=== PATIENT | male | born 1955 | race Caucasian/White ===

== ENCOUNTER 2016-03-10 18:35 | Observation (INO) | payer MEDICARE, MEDICAID ==
[2016-03-10] MEDS ORDERED: NORMAL SALINE 1,000 ML IV PRN (18:48)
[2016-03-10] MEDS ORDERED: ONDANSETRON HCL/PF 2 MG/ML VIAL IV ONE (18:50)
--- NOTE | 2016-03-10 18:58 | ERNOTE ---
Medical Problem HPI - Narrative Date of Service: 03/10/16 - General Chief Complaint: Flu Symptoms Time Seen by Provider: 03/10/16 18:42 Source: patient Exam Limitations: no limitations - Immun/Allergies/Home Medications Immunizations: IMMUNIZATION HX Immunizations Up to Date Yes History of Influenza Vaccine Yes Hx Pneumococcal Vaccination Yes Allergies/Adverse Reactions: Allergies No Known Allergies Allergy (Verified 01/13/16 17:03) Home Medications: HOME MEDICATIONS Acetaminophen [Tylenol] 650 mg PO QID PRN #0 tablet 01/15/16 [Last Taken Unknown ] Aspirin [Aspirin Enteric Coated] 81 mg PO DAILY #30 tablet. 01/15/16 [Last Taken Unknown] Foam Bandage [Mepilex Border] 1 each TP DAILY #30 bandage 01/15/16 [Last Taken Unknown] Hydrophilic Ointment [Aquaphilic Ointment] 1 appl TP BID #1 jar 01/15/16 [Last Taken Unknown] Insulin Detemir [Levemir Flextouch] 40 unit SQ BID 30 Days 01/15/16 [Last Taken Unknown] Insulin Lispro [Humalog] 0 - 30 units SQ ACHS 30 Days 01/15/16 [Last Taken Unknown] Metoclopramide HCl [Reglan] 10 mg PO ACHS #120 tablet 01/15/16 [Last Taken Unknown] Metoprolol Succinate [Toprol Xl] 50 mg PO DAILY #30 tab 01/15/16 [Last Taken Unknown] Mupirocin [Bactroban] 1 appl TP BID #1 tube 01/15/16 [Last Taken Unknown] Pravastatin Sodium [Pravachol] 80 mg PO DAILY #30 tablet 01/15/16 [Last Taken Unknown] Rifampin [Rifadin] 300 mg PO BID #20 capsule 01/15/16 [Last Taken Unknown] - History of Present History Narrative: As then some nausea vomiting and diarrhea that's been going on for the past few days, he is unable to hold anything down and he's not been taking his insulin. He is insulin-dependent diabetic.. Weak dizzy lightheaded. Although he denies any chest pain he is having some abdominal cramping.. Blood in his stools he's vomited quite a few times and has had diarrhea as stated. Fever and nasal congestion runny nose no cough no chest pain or shortness of breath Date (Duration): 03/03/16 Timing: intermittent Review of Systems - Review of Systems Constitutional: Absent: fever, chills, diaphoresis, weakness, fatigue, malaise EYE: Absent: double vision Cardiology: Absent: chest pain, palpitations Gastrointestinal/Abdominal: Present: vomiting, diarrhea, abdominal pain. Absent : nausea, constipation Musculoskeletal: Absent: back pain, muscle pain All Other Systems: All systems neg except as marked - Patient's Past Medical History Patient History - Medical: Alcohol Abuse, Diabetes Type 2 Patient History - Cardiac/Respiratory: Hypertension Patient History - Cancer: Colon Patient History - Surgical Procedures: Amputation, Back Surgery, Colon Resection Patient History - Other: None - Family History Mother Family History - Medical: History Unknown Family History - Cardiac/Respiratory: History Unknown Father Family History - Medical: - Social History Living Situations: alone Abuse History: No History of abuse Psych History: No pertinent hx Alcohol Use: sober Drug Use: none - Immunizations Immunizations Up to Date: Yes Hx Pneumococcal Vaccination: Yes History of Influenza Vaccine: Yes Physical Exam - Physical Exam General Appearance: Present: wd/wn, alert, no apparent distress Ears, Nose, Throat: Present: normal ENT inspection, hearing grossly normal, normal pharynx Neck: Present: normal inspection, nontender Respiratory: Present: no respiratory distress, normal breath sounds, no accessory muscle use, chest nontender, lungs clear Cardiovascular/Chest: Present: regular rate, rhythm, no murmur, normal peripheral pulses Gastrointestinal/Abdominal: Present: normal bowel sounds, nontender, nondistended, soft, no organomegaly, hernia - does have a ventral hernia which is reducible. Non-Tender ED Progress - Results and Orders Patient's Lab Results:: I have reviewed the patient's lab results. - Vital Signs Patient's Vital Signs:: I have reviewed the patient's vital signs. Vital Signs: Vital Signs 03/10/16 18:38 Temperature 35.7 C L Pulse Rate 100 Respiratory 18 Rate Blood Pressure 148/80 O2 Sat by Pulse 100 Oximetry - EKG EKG: RBBB EKG read: Reviewed by me EKG Comments: Rate 94 sinus rhythm right bundle branch block acute changes seen - Progress/Reassessment Chief Complaint: Flu Symptoms Progress:: Improved - Transfer of Care Expected Disposition: Admit Departure - Departure Clinical Impression: Stage 3 chronic kidney disease due to type 2 diabetes mellitus, Dehydration, Insulin dependent diabetes mellitus, Gastroenteritis Disposition: [facility] Condition: Stable Additional Instructions: Will be admitted to the hospital observation for fluid hydration or Julieth LEE
[2016-03-10] MEDS ORDERED: ONDANSETRON HCL/PF 2 MG/ML VIAL ONE (19:12)
[2016-03-10 19:13] LABS: Hematocrit 42.8 % (42.0-52.0); Hemoglobin 14.8 gm/dL (13.5-18.0); Mean Cell Volume 85.4 fl (78-100); Mean Corpuscular Hemoglobin 29.5 pg (27-31); Mean Corpuscular Hgb Conc 34.6 g/dl (32-36); Mean Platelet Volume 9.7 fl (6.0-9.5); Neutrophil # 6.2 K/mm3 (1.3-6.0); Neutrophil % 74.8 % (42-75.0); Platelet Count 302 K/mm3 (150-450); Red Blood Count 5.01 M/mm3 (4.7-6.0); Red Cell Distribution Width 12.4 % (11.5-14.0); White Blood Count 8.3 K/mm3 (4.0-10.5)
[2016-03-10 19:35] LABS: Urine Bilirubin Negative (NEGATIVE); Urine Ketone 15 mg/dL (NEGATIVE); Urine Nitrite Negative (NEGATIVE); Urine Protein 30 mg/dL (NEGATIVE); Urine Urobilinogen Normal (NORMAL)
[2016-03-10 19:36] LABS: ALT 34 U/L (19-67); AST 25 U/L (0-48); Albumin * 3.6 gm/dl (3.4-5.0); Alkaline Phosphatase * 51 U/L (50-170); Anion Gap 16.9 mmol/L (6.8-13.8); BUN/Creatinine Ratio 12.6 (9.0-21.6); Bilirubin, Total 0.6 mg/dL (0.0-1.1); Blood Urea Nitrogen 22 mg/dL (6-23); Ca. Corrected For Albumin 8.7 mg/dL (8.4-10.2); Calcium * 8.7 mg/dL (7.9-10.9); Chloride 97 mmol/L (97-106); Glucose * 263 mg/dL (70-110); Lipase 95 U/L (73-393); Potassium 3.9 mmol/L (3.4-4.6); Sodium 136 mmol/L (132-142); Total Protein 7.6 gm/dL (6.2-8.2)
[2016-03-10 19:37] LABS: Troponin I Less than 0.017 ng/ml (0.00-0.10)
[2016-03-10 19:48] LABS: Urine Appearance Clear; Urine Blood 10 /ul (NEGATIVE); Urine Color Yellow
[2016-03-10 19:49] LABS: Urine Bacteria TRACE; Urine RBC 0-5 /hpf (0-5)
[2016-03-10 19:50] LABS: Urine Yeast TRACE
--- NOTE | 2016-03-10 20:58 | HP ---
<Julieth Pichardo - Last Filed: 03/10/16 23:04> Chief Complaint - Chief Complaint Date of Service: 03/10/16 Time of Service: 22:26 Chief Complaint: n/v/d History of Present Illness: Pt is a 60 year old male with a PMH significant for DMII, HTN, and previous MRSA. He presented to the ER with complaints of n/v/d. He states () night he started feeling nauseated, this continued into Wednesday morning and he was unable to keep anything down except water. It progressively got worse and worse. He states he had diarrhea on Wednesday and Wednesday, however has been free today. He did not take anything at home prior to this for his symptoms. Denies fevers, abdominal pain, recent sick contacts, sore throat, cough, or noting any blood in stool or emesis. +chills and increased thirst. Hasn't been taking his insulin since as he ran out of his test strips and didn't want to take any on account of being sick. Denies any alleviating or aggravating symptoms. BS have been running 160-235 at home prior to this. Was recently admitted two months ago for DKA. Sees Dr. Laguerre once a month for chronic left foot ulcer. No increased drainage, erythema, or warmth noted to the area per patient. Currently has daily dressing changes with silvadene application. In the ER laboratory findings were as followed: glucose 253, anion gap 16.9, BUN/creat 22/1.75, K+3.9, Na+136, WBC 8.3, H/H 14.8/42.8. Vital signs stable. Abdominal xray without any acute pathologies. He was still unable to tolerate oral intake during ER course, therefore he will be admitted to observation overnight with lactic acidosis, gastroparesis and elevated glucose. - Patient's Past Medical History Patient History - Medical: Alcohol Abuse - in remission. stopped drinking in 2005, Diabetes Type 2 Patient History - Cardiac/Respiratory: Hypertension Patient History - Cancer: Colon Patient History - Surgical Procedures: Amputation - Right little toe amputation d/t DM, Back Surgery - fell injuring his lower back, resulting in right leg weakness. Resolved with back surgery per Dr. He in [place]. , Colon Resection - 2ft resected in [place], Colonoscopy Patient History - Other: None - Family History Mother Family History - Medical: History Unknown Family History - Cardiac/Respiratory: History Unknown Family History - Cancer: History Unknown Father Family History - Medical: Family History - Cancer: History Unknown - Social History Living Situations: alone Abuse History: Hx of Substance Use - ETOH Psych History: No pertinent hx Does anyone smoke in the home?: No Smoking Status: Former smoker - quit 1990s Have you smoked in the past 12 months: No Do you dip or chew tobacco: No Alcohol Use: sober Drug Use: none - Immunizations Immunizations Up to Date: Yes Hx Pneumococcal Vaccination: Yes History of Influenza Vaccine: Yes Review Of Systems (GEN) - Review of Systems Generalized/Overall Review: Present: No Symptoms Reported EENTM: Present: No Symptoms Reported Respiratory: Present: No Symptoms Reported Cardiac: Present: No Symptoms Reported Abdominal: Present: No Symptoms Reported Genitourinary: Present: No Symptoms Reported Musculoskeletal: Present: No Symptoms Reported Neurological: Present: No Symptoms Reported Skin: Present: No Symptoms Reported Endocrine: Present: No Symptoms Reported Allergies/Adverse Reactions: Allergies Allergy/AdvReac Type Severity Reaction Status Date / Time No Known Allergies Allergy Verified 01/13/16 17:03 Home Medications: HOME MEDICATIONS Acetaminophen [Tylenol] 650 mg PO QID PRN #0 tablet 01/15/16 [Last Taken Unknown ] Aspirin [Aspirin Enteric Coated] 81 mg PO DAILY #30 tablet. 01/15/16 [Last Taken Unknown] Foam Bandage [Mepilex Border] 1 each TP DAILY #30 bandage 01/15/16 [Last Taken Unknown] Hydrophilic Ointment [Aquaphilic Ointment] 1 appl TP BID #1 jar 01/15/16 [Last Taken Unknown] Insulin Detemir [Levemir Flextouch] 40 unit SQ BID 30 Days 01/15/16 [Last Taken Unknown] Metoclopramide HCl [Reglan] 10 mg PO ACHS #120 tablet 01/15/16 [Last Taken Unknown] Metoprolol Succinate [Toprol Xl] 50 mg PO DAILY #30 tab 01/15/16 [Last Taken Unknown] Mupirocin [Bactroban] 1 appl TP BID #1 tube 01/15/16 [Last Taken Unknown] Pravastatin Sodium [Pravachol] 80 mg PO DAILY #30 tablet 12/07/16 [Last Taken Unknown] Rifampin [Rifadin] 300 mg PO BID #20 capsule 01/15/16 [Last Taken Unknown] Insulin Lispro [Humalog] 0 - 30 units SQ ACHS 30 Days 03/11/16 [Last Taken Unknown] Silver Sulfadiazine [Silvadene] 1 appl TP DAILY jar 03/11/16 [Last Taken Unknown] Exam - Exam Vital Signs: Vital Signs - Last Taken Temp 35.7 C L 03/10/16 18:38 Pulse 88 03/10/16 20:00 Resp 18 03/10/16 20:00 BP 156/84 03/10/16 20:00 Pulse Ox 97 RA 03/10/16 20:00 Constitutional: Present: Alert, Oriented x3, Cooperative, No distress ENT Exam: Present: normal ENT inspection, hearing grossly normal, moist mucous membranes Eye Exam: bilateral eye: normal inspection, PERRL Back Exam: Present: no CVA tenderness Respiratory: Present: normal breath sounds, no respiratory distress, no accessory muscle use, decreased breath sounds Cardiovascular/Chest: Present: normal peripheral pulses, regular rate, rhythm, no chest tenderness, no edema, no murmur Peripheral Pulses: dorsalis-pedis (R): 2+, dorsalis-pedis (L): 2+, radial (R): 2 +, radial (L): 2+ Abdomen: Present: Normal bowel sounds, soft, nontender, nondistended Extremity: Present: normal range of motion, non-tender, normal inspection, no pedal edema, no calf tenderness, normal capillary refill Skin Exam: Present: normal color, warm/dry, no cyanosis, other - left plantar foot ulcer, small drainage noted. No erythema or warmth. Neurologic: Present: no motor/sensory deficits, alert, normal mood/affect, oriented x 3 Appearance: Present: appropriate appearance, appropriate insight, neat, no memory impairment Eye contact: Present: cooperative, good eye contact, normal speech Thoughts: Present: normal thought pattern, no apparent hallucination Diagnostic Studies: Laboratory Results Laboratory Tests 03/10/16 03/10/16 03/10/16 19:05 19:05 19:05 WBC 8.3 Hgb 14.8 Hct 42.8 Plt Count 302 Sodium 136 Potassium 3.9 Chloride 97 Carbon Dioxide 26.0 Anion Gap 16.9 H BUN 22 Creatinine 1.75 H Est GFR (Non-Af Amer) 42 L Troponin I Less than 0.017 Urine Glucose (UA) Urine WBC Hyaline Casts Urine Yeast Serum Ketones Influenza Type A Ag Negative Influenza Type B Ag Negative 03/10/16 03/10/16 19:10 20:37 WBC Hgb Hct Plt Count Sodium Potassium Chloride Carbon Dioxide Anion Gap BUN Creatinine Est GFR (Non-Af Amer) Troponin I Urine Glucose (UA) >=1000 H Urine WBC 10-25 H Hyaline Casts 5-10 H Urine Yeast Trace Serum Ketones Negative Influenza Type A Ag Influenza Type B Ag Assessment/Plan - Assessment/Plan (1) Lactic acidosis Assessment: Pt was likely on his way to DKA. Luckily upon presentation negative serum ketones, anion gap 16.9, and urine ketones only 15, although urine glucose > 1000. BG 263 in ER, lactic acid elevated at 3.4. 2L fluid bolus given. Will repeat lactic acid level at 0100. Place pt back on Levemir and low dose SSI for glucose control. -20 units Levemir BID -Low dose SSI -2L NS bolus -.9 with 20meq KCL @ 125ml/hr -Repeat lactic acid @ 0100 Problem: Acute (2) Gastroenteritis Assessment: Etiology likely from diabetes mellitus. Pt has not been taking insulin and BS have been elevated causing delayed gastric emptying. Currently on Reglan 10mg PO TID, however hasn't been taking due to nausea. Nausea much improved following IV zofran, will resume Reglan in the morning. Will provide IV hydration overnight and also provided low dose SSI and resume his Levimer at a lower dose to control his glucose levels below 200 which should also help improve gastric emptying. -PRN Zofran -Clear liquid diet Problem: Acute (3) Insulin dependent diabetes mellitus Assessment: BS 263 on arrival to ER. Will decrease Levemir to 20meq until pt is able to keep regular diet down, continue with low dose SSI to better control BG and increase gastric emptying. -Levemir 20 units BID -Humalog low dose SSI ac/hs -accu checks ac/hs Problem: Chronic (4) Stage 3 chronic kidney disease due to type 2 diabetes mellitus Assessment: Creatinine elevated at 1.75 on admission, however this is close to his baseline , actually improved from last draw. Will provided IVF overnight and recheck in am. Received 2L bolus in ER. -CMP in am -.9 with 20meq KCL @125ml Problem: Chronic (5) Hypertension Assessment: Stable -Continue Toprol XL 50mg daily Problem: Chronic (6) Ulcer of foot due to diabetes Assessment: Resume dressing changes per Dr. Laguerre orders. No s/s of infection. -Daily dressing changes with silvadene application Problem: Chronic QualifierTitle: Diabetes mellitus type: type 2 Laterality: left Qualified Code(s): E11.621 - Type 2 diabetes mellitus with foot ulcer; L97.529 - Non-pressure chronic ulcer of other part of left foot with unspecified severity <Pablo Barahona - Last Filed: 03/11/16 16:56> Immunizations: IMMUNIZATION HX Immunizations Up to Date Yes History of Influenza Vaccine Yes Hx Pneumococcal Vaccination Yes Exam - Exam Vital Signs: Vital Signs - Last Taken Temp 36.7 C 03/11/16 10:19 Pulse 72 03/11/16 10:19 Resp 20 03/11/16 10:19 BP 156/81 03/11/16 10:19 Pulse Ox 96 03/11/16 10:19 Diagnostic Studies: Abnormal Lab Results 03/10/16 03/11/16 03/11/16 Range/Units 20:37 06:10 06:15 RBC 4.11 L (4.7-6.0) M/mm3 Hgb 12.2 L (13.5-18.0) gm/dL Hct 34.9 L (42.0-52.0) % MPV 9.6 H (6.0-9.5) fl Carbon Dioxide 23.2 L (24-32.6) mmol/L Random Glucose 171 H D (70-110) mg/dL Lactic Acid, Venous 3.4 H* (0.4-2.0) mmol/L Calcium 7.6 L (7.9-10.9) mg/dL Calcium Adj for Albumin 8.2 L (8.4-10.2) mg/dL Alkaline Phosphatase 39 L (50-170) U/L Albumin 2.8 L (3.4-5.0) gm/dl Laboratory Results WBC 7.3 K/mm3 (4.0-10.5) 03/11/16 06:10 RBC 4.11 M/mm3 (4.7-6.0) L 03/11/16 06:10 Hgb 12.2 gm/dL (13.5-18.0) L 03/11/16 06:10 Hct 34.9 % (42.0-52.0) L 03/11/16 06:10 MCV 84.9 fl (78-100) 03/11/16 06:10 MCH 29.7 pg (27-31) 03/11/16 06:10 MCHC 35.0 g/dl (32-36) 03/11/16 06:10 RDW 12.4 % (11.5-14.0) 03/11/16 06:10 Plt Count 233 K/mm3 (150-450) 03/11/16 06:10 MPV 9.6 fl (6.0-9.5) H 03/11/16 06:10 Immature Gran % (Auto) 0.40 % (0.001-0.429) 03/11/16 06:10 Immature Gran # (Auto) 0.03 K/mm3 (0.000-0.0310) 03/11/16 06:10 Neutrophils % 61.0 % (42-75.0) 03/11/16 06:10 Lymphocytes % 28.2 % (20-51) 03/11/16 06:10 Monocytes % 9.0 % (0.0-9) 03/11/16 06:10 Eosinophils % 1.0 % (0.0-3.0) 03/11/16 06:10 Basophils % 0.4 % (0.0-1.0) 03/11/16 06:10 Nucleated RBC % 0.0 k/mm3 (0-1) 03/11/16 06:10 Neutrophils # 4.4 K/mm3 (1.3-6.0) 03/11/16 06:10 Lymphocytes # 2.1 k/mm3 (1.5-3.5) 03/11/16 06:10 Monocytes # 0.7 k/mm3 (0.0-1.0) 03/11/16 06:10 Eosinophils # 0.1 k/mm3 (0.0-0.7) 03/11/16 06:10 Absolute Basophils 0.0 k/mm3 (0.0-0.1) 03/11/16 06:10 Sodium 137 mmol/L (132-142) 03/11/16 06:15 Plasma Sodium 138 mmol/L (130-142) 03/11/16 06:15 Potassium 3.8 mmol/L (3.4-4.6) 03/11/16 06:15 Chloride 104 mmol/L (97-106) 03/11/16 06:15 Carbon Dioxide 23.2 mmol/L (24-32.6) L 03/11/16 06:15 Anion Gap 13.6 mmol/L (6.8-13.8) 03/11/16 06:15 BUN 16 mg/dL (6-23) 03/11/16 06:15 Creatinine 1.25 mg/dL (0.4-1.4) 03/11/16 06:15 Est GFR (Non-Af Amer) 62 mL/min (60-130) D 03/11/16 06:15 BUN/Creatinine Ratio 12.8 (9.0-21.6) 03/11/16 06:15 Random Glucose 171 mg/dL (70-110) H D 03/11/16 06:15 Lactic Acid, Venous 1.1 mmol/L (0.4-2.0) 03/11/16 02:15 Calcium 7.6 mg/dL (7.9-10.9) L 03/11/16 06:15 Calcium Adj for Albumin 8.2 mg/dL (8.4-10.2) L 03/11/16 06:15 Total Bilirubin 0.7 mg/dL (0.0-1.1) 03/11/16 06:15 AST 25 U/L (0-48) 03/11/16 06:15 ALT 31 U/L (19-67) 03/11/16 06:15 Alkaline Phosphatase 39 U/L (50-170) L 03/11/16 06:15 Troponin I Less than 0.017 ng/ml (0.00-0.10) 03/10/16 19:05 Total Protein 6.2 gm/dL (6.2-8.2) 03/11/16 06:15 Albumin 2.8 gm/dl (3.4-5.0) L 03/11/16 06:15 Lipase 95 U/L (73-393) 03/10/16 19:05 Urine Color Yellow 03/10/16 19:10 Urine Appearance Clear 03/10/16 19:10 Urine pH 6.0 pH (5.0-7.0) 03/10/16 19:10 Ur Specific [place] 1.020 SP.GR. (1.005-1.030) 03/10/16 19:10 Urine Protein 30 mg/dL (NEGATIVE) H 03/10/16 19:10 Urine Glucose (UA) >=1000 mg/dL (NEGATIVE) H 03/10/16 19:10 Urine Ketones 15 mg/dL (NEGATIVE) 03/10/16 19:10 Urine Blood 10 /ul (NEGATIVE) H 03/10/16 19:10 Urine Nitrate Negative (NEGATIVE) 03/10/16 19:10 Urine Bilirubin Negative mg/dl (NEGATIVE) 03/10/16 19:10 Prot Sulfosalicylic Acd 2+ mg/dL (0) H 03/10/16 19:10 Urine Urobilinogen Normal EU/dl (NORMAL) 03/10/16 19:10 Ur Leukocyte Esterase Negative /ul (NEGATIVE) 03/10/16 19:10 Urine RBC 0-5 /hpf (0-5) 03/10/16 19:10 Urine WBC 10-25 /hpf (0-5) H 03/10/16 19:10 Ur Epithelial Cells 0-5 /hpf (0-5) 03/10/16 19:10 Urine Bacteria Trace (NONE) 03/10/16 19:10 Hyaline Casts 5-10 /LPF (NONE) H 03/10/16 19:10 Urine Yeast Trace (NONE) 03/10/16 19:10 Urine Culture Comments No culture indicated 03/10/16 19:10 Serum Ketones Negative (NEGATIVE) 03/10/16 20:37 Influenza Type A Ag Negative (NEGATIVE) 03/10/16 19:05 Influenza Type B Ag Negative (NEGATIVE) 03/10/16 19:05 Assessment/Plan - Narrative Narrative: I reviewed the record and examined the patient. I directly supervised Julieth Pichardo's care for this patient. Symptom control, fluids, and monitoring labs will be the main care components. Insulin will still be given s.c. Diet will be advanced as we are able. Estimate hospital stay of one midnight. - Assessment/Plan (1) Vomiting and diarrhea Problem: Acute (2) Acute worsening of stage 3 chronic kidney disease Problem: Acute (3) Dehydration Problem: Acute (4) Lactic acidosis Problem: Acute (5) Insulin dependent diabetes mellitus Problem: Chronic (6) Hyperglycemia Problem: Acute (7) MRSA (methicillin resistant Staphylococcus aureus) carrier Problem: Chronic (8) Foot deformity, bilateral Problem: Chronic (9) Gastroparesis due to DM Problem: Chronic (10) Hypertension Problem: Chronic Qualifiers: Hypertension type: essential hypertension Qualified Code(s): I10 - Essential (primary) hypertension (11) Peripheral neuropathy Problem: Chronic Qualifiers: Peripheral neuropathy type: polyneuropathy, unspecified Qualified Code(s): G62.9 - Polyneuropathy, unspecified
[2016-03-10] MEDS ORDERED: NORMAL SALINE 1,000 ML IV ONE (21:04)
[2016-03-10] MEDS ORDERED: ONDANSETRON HCL/PF 2 MG/ML VIAL IV PRN (21:15)
[2016-03-10] MEDS ORDERED: ACETAMINOPHEN 325 MG TABLET PO PRN (21:28)
[2016-03-10] MEDS: MUPIROCIN 22 APPL TUBE TP SCH (22:14)
[2016-03-10] MEDS: RIFAMPIN 300 MG CAPSULE PO SCH (22:14)
[2016-03-10] MEDS: HYDROPHILIC OINTMENT 454 APPL JAR TP SCH (22:14)
[2016-03-10] MEDS: INSULIN DETEMIR 100 UNITS/ML VIAL SC SCH (22:16)
[2016-03-10] MEDS: INSULIN LISPRO 100 UNITS/ML VIAL SC SCH (22:23)
[2016-03-10] MEDS: POTASSIUM CHLORIDE 20 MEQ in NORMAL SALINE 1,000 ML IV SCH (22:35)
[2016-03-11 06:40] LABS: Hematocrit 34.9 % (42.0-52.0); Hemoglobin 12.2 gm/dL (13.5-18.0); Mean Cell Volume 84.9 fl (78-100); Mean Corpuscular Hemoglobin 29.7 pg (27-31); Mean Platelet Volume 9.6 fl (6.0-9.5); Neutrophil # 4.4 K/mm3 (1.3-6.0); Platelet Count 233 K/mm3 (150-450); Red Blood Count 4.11 M/mm3 (4.7-6.0); Red Cell Distribution Width 12.4 % (11.5-14.0); White Blood Count 7.3 K/mm3 (4.0-10.5)
[2016-03-11] MEDS: POTASSIUM CHLORIDE 20 MEQ in NORMAL SALINE 1,000 ML IV SCH (06:58)
[2016-03-11 07:07] LABS: Albumin * 2.8 gm/dl (3.4-5.0); Anion Gap 13.6 mmol/L (6.8-13.8); BUN/Creatinine Ratio 12.8 (9.0-21.6); Bilirubin, Total 0.7 mg/dL (0.0-1.1); Ca. Corrected For Albumin 8.2 mg/dL (8.4-10.2); Calcium * 7.6 mg/dL (7.9-10.9); Carbon Dioxide 23.2 mmol/L (24-32.6); Potassium 3.8 mmol/L (3.4-4.6); Total Protein 6.2 gm/dL (6.2-8.2)
[2016-03-11] MEDS: INSULIN LISPRO 100 UNITS/ML VIAL SC SCH ×2 (07:42→11:53)
[2016-03-11] MEDS: METOCLOPRAMIDE HCL 10 MG TABLET PO SCH ×2 (07:43→11:53)
[2016-03-11] MEDS ORDERED: SILVER SULFADIAZINE 25 APPL JAR TP SCH (09:00)
[2016-03-11] MEDS ORDERED: SILVER SULFADIAZINE 50 APPL JAR TP SCH (09:00)
[2016-03-11] MEDS ORDERED: ROSUVASTATIN CALCIUM 10 MG TABLET PO SCH ×2 (09:00→21:00)
[2016-03-11] MEDS ORDERED: FOAM BANDAGE TP SCH (09:00)
[2016-03-11] MEDS ORDERED: METOPROLOL SUCCINATE 50 MG TABLET.SA PO SCH (09:00)
[2016-03-11] MEDS: HYDROPHILIC OINTMENT 454 APPL JAR TP SCH (09:45)
[2016-03-11] MEDS: RIFAMPIN 300 MG CAPSULE PO SCH (09:46)
[2016-03-11] MEDS: INSULIN DETEMIR 100 UNITS/ML VIAL SC SCH (09:47)
[2016-03-11] MEDS: MUPIROCIN 22 APPL TUBE TP SCH (09:47)
[2016-03-11 10:19] VITALS: BP 156/81
--- NOTE | 2016-03-11 13:25 | DS ---
(1) Vomiting and diarrhea Problem: Acute (2) Acute worsening of stage 3 chronic kidney disease Problem: Acute (3) Dehydration Problem: Acute (4) Lactic acidosis Problem: Acute (5) Insulin dependent diabetes mellitus Problem: Chronic (6) Hyperglycemia Problem: Acute (7) MRSA (methicillin resistant Staphylococcus aureus) carrier Problem: Chronic (8) Foot deformity, bilateral Problem: Chronic (9) Gastroparesis due to DM Problem: Chronic (10) Hypertension Problem: Chronic Qualifiers: Hypertension type: essential hypertension (11) Peripheral neuropathy Problem: Chronic Qualifiers: Peripheral neuropathy type: polyneuropathy, unspecified Qualified Code(s): G62.9 - Polyneuropathy, unspecified Description of Stay: Rehydrated IV. Electrolytes corrected. Symptomatic treatment given. Insulin given s.c. Much better this morning. No nausea. No diarrhea. Ate good breakfast. Up and around. Procedures Performed: none Discharge Disposition: Home self care Disposition: Home self-care Condition: Stable Referrals: Pablo Barahona MD [Primary Care Provider] - Problem Oriented Discharge Instructions to Patient/Family: Insulin Treatment for Diabetes, Hyperglycemia, Rehydration, Adult Additional Patient Instructions (free text): Followup with Dr. Cantu in the office in about 1 week. Prescriptions (Any new or edited meds): Insulin Lispro [Humalog] 0 - 30 units SQ ACHS 30 Days Complete Home Medications List: Complete Home Medication List: Acetaminophen [Tylenol] 650 mg PO QID PRN #0 tablet 01/15/16 Aspirin [Aspirin Enteric Coated] 81 mg PO DAILY #30 tablet. 01/15/16 Foam Bandage [Mepilex Border] 1 each TP DAILY #30 bandage 01/15/16 Hydrophilic Ointment [Aquaphilic Ointment] 1 appl TP BID #1 jar 01/15/16 Insulin Detemir [Levemir Flextouch] 40 unit SQ BID 30 Days 01/15/16 Metoclopramide HCl [Reglan] 10 mg PO ACHS #120 tablet 01/15/16 Metoprolol Succinate [Toprol Xl] 50 mg PO DAILY #30 tab 01/15/16 Mupirocin [Bactroban] 1 appl TP BID #1 tube 01/15/16 Pravastatin Sodium [Pravachol] 80 mg PO DAILY #30 tablet 01/15/16 Rifampin [Rifadin] 300 mg PO BID #20 capsule 01/15/16 Insulin Lispro [Humalog] 0 - 30 units SQ ACHS 30 Days 03/11/16 Silver Sulfadiazine [Silvadene] 1 appl TP DAILY jar 03/11/16
== END 2016-03-11 16:30 | disposition home or self-care (01) ==
LOC: ER 18:35 → MS 19:52
PROVIDERS: ADMIT Nurse Practitioner Gerontology; ATTEND Allergy & Immunology
DX: E86.0 Dehydration (principal); R11.10 Vomiting, unspecified; N18.3 Chronic kidney disease, stage 3 (moderate); E11.43 Type 2 diabetes mellitus with diabetic autonomic (poly)neuropathy; E87.2 Acidosis; Z79.4 Long term (current) use of insulin; Z22.322 Carrier or suspected carrier of Methicillin resistant Staphylococcus aureus; M21.962 Unspecified acquired deformity of left lower leg; M21.961 Unspecified acquired deformity of right lower leg; K31.84 Gastroparesis; I10 Essential (primary) hypertension; G62.9 Polyneuropathy, unspecified; Z87.891 Personal history of nicotine dependence; F10.21 Alcohol dependence, in remission
CPT/HCPCS: 36415; 74020; 80053; 81001; 82009; 83605; 83690; 84484; 85025; 87081; 87400; 93005; 96361; 96372; 96374; 99284; G0378

== ENCOUNTER 2016-04-11 10:55 | Inpatient (IN) | payer MEDICARE, MEDICAID ==
[2016-04-11] MEDS ORDERED: VANCOMYCIN HCL 1 GM in DEXTROSE 5 % IN WATER 250 ML IV ONE ×2 (11:23)
[2016-04-11] MEDS ORDERED: HYDROmorphone HCL 1 MG/ML DISP.SYRIN IV ONE (11:23)
[2016-04-11] MEDS ORDERED: PIPERACILLIN SODIUM/TAZOBACTAM 3.375 GM in DEXTROSE 5 % IN WATER 100 ML IV ONE ×2 (11:23)
--- OUTSIDE RECORDS SUMMARY | 2016-04-11 11:28 | XMS REPORT | Continuity of Care Document ---
:1955 Author Organization [facility] ([facility]) Address [address] [place] [address] Phone [phone] Care Team Providers Name Role Phone Brett Beck Primary Care Provider [phone] Source Comments This disclosure is being made pursuant to the Care Everywhere program, applicable federal and state laws, and may not contain all informaitonavailable regarding this patient.[facility] ([facility]) Active Allergies and Adverse Reactions No Known Allergies Current Medications Prescription Sig. Disp. Refills Start Date End Date Status multivitamins w/ Take 1 Tab by mouth Active minerals (CENTRUM daily. SILVER) tablet glyBURIDE 5 mg tablet Take 5 mg by mouth 2 Active times daily with meals. lisinopril 40 mg Take 40 mg by mouth 2 Active tablet times daily. insulin detemir inject 30 Units Active (LEVEMIR FLEXPEN) 100 subcutaneously at unit/mL (3 mL) bedtime. injection pen liraglutide (VICTOZA) inject 1.8 mg Active 0.6 mg/0.1 mL subcutaneously daily. injection pen (3 mL) Active Problems Problem Noted Date Diabetic retinopathy, nonproliferative 04/20/2013 Diabetic macular edema 04/20/2013 Pseudophakia 04/20/2013 Malignant neoplasm of colon, unspecified site 05/24/2009 Social History Tobacco Use Types Packs/Day Years Used Date Former Smoker Cigars Alcohol Use Drinks/Week oz/Week Comments No Last Filed Vital Signs Vital Sign Reading Time Taken Blood Pressure 137/78 05/27/2009 8:00 AM CDT Pulse 70 05/27/2009 8:00 AM CDT Temperature 36 C (96.8 F) 05/27/2009 8:00 AM CDT Respiratory Rate 18 05/27/2009 8:00 AM CDT Height 1.854 m (6' 1") 05/24/2009 5:34 PM CDT Weight 104.2 kg (229 lb 11.5 oz) 05/24/2009 5:34 PM CDT Body Mass Index 30.31 05/24/2009 5:34 PM CDT Oxygen Saturation 98% 05/27/2009 8:00 AM CDT Plan of Care Health Maintenance Due Date Last Done Comments HCV Screening 1955 Hepatitis B Vaccine (1 of 3 - Primary Series) 1955 Tdap Vaccine 1966 DIABETIC: Cholesterol 06/23/1971 Diabetic: Hdl 06/23/1971 DIABETIC: Hemoglobin A1C 06/23/1971 Diabetic: Ldl 06/23/1971 DIABETIC: Microalbumin 06/23/1971 DIABETIC: Triglycerides 06/23/1971 Td Vaccine 06/23/1971 Pneumococcal Vaccine (1 of 3 - PCV13) 1972 Colonoscopy 2003 Prostate Cancer Screening 06/23/2003 DIABETIC: Foot Exam 04/20/2013 DIABETIC: Retinal Eye Exam 04/20/2013 Zoster Vaccine 2013 Influenza Vaccine: Seasonal (#1) 09/09/2015 Results from Last 3 Months Not on file
--- OUTSIDE RECORDS SUMMARY | 2016-04-11 11:28 | XMS REPORT | CCD ---
:1955 Author Name SOLO GONZALEZ Address [address] Unavailable [place], [place] [id number] Care Team Providers Name Role Phone RAMÓN MELENDEZ Attending Physician Unavailable Vital Signs Unknown or Not Available. Allergies Unknown or Not Available. Procedures Unknown or Not Available. History of Immunizations Unknown or Not Available. Problems Unknown or Not Available. Results Unknown or Not Available. Active Medications Unknown or Not Available. Medications Administered During Visit Unknown or Not Available. Encounters Encounter Diagnosis Diagnosis Code Start Date ABNORMALITY OF GAIT 7812 07/12/2014 Social History Smoking Status Code Start Date End Date Former smoker [id number] 02/08/1967 02/08/1987 Patient Decision Aids Unknown or Not Available. Discharge Instructions You were admitted to [facility] on 07/12/2014 with a principal diagnosis of ABNORMALITY OF GAIT. You were discharged from [facility] on 07/12/2014. Should you have any questions prior to discharge, please contact a member of your healthcare team. If you have left the hospital and have any questions, please contact your primary care physician. Chief Complaint and Reason For Visit Unknown or Not Available. Function Status Unknown or Not Available. Plan of Care Diagnostic Test Pending Plan of Care Pending Diagnostic Test B12 LEVEL, SERUM, [LOINC: 2132-9], 07/12/2014 METHYLMALONIC ACID, SERUM, [LOINC: 76533-6], 07/12/2014 Referral/Transition of Care Unknown or Not Available.
--- OUTSIDE RECORDS SUMMARY | 2016-04-11 11:28 | XMS REPORT | CCD ---
:1955 Author Name SOLO GONZALEZ Address [address] [facility] Unavailable [place], [place] [id number] Care Team Providers Name Role Phone RAMÓN MELENDEZ Attending Physician Unavailable Vital Signs Unknown or Not Available. Allergies Unknown or Not Available. Procedures Unknown or Not Available. History of Immunizations Unknown or Not Available. Problems Unknown or Not Available. Results CBC W/DIFF Test Name Code Test Result Test Units Test Date/Time WBC 6690-2 8.7000 K/uL 08/17/2013 09:57 RBC 789-8 4.7900 M/uL 08/17/2013 09:57 HEMOGLOBIN 718-7 14.4000 g/dL 08/17/2013 09:57 HEMATOCRIT 41.3000 % 08/17/2013 09:57 MCV 86.2000 fL 08/17/2013 09:57 MCH 30.1000 PG 08/17/2013 09:57 MCHC 34.9000 G/DL 08/17/2013 09:57 RDW-SD 40.8000 FL 08/17/2013 09:57 RDW-CV 13.4000 % 08/17/2013 09:57 PLATELETS 248.0000 K/UL 08/17/2013 09:57 MPV 10.4000 FL 08/17/2013 09:57 %GRAN 74.4000 % 08/17/2013 09:57 %LYMPH 15.4000 % 08/17/2013 09:57 %MONO 6.7000 % 08/17/2013 09:57 %EOS 3.2000 % 08/17/2013 09:57 %BASO 0.3000 % 08/17/2013 09:57 #GRAN 6.4500 K/UL 08/17/2013 09:57 #LYMPH 1.3400 K/UL 08/17/2013 09:57 #MONO 0.5800 K/UL 08/17/2013 09:57 #EOS 0.2800 K/UL 08/17/2013 09:57 #BASO 0.0300 K/UL 08/17/2013 09:57 SLIDE REVIEWED? NOT INDICATED N/A 08/17/2013 09:57 MANUAL DIFF NOT INDICATED N/A 08/17/2013 09:57 CRP Test Name Code Test Result Test Units Test Date/Time CRP 0.2000 mg/dL 08/17/2013 09:57 COMPREHENSIVE METABOLIC PANEL Test Name Code Test Result Test Units Test Date/Time GLUCOSE 159.0000 mg/dL 08/17/2013 09:57 SODIUM 137.0000 mmol/L 08/17/2013 09:57 POTASSIUM 4.5000 mmol/L 08/17/2013 09:57 CHLORIDE 102.0000 mmol/L 08/17/2013 09:57 CO2 28.0000 mmol/L 08/17/2013 09:57 BUN 20.0000 mg/dL 08/17/2013 09:57 CREATININE 1.6000 mg/dL 08/17/2013 09:57 BUN/CREAT 12.5000 08/17/2013 09:57 CALCIUM 9.5000 mg/dL 08/17/2013 09:57 TOTAL BILI 0.4000 mg/dL 08/17/2013 09:57 TOTAL PROTEIN 7.6000 g/dL 08/17/2013 09:57 ALBUMIN 3.9000 g/dL 08/17/2013 09:57 A/G RATIO 1.1000 08/17/2013 09:57 ALKALINE PHOS 86.0000 IU/L 08/17/2013 09:57 AST/SGOT 23.0000 IU/L 08/17/2013 09:57 ALT/SGPT 46.0000 IU/L 08/17/2013 09:57 ANION GAP 11.8000 mmol/L 08/17/2013 09:57 AGE 58.0000 YE[age] 08/17/2013 09:57 GFR 47.1000 ml/min 08/17/2013 09:57 IRON & IRON BINDING CAPACITY, SERUM Test Name Code Test Result Test Units Test Date/Time IRON SERUM 75.0000 MCG/DL 08/17/2013 09:57 UIBC 242.0000 MCG/DL 08/17/2013 09:57 TIBC 317.0000 MCG/DL 08/17/2013 09:57 SATURATION 24.0000 % 08/17/2013 09:57 HEPATITIS SCREEN CHRONIC Test Name Code Test Result Test Units Test Date/Time HEPATITIS B SURFACE AB 3.0000 MIU/ML 08/17/2013 09:57 HEPATITIS A AB.--IgG &IgM Negative N/A 08/17/2013 09:57 ANTI HBc, TOTAL Negative N/A 08/17/2013 09:57 HEPATITIS C ANTIBODY NON-REACTIVE N/A 08/17/2013 09:57 HBsAG NON-REACTIVE N/A 08/17/2013 09:57 CEA Test Name Code Test Result Test Units Test Date/Time CEA 0.9000 NG/ML 08/17/2013 09:57 MICROALBUMIN RANDOM Test Name Code Test Result Test Units Test Date/Time UR CREATININE 97.5000 mg/dL 08/17/2013 10:24 MICROALBUMIN RANDOM 76.6000 mg/dL 08/17/2013 10:24 MALB CREAT RATIO 785.6000 mg/g 08/17/2013 10:24 PROTEIN ELECTROPHORESIS, SERUM Test Name Code Test Result Test Units Test Date/Time PROTEIN (TOTAL) 7.1000 G/DL 08/17/2013 09:57 ALBUMIN 4.4000 G/DL 08/17/2013 09:57 ALPHA 1 0.2000 G/DL 08/17/2013 09:57 ALPHA 2 0.8000 G/DL 08/17/2013 09:57 BETA 0.9000 G/DL 08/17/2013 09:57 GAMMA 0.8000 G/DL 08/17/2013 09:57 M SPIKE See Below N/A 08/17/2013 09:57 PATTERN SUGGESTS: See Below N/A 08/17/2013 09:57 PATHOLOGIST: See Below N/A 08/17/2013 09:57 Medications Unknown or Not Available. Medications Administered Unknown or Not Available. Encounters Encounter Diagnosis Diagnosis Code Start Date CHRONIC KIDNEY DISEASE STAGE III 5853 08/17/2013 Social History Smoking Status Code Start Date End Date Former smoker [id number] 02/08/1987 Patient Decision Aids Unknown or Not Available. Discharge Instructions You were admitted to [facility] on 08/17/2013 with a principal diagnosis of CHRONIC KIDNEY DISEASE STAGE III. You had the following procedures done:DX ULTRASOUND-ABDOMEN You had the following tests done:HEPATITIS A AB.--IgG &IgMANTI HBc, TOTALHEPATITIS C ANTIBODYHEPATITIS B SURFACE ABHBsAGCEAPROTEIN (TOTAL)ALBUMINALPHA 1ALPHA 2BETAGAMMAM SPIKEPATTERN SUGGESTS:PATHOLOGIST: You were discharged from [facility] on 08/17/2013. Should you have any questions prior to discharge, please contact a member of your healthcare team. If you have left the hospital and have any questions, please contact your primary care physician. Chief Complaint and Reason For Visit Unknown or Not Available. Function Status Unknown or Not Available. Plan of Care Unknown or Not Available. Referral/Transition of Care Unknown or Not Available.
--- OUTSIDE RECORDS SUMMARY | 2016-04-11 11:28 | XMS REPORT | CCD ---
:1955 Author Name SOLO GONZALEZ Address [address] Unavailable [place], [place] [id number] Care Team Providers Name Role Phone RAMÓN MELENDEZ Attending Physician Unavailable Vital Signs Unknown or Not Available. Allergies Unknown or Not Available. Procedures Unknown or Not Available. History of Immunizations Unknown or Not Available. Problems Unknown or Not Available. Results RENAL FUNCTION PANEL - Collect Date/Time: 03/21/2015 12:29 Test Name Code Test Result Test Units Test Ref Range GLUCOSE 236 mg/dL L=74 H=106 SODIUM 137 mmol/L L=136 H=145 POTASSIUM 4.6 mmol/L L=3.5 H=5.1 CHLORIDE 99 mmol/L L=98 H=107 CO2 26 mmol/L L=21 H=32 BUN 21.0 mg/dL L=7.0 H=18.0 CREATININE 1.5 mg/dL L=0.8 H=1.3 BUN/CREAT 14.0 L=7.6 H=21.2 CALCIUM 10.1 mg/dL L=8.6 H=10.1 PHOSPHORUS 4.7 mg/dL L=2.5 H=4.9 ALBUMIN 3.8 g/dL L=3.4 H=5.0 ANION GAP 16.8 mmol/L L=7.0 H=16.0 AGE 59 YEARS GFR 50.57 ml/min MICROALBUMIN RANDOM - Collect Date/Time: 03/21/2015 12:29 Test Name Code Test Result Test Units Test Ref Range UR CREATININE 83.9 mg/dL MICROALBUMIN RANDOM 51.4 mg/dL L=0.0 H=2.3 MALB CREAT RATIO 612.6 mg/g L=0.0 H=29.0 Active Medications Unknown or Not Available. Medications Administered During Visit Unknown or Not Available. Encounters Encounter Diagnosis Diagnosis Code Start Date Diabetes mellitus type 2 [id number] 03/21/2015 Social History Smoking Status Code Start Date End Date Former smoker [id number] 02/08/1967 02/08/1987 Patient Decision Aids Unknown or Not Available. Chief Complaint and Reason For Visit Unknown or Not Available. Function Status Unknown or Not Available. Plan of Care Unknown or Not Available. Referral/Transition of Care Unknown or Not Available.
--- OUTSIDE RECORDS SUMMARY | 2016-04-11 11:28 | XMS REPORT | CCD ---
:1955 Author Name SOLO GONZALEZ Address [address] Unavailable [place], [place] [id number] Care Team Providers Name Role Phone RAMÓN MELENDEZ Attending Physician Unavailable Vital Signs Unknown or Not Available. Allergies Unknown or Not Available. Procedures Unknown or Not Available. History of Immunizations Unknown or Not Available. Problems Unknown or Not Available. Results ALT/SGPT - Collect Date/Time: 08/08/2014 12:23 Test Name Code Test Result Test Units Test Ref Range ALT/SGPT 57 IU/L L=12 H=78 AST/SGOT - Collect Date/Time: 08/08/2014 12:23 Test Name Code Test Result Test Units Test Ref Range AST/SGOT 28 IU/L L=15 H=37 CPK, TOTAL - Collect Date/Time: 08/08/2014 12:23 Test Name Code Test Result Test Units Test Ref Range CPK 533 U/L L=39 H=308 Active Medications Unknown or Not Available. Medications Administered During Visit Unknown or Not Available. Encounters Encounter Diagnosis Diagnosis Code Start Date ENCOUNTER FOR THERAPEUTIC DRUG JESUS ALBERTO V5883 08/08/2014 Social History Smoking Status Code Start Date End Date Former smoker [id number] 02/08/1967 02/08/1987 Patient Decision Aids Unknown or Not Available. Discharge Instructions You were admitted to [facility] on 08/08/2014 with a principal diagnosis of ENCOUNTER FOR THERAPEUTIC DRUG JESUS ALBERTO. You were discharged from [facility] on 08/08/2014. Should you have any questions prior to [...]
--- OUTSIDE RECORDS SUMMARY | 2016-04-11 11:29 | XMS REPORT | CCD ---
:1955 Author Name SOLO GONZALEZ Address [address] Unavailable [place], [place] [id number] Care Team Providers Name Role Phone RAMÓN MELENDEZ Attending Physician Unavailable Vital Signs Unknown or Not Available. Allergies Unknown or Not Available. Procedures Unknown or Not Available. History of Immunizations Unknown or Not Available. Problems Unknown or Not Available. Results MICROALBUMIN RANDOM Test Name Code Test Result Test Units Test Date/Time UR CREATININE 204.0000 mg/dL 08/14/2013 00:16 MICROALBUMIN RANDOM 91.8000 mg/dL 08/14/2013 00:16 MALB CREAT RATIO 450.0000 mg/g 08/14/2013 00:16 Medications Unknown or Not Available. Medications Administered Unknown or Not Available. Encounters Encounter Diagnosis Diagnosis Code Start Date DIABETES W OTH SPEC MANIFEST,TYPE 2 67938 Social History Smoking Status Code Start Date End Date Former smoker [id number] Patient Decision Aids Unknown or Not Available. Discharge Instructions You were admitted to [facility] with a principal diagnosis of DIABETES W OTH SPEC MANIFEST,TYPE 2. Should you have any questions prior to [...]
[2016-04-11] MEDS ORDERED: NORMAL SALINE 1,000 ML IV ONE (11:39)
[2016-04-11] MEDS ORDERED: HYDROmorphone HCL 1 MG/ML DISP.SYRIN ONE (11:40)
[2016-04-11 11:53] LABS: Hematocrit 40.1 % (42.0-52.0); Hemoglobin 13.6 gm/dL (13.5-18.0); Mean Cell Volume 87.6 fl (78-100); Mean Corpuscular Hemoglobin 29.7 pg (27-31); Mean Corpuscular Hgb Conc 33.9 g/dl (32-36); Mean Platelet Volume 10.2 fl (6.0-9.5); Neutrophil # 7.3 K/mm3 (1.3-6.0); Platelet Count 377 K/mm3 (150-450); Red Blood Count 4.58 M/mm3 (4.7-6.0); Red Cell Distribution Width 12.8 % (11.5-14.0); White Blood Count 10.1 K/mm3 (4.0-10.5)
[2016-04-11 12:10] LABS: Albumin * 3.8 gm/dl (3.4-5.0); Anion Gap 18.4 mmol/L (6.8-13.8); BUN/Creatinine Ratio 14.9 (9.0-21.6); Bilirubin, Total 0.6 mg/dL (0.0-1.1); Ca. Corrected For Albumin 9.9 mg/dL (8.4-10.2); Calcium * 10.1 mg/dL (7.9-10.9); Carbon Dioxide 25.6 mmol/L (24-32.6); Total Protein 8.4 gm/dL (6.2-8.2)
--- NOTE | 2016-04-11 12:43 | ERNOTE ---
Medical Problem HPI - Narrative Date of Service: 04/11/16 - General Chief Complaint: Diabetes Related Problem Time Seen by Provider: 04/11/16 11:15 Source: patient Exam Limitations: no limitations - Immun/Allergies/Home Medications Immunizations: IMMUNIZATION HX Immunizations Up to Date Yes History of Influenza Vaccine Yes Hx Pneumococcal Vaccination Yes Allergies/Adverse Reactions: Allergies No Known Allergies Allergy (Verified 04/11/16 11:06) Home Medications: HOME MEDICATIONS Acetaminophen [Tylenol] 650 mg PO QID PRN #0 tablet 01/15/16 [Last Taken Unknown ] Aspirin [Aspirin Enteric Coated] 81 mg PO DAILY #30 tablet. 01/15/16 [Last Taken Unknown] Foam Bandage [Mepilex Border] 1 each TP DAILY #30 bandage 01/15/16 [Last Taken Unknown] Hydrophilic Ointment [Aquaphilic Ointment] 1 appl TP BID #1 jar 01/15/16 [Last Taken Unknown] Insulin Detemir [Levemir Flextouch] 40 unit SQ BID 30 Days 01/15/16 [Last Taken Unknown] Metoclopramide HCl [Reglan] 10 mg PO ACHS #120 tablet 01/15/16 [Last Taken Unknown] Metoprolol Succinate [Toprol Xl] 50 mg PO DAILY #30 tab 01/15/16 [Last Taken Unknown] Mupirocin [Bactroban] 1 appl TP BID #1 tube 01/15/16 [Last Taken Unknown] Pravastatin Sodium [Pravachol] 80 mg PO DAILY #30 tablet 01/15/16 [Last Taken Unknown] Rifampin [Rifadin] 300 mg PO BID #20 capsule 01/15/16 [Last Taken Unknown] Insulin Lispro [Humalog] 0 - 30 units SQ ACHS 30 Days 03/11/16 [Last Taken Unknown] Silver Sulfadiazine [Silvadene] 1 appl TP DAILY jar 03/11/16 [Last Taken Unknown] - History of Present History Narrative: Patient comes due to swelling and redness on the L foot area. Patient has a chronic ulcer that is not getting better. Timing: constant Severity: moderate Modifying Factors - (Improves): Present: other - nothing Modifying Factors - (Worsens): Present: movement - patient contineus walking on his ulcer area. Review of Systems - Review of Systems Constitutional: Present: malaise EYE: Present: no symptoms reported ENT: Present: no symptoms reported Respiratory: Present: no symptoms reported Cardiology: Present: no symptoms reported Gastrointestinal/Abdominal: Present: no symptoms reported Genitourinary: Present: no symptoms reported Musculoskeletal: Present: muscle pain, other - Patient has a grade IV ulcer on the lateral side of the plantal side of the L foot. Skin: Present: other - Grade IV ulcer, no pus nad no secreation. There is erythema on the L foot area and swelling Endocrine: Present: other - Elevated Blood sugar Hematologic/Lymphatic: Present: no symptoms reported Psych: Present: no symptoms reported All Other Systems: All systems neg except as marked - Patient's Past Medical History Patient History - Medical: Alcohol Abuse, Diabetes Type 2 Patient History - Cardiac/Respiratory: Hypertension, Hyperlipidemia Patient History - Cancer: Colon Patient History - Surgical Procedures: Amputation, Back Surgery, Colon Resection , Colonoscopy, Orthopedic Patient History - Other: None - Family History Mother Family History - Medical: History Unknown Family History - Cardiac/Respiratory: History Unknown Family History - Cancer: History Unknown Father Family History - Medical: Family History - Cancer: History Unknown - Social History Living Situations: alone Abuse History: Hx of Substance Use Psych History: No pertinent hx Does anyone smoke in the home?: No Smoking Status: Never smoker Alcohol Use: sober Drug Use: none - Immunizations Immunizations Up to Date: Yes Hx Pneumococcal Vaccination: Yes History of Influenza Vaccine: Yes Physical Exam - Physical Exam General Appearance: Present: wd/wn, alert, no apparent distress Eye Exam: Normal inspection: bilateral, PERRL: bilateral, EOMI: bilateral Ears, Nose, Throat: Present: normal ENT inspection, normal pharynx Neck: Present: normal inspection, nontender Respiratory: Present: no respiratory distress, normal breath sounds, no accessory muscle use, chest nontender, lungs clear Cardiovascular/Chest: Present: regular rate, rhythm, no murmur, normal peripheral pulses Gastrointestinal/Abdominal: Present: normal bowel sounds, nontender, nondistended, soft, no organomegaly Back Exam: Present: normal inspection, normal range of motion, no CVA tenderness , no vertebral tenderness Extremity Exam: Present: bony tenderness - on the L foot area. 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 Patient has a grade IV ulcer. No crepitus ro gas felt on palpation Neurological Exam: Present: alert, oriented, normal mood/affect, no motor/ sensory deficits Skin Exam: Present: normal color, warm/dry Lymphatic Exam: Present: no adenopathy ED Progress - Date and Time Seen: Date and Time: 04/11/16 12:46 Case has been presented to Hospitalist - Results and Orders Patient's Lab Results:: I have reviewed the patient's lab results. Results and Orders: CMP: Elevated Creat, K: 5.0 CBC: normal WBC LA: Elevated Renal Insufficiency - Vital Signs Patient's Vital Signs:: I have reviewed the patient's vital signs. Vital Signs: Vital Signs 04/11/16 04/11/16 04/11/16 11:03 11:55 12:31 Temperature 36.2 C L Pulse Rate 100 116 H 101 H Respiratory 12 14 16 Rate Blood Pressure 123/84 88/55 89/58 O2 Sat by Pulse 92 98 99 Oximetry - X-Ray X-Ray #1 X-Ray: foot X-ray Comments: OM noticed on film. Radiology report was noticed. - Progress/Reassessment Chief Complaint: Diabetes Related Problem Progress:: Unchanged - Transfer of Care Expected Disposition: Admit Plan - Plan Plan: Admit, IV antibiotics, and Ortho Consult Departure - Departure Clinical Impression: Osteomyelitis Qualifiers: Osteomyelitis type: unspecified type Osteomyelitis location: unspecified site Qualified Code(s): M86.9 - Osteomyelitis, unspecified Cellulitis Qualifiers: Site of cellulitis: unspecified site Qualified Code(s): L03.90 - Cellulitis, unspecified Disposition: [facility] Condition: Fair Referrals: Pablo Barahona MD [Primary Care Provider] -
[2016-04-11] MEDS: NORMAL SALINE 3,000 ML IV ONE ×2 (12:55→14:03)
--- OUTSIDE RECORDS SUMMARY | 2016-04-11 13:01 | XMS REPORT | Continuity of Care Document ---
:1955 Author Organization [facility] ([facility]) Address [address] [place] [address] Phone [phone] Care Team Providers Name Role Phone Brett Beck Primary Care Provider [phone] Source Comments This disclosure is being made pursuant to the Care Everywhere program, applicable federal and state laws, and may not contain all informaitonavailable regarding this patient.[facility] ([facility]) Active Allergies and Adverse Reactions No [...]
[2016-04-11 15:19] LABS: Hemoglobin A1C 9.3 % (4.00-6.0)
--- NOTE | 2016-04-11 15:19 | HP ---
Chief Complaint - Chief Complaint Date of Service: 04/11/16 Time of Service: 15:18 Chief Complaint: drainage from lateral side of left foot for the last 1-2 days. - Patient's Past Medical History Additional info: PAST MEDICAL HISTORY: HTN, HLD, T2 DM poorly controlled, gastroparesis, CKD stage III-IV, neuropathy, chronic low back pain with right leg weakness. Patient History - Cancer: Colon Patient History - Surgical Procedures: Amputation - left little toe in 2009, Back Surgery, Colon Resection, Colonoscopy Patient History - Other: None - Family History Mother Family History - Medical: History Unknown Family History - Cardiac/Respiratory: History Unknown Family History - Cancer: History Unknown Father Family History - Medical: Family History - Cancer: History Unknown - Social History Living Situations: home Abuse History: Hx of Substance Use Psych History: No pertinent hx Does anyone smoke in the home?: No Smoking Status: Former smoker Have you smoked in the past 12 months: No Do you dip or chew tobacco: No Patient requests Smoking Cessation Consult: No Initiate information on Smoking Cessation: No Alcohol Use: sober Drug Use: none - Immunizations Immunizations Up to Date: Yes Hx Pneumococcal Vaccination: Yes History of Influenza Vaccine: Yes Review Of Systems (GEN) - Review of Systems Generalized/Overall Review: Absent: Chills, Fever Respiratory: Absent: Cough, Shortness of Breath Cardiac: Absent: Chest Pain, Edema Neurological: Present: Numbness, Parasthesia - in feet Allergies/Adverse Reactions: Allergies Allergy/AdvReac Type Severity Reaction Status Date / Time No Known Allergies Allergy Verified 04/11/16 13:45 Home Medications: HOME MEDICATIONS Acetaminophen [Tylenol] 650 mg PO QID PRN #0 tablet 01/15/16 [Last Taken Unknown ] Aspirin [Aspirin Enteric Coated] 81 mg PO DAILY #30 tablet. 01/15/16 [Last Taken Unknown] Hydrophilic Ointment [Aquaphilic Ointment] 1 appl TP BID #1 jar 01/15/16 [Last Taken Unknown] Cholecalciferol [Vitamin D] 5,000 unit PO DAILY@1200 #30 tablet 04/20/16 [Last Taken Unknown] Ciprofloxacin HCl [Cipro] 500 mg PO BID #28 tab 04/20/16 [Last Taken Unknown] Diltiazem HCl [Cardizem] 60 mg PO Q8H #90 tablet 04/20/16 [Last Taken Unknown] Enalapril Maleate [Vasotec] 20 mg PO Q12H #60 tablet 04/20/16 [Last Taken Unknown] Hydrophilic Ointment [Aquaphilic Ointment] 1 appl TP BID jar 04/20/16 [Last Taken Unknown] Insulin Glargine,Hum.rec.anlog [Lantus] 40 units SC Q12H #1 vial 04/20/16 [Last Taken Unknown] Insulin Lispro [Humalog] 0 - 6 units SC ACINS #1 vial 04/20/16 [Last Taken Unknown] Insulin Lispro [Humalog] 16 units SC ACINS #1 vial 04/20/16 [Last Taken Unknown] Metoclopramide HCl [Reglan] 10 mg PO ACHS #120 tablet 04/20/16 [Last Taken Unknown] Pravastatin Sodium [Pravachol] 80 mg PO DAILY #30 tablet 04/20/16 [Last Taken Unknown] Saccharomyces Boulardii [Florastor] 250 mg PO BID #60 capsule 04/20/16 [Last Taken Unknown] hydrALAZINE HCL [Apresoline] 10 mg PO Q8H #90 tablet 04/20/16 [Last Taken Unknown] Exam - Exam Vital Signs: Vital Signs - Last Taken Temp 36.4 C L 04/11/16 14:04 Pulse 92 04/11/16 14:04 Resp 20 04/11/16 14:04 BP 151/71 04/11/16 14:04 Pulse Ox 98 04/11/16 14:04 Constitutional: Present: Middle aged, Obese, Looks Older than stated age ENT Exam: Present: hearing grossly normal, moist mucous membranes Eye Exam: bilateral eye: PERRL, EOMI Neck: Present: normal inspection, trachea midline Respiratory: Present: normal breath sounds, no respiratory distress, no accessory muscle use Cardiovascular/Chest: Present: regular rate, rhythm. Absent: tachycardia Peripheral Pulses: carotid (R): 2+, carotid (L): 2+ Abdomen: Present: Normal bowel sounds, soft, nontender, obese Extremity: Present: normal range of motion, non-tender Skin Exam: Present: other - Tunnel present - 1cm on the lateral aspect of LT foot - 3.5 cm x 2.25 cmx 1 cm- 13 cm x 9 cm erythema, redness on lat. side of foot around ulcer. Neurologic: Present: alert, oriented x 3 Eye contact: Present: cooperative, good eye contact Diagnostic Studies: Laboratory Tests 04/11/16 11:30 WBC 10.1 Hgb 13.6 Hct 40.1 L Plt Count 377 04/11/16 11:30 Plasma Sodium 138 Potassium 5.0 H D Chloride 96 L Carbon Dioxide 25.6 BUN 44 H D Creatinine 2.95 H D Est GFR (Non-Af Amer) 23 L D Random Glucose 309 H Calcium Adj for Albumin 9.9 Total Bilirubin 0.6 AST 22 Total Protein 8.4 H Albumin 3.8 04/11/16 04/11/16 11:30 14:18 Lactic Acid, Venous 4.2 H* 1.1 Procalcitonin 0.08 04/11/2016: 11:38: X-ray of left foot: IMPRESSION: 1. Prior resection of the majority of the fifth metatarsal and fifth digit. 2. Focal soft tissue swelling overlying the remaining fifth metatarsal. 3. Additional focal ulceration overlying the tip of the remaining fifth metatarsal with exposed bone and sacral periosteal reaction/erosions indicating osteomyelitis. Assessment/Plan - Narrative Narrative: 1. Osteomyelitis LT foot: Confirmed by x-ray of left foot. Patient started on vancomycin and piperacillin /tazobactam[ pharmacy to adjust doses accordingly and pharmacy to follow levels of vancomycin]. Sedimentation rate and CRP are pending at the time of dictation. Wound culture sent. Discuss with podiatry/orthopedics on regarding further care. 2. Uncontrolled T2 DM: Patient currently on Lantus 40 units twice a day and Humalog 12 units SQ TID WM with a sliding scale. A1c is pending at the time of dictation. 3. HTN: DC beta blockers and start patient on diltiazem ER 180 mg at bedtime. 4. Gastroparesis: Decrease metoclopramide from 10 mg 4 times a day to 5 mg ac
[2016-04-11] MEDS: INSULIN LISPRO 100 UNITS/ML VIAL SC SCH ×2 (17:33)
[2016-04-11] MEDS: METOCLOPRAMIDE HCL 5 MG TABLET PO SCH (17:36)
[2016-04-11] MEDS ORDERED: INSULIN GLARGINE,HUM.REC.ANLOG 100 UNITS/ML VIAL SC SCH (21:00)
[2016-04-11] MEDS ORDERED: ACETAMINOPHEN 325 MG TABLET PO PRN (21:14)
[2016-04-11] MEDS ORDERED: INSULIN DETEMIR SQ SCH (21:15)
[2016-04-11] MEDS: SENNOSIDES 8.6 MG TABLET PO SCH (21:15)
[2016-04-11] MEDS: SACCHAROMYCES BOULARDII 250 MG CAPSULE PO SCH (21:16)
[2016-04-11] MEDS: PIPERACILLIN SODIUM/TAZOBACTAM 3.375 GM in DEXTROSE 5 % IN WATER 100 ML IV SCH ×2 (21:16)
[2016-04-11] MEDS: DILTIAZEM HCL 180 MG CAP.SR.24H PO SCH (21:22)
[2016-04-11] MEDS: HYDROPHILIC OINTMENT 454 APPL JAR TP SCH (21:23)
[2016-04-11] MEDS: ROSUVASTATIN CALCIUM 10 MG TABLET PO SCH (23:22)
[2016-04-12] MEDS: PIPERACILLIN SODIUM/TAZOBACTAM 3.375 GM in DEXTROSE 5 % IN WATER 100 ML IV SCH ×6 (04:17→20:33)
[2016-04-12 05:44] LABS: BUN/Creatinine Ratio 16.8 (9.0-21.6); Calcium * 8.8 mg/dL (7.9-10.9); Carbon Dioxide 23.1 mmol/L (24-32.6); Estimated Creat Clear 40.4; Potassium 5.1 mmol/L (3.4-4.6)
[2016-04-12] MEDS: INSULIN LISPRO 100 UNITS/ML VIAL SC SCH ×7 (06:32→17:30)
[2016-04-12] MEDS: METOCLOPRAMIDE HCL 5 MG TABLET PO SCH ×3 (06:38→17:27)
[2016-04-12] MEDS ORDERED: METOCLOPRAMIDE HCL 10 MG TABLET PO SCH (07:00)
--- NOTE | 2016-04-12 07:33 | PN ---
Subjective - Date and Time Seen Date: 04/12/16 Time: 07:21 Subjective Narrative: No pain in foot. C/O fatigue. Feels well otherwise. Left fifth toe removed by Dr. Martínez in [place] in 2009. "My foot never healed completely." Lately , ulcer over lateral left foot, worsening. He came to the [facility] ER where he as found to have an elevated sed rate, CRP, and plain xray evidence of osteomyelitis in the remaining left distal fifth metatarsal. Objective - Review of Systems Generalized/Overall Review: Reports: Malaise, Fatigue EENTM: Reports: No Symptoms Reported Respiratory: Reports: No Symptoms Reported Cardiac: Reports: No Symptoms Reported Abdominal: Reports: No Symptoms Reported Genitourinary Symptoms: Reports: No Symptoms Reported Musculoskeletal Complaints: Reports: No Symptoms Reported Neurological: Reports: No Symptoms Reported Skin: Reports: Other - see HPI Endocrine: Reports: No Symptoms Reported Misc: All systems neg except as marked - Vitals Vitals: Last Vital Signs Selected Entries 04/12/16 06:28 Temperature 36.7 C Temperature Oral Source Pulse Rate 75 Respiratory 16 Rate Respiratory Normal Depth Respiratory Normal Effort Respiratory Normal Pattern Blood Pressure 128/70 Blood Pressure Supine Position O2 Sat by Pulse 96 Oximetry Oxygen Delivery Room Air Method - Abnormal Lab Findings Abnormal Lab Findings: Abnormal Lab Results Selected Entries 04/11/16 04/11/16 04/11/16 16:00 17:32 17:33 Finger Stick 299 H 295 H 295 H Blood Glucose 04/11/16 04/12/16 04/12/16 21:23 06:32 06:33 Finger Stick 265 H 362 H 362 H Blood Glucose Laboratory Tests 04/11/16 04/11/16 04/11/16 11:30 11:30 11:30 ESR 79 H Potassium Creatinine Hemoglobin A1c 9.3 H C-Reactive Prot, Quant 4.2 H 04/12/16 04:50 ESR Potassium 5.1 H Creatinine 2.14 H D Hemoglobin A1c C-Reactive Prot, Quant - Exam Constitutional: Present: Alert, Oriented x3, Cooperative, Well developed, No distress, Obese ENT Exam: Present: normal ENT inspection, hearing grossly normal Neck: Present: normal inspection Respiratory: Present: lungs clear, no respiratory distress Cardiovascular/Chest: Present: regular rate, rhythm, no murmur Abdomen: Present: Normal bowel sounds, soft, nontender, nondistended, no rebound tenderness, no hepatospenomegaly, no masses, obese Extremity: Present: no pedal edema, other - left fifth toe amputated. 2X3 cm stage 3 ulcer over distal remaining little toe metatarsal. Skin Exam: Present: normal color, warm/dry, no cyanosis Neurologic: Present: alert, oriented x 3, sensory deficit - feet Appearance: Present: appropriate appearance, appropriate insight, neat, no memory impairment Eye contact: Present: cooperative, good eye contact, normal speech Thoughts: Present: normal thought pattern Assessment/Plan Plan Narrative: Control sugars. Antibiotics. Follow labs. Resolve acute renal failure and hyperkalemia. Consult podiatry. - Problems/Diagnosis (1) Hyperkalemia Problem: Acute (2) Cellulitis Problem: Acute Qualifiers: Site of cellulitis: extremity Laterality: left Qualified Code(s): L03.90 - Cellulitis, unspecified (3) Osteomyelitis Problem: Acute Qualifiers: Osteomyelitis type: subacute Osteomyelitis location: foot Laterality: left Qualified Code(s): M86.272 - Subacute osteomyelitis, left ankle and foot (4) Acute worsening of stage 3 chronic kidney disease Problem: Acute (5) Hyperglycemia Problem: Acute (6) Foot deformity, bilateral Problem: Chronic (7) Gastroparesis due to DM Problem: Chronic (8) Hypertension Problem: Chronic Qualifiers: Hypertension type: essential hypertension Qualified Code(s): I10 - Essential (primary) hypertension (9) Peripheral neuropathy Problem: Chronic Qualifiers: Peripheral neuropathy type: polyneuropathy associated with underlying disease Qualified Code(s): G63 - Polyneuropathy in diseases classified elsewhere (10) Stage 3 chronic kidney disease due to type 2 diabetes mellitus Problem: Chronic (11) Ulcer of foot due to diabetes Problem: Chronic Qualifiers: Diabetes mellitus type: type 2 Laterality: left Qualified Code(s): E11.621 - Type 2 diabetes mellitus with foot ulcer; L97.529 - Non-pressure chronic ulcer of other part of left foot with unspecified severity (12) Diabetes mellitus type 2, insulin dependent Problem: Chronic
[2016-04-12] MEDS: INSULIN GLARGINE,HUM.REC.ANLOG 100 UNITS/ML VIAL SC SCH ×2 (07:35→18:51)
[2016-04-12] MEDS: ENOXAPARIN SODIUM 40 MG/0.4 ML SYRG SC SCH (07:35)
[2016-04-12] MEDS ORDERED: METOPROLOL SUCCINATE 50 MG TABLET.SA PO SCH (09:00)
[2016-04-12] MEDS ORDERED: SILVER SULFADIAZINE 50 APPL JAR TP SCH (09:00)
[2016-04-12] MEDS ORDERED: HYDROPHILIC OINTMENT 454 APPL JAR TP SCH (09:00)
[2016-04-12] MEDS ORDERED: FOAM BANDAGE TP SCH (09:00)
[2016-04-12] MEDS: VANCOMYCIN HCL 2 GM in DEXTROSE 5 % IN WATER 500 ML IV SCH ×2 (09:28)
[2016-04-12] MEDS: HYDROPHILIC OINTMENT 454 APPL JAR TP SCH ×2 (09:29→20:41)
[2016-04-12] MEDS: MUPIROCIN 22 APPL TUBE TP SCH ×2 (09:29→20:43)
[2016-04-12] MEDS: ASPIRIN 81 MG TABLET.DR PO SCH (09:29)
[2016-04-12] MEDS: RIFAMPIN 300 MG CAPSULE PO SCH ×2 (09:30→20:45)
[2016-04-12] MEDS: SACCHAROMYCES BOULARDII 250 MG CAPSULE PO SCH ×2 (09:30→20:44)
[2016-04-12] MEDS: CHOLECALCIFEROL 5,000 UNIT TABLET PO SCH (11:39)
[2016-04-12] MEDS: NORMAL SALINE 1,000 ML IV PRN (20:31)
[2016-04-12] MEDS: DILTIAZEM HCL 180 MG CAP.SR.24H PO SCH (20:43)
[2016-04-12] MEDS: ROSUVASTATIN CALCIUM 10 MG TABLET PO SCH (20:44)
[2016-04-12] MEDS: SENNOSIDES 8.6 MG TABLET PO SCH (20:45)
[2016-04-13] MEDS: PIPERACILLIN SODIUM/TAZOBACTAM 3.375 GM in DEXTROSE 5 % IN WATER 100 ML IV SCH ×6 (03:47→20:27)
[2016-04-13 05:34] LABS: Hematocrit 35.4 % (42.0-52.0); Hemoglobin 11.6 gm/dL (13.5-18.0); Mean Cell Volume 88.3 fl (78-100); Mean Corpuscular Hemoglobin 28.9 pg (27-31); Mean Corpuscular Hgb Conc 32.8 g/dl (32-36); Mean Platelet Volume 10.1 fl (6.0-9.5); Neutrophil # 3.9 K/mm3 (1.3-6.0); Neutrophil % 61.2 % (42-75.0); Platelet Count 313 K/mm3 (150-450); Red Blood Count 4.01 M/mm3 (4.7-6.0); Red Cell Distribution Width 12.8 % (11.5-14.0); White Blood Count 6.3 K/mm3 (4.0-10.5)
[2016-04-13 06:33] LABS: Anion Gap 16.4 mmol/L (6.8-13.8); BUN/Creatinine Ratio 15.6 (9.0-21.6); CRP 1.9 mg/dL (0.0-0.9); Calcium * 8.8 mg/dL (7.9-10.9); Carbon Dioxide 22.9 mmol/L (24-32.6); Potassium 4.3 mmol/L (3.4-4.6)
[2016-04-13] MEDS: INSULIN GLARGINE,HUM.REC.ANLOG 100 UNITS/ML VIAL SC SCH ×2 (07:21→18:43)
[2016-04-13] MEDS: METOCLOPRAMIDE HCL 5 MG TABLET PO SCH ×3 (07:21→17:05)
[2016-04-13] MEDS: INSULIN LISPRO 100 UNITS/ML VIAL SC SCH ×6 (07:22→17:06)
[2016-04-13] MEDS: ENOXAPARIN SODIUM 40 MG/0.4 ML SYRG SC SCH (07:22)
[2016-04-13] MEDS: VANCOMYCIN HCL 2 GM in DEXTROSE 5 % IN WATER 500 ML IV SCH ×2 (09:10)
[2016-04-13] MEDS: NORMAL SALINE 1,000 ML IV PRN ×2 (09:13→21:12)
[2016-04-13] MEDS: SACCHAROMYCES BOULARDII 250 MG CAPSULE PO SCH ×2 (09:14→20:27)
[2016-04-13] MEDS: HYDROPHILIC OINTMENT 454 APPL JAR TP SCH ×2 (09:15→20:27)
[2016-04-13] MEDS: ASPIRIN 81 MG TABLET.DR PO SCH (09:15)
[2016-04-13] MEDS: RIFAMPIN 300 MG CAPSULE PO SCH ×2 (09:15→20:28)
[2016-04-13] MEDS: MUPIROCIN 22 APPL TUBE TP SCH ×2 (09:15→20:27)
[2016-04-13] MEDS: CHOLECALCIFEROL 5,000 UNIT TABLET PO SCH (12:15)
--- NOTE | 2016-04-13 12:26 | CONS ---
- Reason for consultation (1) Osteomyelitis Date of Service: 04/13/16 (2) Ulcer of foot due to diabetes Date of Service: 04/13/16 HPI - General Date of Service: 04/13/16 Source: patient Exam Limitations: no limitations - History of Present Illness Initial Comments: Pt seen at bedside resting. Denies any N/V/F/C/SOB. Denies pain in his left foot. He is a known patient to me and I have been following him in the wound center for a DM ulceration on his left foot. States that a few days ago, he was removing a dressing from his left foot and a "hunk of skin" came off with the dressing. He became concerned and presented to the ED for further evaluation. Was admitted with diagnosis of osteomyelitis. I was consulted for surgical evaluation. Associated Symptoms: denies symptoms Allergies/Adverse Reactions: Allergies No Known Allergies Allergy (Verified 04/11/16 13:45) - Patient's Past Medical History Patient History - Medical: Alcohol Abuse, Diabetes Type 2 Patient History - Cardiac/Respiratory: Hypertension, Hyperlipidemia Patient History - Cancer: Colon Patient History - Surgical Procedures: Amputation - left little toe in 2009, Back Surgery, Colon Resection, Colonoscopy Patient History - Other: None - Family History Mother Family History - Medical: History Unknown Family History - Cardiac/Respiratory: History Unknown Family History - Cancer: History Unknown Father Family History - Medical: Family History - Cancer: History Unknown - Social History Living Situations: home Abuse History: Hx of Substance Use Psych History: No pertinent hx Does anyone smoke in the home?: No Smoking Status: Former smoker Have you smoked in the past 12 months: No Do you dip or chew tobacco: No Patient requests Smoking Cessation Consult: No Initiate information on Smoking Cessation: No Alcohol Use: sober Drug Use: none - Immunizations Immunizations Up to Date: Yes Hx Pneumococcal Vaccination: Yes History of Influenza Vaccine: Yes Medications - Medications Current Medications: Current Medications Aspirin (Aspirin Enteric Coated) 81 mg PO DAILY [facility] Stop: 05/12/16 09:01 Last Admin: 04/13/16 09:15 Dose: 81 mg Cholecalciferol (Vitamin D) 5,000 unit PO DAILY@1200 [facility] Stop: 05/12/16 12:01 Last Admin: 04/13/16 12:15 Dose: 5,000 unit Diltiazem HCl (Cardizem Cd) 180 mg PO Q24H [facility] Stop: 05/11/16 21:01 Last Admin: 04/12/16 20:43 Dose: 180 mg Enoxaparin Sodium (Lovenox) 40 mg SC Q24H [facility] Stop: 05/12/16 07:16 Last Admin: 04/13/16 07:22 Dose: 40 mg Piperacillin Sod/Tazobactam (Sod 3.375 gm/ Dextrose/Water) 100 mls @ 25 mls/hr IV Q8H [facility] PRN Reason: Protocol Stop: 05/11/16 20:01 Last Admin: 04/13/16 12:16 Dose: 25 mls/hr Vancomycin HCl 2 gm/ Dextrose/ (Water) 500 mls @ 100 mls/hr IV Q24H [facility] PRN Reason: Protocol Stop: 05/12/16 08:31 Last Admin: 04/13/16 09:10 Dose: 100 mls/hr Sodium Chloride (Sodium Chloride 0.9%) 1,000 mls @ 80 mls/hr IV .[id number] PRN PRN Reason: HYDRATION Stop: 05/12/16 07:06 Last Admin: 04/13/16 09:13 Dose: 80 mls/hr Insulin Glargine (Lantus) 50 units SC Q12H [facility] Stop: 05/12/16 06:46 Last Admin: 04/13/16 07:21 Dose: 50 units Insulin Human Lispro (Humalog) 0 - 6 units SC ACINS [facility] PRN Reason: Protocol Stop: 05/11/16 17:01 Last Admin: 04/13/16 12:17 Dose: 4 units Insulin Human Lispro (Humalog) 16 units SC ACINS [facility] Stop: 05/11/16 17:01 Last Admin: 04/13/16 12:17 Dose: 16 units Metoclopramide HCl (Reglan) 5 mg PO AC [facility] Stop: 05/11/16 17:01 Last Admin: 04/13/16 12:15 Dose: 5 mg Multi-Ingredient Ointment (Aquaphilic Ointment) 1 appl TP BID [facility] Stop: 05/11/16 21:01 Last Admin: 04/13/16 09:15 Dose: 1 appl Mupirocin (Bactroban) 1 appl TP BID [facility] Stop: 05/12/16 09:01 Last Admin: 04/13/16 09:15 Dose: 1 appl Rifampin (Rifadin) 300 mg PO BID [facility] Stop: 05/12/16 09:01 Last Admin: 04/13/16 09:15 Dose: 300 mg Rosuvastatin Calcium (Crestor) 10 mg PO [facility] Stop: 05/11/16 22:01 Last Admin: 04/12/16 20:44 Dose: 10 mg Saccharomyces Boulardii (Florastor) 250 mg PO BID [facility] Stop: 05/11/16 21:01 Last Admin: 04/13/16 09:14 Dose: 250 mg Senna (Senokot) 17.2 mg PO HS [facility] Stop: 05/11/16 21:01 Last Admin: 04/12/16 20:45 Dose: 17.2 mg Review of Systems - Review of Systems Neurological: Present: Numbness Skin: Present: Other - Left foot ulcer, h/o partial left 5th ray ampuation. Misc: All systems neg except as marked Physical Examination - Exam Vital Signs: Vital Signs - Last Taken Temp 36.7 C 04/13/16 10:55 Pulse 79 04/13/16 10:55 Resp 16 04/13/16 10:55 BP 142/77 04/13/16 10:55 Pulse Ox 97 04/13/16 10:55 O2 Oxygen Delivery Method Room Air Constitutional: Present: Alert, Oriented x3, Cooperative, No distress Peripheral Pulses: dorsalis-pedis (L): 2+ Skin Exam: Present: other - Ulceration to plantar lateral left foot measuring 1.5 x 1.5 x 0.5 cm. No tunneling or undermining. Loss of tissue to full thickness with exposure of subcutaneous fat layer. Base mostly yellow, fibrotic tissue, minimal granulation about the periphery. Surrounding tissue hyperkeratotic, otherwise pink and intact. Moderate serous drainage, no malodor. No exposed tendon, however the distal aspect of the previously partially amputated 5th metatarsal is easily visualized and palpated within the ulcerated site. Neurologic: Present: sensory deficit Appearance: Present: appropriate appearance Eye contact: Present: cooperative - Results and Findings: Lab/Microbiology results last 24 hrs: Abnormal/Pending Laboratory Last 24 HRS 04/13/16 04/13/16 04/13/16 05:10 05:10 05:10 RBC 4.01 L Hgb 11.6 L Hct 35.4 L MPV 10.1 H Immature Gran % (Auto) 0.50 H Eosinophils % 4.9 H ESR 72 H Plasma Sodium 143 H Chloride 107 H Carbon Dioxide 22.9 L Anion Gap 16.4 H BUN 27 H Creatinine 1.73 H D Est GFR (Non-Af Amer) 43 L D Random Glucose 149 H D C-Reactive Prot, Quant 1.9 H Culture 04/11/16 14:38 Wound Culture - Preliminary Foot - Left Staphylococcus Species Alpha Hemolytic Strep 04/11/16 14:18 - Final Nares MRSA Negative - Assessments/Findings (1) Osteomyelitis Diagnosis(s): Continue IV ABX as ordered. Will order MRI of left foot for surgical planning. Discussed with pt treatment options including continued IV ABX vs surgical intervention to remove infected bone. Pt is in agreement with removal of infected bone, however has concerns that he is going to lose his leg. I assured him that at this time the only surgical plan is to remove bone that is infected, and we would not know the extent until MRI is completed. Pt states understanding and agrees with this plan. Problem: Acute Qualifiers: Osteomyelitis type: subacute Osteomyelitis location: foot Laterality: left Qualified Code(s): M86.272 - Subacute osteomyelitis, left ankle and foot (2) Ulcer of foot due to diabetes Diagnosis(s): Continue with daily dressing changes with Aquacel Ag, dry gauze, osmin, and SAMINA bandage. New dressing applied today. Problem: Chronic Qualifiers: Diabetes mellitus type: type 2 Laterality: left Qualified Code(s): E11.621 - Type 2 diabetes mellitus with foot ulcer; L97.529 - Non-pressure chronic ulcer of other part of left foot with unspecified severity
--- NOTE | 2016-04-13 18:25 | PN ---
Subjective - Date and Time Seen Date: 04/13/16 Time: 06:30 Subjective Narrative: No pain in foot. C/O fatigue. Feels well otherwise. Left fifth toe removed by Dr. Martínez in [place] in 2009. "My foot never healed completely." Lately , ulcer over lateral left foot, worsening. He came to the [facility] ER where he as found to have an elevated sed rate, CRP, and plain xray evidence of osteomyelitis in the remaining left distal fifth metatarsal. 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 Laguerre, about podiatric consultation. Objective - Review of Systems Generalized/Overall Review: Reports: Malaise EENTM: Reports: No Symptoms Reported Respiratory: Reports: No Symptoms Reported Cardiac: Reports: No Symptoms Reported Abdominal: Reports: No Symptoms Reported Genitourinary Symptoms: Reports: No Symptoms Reported Musculoskeletal Complaints: Reports: No Symptoms Reported Neurological: Reports: No Symptoms Reported Skin: Reports: Other - HPI Endocrine: Reports: No Symptoms Reported Misc: All systems neg except as marked - Vitals Vitals: Last Vital Signs Temp 36.7 C 04/13/16 10:55 Pulse 79 04/13/16 10:55 Resp 16 04/13/16 10:55 BP 142/77 04/13/16 10:55 Pulse Ox 97 04/13/16 10:55 - Abnormal Lab Findings Abnormal Lab Findings: Abnormal Lab Results 04/13/16 04/13/16 04/13/16 Range/Units 05:10 05:10 05:10 RBC 4.01 L (4.7-6.0) M/mm3 Hgb 11.6 L (13.5-18.0) gm/dL Hct 35.4 L (42.0-52.0) % MPV 10.1 H (6.0-9.5) fl Immature Gran % (Auto) 0.50 H (0.001-0.429) % Eosinophils % 4.9 H (0.0-3.0) % ESR 72 H (0-10) mm/hr Plasma Sodium 143 H (130-142) mmol/L Chloride 107 H (97-106) mmol/L Carbon Dioxide 22.9 L (24-32.6) mmol/L Anion Gap 16.4 H (6.8-13.8) mmol/L BUN 27 H (6-23) mg/dL Creatinine 1.73 H D (0.4-1.4) mg/dL Est GFR (Non-Af Amer) 43 L D (60-130) mL/min Random Glucose 149 H D (70-110) mg/dL C-Reactive Prot, Quant 1.9 H (0.0-0.9) mg/dL - Exam Constitutional: Present: Alert, Oriented x3, Cooperative, Well developed, No distress, Obese ENT Exam: Present: normal ENT inspection, hearing grossly normal Neck: Present: normal inspection Respiratory: Present: lungs clear, no respiratory distress Cardiovascular/Chest: Present: regular rate, rhythm, no murmur Abdomen: Present: Normal bowel sounds, soft, nontender, nondistended, no rebound tenderness, no hepatospenomegaly, no masses, obese Extremity: Present: no pedal edema, other - I didn't remove the dressing on his left foot this morning. Skin Exam: Present: normal color, warm/dry, no cyanosis Neurologic: Present: alert, oriented x 3 Appearance: Present: appropriate appearance, appropriate insight, neat, no memory impairment Eye contact: Present: cooperative, good eye contact, normal speech Thoughts: Present: normal thought pattern Assessment/Plan Plan Narrative: Follow labs. Local wound care. IV antibiotics. Consult podiatry. Keep sugars controlled. - Problems/Diagnosis (1) Hyperkalemia Problem: Acute (2) Cellulitis Problem: Acute Qualifiers: Site of cellulitis: extremity Laterality: left Qualified Code(s): L03.90 - Cellulitis, unspecified (3) Osteomyelitis Problem: Acute Qualifiers: Osteomyelitis type: subacute Osteomyelitis location: foot Laterality: left Qualified Code(s): M86.272 - Subacute osteomyelitis, left ankle and foot (4) Acute worsening of stage 3 chronic kidney disease Problem: Acute (5) Hyperglycemia Problem: Acute (6) Foot deformity, bilateral Problem: Chronic (7) Gastroparesis due to DM Problem: Chronic (8) Hypertension Problem: Chronic Qualifiers: Hypertension type: essential hypertension Qualified Code(s): I10 - Essential (primary) hypertension (9) Peripheral neuropathy Problem: Chronic Qualifiers: Peripheral neuropathy type: polyneuropathy associated with underlying disease Qualified Code(s): G63 - Polyneuropathy in diseases classified elsewhere (10) Stage 3 chronic kidney disease due to type 2 diabetes mellitus Problem: Chronic (11) Ulcer of foot due to diabetes Problem: Chronic Qualifiers: Diabetes mellitus type: type 2 Laterality: left Qualified Code(s): E11.621 - Type 2 diabetes mellitus with foot ulcer; L97.529 - Non-pressure chronic ulcer of other part of left foot with unspecified severity (12) Diabetes mellitus type 2, insulin dependent Problem: Chronic
[2016-04-13] MEDS: SENNOSIDES 8.6 MG TABLET PO SCH (20:28)
[2016-04-13] MEDS: DILTIAZEM HCL 180 MG CAP.SR.24H PO SCH (20:28)
[2016-04-13] MEDS: ROSUVASTATIN CALCIUM 10 MG TABLET PO SCH (20:28)
[2016-04-14] MEDS: PIPERACILLIN SODIUM/TAZOBACTAM 3.375 GM in DEXTROSE 5 % IN WATER 100 ML IV SCH ×2 (03:45)
[2016-04-14 06:01] LABS: Hematocrit 37.2 % (42.0-52.0); Hemoglobin 12.2 gm/dL (13.5-18.0); Mean Cell Volume 88.4 fl (78-100); Mean Corpuscular Hgb Conc 32.8 g/dl (32-36); Neutrophil # 4.3 K/mm3 (1.3-6.0); Neutrophil % 65.4 % (42-75.0); Platelet Count 318 K/mm3 (150-450); Red Blood Count 4.21 M/mm3 (4.7-6.0); Red Cell Distribution Width 12.7 % (11.5-14.0); White Blood Count 6.6 K/mm3 (4.0-10.5)
[2016-04-14 06:16] LABS: Anion Gap 16.1 mmol/L (6.8-13.8); BUN/Creatinine Ratio 12.7 (9.0-21.6); Calcium * 8.9 mg/dL (7.9-10.9); Carbon Dioxide 24.3 mmol/L (24-32.6); Estimated Creat Clear 54.8; Potassium 4.4 mmol/L (3.4-4.6)
[2016-04-14] MEDS: INSULIN LISPRO 100 UNITS/ML VIAL SC SCH ×6 (06:31→17:23)
[2016-04-14] MEDS: METOCLOPRAMIDE HCL 5 MG TABLET PO SCH ×3 (06:32→16:24)
[2016-04-14] MEDS: INSULIN GLARGINE,HUM.REC.ANLOG 100 UNITS/ML VIAL SC SCH ×2 (07:31→19:07)
[2016-04-14] MEDS: ENOXAPARIN SODIUM 40 MG/0.4 ML SYRG SC SCH (07:34)
[2016-04-14] MEDS: NORMAL SALINE 1,000 ML IV PRN ×2 (09:20→21:40)
[2016-04-14] MEDS: HYDROPHILIC OINTMENT 454 APPL JAR TP SCH ×2 (09:22→21:38)
[2016-04-14] MEDS: SACCHAROMYCES BOULARDII 250 MG CAPSULE PO SCH ×2 (09:22→21:37)
[2016-04-14] MEDS: RIFAMPIN 300 MG CAPSULE PO SCH ×2 (09:23→21:37)
[2016-04-14] MEDS: ASPIRIN 81 MG TABLET.DR PO SCH (09:23)
[2016-04-14] MEDS: MUPIROCIN 22 APPL TUBE TP SCH ×2 (09:23→21:37)
[2016-04-14] MEDS: VANCOMYCIN HCL 2 GM in DEXTROSE 5 % IN WATER 500 ML IV SCH ×2 (09:28)
[2016-04-14] MEDS: CHOLECALCIFEROL 5,000 UNIT TABLET PO SCH (11:01)
--- NOTE | 2016-04-14 12:12 | PN ---
Subjective - Date and Time Seen Date: 04/14/16 Time: 12:12 Subjective Narrative: Pt seen at bedside resting. Denies any pain to his left foot. Denies N/V/F/C/ SOB. Had MRI yesterday and is awaiting results. Is afraid he is going to lose his foot. Objective - Review of Systems Neurological: Reports: Numbness Skin: Reports: Other - Ulceration left foot - Vitals Vitals: Last Vital Signs Temp 37.2 C 04/14/16 11:18 Pulse 77 04/14/16 11:18 Resp 18 04/14/16 11:18 BP 158/85 04/14/16 11:18 Pulse Ox 97 04/14/16 11:18 - Abnormal Lab Findings Abnormal Lab Findings: Abnormal Lab Results 04/14/16 04/14/16 Range/Units 05:25 05:25 RBC 4.21 L (4.7-6.0) M/mm3 Hgb 12.2 L (13.5-18.0) gm/dL Hct 37.2 L (42.0-52.0) % MPV 10.0 H (6.0-9.5) fl Eosinophils % 4.9 H (0.0-3.0) % Lymphocytes # 1.4 L (1.5-3.5) k/mm3 Anion Gap 16.1 H (6.8-13.8) mmol/L Creatinine 1.58 H (0.4-1.4) mg/dL Est GFR (Non-Af Amer) 47 L (60-130) mL/min - Exam Constitutional: Present: Alert, Oriented x3, Cooperative, No distress Skin Exam: Present: other - Ulceration to left foot unchanged from last visit. Bone remains exposed. Still with moderate serous drainage. Neurologic: Present: sensory deficit Appearance: Present: appropriate appearance Eye contact: Present: cooperative Assessment/Plan Plan Narrative: MRI reviewed with pt. Showing ostoemyelitis of the remainder of the 5th metatarsal as well as the base of the 4th metatarsal. Discussed at length treatment options including buttermaker continuous churn IV ABX vs surgery to remove the remainder of the 5th metatarsal with culture of the base of the 4th with the understanding that this may involve return to surgery if culture positive vs removal of remainder of the 5th metatarsal as well as the base of the 4th metatarsal with the understanding that this will cause instability to the lateral aspect of his foot and will require some shoegear modifications. Also discussed higher amputation, which pt refuses. Would like to avoid another trip to the OR if possible and elects to have the remainder of the 5th metatarsal as well as the base of the 4th metatarsal removed. Will plan to go to the OR this 04/17/2016. - Problems/Diagnosis (1) Osteomyelitis Problem: Acute Qualifiers: Osteomyelitis type: subacute Osteomyelitis location: foot Laterality: left Qualified Code(s): M86.272 - Subacute osteomyelitis, left ankle and foot Narrative: Continue IV ABX. Will plan to go to OR this 04/17/2016, to remove infected bone left foot. Consent to be obtained and signed. (2) Ulcer of foot due to diabetes Problem: Chronic Qualifiers: Diabetes mellitus type: type 2 Laterality: left Qualified Code(s): E11.621 - Type 2 diabetes mellitus with foot ulcer; L97.529 - Non-pressure chronic ulcer of other part of left foot with unspecified severity Narrative: Continue daily dressing changes at this time.
--- NOTE | 2016-04-14 18:31 | PN ---
Subjective - Date and Time Seen Date: 04/14/16 Time: 07:00 Subjective Narrative: No pain in foot. C/O fatigue. Feels well otherwise. Left fifth toe removed by Dr. Martínez in [place] in 2009. "My foot never healed completely." Lately , ulcer over lateral left foot, worsening. He came to the [facility] ER where he as found to have an elevated sed rate, CRP, and plain xray evidence of osteomyelitis in the remaining left distal fifth metatarsal. He is now on IV antibiotics and Dr. Laguerre has seen him in consultation. MRI shows osteomyelitis in fifth toe metatarsal and the base of the fourth metatarsal. Objective - Review of Systems Generalized/Overall Review: Reports: No Symptoms Reported EENTM: Reports: No Symptoms Reported Respiratory: Reports: No Symptoms Reported Cardiac: Reports: No Symptoms Reported Abdominal: Reports: No Symptoms Reported Genitourinary Symptoms: Reports: No Symptoms Reported Musculoskeletal Complaints: Reports: No Symptoms Reported Neurological: Reports: No Symptoms Reported Skin: Reports: No Symptoms Reported Endocrine: Reports: No Symptoms Reported Misc: All systems neg except as marked - Vitals Vitals: Last Vital Signs Selected Entries 04/13/16 04/14/16 02:00 06:41 Temperature 36.7 C 36.3 C L Temperature Oral Oral Source Pulse Rate 80 79 Respiratory 16 18 Rate Respiratory Normal Normal Depth Respiratory Normal Effort Non-Labored Respiratory Normal Pattern Blood Pressure 154/74 143/87 Blood Pressure Supine Supine Position O2 Sat by Pulse 98 95 Oximetry Oxygen Delivery Room Air Room Air Method - Abnormal Lab Findings Abnormal Lab Findings: Abnormal Lab Results 04/14/16 04/14/16 Range/Units 05:25 05:25 RBC 4.21 L (4.7-6.0) M/mm3 Hgb 12.2 L (13.5-18.0) gm/dL Hct 37.2 L (42.0-52.0) % MPV 10.0 H (6.0-9.5) fl Eosinophils % 4.9 H (0.0-3.0) % Lymphocytes # 1.4 L (1.5-3.5) k/mm3 Anion Gap 16.1 H (6.8-13.8) mmol/L Creatinine 1.58 H (0.4-1.4) mg/dL Est GFR (Non-Af Amer) 47 L (60-130) mL/min - Exam Constitutional: Present: Alert, Oriented x3, Cooperative, Well developed, No distress, Obese ENT Exam: Present: normal ENT inspection, hearing grossly normal Neck: Present: normal inspection Respiratory: Present: lungs clear, no respiratory distress Cardiovascular/Chest: Present: regular rate, rhythm, no murmur Abdomen: Present: Normal bowel sounds, soft, nontender, nondistended, no rebound tenderness, no hepatospenomegaly, no masses, obese Extremity: Present: other - I did not remove the dressing from his left foot.. Absent: pedal edema Skin Exam: Present: normal color, warm/dry, no cyanosis Neurologic: Present: alert, oriented x 3 Appearance: Present: appropriate appearance, appropriate insight, neat, no memory impairment Eye contact: Present: cooperative, good eye contact, normal speech Thoughts: Present: normal thought pattern Assessment/Plan Plan Narrative: Adjust BP meds. Continue antibiotics. Local care per podiatry. Follow labs. - Problems/Diagnosis (1) Hyperkalemia Problem: Acute (2) Cellulitis Problem: Acute Qualifiers: Site of cellulitis: extremity Laterality: left Qualified Code(s): L03.90 - Cellulitis, unspecified (3) Osteomyelitis Problem: Acute Qualifiers: Osteomyelitis type: subacute Osteomyelitis location: foot Laterality: left Qualified Code(s): M86.272 - Subacute osteomyelitis, left ankle and foot (4) Acute worsening of stage 3 chronic kidney disease Problem: Acute (5) Hyperglycemia Problem: Acute (6) Foot deformity, bilateral Problem: Chronic (7) Gastroparesis due to DM Problem: Chronic (8) Hypertension Problem: Chronic Qualifiers: Hypertension type: essential hypertension Qualified Code(s): I10 - Essential (primary) hypertension (9) Peripheral neuropathy Problem: Chronic Qualifiers: Peripheral neuropathy type: polyneuropathy associated with underlying disease Qualified Code(s): G63 - Polyneuropathy in diseases classified elsewhere (10) Stage 3 chronic kidney disease due to type 2 diabetes mellitus Problem: Chronic (11) Ulcer of foot due to diabetes Problem: Chronic Qualifiers: Diabetes mellitus type: type 2 Laterality: left Qualified Code(s): E11.621 - Type 2 diabetes mellitus with foot ulcer; L97.529 - Non-pressure chronic ulcer of other part of left foot with unspecified severity (12) Diabetes mellitus type 2, insulin dependent Problem: Chronic
[2016-04-14] MEDS ORDERED: DILTIAZEM HCL 180 MG CAP.SR.24H PO SCH (18:32)
[2016-04-14] MEDS: DILTIAZEM HCL 240 MG CAP.SR.24H PO SCH (21:36)
[2016-04-14] MEDS: ROSUVASTATIN CALCIUM 10 MG TABLET PO SCH (21:37)
[2016-04-14] MEDS: SENNOSIDES 8.6 MG TABLET PO SCH (21:37)
[2016-04-14] MEDS: ENALAPRIL MALEATE 20 MG TABLET PO SCH (21:40)
[2016-04-15 06:27] LABS: Hematocrit 37.7 % (42.0-52.0); Hemoglobin 12.6 gm/dL (13.5-18.0); Mean Cell Volume 87.9 fl (78-100); Mean Corpuscular Hemoglobin 29.4 pg (27-31); Mean Corpuscular Hgb Conc 33.4 g/dl (32-36); Mean Platelet Volume 9.8 fl (6.0-9.5); Neutrophil # 4.1 K/mm3 (1.3-6.0); Neutrophil % 64.2 % (42-75.0); Platelet Count 320 K/mm3 (150-450); Red Blood Count 4.29 M/mm3 (4.7-6.0); Red Cell Distribution Width 12.5 % (11.5-14.0); White Blood Count 6.4 K/mm3 (4.0-10.5)
[2016-04-15 06:30] LABS: Anion Gap 14.3 mmol/L (6.8-13.8); CRP 0.6 mg/dL (0.0-0.9); Calcium * 8.8 mg/dL (7.9-10.9); Estimated Creat Clear 59.7; Potassium 4.3 mmol/L (3.4-4.6)
[2016-04-15] MEDS: ENOXAPARIN SODIUM 40 MG/0.4 ML SYRG SC SCH (07:56)
[2016-04-15] MEDS: METOCLOPRAMIDE HCL 5 MG TABLET PO SCH ×3 (07:56→17:17)
[2016-04-15] MEDS ORDERED: VANCOMYCIN HCL LEVEL XX ONE (08:00)
[2016-04-15] MEDS: RIFAMPIN 300 MG CAPSULE PO SCH ×2 (08:01→20:49)
[2016-04-15] MEDS: SACCHAROMYCES BOULARDII 250 MG CAPSULE PO SCH ×2 (08:01→20:49)
[2016-04-15] MEDS: ASPIRIN 81 MG TABLET.DR PO SCH (08:01)
[2016-04-15] MEDS: MUPIROCIN 22 APPL TUBE TP SCH ×2 (08:04→20:49)
[2016-04-15] MEDS: INSULIN GLARGINE,HUM.REC.ANLOG 100 UNITS/ML VIAL SC SCH ×3 (08:08→20:55)
[2016-04-15] MEDS: INSULIN LISPRO 100 UNITS/ML VIAL SC SCH ×6 (08:09→17:17)
[2016-04-15] MEDS: VANCOMYCIN HCL 2 GM in DEXTROSE 5 % IN WATER 500 ML IV SCH ×2 (09:01)
[2016-04-15] MEDS: HYDROPHILIC OINTMENT 454 APPL JAR TP SCH ×2 (09:06→20:51)
[2016-04-15] MEDS: ENALAPRIL MALEATE 20 MG TABLET PO SCH ×2 (09:08→20:49)
--- NOTE | 2016-04-15 09:13 | PN ---
Subjective - Date and Time Seen Date: 04/15/16 Time: 07:20 Subjective Narrative: No pain in foot. For surgery in AM. Otherwise, feels well. Sugars on low side. Objective - Review of Systems Generalized/Overall Review: Reports: Malaise EENTM: Reports: No Symptoms Reported Respiratory: Reports: No Symptoms Reported Cardiac: Reports: No Symptoms Reported Abdominal: Reports: No Symptoms Reported Genitourinary Symptoms: Reports: No Symptoms Reported Musculoskeletal Complaints: Reports: No Symptoms Reported Neurological: Reports: No Symptoms Reported Skin: Reports: No Symptoms Reported Endocrine: Reports: No Symptoms Reported Misc: All systems neg except as marked - Vitals Vitals: Last Vital Signs Selected Entries 04/15/16 04:00 Temperature 36.4 C L Temperature Temporal Artery Source Scan Pulse Rate 78 Pulse Rhythm Regular Pulse Strength Normal Respiratory 20 Rate Respiratory Normal Depth Respiratory Normal Effort Respiratory Normal Pattern Blood Pressure 164/86 Blood Pressure Supine Position O2 Sat by Pulse 97 Oximetry Oxygen Delivery Room Air Method - Abnormal Lab Findings Abnormal Lab Findings: Abnormal Lab Results 04/15/16 04/15/16 04/15/16 Range/Units 06:00 06:00 06:00 RBC 4.29 L (4.7-6.0) M/mm3 Hgb 12.6 L (13.5-18.0) gm/dL Hct 37.7 L (42.0-52.0) % MPV 9.8 H (6.0-9.5) fl Immature Gran % (Auto) 0.60 H (0.001-0.429) % Immature Gran # (Auto) 0.04 H (0.000-0.0310) K/mm3 Eosinophils % 5.6 H (0.0-3.0) % Lymphocytes # 1.4 L (1.5-3.5) k/mm3 ESR 67 H (0-10) mm/hr Chloride 107 H (97-106) mmol/L Anion Gap 14.3 H (6.8-13.8) mmol/L Creatinine 1.45 H (0.4-1.4) mg/dL Est GFR (Non-Af Amer) 52 L (60-130) mL/min Vancomycin Trough (10.0-20.0) mcg/mL 04/15/16 Range/Units 08:10 RBC (4.7-6.0) M/mm3 Hgb (13.5-18.0) gm/dL Hct (42.0-52.0) % MPV (6.0-9.5) fl Immature Gran % (Auto) (0.001-0.429) % Immature Gran # (Auto) (0.000-0.0310) K/mm3 Eosinophils % (0.0-3.0) % Lymphocytes # (1.5-3.5) k/mm3 ESR (0-10) mm/hr Chloride (97-106) mmol/L Anion Gap (6.8-13.8) mmol/L Creatinine (0.4-1.4) mg/dL Est GFR (Non-Af Amer) (60-130) mL/min Vancomycin Trough 21.4 H (10.0-20.0) mcg/mL - Exam Constitutional: Present: Alert, Oriented x3, Cooperative, Well developed, No distress, Obese ENT Exam: Present: normal ENT inspection, hearing grossly normal Neck: Present: normal inspection Respiratory: Present: lungs clear, no respiratory distress Cardiovascular/Chest: Present: regular rate, rhythm, no murmur Abdomen: Present: Normal bowel sounds, soft, nontender, nondistended, no rebound tenderness, no hepatospenomegaly, no masses, obese Extremity: Present: other - did not remove left foot dressing Neurologic: Present: alert, oriented x 3 Appearance: Present: appropriate appearance, appropriate insight, neat, no memory impairment Eye contact: Present: cooperative, good eye contact, normal speech, avoids eye contact Thoughts: Present: normal thought pattern Assessment/Plan Plan Narrative: For surgery in AM. Adjust insulin. Continue IV antibiotics. BMP in AM. - Problems/Diagnosis (1) Hyperkalemia Problem: Acute (2) Cellulitis Problem: Acute Qualifiers: Site of cellulitis: extremity Laterality: left Qualified Code(s): L03.90 - Cellulitis, unspecified (3) Osteomyelitis Problem: Acute Qualifiers: Osteomyelitis type: subacute Osteomyelitis location: foot Laterality: left Qualified Code(s): M86.272 - Subacute osteomyelitis, left ankle and foot (4) Acute worsening of stage 3 chronic kidney disease Problem: Acute (5) Hyperglycemia Problem: Acute (6) Foot deformity, bilateral Problem: Chronic (7) Gastroparesis due to DM Problem: Chronic (8) Hypertension Problem: Chronic Qualifiers: Hypertension type: essential hypertension Qualified Code(s): I10 - Essential (primary) hypertension (9) Peripheral neuropathy Problem: Chronic Qualifiers: Peripheral neuropathy type: polyneuropathy associated with underlying disease Qualified Code(s): G63 - Polyneuropathy in diseases classified elsewhere (10) Stage 3 chronic kidney disease due to type 2 diabetes mellitus Problem: Chronic (11) Ulcer of foot due to diabetes Problem: Chronic Qualifiers: Diabetes mellitus type: type 2 Laterality: left Qualified Code(s): E11.621 - Type 2 diabetes mellitus with foot ulcer; L97.529 - Non-pressure chronic ulcer of other part of left foot with unspecified severity (12) Diabetes mellitus type 2, insulin dependent Problem: Chronic
[2016-04-15] MEDS: NORMAL SALINE 1,000 ML IV PRN ×2 (10:09→23:35)
[2016-04-15] MEDS: CHOLECALCIFEROL 5,000 UNIT TABLET PO SCH (11:33)
[2016-04-15] MEDS ORDERED: PENICILLIN G POTASSIUM 5 MILLIONUNT in DEXTROSE 5 % IN WATER 100 ML IV SCH ×2 (14:00)
[2016-04-15] MEDS: PENICILLIN G POTASSIUM 5 MILLIONUNT in DEXTROSE 5 % IN WATER 100 ML IV SCH ×4 (15:56→20:59)
[2016-04-15] MEDS: DILTIAZEM HCL 240 MG CAP.SR.24H PO SCH (20:50)
[2016-04-15] MEDS: ROSUVASTATIN CALCIUM 10 MG TABLET PO SCH (20:50)
[2016-04-15] MEDS: SENNOSIDES 8.6 MG TABLET PO SCH (20:50)
[2016-04-16] MEDS: PENICILLIN G POTASSIUM 5 MILLIONUNT in DEXTROSE 5 % IN WATER 100 ML IV SCH ×8 (04:00→22:33)
[2016-04-16 06:28] LABS: Anion Gap 11.8 mmol/L (6.8-13.8); BUN/Creatinine Ratio 12.1 (9.0-21.6); Calcium * 9.2 mg/dL (7.9-10.9); Carbon Dioxide 27.7 mmol/L (24-32.6); Estimated Creat Clear 61.8; Potassium 4.5 mmol/L (3.4-4.6)
[2016-04-16] MEDS: INSULIN LISPRO 100 UNITS/ML VIAL SC SCH ×6 (07:05→17:12)
[2016-04-16] MEDS: ENOXAPARIN SODIUM 40 MG/0.4 ML SYRG SC SCH (07:07)
[2016-04-16] MEDS: METOCLOPRAMIDE HCL 5 MG TABLET PO SCH ×3 (07:07→17:12)
--- NOTE | 2016-04-16 07:33 | PN ---
Subjective - Date and Time Seen Date: 04/16/16 Time: 07:30 Subjective Narrative: No pain in foot. For surgery in AM. Otherwise, feels well. Sugars OK. Objective - Review of Systems Generalized/Overall Review: Reports: No Symptoms Reported EENTM: Reports: No Symptoms Reported Respiratory: Reports: No Symptoms Reported Cardiac: Reports: No Symptoms Reported Abdominal: Reports: No Symptoms Reported Genitourinary Symptoms: Reports: No Symptoms Reported Musculoskeletal Complaints: Reports: No Symptoms Reported Neurological: Reports: No Symptoms Reported Skin: Reports: No Symptoms Reported Endocrine: Reports: No Symptoms Reported Misc: All systems neg except as marked - Vitals Vitals: Last Vital Signs Selected Entries 04/16/16 06:20 Temperature 36.3 C L Temperature Oral Source Pulse Rate 71 Respiratory 18 Rate Respiratory Normal Depth Blood Pressure 151/81 Blood Pressure Supine Position O2 Sat by Pulse 97 Oximetry Oxygen Delivery Room Air Method - Abnormal Lab Findings Abnormal Lab Findings: Abnormal Lab Results 04/15/16 04/16/16 Range/Units 08:10 05:40 Sodium 143 H (132-142) mmol/L Plasma Sodium 143 H (130-142) mmol/L Chloride 108 H (97-106) mmol/L Est GFR (Non-Af Amer) 55 L (60-130) mL/min Random Glucose 123 H (70-110) mg/dL Vancomycin Trough 21.4 H (10.0-20.0) mcg/mL - Exam Constitutional: Present: Alert, Oriented x3, Cooperative, Well developed, No distress, Obese ENT Exam: Present: normal ENT inspection, hearing grossly normal Neck: Present: normal inspection Respiratory: Present: lungs clear, no respiratory distress Cardiovascular/Chest: Present: regular rate, rhythm, no murmur Abdomen: Present: Normal bowel sounds, soft, nontender, nondistended, no rebound tenderness, no hepatospenomegaly, no masses, obese Extremity: Present: other - dressing on left foot not removed Skin Exam: Present: normal color, warm/dry, no cyanosis Neurologic: Present: alert, oriented x 3 Appearance: Present: appropriate appearance, appropriate insight, neat Eye contact: Present: cooperative, good eye contact, normal speech Thoughts: Present: normal thought pattern Assessment/Plan Plan Narrative: IV antibiotics. Adjust fluids for sodium. BMP in AM. Surgery in AM. - Problems/Diagnosis (1) Hyperkalemia Problem: Acute (2) Cellulitis Problem: Acute Qualifiers: Site of cellulitis: extremity Laterality: left Qualified Code(s): L03.90 - Cellulitis, unspecified (3) Osteomyelitis Problem: Acute Qualifiers: Osteomyelitis type: subacute Osteomyelitis location: foot Laterality: left Qualified Code(s): M86.272 - Subacute osteomyelitis, left ankle and foot (4) Acute worsening of stage 3 chronic kidney disease Problem: Acute (5) Hyperglycemia Problem: Acute (6) Foot deformity, bilateral Problem: Chronic (7) Gastroparesis due to DM Problem: Chronic (8) Hypertension Problem: Chronic Qualifiers: Hypertension type: essential hypertension Qualified Code(s): I10 - Essential (primary) hypertension (9) Peripheral neuropathy Problem: Chronic Qualifiers: Peripheral neuropathy type: polyneuropathy associated with underlying disease Qualified Code(s): G63 - Polyneuropathy in diseases classified elsewhere (10) Stage 3 chronic kidney disease due to type 2 diabetes mellitus Problem: Chronic (11) Ulcer of foot due to diabetes Problem: Chronic Qualifiers: Diabetes mellitus type: type 2 Laterality: left Qualified Code(s): E11.621 - Type 2 diabetes mellitus with foot ulcer; L97.529 - Non-pressure chronic ulcer of other part of left foot with unspecified severity (12) Diabetes mellitus type 2, insulin dependent Problem: Chronic
[2016-04-16] MEDS ORDERED: VANCOMYCIN HCL 1.75 GM in DEXTROSE 5 % IN WATER 500 ML IV SCH ×2 (08:00)
[2016-04-16] MEDS: 0.5 NORMAL SALINE 1,000 ML IV PRN ×2 (08:36→22:33)
[2016-04-16] MEDS: hydrALAZINE HCL 10 MG TABLET PO SCH ×2 (08:37→15:34)
[2016-04-16] MEDS: ENALAPRIL MALEATE 20 MG TABLET PO SCH ×2 (09:46→20:37)
[2016-04-16] MEDS: RIFAMPIN 300 MG CAPSULE PO SCH ×2 (09:46→20:37)
[2016-04-16] MEDS: ASPIRIN 81 MG TABLET.DR PO SCH (09:46)
[2016-04-16] MEDS: SACCHAROMYCES BOULARDII 250 MG CAPSULE PO SCH ×2 (09:46→20:37)
[2016-04-16] MEDS: INSULIN GLARGINE,HUM.REC.ANLOG 100 UNITS/ML VIAL SC SCH ×2 (09:47→20:43)
[2016-04-16] MEDS: MUPIROCIN 22 APPL TUBE TP SCH ×2 (09:48→20:36)
[2016-04-16] MEDS: HYDROPHILIC OINTMENT 454 APPL JAR TP SCH ×2 (09:48→20:36)
[2016-04-16] MEDS: CHOLECALCIFEROL 5,000 UNIT TABLET PO SCH (11:32)
[2016-04-16] MEDS: SENNOSIDES 8.6 MG TABLET PO SCH (20:37)
[2016-04-16] MEDS: ROSUVASTATIN CALCIUM 10 MG TABLET PO SCH (20:37)
[2016-04-16] MEDS: DILTIAZEM HCL 240 MG CAP.SR.24H PO SCH (20:38)
[2016-04-17] MEDS: hydrALAZINE HCL 10 MG TABLET PO SCH ×3 (00:25→15:54)
[2016-04-17] MEDS: PENICILLIN G POTASSIUM 5 MILLIONUNT in DEXTROSE 5 % IN WATER 100 ML IV SCH ×8 (03:34→22:49)
[2016-04-17 06:17] LABS: BUN/Creatinine Ratio 10.6 (9.0-21.6)
[2016-04-17 06:18] LABS: Anion Gap 12.2 mmol/L (6.8-13.8); Calcium * 9.4 mg/dL (7.9-10.9); Carbon Dioxide 26.5 mmol/L (24-32.6); Estimated Creat Clear 57.3; Potassium 4.7 mmol/L (3.4-4.6)
[2016-04-17] MEDS: INSULIN LISPRO 100 UNITS/ML VIAL SC SCH ×6 (06:52→17:30)
[2016-04-17] MEDS: METOCLOPRAMIDE HCL 5 MG TABLET PO SCH ×3 (06:52→17:29)
[2016-04-17] MEDS: ENOXAPARIN SODIUM 40 MG/0.4 ML SYRG SC SCH (07:02)
--- NOTE | 2016-04-17 07:17 | PN ---
Subjective - Date and Time Seen Date: 04/17/16 Time: 07:13 Subjective Narrative: No pain in foot. For surgery in today. Otherwise, feels well. Sugars OK. Potassium slightly high. Objective - Review of Systems Generalized/Overall Review: Reports: No Symptoms Reported EENTM: Reports: No Symptoms Reported Respiratory: Reports: No Symptoms Reported Cardiac: Reports: No Symptoms Reported Abdominal: Reports: No Symptoms Reported Genitourinary Symptoms: Reports: No Symptoms Reported Musculoskeletal Complaints: Reports: No Symptoms Reported Neurological: Reports: No Symptoms Reported Skin: Reports: No Symptoms Reported Endocrine: Reports: No Symptoms Reported Misc: All systems neg except as marked - Vitals Vitals: Last Vital Signs Selected Entries 04/17/16 07:13 Temperature 36.4 C L Temperature Oral Source Pulse Rate 75 Respiratory 16 Rate Respiratory Normal Depth Blood Pressure 134/72 Blood Pressure Supine Position O2 Sat by Pulse 96 Oximetry Oxygen Delivery Room Air Method - Abnormal Lab Findings Abnormal Lab Findings: Abnormal Lab Results 04/17/16 Range/Units 05:55 Potassium 4.7 H (3.4-4.6) mmol/L Creatinine 1.51 H (0.4-1.4) mg/dL Est GFR (Non-Af Amer) 50 L (60-130) mL/min Random Glucose 137 H (70-110) mg/dL - Exam Constitutional: Present: Alert, Oriented x3, Cooperative, Well developed, No distress, Obese ENT Exam: Present: normal ENT inspection, hearing grossly normal Neck: Present: non-tender, normal inspection Respiratory: Present: lungs clear, no respiratory distress Cardiovascular/Chest: Present: regular rate, rhythm, no murmur Abdomen: Present: Normal bowel sounds, soft, nontender, nondistended, no rebound tenderness, no hepatospenomegaly, no masses, obese Extremity: Present: other - did not remove dressing from left foot Skin Exam: Present: normal color, warm/dry, no cyanosis Neurologic: Present: alert, oriented x 3 Appearance: Present: appropriate appearance, appropriate insight, neat, no memory impairment Eye contact: Present: cooperative, good eye contact, normal speech Thoughts: Present: normal thought pattern Assessment/Plan Plan Narrative: For surgery today. Hold Lovenox this am. Increase IV rate to 100 ml per hour. Continue antibiotics for now. - Problems/Diagnosis (1) Hyperkalemia Problem: Acute (2) Cellulitis Problem: Acute Qualifiers: Site of cellulitis: extremity Laterality: left Qualified Code(s): L03.90 - Cellulitis, unspecified (3) Osteomyelitis Problem: Acute Qualifiers: Osteomyelitis type: subacute Osteomyelitis location: foot Laterality: left Qualified Code(s): M86.272 - Subacute osteomyelitis, left ankle and foot (4) Acute worsening of stage 3 chronic kidney disease Problem: Acute (5) Hyperglycemia Problem: Acute (6) Foot deformity, bilateral Problem: Chronic (7) Gastroparesis due to DM Problem: Chronic (8) Hypertension Problem: Chronic Qualifiers: Hypertension type: essential hypertension Qualified Code(s): I10 - Essential (primary) hypertension (9) Peripheral neuropathy Problem: Chronic Qualifiers: Peripheral neuropathy type: polyneuropathy associated with underlying disease Qualified Code(s): G63 - Polyneuropathy in diseases classified elsewhere (10) Stage 3 chronic kidney disease due to type 2 diabetes mellitus Problem: Chronic (11) Ulcer of foot due to diabetes Problem: Chronic Qualifiers: Diabetes mellitus type: type 2 Laterality: left Qualified Code(s): E11.621 - Type 2 diabetes mellitus with foot ulcer; L97.529 - Non-pressure chronic ulcer of other part of left foot with unspecified severity (12) Diabetes mellitus type 2, insulin dependent Problem: Chronic
[2016-04-17] MEDS: ENALAPRIL MALEATE 20 MG TABLET PO SCH ×2 (09:22→20:45)
[2016-04-17] MEDS: SACCHAROMYCES BOULARDII 250 MG CAPSULE PO SCH ×2 (09:22→20:44)
[2016-04-17] MEDS: RIFAMPIN 300 MG CAPSULE PO SCH ×2 (09:22→20:44)
[2016-04-17] MEDS: HYDROPHILIC OINTMENT 454 APPL JAR TP SCH ×2 (09:23→20:41)
[2016-04-17] MEDS: ASPIRIN 81 MG TABLET.DR PO SCH (09:23)
[2016-04-17] MEDS: MUPIROCIN 22 APPL TUBE TP SCH ×2 (09:23→20:41)
[2016-04-17] MEDS: INSULIN GLARGINE,HUM.REC.ANLOG 100 UNITS/ML VIAL SC SCH ×2 (09:26→22:47)
[2016-04-17] MEDS: CHOLECALCIFEROL 5,000 UNIT TABLET PO SCH (11:02)
[2016-04-17] MEDS: 0.5 NORMAL SALINE 1,000 ML IV PRN ×2 (11:44→15:52)
[2016-04-17] MEDS ORDERED: 0.5 NORMAL SALINE 1,000 ML IV ONE (14:20)
[2016-04-17] MEDS ORDERED: BUPIVACAINE HCL 50 ML VIAL IJ ONE (14:30)
[2016-04-17] MEDS ORDERED: LIDOCAINE HCL 50 ML VIAL IJ ONE (14:30)
[2016-04-17] MEDS ORDERED: RINGERS SOLUTION,LACTATED 1,000 ML IV ONE (15:15)
[2016-04-17] MEDS: DILTIAZEM HCL 240 MG CAP.SR.24H PO SCH (20:42)
[2016-04-17] MEDS: ROSUVASTATIN CALCIUM 10 MG TABLET PO SCH (20:44)
[2016-04-17] MEDS: SENNOSIDES 8.6 MG TABLET PO SCH (20:45)
[2016-04-17] MEDS: HYDROcodone/ACETAMINOPHEN 1 EACH TABLET PO PRN (23:17)
[2016-04-18] MEDS: hydrALAZINE HCL 10 MG TABLET PO SCH ×4 (00:08→23:42)
[2016-04-18] MEDS: 0.5 NORMAL SALINE 1,000 ML IV PRN ×2 (03:06→14:36)
[2016-04-18] MEDS: PENICILLIN G POTASSIUM 5 MILLIONUNT in DEXTROSE 5 % IN WATER 100 ML IV SCH ×8 (03:58→21:03)
[2016-04-18] MEDS: INSULIN LISPRO 100 UNITS/ML VIAL SC SCH ×6 (06:44→17:20)
[2016-04-18] MEDS: ENOXAPARIN SODIUM 40 MG/0.4 ML SYRG SC SCH (06:46)
[2016-04-18] MEDS: METOCLOPRAMIDE HCL 5 MG TABLET PO SCH ×3 (06:46→17:20)
[2016-04-18] MEDS: HYDROcodone/ACETAMINOPHEN 1 EACH TABLET PO PRN ×3 (06:56→20:35)
--- NOTE | 2016-04-18 07:50 | PN ---
Subjective - Date and Time Seen Date: 04/18/16 Time: 07:46 Subjective Narrative: No pain in foot. Had surgery yesterday. Base of 4th and 5th metatarsals removed. Otherwise, feels well. Sugars OK. Objective - Review of Systems Generalized/Overall Review: Reports: No Symptoms Reported EENTM: Reports: No Symptoms Reported Respiratory: Reports: No Symptoms Reported Cardiac: Reports: No Symptoms Reported Abdominal: Reports: No Symptoms Reported Genitourinary Symptoms: Reports: No Symptoms Reported Musculoskeletal Complaints: Reports: No Symptoms Reported Neurological: Reports: No Symptoms Reported Skin: Reports: No Symptoms Reported Endocrine: Reports: No Symptoms Reported Misc: All systems neg except as marked - Vitals Vitals: Last Vital Signs Selected Entries 04/18/16 06:58 Temperature 36.9 C Temperature Oral Source Pulse Rate 85 Respiratory 20 Rate Respiratory Normal Depth Blood Pressure 131/68 Blood Pressure Sitting Position O2 Sat by Pulse 98 Oximetry Oxygen Delivery Room Air Method - Exam Constitutional: Present: Alert, Oriented x3, Cooperative, Well developed, No distress, Obese ENT Exam: Present: normal ENT inspection, hearing grossly normal Neck: Present: normal inspection Respiratory: Present: lungs clear, no respiratory distress Cardiovascular/Chest: Present: regular rate, rhythm, no murmur Abdomen: Present: Normal bowel sounds, soft, nontender, nondistended, no rebound tenderness, no hepatospenomegaly, no masses, obese Extremity: Present: normal range of motion, normal inspection, other - did not remove dressing from left foot. Skin Exam: Present: normal color, warm/dry, no cyanosis Neurologic: Present: alert, oriented x 3 Appearance: Present: appropriate appearance, appropriate insight, neat, no memory impairment Eye contact: Present: cooperative, good eye contact, normal speech Thoughts: Present: normal thought pattern Assessment/Plan Plan Narrative: I did not remove his left foot dressing. We will continue IV antibiotics and follow labs on an as needed basis. - Problems/Diagnosis (1) Hyperkalemia Problem: Acute (2) Cellulitis Problem: Acute Qualifiers: Site of cellulitis: extremity Laterality: left Qualified Code(s): L03.90 - Cellulitis, unspecified (3) Osteomyelitis Problem: Acute Qualifiers: Osteomyelitis type: subacute Osteomyelitis location: foot Laterality: left Qualified Code(s): M86.272 - Subacute osteomyelitis, left ankle and foot (4) Acute worsening of stage 3 chronic kidney disease Problem: Acute (5) Hyperglycemia Problem: Acute (6) Foot deformity, bilateral Problem: Chronic (7) Gastroparesis due to DM Problem: Chronic (8) Hypertension Problem: Chronic Qualifiers: Hypertension type: essential hypertension Qualified Code(s): I10 - Essential (primary) hypertension (9) Peripheral neuropathy Problem: Chronic Qualifiers: Peripheral neuropathy type: polyneuropathy associated with underlying disease Qualified Code(s): G63 - Polyneuropathy in diseases classified elsewhere (10) Stage 3 chronic kidney disease due to type 2 diabetes mellitus Problem: Chronic (11) Ulcer of foot due to diabetes Problem: Chronic Qualifiers: Diabetes mellitus type: type 2 Laterality: left Qualified Code(s): E11.621 - Type 2 diabetes mellitus with foot ulcer; L97.529 - Non-pressure chronic ulcer of other part of left foot with unspecified severity (12) Diabetes mellitus type 2, insulin dependent Problem: Chronic
[2016-04-18] MEDS: RIFAMPIN 300 MG CAPSULE PO SCH ×2 (08:47→20:30)
[2016-04-18] MEDS: SACCHAROMYCES BOULARDII 250 MG CAPSULE PO SCH ×2 (08:47→20:29)
[2016-04-18] MEDS: ASPIRIN 81 MG TABLET.DR PO SCH (08:47)
[2016-04-18] MEDS: ENALAPRIL MALEATE 20 MG TABLET PO SCH ×2 (08:47→20:30)
[2016-04-18] MEDS: HYDROPHILIC OINTMENT 454 APPL JAR TP SCH ×2 (08:47→20:31)
[2016-04-18] MEDS: MUPIROCIN 22 APPL TUBE TP SCH ×2 (08:48→20:31)
[2016-04-18] MEDS: INSULIN GLARGINE,HUM.REC.ANLOG 100 UNITS/ML VIAL SC SCH ×2 (08:52→20:31)
[2016-04-18] MEDS: CHOLECALCIFEROL 5,000 UNIT TABLET PO SCH (12:04)
[2016-04-18] MEDS: ROSUVASTATIN CALCIUM 10 MG TABLET PO SCH (20:29)
[2016-04-18] MEDS: SENNOSIDES 8.6 MG TABLET PO SCH (20:29)
[2016-04-18] MEDS: DILTIAZEM HCL 240 MG CAP.SR.24H PO SCH (20:30)
[2016-04-19] MEDS: 0.5 NORMAL SALINE 1,000 ML IV PRN ×2 (03:46→16:36)
[2016-04-19] MEDS: PENICILLIN G POTASSIUM 5 MILLIONUNT in DEXTROSE 5 % IN WATER 100 ML IV SCH ×8 (03:48→22:37)
[2016-04-19] MEDS: INSULIN LISPRO 100 UNITS/ML VIAL SC SCH ×6 (06:50→17:49)
[2016-04-19] MEDS: METOCLOPRAMIDE HCL 5 MG TABLET PO SCH ×3 (06:52→16:41)
[2016-04-19] MEDS: ENOXAPARIN SODIUM 40 MG/0.4 ML SYRG SC SCH (06:52)
[2016-04-19] MEDS: HYDROcodone/ACETAMINOPHEN 1 EACH TABLET PO PRN ×2 (06:56→16:46)
[2016-04-19] MEDS: hydrALAZINE HCL 10 MG TABLET PO SCH ×2 (06:59→16:40)
--- NOTE | 2016-04-19 07:21 | PN ---
Subjective - Date and Time Seen Date: 04/19/16 Time: 07:12 Subjective Narrative: Pain in left foot, but pain med works well. Had surgery 2 days ago. Otherwise , feels well. Sugars on the high side. Objective - Review of Systems Generalized/Overall Review: Reports: No Symptoms Reported EENTM: Reports: No Symptoms Reported Respiratory: Reports: No Symptoms Reported Cardiac: Reports: No Symptoms Reported Abdominal: Reports: No Symptoms Reported Genitourinary Symptoms: Reports: No Symptoms Reported Musculoskeletal Complaints: Reports: Other - HPI Neurological: Reports: No Symptoms Reported Skin: Reports: No Symptoms Reported Endocrine: Reports: No Symptoms Reported Misc: All systems neg except as marked - Vitals Vitals: Last Vital Signs Selected Entries 04/19/16 06:33 Temperature 36.9 C Temperature Oral Source Pulse Rate 87 Respiratory 18 Rate Respiratory Normal Depth Blood Pressure 95/55 Blood Pressure Supine Position O2 Sat by Pulse 95 Oximetry Oxygen Delivery Room Air Method - Exam Constitutional: Present: Alert, Oriented x3, Cooperative, Well developed, Well nourished, No distress ENT Exam: Present: normal ENT inspection, hearing grossly normal Neck: Present: normal inspection Respiratory: Present: lungs clear, no respiratory distress Cardiovascular/Chest: Present: regular rate, rhythm, no murmur Abdomen: Present: Normal bowel sounds, soft, nontender, nondistended, no rebound tenderness Extremity: Present: other - dressing not removed from left foot Skin Exam: Present: normal color, warm/dry, no cyanosis Neurologic: Present: alert, oriented x 3 Appearance: Present: appropriate appearance, appropriate insight, neat, no memory impairment Eye contact: Present: cooperative, good eye contact, normal speech Thoughts: Present: normal thought pattern Assessment/Plan Plan Narrative: Decrease Diltiazem due to low blood pressure. Continue IV antibiotics. Increase insulin before meals due to elevated blood sugars. Labs tomorrow morning. - Problems/Diagnosis (1) Hyperkalemia Problem: Acute (2) Cellulitis Problem: Acute Qualifiers: Site of cellulitis: extremity Laterality: left Qualified Code(s): L03.90 - Cellulitis, unspecified (3) Osteomyelitis Problem: Acute Qualifiers: Osteomyelitis type: subacute Osteomyelitis location: foot Laterality: left Qualified Code(s): M86.272 - Subacute osteomyelitis, left ankle and foot (4) Acute worsening of stage 3 chronic kidney disease Problem: Acute (5) Hyperglycemia Problem: Acute (6) Foot deformity, bilateral Problem: Chronic (7) Gastroparesis due to DM Problem: Chronic (8) Hypertension Problem: Chronic Qualifiers: Hypertension type: essential hypertension Qualified Code(s): I10 - Essential (primary) hypertension (9) Peripheral neuropathy Problem: Chronic Qualifiers: Peripheral neuropathy type: polyneuropathy associated with underlying disease Qualified Code(s): G63 - Polyneuropathy in diseases classified elsewhere (10) Stage 3 chronic kidney disease due to type 2 diabetes mellitus Problem: Chronic (11) Ulcer of foot due to diabetes Problem: Chronic Qualifiers: Diabetes mellitus type: type 2 Laterality: left Qualified Code(s): E11.621 - Type 2 diabetes mellitus with foot ulcer; L97.529 - Non-pressure chronic ulcer of other part of left foot with unspecified severity (12) Diabetes mellitus type 2, insulin dependent Problem: Chronic (13) Hypotension Problem: Acute Qualifiers: Hypotension type: hypotension due to drug Qualified Code(s): I95.2 - Hypotension due to drugs
[2016-04-19] MEDS: HYDROPHILIC OINTMENT 454 APPL JAR TP SCH ×2 (08:16→20:55)
[2016-04-19] MEDS: MUPIROCIN 22 APPL TUBE TP SCH ×2 (08:17→20:54)
[2016-04-19] MEDS: ENALAPRIL MALEATE 20 MG TABLET PO SCH ×2 (08:19→20:22)
[2016-04-19] MEDS: ASPIRIN 81 MG TABLET.DR PO SCH (08:19)
[2016-04-19] MEDS: SACCHAROMYCES BOULARDII 250 MG CAPSULE PO SCH ×2 (08:19→20:21)
[2016-04-19] MEDS: RIFAMPIN 300 MG CAPSULE PO SCH ×2 (08:19→20:21)
[2016-04-19] MEDS: INSULIN GLARGINE,HUM.REC.ANLOG 100 UNITS/ML VIAL SC SCH ×2 (08:20→20:50)
[2016-04-19] MEDS: CHOLECALCIFEROL 5,000 UNIT TABLET PO SCH (11:33)
[2016-04-19] MEDS: ROSUVASTATIN CALCIUM 10 MG TABLET PO SCH (20:20)
[2016-04-19] MEDS: SENNOSIDES 8.6 MG TABLET PO SCH (20:21)
[2016-04-19] MEDS ORDERED: DILTIAZEM HCL 180 MG CAP.SR.24H PO SCH (21:00)
[2016-04-20] MEDS: hydrALAZINE HCL 10 MG TABLET PO SCH ×2 (00:44→07:47)
[2016-04-20] MEDS: PENICILLIN G POTASSIUM 5 MILLIONUNT in DEXTROSE 5 % IN WATER 100 ML IV SCH ×4 (03:32→09:30)
[2016-04-20 05:54] LABS: Hematocrit 34.8 % (42.0-52.0); Hemoglobin 11.5 gm/dL (13.5-18.0); Mean Corpuscular Hemoglobin 29.4 pg (27-31); Mean Platelet Volume 10.1 fl (6.0-9.5); Neutrophil # 5.4 K/mm3 (1.3-6.0); Neutrophil % 63.5 % (42-75.0); Platelet Count 284 K/mm3 (150-450); Red Blood Count 3.91 M/mm3 (4.7-6.0); Red Cell Distribution Width 12.7 % (11.5-14.0); White Blood Count 8.6 K/mm3 (4.0-10.5)
[2016-04-20 06:08] LABS: Anion Gap 15.2 mmol/L (6.8-13.8); BUN/Creatinine Ratio 14.2 (9.0-21.6); Calcium * 9.8 mg/dL (7.9-10.9); Carbon Dioxide 26.8 mmol/L (24-32.6); Estimated Creat Clear 53.4
[2016-04-20 06:13] LABS: CRP 13.7 mg/dL (0.0-0.9)
[2016-04-20] MEDS: 0.5 NORMAL SALINE 1,000 ML IV PRN (06:45)
[2016-04-20] MEDS: INSULIN LISPRO 100 UNITS/ML VIAL SC SCH ×4 (06:47→11:09)
[2016-04-20] MEDS: METOCLOPRAMIDE HCL 5 MG TABLET PO SCH ×2 (06:48→11:08)
[2016-04-20] MEDS: ENOXAPARIN SODIUM 40 MG/0.4 ML SYRG SC SCH (06:48)
[2016-04-20] MEDS ORDERED: DILTIAZEM HCL 60 MG TABLET PO SCH (07:30)
[2016-04-20] MEDS ORDERED: ENALAPRIL MALEATE 20 MG TABLET PO SCH (07:30)
[2016-04-20] MEDS: HYDROPHILIC OINTMENT 454 APPL JAR TP SCH (08:39)
[2016-04-20] MEDS: ASPIRIN 81 MG TABLET.DR PO SCH (08:39)
[2016-04-20] MEDS: RIFAMPIN 300 MG CAPSULE PO SCH (08:39)
[2016-04-20] MEDS: SACCHAROMYCES BOULARDII 250 MG CAPSULE PO SCH (08:40)
[2016-04-20] MEDS: INSULIN GLARGINE,HUM.REC.ANLOG 100 UNITS/ML VIAL SC SCH (08:40)
[2016-04-20] MEDS: MUPIROCIN 22 APPL TUBE TP SCH (08:40)
[2016-04-20 10:53] VITALS: BP 146/79
[2016-04-20] MEDS: CHOLECALCIFEROL 5,000 UNIT TABLET PO SCH (11:08)
--- NOTE | 2016-04-20 11:43 | PN ---
Subjective - Date and Time Seen Date: 04/20/16 Time: 11:36 Subjective Narrative: Pt seen at bedside resting. Denies any pain to his left foot. Denies N/V/F/C/ SOB. States that he has been up and about more since surgery on Wednesday and is wearing the surgical shoe when up as instructed. Is ready to go home today. Objective - Review of Systems Neurological: Reports: Numbness Misc: All systems neg except as marked - Vitals Vitals: Last Vital Signs Temp 36.6 C 04/20/16 10:05 Pulse 91 04/20/16 10:05 Resp 20 04/20/16 10:05 BP 146/79 04/20/16 10:05 Pulse Ox 97 04/20/16 10:05 - Abnormal Lab Findings Abnormal Lab Findings: Abnormal Lab Results 04/20/16 04/20/16 04/20/16 Range/Units 05:15 05:15 05:15 RBC 3.91 L (4.7-6.0) M/mm3 Hgb 11.5 L (13.5-18.0) gm/dL Hct 34.8 L (42.0-52.0) % MPV 10.1 H (6.0-9.5) fl Immature Gran % (Auto) 0.50 H (0.001-0.429) % Immature Gran # (Auto) 0.04 H (0.000-0.0310) K/mm3 Monocytes % 9.8 H (0.0-9) % Eosinophils % 5.6 H (0.0-3.0) % ESR 109 H (0-10) mm/hr Potassium 5.0 H (3.4-4.6) mmol/L Anion Gap 15.2 H (6.8-13.8) mmol/L Creatinine 1.62 H (0.4-1.4) mg/dL Est GFR (Non-Af Amer) 46 L (60-130) mL/min Random Glucose 114 H (70-110) mg/dL C-Reactive Prot, Quant 13.7 H (0.0-0.9) mg/dL - Exam Constitutional: Present: Alert, Oriented x3, Cooperative, No distress Skin Exam: Present: other - Dressing to left foot CDI with moderate bloody drainage from surgery. Incision to lateral left foot well approximated with sutures intact. Still with some bloody drainage, scant, causing slight maceration. No localized redness. Mild swelling. Neurologic: Present: sensory deficit Appearance: Present: appropriate appearance Assessment/Plan Plan Narrative: New dressing applied to left foot today. Dressing to stay CDI. Will f/u in my office in 1 week for dressing change. Weight bearing as tolerated in surgical shoe, must be worn at all times when walking. Discussed bone culture at bedside , showing no growth. Ok for d/c home on oral ABX x14 days. - Problems/Diagnosis (1) Osteomyelitis Problem: Acute Qualifiers: Osteomyelitis type: subacute Osteomyelitis location: foot Laterality: left Qualified Code(s): M86.272 - Subacute osteomyelitis, left ankle and foot Narrative: Bone culture reviewed with pt, showing no growth. OK for d/c home with 2 weeks oral [address]X. Will place on Ciprofloxacin 500 mg, one tablet twice daily for 14 days. (2) Ulcer of foot due to diabetes Problem: Chronic Qualifiers: Diabetes mellitus type: type 2 Laterality: left Qualified Code(s): E11.621 - Type 2 diabetes mellitus with foot ulcer; L97.529 - Non-pressure chronic ulcer of other part of left foot with unspecified severity Narrative: Ulcer excised at time of surgery. New dressing applied today. Keep dressing CDI.
--- NOTE | 2016-04-20 11:56 | DS ---
(1) Hyperkalemia Problem: Acute (2) Cellulitis Problem: Acute Qualifiers: Site of cellulitis: extremity Laterality: left (3) Osteomyelitis Problem: Acute Qualifiers: Osteomyelitis type: subacute Osteomyelitis location: foot Laterality: left Qualified Code(s): M86.272 - Subacute osteomyelitis, left ankle and foot (4) Acute worsening of stage 3 chronic kidney disease Problem: Resolved (5) Hyperglycemia Problem: Acute (6) Foot deformity, bilateral Problem: Chronic (7) Gastroparesis due to DM Problem: Chronic (8) Hypertension Problem: Chronic Qualifiers: Hypertension type: essential hypertension Qualified Code(s): I10 - Essential (primary) hypertension (9) Peripheral neuropathy Problem: Chronic Qualifiers: Peripheral neuropathy type: polyneuropathy associated with underlying disease Qualified Code(s): G63 - Polyneuropathy in diseases classified elsewhere (10) Stage 3 chronic kidney disease due to type 2 diabetes mellitus Problem: Chronic (11) Ulcer of foot due to diabetes Problem: Chronic Qualifiers: Diabetes mellitus type: type 2 Laterality: left Qualified Code(s): E11.621 - Type 2 diabetes mellitus with foot ulcer; L97.529 - Non-pressure chronic ulcer of other part of left foot with unspecified severity (12) Diabetes mellitus type 2, insulin dependent Problem: Chronic (13) Hypotension Problem: Resolved Qualifiers: Hypotension type: hypotension due to drug Qualified Code(s): I95.2 - Hypotension due to drugs Procedures Performed: see notes below - Incision and debridement left foot, with removal of infected tissue on bone Discharge Disposition: Home self care Disposition: Home self-care Condition: Good Discharge Activity: Activity as tolerated Discharge Diet: Consistent carbs Referrals: Pablo Barahona MD [Primary Care Provider] - Consultation Done:: Dr. Laguerre, podiatry Problem Oriented Discharge Instructions to Patient/Family: Bone and Joint Infections, Adult Additional Patient Instructions (free text): Sterile dry dressings to foot, and walk in orthopedic shoe. CBC BMP blood tests [address] Cantu and Dr. Laguerre same day, 1 week. Prescriptions (Any new or edited meds): Cholecalciferol [Vitamin D] 5,000 unit PO DAILY@1200 #30 tablet Ciprofloxacin HCl [Cipro] 500 mg PO BID #28 tab Diltiazem HCl [Cardizem] 60 mg PO Q8H #90 tablet Enalapril Maleate [Vasotec] 20 mg PO Q12H #60 tablet Insulin Glargine,Hum.rec.anlog [Lantus] 40 units SC Q12H #1 vial Insulin Lispro [Humalog] 16 units SC ACINS #1 vial Insulin Lispro [Humalog] 0 - 6 units SC ACINS #1 vial Metoclopramide HCl [Reglan] 10 mg PO ACHS #120 tablet Pravastatin Sodium [Pravachol] 80 mg PO DAILY #30 tablet Saccharomyces Boulardii [Florastor] 250 mg PO BID #60 capsule hydrALAZINE HCL [Apresoline] 10 mg PO Q8H #90 tablet Complete Home Medications List: Complete Home Medication List: Acetaminophen [Tylenol] 650 mg PO QID PRN #0 tablet 01/15/16 Aspirin [Aspirin Enteric Coated] 81 mg PO DAILY #30 tablet. 01/15/16 Hydrophilic Ointment [Aquaphilic Ointment] 1 appl TP BID #1 jar 01/15/16 Cholecalciferol [Vitamin D] 5,000 unit PO DAILY@1200 #30 tablet 04/20/16 Ciprofloxacin HCl [Cipro] 500 mg PO BID #28 tab 04/20/16 Diltiazem HCl [Cardizem] 60 mg PO Q8H #90 tablet 04/20/16 Enalapril Maleate [Vasotec] 20 mg PO Q12H #60 tablet 04/20/16 Hydrophilic Ointment [Aquaphilic Ointment] 1 appl TP BID jar 04/20/16 Insulin Glargine,Hum.rec.anlog [Lantus] 40 units SC Q12H #1 vial 04/20/16 Insulin Lispro [Humalog] 0 - 6 units SC ACINS #1 vial 04/20/16 Insulin Lispro [Humalog] 16 units SC ACINS #1 vial 04/20/16 Metoclopramide HCl [Reglan] 10 mg PO ACHS #120 tablet 04/20/16 Pravastatin Sodium [Pravachol] 80 mg PO DAILY #30 tablet 04/20/16 Saccharomyces Boulardii [Florastor] 250 mg PO BID #60 capsule 04/20/16 hydrALAZINE HCL [Apresoline] 10 mg PO Q8H #90 tablet 04/20/16
== END 2016-04-20 14:15 | disposition home or self-care (01) | DRG 629 ==
LOC: ER 10:55 → MS 12:57
PROVIDERS: ADMIT Internal Medicine; ATTEND Allergy & Immunology
PROC: 0QBN0ZX Excision of Right Metatarsal, Open Approach, Diagnostic (ICD-10-PCS; principal; 2016-04-17 13:30)
DX: E11.69 Type 2 diabetes mellitus with other specified complication (principal); M86.172 Other acute osteomyelitis, left ankle and foot; E87.5 Hyperkalemia; E11.65 Type 2 diabetes mellitus with hyperglycemia; E11.40 Type 2 diabetes mellitus with diabetic neuropathy, unspecified; E11.43 Type 2 diabetes mellitus with diabetic autonomic (poly)neuropathy; K31.84 Gastroparesis; E11.22 Type 2 diabetes mellitus with diabetic chronic kidney disease; I12.9 Hypertensive chronic kidney disease with stage 1 through stage 4 chronic kidney disease, or unspecified chronic kidney disease; N18.3 Chronic kidney disease, stage 3 (moderate); Z79.4 Long term (current) use of insulin; Z87.891 Personal history of nicotine dependence

== ENCOUNTER 2016-07-24 19:18 | Emergency (ER) | payer MEDICAID, MEDICARE ==
--- NOTE | 2016-07-24 20:12 | ERNOTE ---
Dizziness ER Record Date of Service: 07/24/16 Presenting Symptoms: dizziness Time Seen by Provider: 07/24/16 20:07 Source: patient, family Immunizations: IMMUNIZATION HX Immunizations Up to Date Yes History of Influenza Vaccine Yes Hx Pneumococcal Vaccination Yes Allergies/Adverse Reactions: Allergies Allergy/AdvReac Type Severity Reaction Status Date / Time No Known Allergies Allergy Verified 07/24/16 19:27 Home Medications: HOME MEDICATIONS Acetaminophen [Tylenol] 650 mg PO QID PRN #0 tablet 01/15/16 [Last Taken Unknown ] Aspirin [Aspirin Enteric Coated] 81 mg PO DAILY #30 tablet. 01/15/16 [Last Taken Unknown] Cholecalciferol [Vitamin D] 5,000 unit PO DAILY@1200 #30 tablet 04/20/16 [Last Taken Unknown] Diltiazem HCl [Cardizem] 60 mg PO Q8H #90 tablet 04/20/16 [Last Taken Unknown] Enalapril Maleate [Vasotec] 20 mg PO Q12H #60 tablet 04/20/16 [Last Taken Unknown] Hydrophilic Ointment [Aquaphilic Ointment] 1 appl TP BID jar 04/20/16 [Last Taken Unknown] Insulin Glargine,Hum.rec.anlog [Lantus] 40 units SC Q12H #1 vial 04/20/16 [Last Taken Unknown] Insulin Lispro [Humalog] 0 - 6 units SC ACINS #1 vial 04/20/16 [Last Taken Unknown] Insulin Lispro [Humalog] 16 units SC ACINS #1 vial 04/20/16 [Last Taken Unknown] Metoclopramide HCl [Reglan] 10 mg PO ACHS #120 tablet 04/20/16 [Last Taken Unknown] Pravastatin Sodium [Pravachol] 80 mg PO DAILY #30 tablet 04/20/16 [Last Taken Unknown] hydrALAZINE HCL [Apresoline] 5 mg PO Q8H 07/24/16 [Last Taken Unknown] - History of Present Illness Narrative: DIZZINESS FOR THE PAST 5 DAYS , OCCURRING IN SPELLS WITH LIGHTHEADEDNESS AND EPISODES OF VOMITING AND FAINTING FOR A FEW SECONDS. NO FEVER BUT SOME COLD SWEATS. NO DIARRHEA. NO KNOWN CONTACTS. NO MEDICATION CHANGES. LIVES ALONE. SAYS HE HAS NOT BEEN HURT WITH THE FALLS. STATED HAPPENED TWICE TODAY. HE HAS HAD DECREASED APPETITE AND NOT DRINKING MUCH USUAL. HE LIVES ALONE. DENIES SMOKING OR ETOH OR DRUGS. HE HAS NOT PAINS. . HE IS A DIABETIC. STATES HE TRIED SITTING AT SIDE OF BED FOR SEVERAL SECONDS BEFORE TAKING OFF WALKING BUT AFTER 6-7 STEPS THE DIZZY NESS ,LIGHT HEADEDNESS AND FALL STILL HAPPENS. HE DENIES ANY WEAKNESS. Review of Systems - Review of Systems Constitutional: Present: See HPI EYE: Present: no symptoms reported ENT: Present: no symptoms reported Respiratory: Present: no symptoms reported Cardiology: Present: no symptoms reported Gastrointestinal/Abdominal: Present: nausea, vomiting, eating less, drinking less Genitourinary: Present: See HPI Musculoskeletal: Present: no symptoms reported Skin: Present: no symptoms reported Neurological: Present: dizziness/light-headedness, other - SYNCOPE SPELLS Endocrine: Present: no symptoms reported Hematologic/Lymphatic: Present: no symptoms reported Psych: Present: no symptoms reported - Patient's Past Medical History Patient History - Medical: Diabetes Type 2, Obesity, Renal Disease, Renal Failure, Other - DIABETIC NEUROPATHY Patient History - Cardiac/Respiratory: No pertinent hx, Hypertension, Peripheral Vascular Disease Patient History - Cancer: Colon Patient History - Surgical Procedures: Amputation, Back Surgery, Colon Resection , Colonoscopy Patient History - Other: None - Family History Mother Family History - Medical: History Unknown Family History - Cardiac/Respiratory: History Unknown Family History - Cancer: History Unknown Father Family History - Medical: Family History - Cancer: History Unknown - Social History Living Situations: home Abuse History: Hx of Substance Use Psych History: No pertinent hx Does anyone smoke in the home?: No Smoking Status: Former smoker Alcohol Use: sober Drug Use: none - Immunizations Immunizations Up to Date: Yes Hx Pneumococcal Vaccination: Yes History of Influenza Vaccine: Yes Physical Exam - Physical Exam General Appearance: Present: wd/wn, alert, no apparent distress Eye Exam: Normal inspection: bilateral, PERRL: bilateral, EOMI: bilateral Ears, Nose, Throat: Present: normal except -, dry mucous membranes Neck: Present: normal inspection Respiratory: Present: no respiratory distress, normal breath sounds, no accessory muscle use, chest nontender, lungs clear Cardiovascular/Chest: Present: regular rate, rhythm - THOUGH AT REST HR IS IN HIGH 90'S, no murmur, normal peripheral pulses Gastrointestinal/Abdominal: Present: normal bowel sounds, nontender, nondistended, soft, no organomegaly Back Exam: Present: normal inspection, normal range of motion, no CVA tenderness , no vertebral tenderness Extremity Exam: Present: normal except - - LEFT FOOT TOE AMPUTATION, WEARS BOOT. Neurological Exam: Present: alert, oriented, normal mood/affect, no motor/ sensory deficits, waterproofer helper II-XII nml as tested. Absent: facial droop, motor weakness, disoriented to person, disoriented to time, disoriented to place, disoriented to situation Skin Exam: Present: normal color, warm/dry ED Progress - Results and Orders Patient's Lab Results:: I have reviewed the patient's lab results. Results and Orders: CBC WITH WBC = 15.3 ( HERE FOR N & V), CMP WITH CRI = STABLE CREAT = 1.9, GLUC = 304. UA WITH 15 KETONE AND SPILLING GLUCOSE AND UDS + FOR AMPHETAMINES - NOT EXPLAINED BY HIS CURRENT LISTED MEDICATIONS. - Vital Signs Patient's Vital Signs:: I have reviewed the patient's vital signs. Vital Signs: Vital Signs 07/24/16 07/24/16 19:19 20:00 Temperature 36.2 C L Pulse Rate 129 H 98 Respiratory 16 16 Rate Blood Pressure 115/67 141/95 O2 Sat by Pulse 96 99 Oximetry - EKG EKG: NSR, RBBB, other - ? old septal infarct. - CT/Ultrasound CT/Ultrasound Narrative: per erik , ct brain = no acute abnormality. - Progress/Reassessment Chief Complaint: Dizziness Progress:: Improved - HIS ORTHOSTATICS IMPROVED AFTER 2 LITER OF NS THOUGH HE STILL SHOWS A DROP WHEN SITTING AND STANDING THOUGH INSTEAD OF SYSTOLIC IN 70'S HE IS NOW IN MID 90'S . HE HAD NO C/O DIZZINESS OR SYNCOPE FEELING HERE. HE DOES ADMIT TO USE OF METH. AND HAS NOT BEEN FOLLOWING HIS BLOOD GLUCOSE OR EATING A PROPER DIET. Departure Clinical Impression: Dizziness, Amphetamine abuse Vomiting Qualifiers: Vomiting type: unspecified Vomiting Intractability: unspecified Nausea presence : without nausea Qualified Code(s): R11.11 - Vomiting without nausea Syncopal episodes Qualifiers: Syncope type: vasovagal syncope Qualified Code(s): R55 - Syncope and collapse - Departure Disposition: Home Follow Up Needed Condition: Good Instructions: Orthostatic Hypotension, Stimulant Use Disorder-Amphetamines, Hyperglycemia, [id number] Additional Instructions: STAY WELL HYDRATED BUT DO NOT RELY ON GATORADE WHICH HAS GLUCOSE IN IT. YOU MAY TRY DILUTING IT 1/2 AND 1/2 WITH WATER. WATCH YOUR BLOOD SUGARS AND DIET. AVOID THE AMPHETAMINES. TAKE EXTRA CARE WHEN STANDING FORM A SITTING OR LAYING POSITION AND SIT DOWN WHEN YOU GET DIZZY INSTEAD OF WAITING TO PASS OUT AND FALL DOWN. RECHECK WITH YOUR FAMILY DOCTOR . CALL FOR AN APPOINTMENT ON WEDNESDAY EXPLAINING WHAT IS HAPPENING. Referrals: Pablo Barahona MD [Primary Care Provider] -
--- OUTSIDE RECORDS SUMMARY | 2016-07-24 20:15 | XMS REPORT | Continuity of Care Document ---
:1955 Author Organization [facility] ([facility]) Address [address] [place] [address] Phone [phone] Care Team Providers Name Role Phone Brtet Beck Primary Care Provider [phone] Source Comments This disclosure is being made pursuant to the Care Everywhere program, applicable federal and state laws, and may not contain all informaitonavailable regarding this patient.[facility] ([facility]) Active Allergies and Adverse Reactions No [...]
[2016-07-24] MEDS ORDERED: NORMAL SALINE 1,000 ML IV ONE ×2 (20:20→21:33)
[2016-07-24 20:52] LABS: Hematocrit 47.5 % (42.0-52.0); Hemoglobin 16.2 gm/dL (13.5-18.0); Mean Cell Volume 84.8 fl (78-100); Mean Corpuscular Hemoglobin 28.9 pg (27-31); Mean Corpuscular Hgb Conc 34.1 g/dl (32-36); Mean Platelet Volume 10.8 fl (6.0-9.5); Neutrophil # 12.6 K/mm3 (1.3-6.0); Neutrophil % 82.6 % (42-75.0); Platelet Count 255 K/mm3 (150-450); Red Cell Distribution Width 13.4 % (11.5-14.0); White Blood Count 15.3 K/mm3 (4.0-10.5)
[2016-07-24 21:13] LABS: ALT 18 U/L (19-67); AST 14 U/L (0-48); Albumin * 3.9 gm/dl (3.4-5.0); Alkaline Phosphatase * 82 U/L (50-170); Anion Gap 17.3 mmol/L (6.8-13.8); Bilirubin, Total 0.8 mg/dL (0.0-1.1); Blood Urea Nitrogen 44 mg/dL (6-23); Ca. Corrected For Albumin 9.2 mg/dL (8.4-10.2); Calcium * 9.4 mg/dL (7.9-10.9); Carbon Dioxide 25.6 mmol/L (24-32.6); Chloride 93 mmol/L (97-106); Glucose * 304 mg/dL (70-110); Potassium 3.9 mmol/L (3.4-4.6); Sodium 132 mmol/L (132-142); Total Protein 8.3 gm/dL (6.2-8.2); Troponin I 0.026 ng/ml (0.00-0.10)
[2016-07-24] MEDS ORDERED: INSULIN REGULAR, HUMAN 100 UNITS/ML VIAL IV ONE (21:37)
[2016-07-24] MEDS ORDERED: INSULIN REGULAR, HUMAN 100 UNITS/ML VIAL ONE (21:51)
[2016-07-24 21:54] LABS: Urine Bilirubin Negative (NEGATIVE); Urine Ketone 15 mg/dL (NEGATIVE); Urine Nitrite Negative (NEGATIVE); Urine Protein 100 mg/dL (NEGATIVE); Urine Specific Gravity 1.025 SP.GR. (1.005-1.030); Urine Urobilinogen Normal (NORMAL); Urine pH 5.5 pH (5.0-7.0)
[2016-07-24 22:03] LABS: Cocaine Ur Negative (NEGATIVE); Urine Appearance Clear; Urine Bacteria None Seen; Urine Barbiturate Negative (NEGATIVE); Urine Benzodiazepines Negative (NEGATIVE); Urine Blood 10 /ul (NEGATIVE); Urine Color Yellow; Urine Opiates Negative (NEGATIVE); Urine PCP Negative (NEGATIVE); Urine RBC 0-5 /hpf (0-5); Urine THC Negative (NEGATIVE); Urine WBC None Seen /hpf (0-5)
[2016-07-25 01:09] VITALS: BP 170/89
== END 2016-07-25 00:50 | disposition home or self-care (01) ==
LOC: ER 19:18
DX: R42 Dizziness and giddiness (principal); F15.10 Other stimulant abuse, uncomplicated; R11.11 Vomiting without nausea; R55 Syncope and collapse; E11.40 Type 2 diabetes mellitus with diabetic neuropathy, unspecified; E11.65 Type 2 diabetes mellitus with hyperglycemia; I10 Essential (primary) hypertension; Z85.038 Personal history of other malignant neoplasm of large intestine
CPT/HCPCS: 36415; 70450; 71020; 80053; 80307; 81001; 84484; 85025; 93005; 94762; 96374; 99285; G0481

== ENCOUNTER 2017-07-20 16:01 | Inpatient (IN) ==
[2017-07-20] MEDS ORDERED: NORMAL SALINE 1,000 ML IV ONE ×2 (16:24→19:08)
[2017-07-20] MEDS ORDERED: ONDANSETRON HCL/PF 2 MG/ML VIAL IV ONE (16:24)
[2017-07-20 16:32] LABS: Hematocrit 46.3 % (42.0-52.0); Hemoglobin 15.8 gm/dL (13.5-18.0); Mean Cell Volume 83.7 fl (78-100); Mean Corpuscular Hemoglobin 28.6 pg (27-31); Mean Corpuscular Hgb Conc 34.1 g/dl (32-36); Mean Platelet Volume 9.6 fl (8-11.3); Neutrophil # 13.1 K/mm3 (1.3-6.0); Neutrophil % 83.5 % (42-75.0); Platelet Count 341 K/mm3 (150-450); Red Blood Count 5.53 M/mm3 (4.7-6.0); Red Cell Distribution Width 12.6 % (11.5-14.0); White Blood Count 15.6 K/mm3 (4.0-10.5)
[2017-07-20 16:49] LABS: Albumin * 2.8 gm/dl (3.4-5.0); Anion Gap 27.4 mmol/L (6.8-13.8); BUN/Creatinine Ratio 23.5 (9.0-21.6); Bilirubin, Total 0.6 mg/dL (0.0-1.1); Ca. Corrected For Albumin 9.5 mg/dL (8.4-10.2); Calcium * 8.9 mg/dL (7.9-10.9); Carbon Dioxide 16.9 mmol/L (24-32.6); Potassium 4.3 mmol/L (3.4-4.6); Total Protein 8.1 gm/dL (6.2-8.2)
[2017-07-20] MEDS ORDERED: ONDANSETRON HCL/PF 2 MG/ML VIAL ONE (16:56)
--- NOTE | 2017-07-20 17:03 | CONS ---
- Reason for consultation (1) Ulcer of foot due to diabetes Date of Service: 07/20/17 HPI - General Narrative: Pt was brought in to the ED by EMS for a 1 week duration of nausea and vomiting. States that he began vomiting last Wednesday and has continued for the past week. He was placed on ABX last week for cellulitis in the left foot surrounding a chronic ulceration that I have been treating for several months. Pt states that he has not taken any of the ABX that was prescribed because he has been too sick. He also has not changed his dressing on his foot since last week's visit. States today that he has been having trouble with urination as well. He was to follow up in the wound center today, however did not come to his visit. He contacted EMS himself for transport to the ED. On presentation, wound was noted and I was consulted for further evaluation. Source: patient Exam Limitations: no limitations - History of Present Illness Associated Symptoms: loss of appetite, malaise, nausea, vomiting Allergies/Adverse Reactions: Allergies No Known Allergies Allergy (Verified 07/20/17 16:08) Home Medications: Home Medications Medication Instructions Recorded Last Taken hydrALAZINE HCL [Apresoline] 5 mg PO Q8H 07/24/16 Unknown - Patient's Past Medical History Patient History - Medical: Diabetes Type 2, Obesity, Renal Disease, Renal Failure, Other Patient History - Cardiac/Respiratory: Hypertension, Peripheral Vascular Disease Patient History - Cancer: No Hx of Cancer Patient History - Surgical Procedures: Orthopedic Patient History - Other: None - Family History Mother Family History - Medical: History Unknown Family History - Cardiac/Respiratory: History Unknown Family History - Cancer: History Unknown Father Family History - Medical: Family History - Cancer: History Unknown - Social History Living Situations: home Abuse History: Hx of Substance Use Psych History: No pertinent hx Smoking Status: Never smoker Alcohol Use: none Drug Use: none - Immunizations Immunizations Up to Date: Yes Hx Pneumococcal Vaccination: No History of Influenza Vaccine: No Procedures EXCISION OF RIGHT METATARSAL, OPEN APPROACH, DIAGNOSTIC (04/11/16) Review of Systems - Review of Systems Generalized/Overall Review: Present: Weakness, Malaise Abdominal: Present: Nausea, Vomiting Genitourinary: Present: Retention Neurological: Present: Numbness Skin: Present: Other - Ulceration left foot Physical Examination - Exam Vital Signs: Vital Signs - Last Taken Temp 37.1 C 07/20/17 16:03 Pulse 97 07/20/17 16:24 Resp 15 07/20/17 16:24 BP 149/96 07/20/17 16:24 Pulse Ox 98 07/20/17 16:24 O2 Oxygen Delivery Method Room Air Constitutional: Present: Alert, Oriented x3, Cooperative, Mild distress Peripheral Pulses: dorsalis-pedis (L): 1+ Skin Exam: Present: other - Ulceration to plantar lateral left foot measuring 1.6 x 2.7 x 0.2 cm. No tunneling or undermining. Loss of tissue to full thickness with exposure of subcutaneous fat layer. Base with mostly pink tissue , minimal granulation. Fibrotic slough tissue intermixed. Surrounding tissue macerated and callused. Dorsal skin with some sloughing likely due to lack of dressing change and moisture from drainage. Erythema to the foot has improved from last week, however still with some slight erythema present. No longer hot to touch. Minimal serous drainage, slight malodor, which could be secondary to macerated tissue. No exposed tendon or bone. Overall, ulceration and condition of foot appear improved from wound center visit last week. Neurologic: Present: sensory deficit Eye contact: Present: cooperative - Results and Findings: Lab/Microbiology results last 24 hrs: Abnormal/Pending Laboratory Last 24 HRS 07/20/17 Unknown WBC 15.6 H Immature Gran % (Auto) 1.00 H Immature Gran # (Auto) 0.15 H Neutrophils % 83.5 H Lymphocytes % 6.7 L Neutrophils # 13.1 H Lymphocytes # 1.05 L Monocytes # 1.3 H - Assessments/Findings (1) Ulcer of foot due to diabetes Diagnosis(s): Ulceration overall appears improved from last visit. Ulceration debrided at bedside selectively with #15 blade, removing all devitalized, macerated callused tissue from the periphery revealing normal healthy surrounding skin lines. Surface debrided with #15 blade removing devitalized fibrotic tissue from the surface revealing a healthy bleeding wound bed. Hemostasis with compression. Pt tolerated well without complication. Dressed today with dry gauze and tape. Will need daily dressings as discussed at wound center to consist of Aquacel Ag, dry gauze, roll gauze, and tape. Foot needs to be washed with soap and water and dried with a clean towel prior to applying new dressings. Must wear surgical boot with all weight bearing activities. Problem: Chronic Qualifiers: Diabetic foot ulcer location: midfoot Diabetes mellitus type: type 2 Laterality: left Non-pressure ulcer stage: with fat layer exposed Qualified Code(s): E11.621 - Type 2 diabetes mellitus with foot ulcer; L97.422 - Non- pressure chronic ulcer of left heel and midfoot with fat layer exposed; L97.422 - Non-pressure chronic ulcer of left heel and midfoot with fat layer exposed; L97.422 - Non-pressure chronic ulcer of left heel and midfoot with fat layer exposed; L97.422 - Non-pressure chronic ulcer of left heel and midfoot with fat layer exposed (2) Cellulitis Diagnosis(s): Appears improved from last week, however still with some erythema present. Needs ABX therapy. May require an IV dose until vomiting is controlled. Problem: Acute Qualifiers: Site of cellulitis: extremity Site of cellulitis of extremity: lower extremity Laterality: left Qualified Code(s): L03.116 - Cellulitis of left lower limb
[2017-07-20] MEDS ORDERED: PANTOPRAZOLE SODIUM 40 MG in NORMAL SALINE 100 ML IV ONE (17:18)
[2017-07-20] MEDS ORDERED: PANTOPRAZOLE SODIUM 40 MG/100 ML PIGGYBACK IV ONE (17:19)
[2017-07-20 17:38] LABS: Urine Bilirubin Negative (NEGATIVE); Urine Blood 250 /ul (NEGATIVE); Urine Ketone Large mg/dL (NEGATIVE); Urine Protein 100 mg/dL (NEGATIVE); Urine Specific Gravity 1.025 SP.GR. (1.005-1.030); Urine Urobilinogen Normal (NORMAL)
[2017-07-20 17:44] LABS: Urine Appearance Cloudy (CLEAR); Urine Bacteria 3+; Urine Color Dark Yellow; Urine Nitrite Positive (NEGATIVE); Urine RBC >50 /hpf (0-5); Urine WBC >50 /hpf (0-5)
[2017-07-20] MEDS ORDERED: hydrALAZINE HCL 20 MG/ML VIAL IV ONE (18:09)
[2017-07-20] MEDS ORDERED: hydrALAZINE HCL 20 MG/ML VIAL ONE (18:11)
[2017-07-20 18:12] LABS: Lipase 86 U/L (73-393)
[2017-07-20] MEDS ORDERED: LEVOFLOXACIN IN DEXTROSE 5 % 500 MG/100 ML BAG IV SCH (18:15)
[2017-07-20 18:22] LABS: Troponin I Less than 0.017 ng/ml (0.00-0.10)
--- NOTE | 2017-07-20 18:36 | ERNOTE ---
Medical Problem HPI - Narrative Date of Service: 07/20/17 - General Chief Complaint: Genitourinary Problem Time Seen by Provider: 07/20/17 16:07 Source: patient Exam Limitations: no limitations - Immun/Allergies/Home Medications Immunizations: IMMUNIZATION HX Immunizations Up to Date Yes History of Influenza Vaccine No Hx Pneumococcal Vaccination No Allergies/Adverse Reactions: Allergies No Known Allergies Allergy (Verified 07/20/17 16:08) Home Medications: HOME MEDICATIONS Acetaminophen [Tylenol] 650 mg PO QID PRN #0 tablet 01/15/16 [Last Taken Unknown ] Aspirin [Aspirin Enteric Coated] 81 mg PO DAILY #30 tablet. 01/15/16 [Last Taken Unknown] Cholecalciferol [Vitamin D] 5,000 unit PO DAILY@1200 #30 tablet 04/20/16 [Last Taken Unknown] Diltiazem HCl [Cardizem] 60 mg PO Q8H #90 tablet 04/20/16 [Last Taken Unknown] Enalapril Maleate [Vasotec] 20 mg PO Q12H #60 tablet 04/20/16 [Last Taken Unknown] Hydrophilic Ointment [Aquaphilic Ointment] 1 appl TP BID jar 04/20/16 [Last Taken Unknown] Insulin Glargine,Hum.rec.anlog [Lantus] 40 units SC Q12H #1 vial 04/20/16 [Last Taken Unknown] Insulin Lispro [Humalog] 0 - 6 units SC ACINS #1 vial 04/20/16 [Last Taken Unknown] Insulin Lispro [Humalog] 16 units SC ACINS #1 vial 04/20/16 [Last Taken Unknown] Metoclopramide HCl [Reglan] 10 mg PO ACHS #120 tablet 04/20/16 [Last Taken Unknown] Pravastatin Sodium [Pravachol] 80 mg PO DAILY #30 tablet 04/20/16 [Last Taken Unknown] hydrALAZINE HCL [Apresoline] 5 mg PO Q8H 07/24/16 [Last Taken Unknown] - History of Present History Narrative: Patient presents to the ED via EMS for feeling sick. He relates that he is feeling dehydrated, has been vomiting. He has been having dark urine and now white urine and dysuria. He thinks he has a UTI. Recurrent vomiting. Has felt feverish. No diarrhea. Mild right low abdomianl pain but he states this is minor. No CP or SOB. Feeling lightheaded and nauseated. Dizzy with standing. No flank pain. Timing: constant, getting worse Severity: moderate Modifying Factors - (Improves): Present: other - nothing Modifying Factors - (Worsens): Present: other - nothing Review of Systems - Review of Systems Constitutional: Present: chills EYE: Present: no symptoms reported ENT: Absent: sore throat Respiratory: Absent: shortness of breath Cardiology: Absent: chest pain Gastrointestinal/Abdominal: Present: See HPI Genitourinary: Present: See HPI Musculoskeletal: Present: other - no falnk pain Skin: Absent: rash Neurological: Present: other - generalized weakness, no acute focal weakness All Other Systems: All systems neg except as marked - Patient's Past Medical History Patient History - Medical: Diabetes Type 2, Obesity, Renal Disease, Renal Failure, Other Patient History - Cardiac/Respiratory: Hypertension, Peripheral Vascular Disease Patient History - Cancer: No Hx of Cancer Patient History - Surgical Procedures: Orthopedic Patient History - Other: None - Family History Mother Family History - Medical: History Unknown Family History - Cardiac/Respiratory: History Unknown Family History - Cancer: History Unknown Father Family History - Medical: Family History - Cancer: History Unknown - Social History Living Situations: home Abuse History: Hx of Substance Use Psych History: No pertinent hx Smoking Status: Never smoker Alcohol Use: none Drug Use: none - Immunizations Immunizations Up to Date: Yes Hx Pneumococcal Vaccination: No History of Influenza Vaccine: No Physical Exam - Physical Exam General Appearance: Present: alert Head Exam: Present: normal inspection, no evidence of injury Eye Exam: Normal inspection: bilateral, PERRL: bilateral Ears, Nose, Throat: Present: dry mucous membranes. Absent: pharyngeal erythema Neck: Present: normal inspection Respiratory: Present: no respiratory distress, normal breath sounds, no accessory muscle use, lungs clear Cardiovascular/Chest: Present: normal peripheral pulses, tachycardia Gastrointestinal/Abdominal: Present: normal bowel sounds, nondistended, soft, other - there is very minimal tendenress right low abdomen and suprapubic with deep palpation. No guarding or rebound. No peritoneal signs. Non-surgical exam Back Exam: Absent: CVA tenderness (R), CVA tenderness (L) Extremity Exam: Present: normal inspection Neurological Exam: Present: alert, other - generalized weakness. No acute focal motor or sensory deficits Skin Exam: Present: normal color, warm/dry ED Progress - Results and Orders Patient's Lab Results:: I have reviewed the patient's lab results. - Vital Signs Patient's Vital Signs:: I have reviewed the patient's vital signs. Vital Signs: Vital Signs 07/20/17 07/20/17 07/20/17 16:03 16:24 16:52 Temperature 37.1 C Pulse Rate 98 97 92 Respiratory 15 15 9 L Rate Blood Pressure 173/91 149/96 175/102 O2 Sat by Pulse 98 98 98 Oximetry 07/20/17 07/20/17 07/20/17 17:25 18:06 18:15 Temperature Pulse Rate 91 96 100 Respiratory 8 L 18 Rate Blood Pressure 199/103 215/112 188/105 O2 Sat by Pulse 97 97 Oximetry - EKG EKG: NSR EKG read: Interp. by me EKG Comments: Sinus rate 85. RBBB. non-specific, no evidence of STEMI - X-Ray X-Ray #1 X-Ray: abdomen Interpretation: Interp. by me X-ray Comments: Non-specific bowel rick pattern. No real-time radiology reads - Progress/Reassessment Chief Complaint: Genitourinary Problem Progress Note-Subjective: 07/20/17 18:34 IV fluids given. IV ABx. IV BP meds for HTN. D.W Hospitalist (Mckenna) for admission. Patient agreeable. I feel the patient is likely not in DKA as he is clinically very dehydrated. I did give him Insulin SC but do not feel he needs a drip at this time. Sepsis fluids given. No suggestion of severe sepsis , no hypotension. Sepsis fluids given, IV ABx, SC insulin, admit hospitalist. 07/20/17 19:49 Departure Clinical Impression: UTI (urinary tract infection), Dehydration, Diabetes - Departure Disposition: Still a patient Condition: Fair Referrals: Pablo Barahona MD [Primary Care Provider] -
[2017-07-20 18:39] LABS: Cocaine Ur Negative (NEGATIVE); Urine Barbiturate Negative (NEGATIVE); Urine Benzodiazepines Negative (NEGATIVE); Urine Opiates Negative (NEGATIVE); Urine PCP Negative (NEGATIVE); Urine THC Negative (NEGATIVE)
[2017-07-20] MEDS ORDERED: NORMAL SALINE 400 ML IV ONE (19:09)
[2017-07-20] MEDS ORDERED: INSULIN REGULAR, HUMAN 100 UNITS/ML VIAL SC ONE (19:46)
[2017-07-20] MEDS ORDERED: INSULIN REGULAR, HUMAN 100 UNITS/ML VIAL ONE (19:59)
[2017-07-20] MEDS: INSULIN REGULAR HUMAN REC 100 UNITS in NORMAL SALINE 100 ML IV PRN ×2 (20:22→21:46)
--- NOTE | 2017-07-20 21:59 | HP ---
Chief Complaint - Chief Complaint Date of Service: 07/20/17 Time of Service: 21:59 Chief Complaint: "Blood and pus in urine". Source of HPI- Pt; reliable, ERP report. History of Present Illness: Mr. Hunter is a 62-yr-old WM pt with a PMH of: Cellulitis, CKD stage III, DM II, Diabetic foot ulcer, Gastroparesis, HTN, Osteomyelitis and Peripheral Neuropathy. He is formally a pt of Dr. Mayer and pt admits to not seeking any care nor taking his medications for the past 5-6 months. He reports that on Wednesday07/13/17, he noticed that his urine was bloody. Then the following day, he begun noticing whitish stuff that looked like pus in his urine. He states that he never sought any care. He has had fevers and chills off and on. He denies the associated symptoms of suprapubic pain, dysuria and back pain. He just thought the symptoms would go away. Today, he felt more confused, was tired of lying around on the bed and therefore called the EMS. He reports feeling very weak and clammy. He states that he has not taken any insulin for the last 5 months as he could not afford paying for it. He says that he received a letter from the medicaid subsidized insurance that he was going to start paying a full abreu on his insulins, both of which would cost a total of nearly $ 1200 monthly. He could not afford the insulin and his other medications as he survives on disability income. He has a chronic ulcer wound on his LT foot and was seen and evaluated by Dr. Laguerre at the ED and the wound was debrided. Even though there was cellulitis on the extremity, there was an improvement. At the ED, abnormal labs were as below prompting an admission for DKA and UTI. Laboratory Tests 07/20/17 07/20/17 07/20/17 16:08 16:08 16:08 WBC 15.6 H Neutrophils % 83.5 H Lymphocytes % 6.7 L Carbon Dioxide 16.9 L Anion Gap 27.4 H Random Glucose 399 H Lactic Acid, Venous Serum Ketones Positive - 80mg/dl H 07/20/17 16:28 Lactic Acid, Venous 2.1 H* 07/20/17 Unknown Urine Protein 100 H Urine Glucose (UA) >=1000 H Urine Ketones Large Urine Blood 250 H Urine Nitrate Positive H Prot Sulfosalicylic Acd 4+ H Ur Leukocyte Esterase 75 H Urine RBC >50 H Urine WBC >50 H Urine Bacteria 3+ H ABGs 07/20/17 20:10 pCO2 18.3 L* pO2 104.7 HCO3 10.3 L Total CO2 10.9 L Base Excess -12.3 L ABG pH 7.37 ABG O2 Sat (Measured) 97.8 - Patient's Past Medical History Patient History - Medical: Diabetes Type 2, Obesity, Renal Disease, Renal Failure, Other Patient History - Cardiac/Respiratory: Hypertension, Peripheral Vascular Disease Patient History - Cancer: No Hx of Cancer Patient History - Surgical Procedures: Orthopedic Patient History - Other: None - Family History Mother Family History - Medical: History Unknown Family History - Cardiac/Respiratory: History Unknown Family History - Cancer: History Unknown Father Family History - Medical: Family History - Cancer: History Unknown - Social History Living Situations: home Abuse History: Hx of Substance Use Psych History: No pertinent hx Smoking Status: Never smoker Alcohol Use: none Drug Use: none - Immunizations Immunizations Up to Date: Yes Hx Pneumococcal Vaccination: No History of Influenza Vaccine: No Review Of Systems (GEN) - Review of Systems Generalized/Overall Review: Present: Weakness, Chills, Fever, Malaise EENTM: Absent: Eye Pain, Blurred Vision, Tearing Respiratory: Absent: Cough, Shortness of Breath, Orthopnea Cardiac: Absent: Chest Pain, Edema, Palpitations, Syncope Abdominal: Absent: Nausea, Vomiting, Hematemesis, Constipation Genitourinary: Present: Dribbling, Retention. Absent: Burning, Itching, Urgency , Frequency Musculoskeletal: Absent: Joint Pain, Back Pain, Joint Swelling Neurological: Present: Emotional Problems, Weakness. Absent: Headache, Anxiety , Depressed, Numbness Skin: Present: Other. Absent: Dryness, Lesions Endocrine: Present: Intolerance to Cold Misc: All systems neg except as marked Immunizations: IMMUNIZATION HX Immunizations Up to Date Yes History of Influenza Vaccine No Hx Pneumococcal Vaccination No Allergies/Adverse Reactions: Allergies Allergy/AdvReac Type Severity Reaction Status Date / Time No Known Allergies Allergy Verified 07/20/17 16:08 Home Medications: HOME MEDICATIONS Acetaminophen [Tylenol] 650 mg PO QID PRN #0 tablet 01/15/16 [Last Taken Unknown ] Aspirin [Aspirin Enteric Coated] 81 mg PO DAILY #30 tablet. 01/15/16 [Last Taken Unknown] Hydrophilic Ointment [Aquaphilic Ointment] 1 appl TP BID jar 04/20/16 [Last Taken Unknown] Insulin Glargine,Hum.rec.anlog [Lantus] 40 units SC Q12H #1 vial 04/20/16 [Last Taken Unknown] Insulin Lispro [Humalog] 16 units SC ACINS #1 vial 04/20/16 [Last Taken Unknown] Metoclopramide HCl [Reglan] 10 mg PO ACHS #120 tablet 04/20/16 [Last Taken Unknown] Pravastatin Sodium [Pravachol] 80 mg PO DAILY #30 tablet 04/20/16 [Last Taken Unknown] hydrALAZINE HCL [Apresoline] 5 mg PO TID 07/24/16 [Last Taken Unknown] Cholecalciferol [Vitamin D] 5,000 unit PO DAILY 07/21/17 [Last Taken Unknown] Diltiazem HCl [Cardizem] 60 mg PO TID 07/21/17 [Last Taken Unknown] Enalapril Maleate [Vasotec] 20 mg PO BID 07/21/17 [Last Taken Unknown] Insulin Lispro [Humalog] 0 - 6 units SC ACINS 07/21/17 [Last Taken Unknown] Exam - Exam Vital Signs: Vital Signs - Last Taken Temp 36.9 C 07/20/17 20:30 Pulse 107 H 07/20/17 20:30 Resp 16 07/20/17 20:30 BP 196/101 07/20/17 20:30 Pulse Ox 98 07/20/17 20:30 Constitutional: Present: Alert, Oriented x3, Cooperative, No distress ENT Exam: Present: normal ENT inspection Eye Exam: bilateral eye: normal inspection, PERRL Neck: Present: non-tender, full range of motion, supple Back Exam: Present: normal inspection, no CVA tenderness Breasts: Present: Exam deferred Respiratory: Present: No rales, No wheezing Cardiovascular/Chest: Present: normal peripheral pulses, regular rate, rhythm, no chest tenderness, no edema Abdomen: Present: Normal bowel sounds, soft, nontender /Rectal: Present: Exam deferred Extremity: Present: other - Ulceration on LT foot- 3 x 2.5 minimal yellowish drainange, Skin Exam: Present: other - Slight erythema on LT foot. Lymphatic: Present: no adenopathy Neurologic: Present: alert, normal mood/affect, oriented x 3 Appearance: Present: appropriate appearance, appropriate insight Eye contact: Present: cooperative, good eye contact, normal speech Thoughts: Present: no apparent hallucination Diagnostic Studies: Abnormal Lab Results 07/20/17 07/20/17 Range/Units 20:10 Unknown pCO2 18.3 L* (35.0-48.0) mmHg HCO3 10.3 L (21.0-28.0) mmol/L Total CO2 10.9 L (19.0-24.0) mmol/L Base Excess -12.3 L (-2.0-3.0) mmol/L Urine Protein 100 H (NEGATIVE) mg/dL Urine Glucose (UA) >=1000 H (NEGATIVE) mg/dL Urine Blood 250 H (NEGATIVE) /ul Urine Nitrate Positive H (NEGATIVE) Prot Sulfosalicylic Acd 4+ H (0) mg/dL Ur Leukocyte Esterase 75 H (NEGATIVE) /ul Urine RBC >50 H (0-5) /hpf Urine WBC >50 H (0-5) /hpf Urine Bacteria 3+ H (NONE) Laboratory Results WBC 15.6 K/mm3 (4.0-10.5) H 07/20/17 16:08 RBC 5.53 M/mm3 (4.7-6.0) 07/20/17 16:08 Hgb 15.8 gm/dL (13.5-18.0) 07/20/17 16:08 Hct 46.3 % (42.0-52.0) 07/20/17 16:08 MCV 83.7 fl (78-100) 07/20/17 16:08 MCH 28.6 pg (27-31) 07/20/17 16:08 MCHC 34.1 g/dl (32-36) 07/20/17 16:08 RDW 12.6 % (11.5-14.0) 07/20/17 16:08 Plt Count 341 K/mm3 (150-450) 07/20/17 16:08 MPV 9.6 fl (8-11.3) 07/20/17 16:08 Immature Gran % (Auto) 1.00 % (0.001-0.429) H 07/20/17 16:08 Immature Gran # (Auto) 0.15 K/mm3 (0.000-0.0310) H 07/20/17 16:08 Neutrophils % 83.5 % (42-75.0) H 07/20/17 16:08 Lymphocytes % 6.7 % (20-51) L 07/20/17 16:08 Monocytes % 8.5 % (0.0-9) 07/20/17 16:08 Eosinophils % 0.0 % (0.0-3.0) 07/20/17 16:08 Basophils % 0.3 % (0.0-1.0) 07/20/17 16:08 Nucleated RBC % 0.0 k/mm3 (0-1) 07/20/17 16:08 Neutrophils # 13.1 K/mm3 (1.3-6.0) H 07/20/17 16:08 Lymphocytes # 1.05 k/mm3 (1.5-3.5) L 07/20/17 16:08 Monocytes # 1.3 k/mm3 (0.0-1.0) H 07/20/17 16:08 Eosinophils # 0.0 k/mm3 (0.0-0.7) 07/20/17 16:08 Absolute Basophils 0.0 k/mm3 (0.0-0.1) 07/20/17 16:08 pCO2 18.3 mmHg (35.0-48.0) L* 07/20/17 20:10 pO2 104.7 mmHg (83.0-108.0) 07/20/17 20:10 HCO3 10.3 mmol/L (21.0-28.0) L 07/20/17 20:10 Total CO2 10.9 mmol/L (19.0-24.0) L 07/20/17 20:10 Base Excess -12.3 mmol/L (-2.0-3.0) L 07/20/17 20:10 ABG pH 7.37 (7.35-7.45) 07/20/17 20:10 ABG O2 Sat (Measured) 97.8 % (94.0-98.0) 07/20/17 20:10 Sodium 129 mmol/L (132-142) L 07/20/17 16:08 Plasma Sodium 134 mmol/L (130-142) 07/20/17 16:08 Potassium 4.3 mmol/L (3.4-4.6) 07/20/17 16:08 Chloride 89 mmol/L (97-106) L 07/20/17 16:08 Carbon Dioxide 16.9 mmol/L (24-32.6) L 07/20/17 16:08 Anion Gap 27.4 mmol/L (6.8-13.8) H 07/20/17 16:08 BUN 44 mg/dL (6-23) H 07/20/17 16:08 Creatinine 1.87 mg/dL (0.4-1.4) H 07/20/17 16:08 Est GFR (Non-Af Amer) 39 mL/min (60-130) L 07/20/17 16:08 BUN/Creatinine Ratio 23.5 (9.0-21.6) H 07/20/17 16:08 Random Glucose 399 mg/dL (70-110) H 07/20/17 16:08 Lactic Acid, Venous 2.1 mmol/L (0.4-1.9) H* 07/20/17 19:21 Calcium 8.9 mg/dL (7.9-10.9) 07/20/17 16:08 Calcium Adj for Albumin 9.5 mg/dL (8.4-10.2) 07/20/17 16:08 Total Bilirubin 0.6 mg/dL (0.0-1.1) 07/20/17 16:08 AST 7 U/L (0-48) 07/20/17 16:08 ALT 12 U/L (19-67) L 07/20/17 16:08 Alkaline Phosphatase 75 U/L (50-170) 07/20/17 16:08 Troponin I Less than 0.017 ng/ml (0.00-0.10) 07/20/17 16:08 Total Protein 8.1 gm/dL (6.2-8.2) 07/20/17 16:08 Albumin 2.8 gm/dl (3.4-5.0) L 07/20/17 16:08 Lipase 86 U/L (73-393) 07/20/17 16:08 Urine Color Dark yellow 07/20/17 Unknown Urine Appearance Cloudy (CLEAR) 07/20/17 Unknown Urine pH 6.0 pH (5.0-7.0) 07/20/17 Unknown Ur Specific [place] 1.025 SP.GR. (1.005-1.030) 07/20/17 Unknown Urine Protein 100 mg/dL (NEGATIVE) H 07/20/17 Unknown Urine Glucose (UA) >=1000 mg/dL (NEGATIVE) H 07/20/17 Unknown Urine Ketones Large mg/dL (NEGATIVE) 07/20/17 Unknown Urine Blood 250 /ul (NEGATIVE) H 07/20/17 Unknown Urine Nitrate Positive (NEGATIVE) H 07/20/17 Unknown Urine Bilirubin Negative mg/dl (NEGATIVE) 07/20/17 Unknown Prot Sulfosalicylic Acd 4+ mg/dL (0) H 07/20/17 Unknown Urine Urobilinogen Normal EU/dl (NORMAL) 07/20/17 Unknown Ur Leukocyte Esterase 75 /ul (NEGATIVE) H 07/20/17 Unknown Urine RBC >50 /hpf (0-5) H 07/20/17 Unknown Urine WBC >50 /hpf (0-5) H 07/20/17 Unknown Ur Epithelial Cells None seen /hpf (0-5) 07/20/17 Unknown Urine Bacteria 3+ (NONE) H 07/20/17 Unknown Urine Culture Comments Culture to follow 07/20/17 Unknown Urine Opiates Screen Negative (NEGATIVE) 07/20/17 18:09 Barbiturate Screen Negative (NEGATIVE) 07/20/17 18:09 Ur Phencyclidine Scrn Negative (NEGATIVE) 07/20/17 18:09 Urine Amphetamine Negative (NEGATIVE) 07/20/17 18:09 U Benzodiazepines Scrn Negative (NEGATIVE) 07/20/17 18:09 Urine Cocaine Screen Negative (NEGATIVE) 07/20/17 18:09 Urine Marijuana (THC) Negative (NEGATIVE) 07/20/17 18:09 Serum Ketones Positive - 80mg/dl (NEGATIVE) H 07/20/17 16:08 Assessment/Plan - Assessment/Plan (1) DKA (diabetic ketoacidoses) Assessment: Likely precipitated by non- compliance or infection- UTI. No CXR obtained as he has not respiratory complaints and no pneumonia is suspected. DKA Noted with the following results. Insulin gtt initiated at 0.1 u/kg/hr at the ED. Treated according to DKA protocol with vigorous IVF resuscitation, bmp q 2 hrs, Resolution will be noted with AG< 12 Laboratory Tests 07/20/17 07/20/17 07/20/17 16:08 16:08 20:10 ABG pH 7.37 Carbon Dioxide 16.9 L Random Glucose 399 H Serum Ketones Positive - 80mg/dl H Problem: Acute Qualifiers: Diabetes mellitus type: type 2 (2) UTI (urinary tract infection) Assessment: Covered with Levaquin for now and will continue till urine culture results. Laboratory Tests 07/20/17 Unknown Urine Nitrate Positive H Ur Leukocyte Esterase 75 H Urine RBC >50 H Urine WBC >50 H Urine Bacteria 3+ H Urine Culture Comments Culture to follow Problem: Acute (3) Cellulitis Assessment: Seen by Dr. Laguerre at the ED. The cellulitis was being treated outpatient with Levaquin po and felt to be improving. Will continue with IV Levaquin. Problem: Acute (4) Diabetic foot ulcer Assessment: Per Dr. Laguerre, the Ulceration overall appears improved from last visit. Ulceration debrided at the ED. Will need daily dressings as discussed at wound center to consist of Aquacel Ag, dry gauze, roll gauze, and tape. Foot needs to be washed with soap and water and dried with a clean towel prior to applying new dressings. Must wear surgical boot with all weight bearing activities Problem: Chronic Qualifiers: Diabetes mellitus type: type 2 (5) Poorly controlled diabetes mellitus Assessment: Has not been compliant with DM mgt for the last months. Will check HgA1C. Will have case mgt assist with insurance coverage for insulin and determine resources that can make medications affordable to him Problem: Chronic (6) HTN (hypertension) Assessment: Will resume his antihypertensives- Apresoline, Vasotec, & Diltiazem. Monitor V.S Selected Entries 07/20/17 07/20/17 07/21/17 20:30 21:00 00:02 Pulse Rate 107 H 107 H 107 H Blood Pressure 196/101 196/101 196/101 Problem: Chronic (7) CKD (chronic kidney disease) stage 3, GFR 30-59 ml/min Problem: Chronic (8) Gastroparesis Assessment: Resume Reglan. Problem: Chronic
[2017-07-20 22:06] LABS: Anion Gap 24.8 mmol/L (6.8-13.8); Calcium * 8.5 mg/dL (7.9-10.9); Carbon Dioxide 17.2 mmol/L (24-32.6); Estimated Creat Clear 49.9
[2017-07-20] MEDS: POTASSIUM CHLORIDE 20 MEQ in NORMAL SALINE 1,000 ML IV SCH (23:16)
[2017-07-20] MEDS ORDERED: ENALAPRIL MALEATE 20 MG TABLET PO ONE (23:36)
[2017-07-20 23:51] LABS: Anion Gap 21.3 mmol/L (6.8-13.8); BUN/Creatinine Ratio 23.8 (9.0-21.6); Calcium * 8.1 mg/dL (7.9-10.9); Carbon Dioxide 18.6 mmol/L (24-32.6); Potassium 3.9 mmol/L (3.4-4.6)
[2017-07-21] MEDS ORDERED: ACETAMINOPHEN 325 MG TABLET PO PRN (01:04)
[2017-07-21 01:57] LABS: Anion Gap 18.5 mmol/L (6.8-13.8); BUN/Creatinine Ratio 23.6 (9.0-21.6); Calcium * 7.7 mg/dL (7.9-10.9); Carbon Dioxide 19.7 mmol/L (24-32.6); Estimated Creat Clear 51.1; Potassium 4.2 mmol/L (3.4-4.6)
[2017-07-21] MEDS: POTASSIUM CHLORIDE 20 MEQ in NORMAL SALINE 1,000 ML IV SCH ×5 (02:02→14:03)
[2017-07-21] MEDS: INSULIN GLARGINE,HUM.REC.ANLOG 100 UNITS/ML VIAL SC SCH ×3 (02:27→12:23)
[2017-07-21 03:51] LABS: Anion Gap 16.1 mmol/L (6.8-13.8); BUN/Creatinine Ratio 24.2 (9.0-21.6); Calcium * 7.4 mg/dL (7.9-10.9); Carbon Dioxide 19.9 mmol/L (24-32.6); Estimated Creat Clear 53.7
--- NOTE | 2017-07-21 06:06 | PN ---
Subjective - Date and Time Seen Date: 07/21/17 Time: 06:03 Subjective Narrative: Pt seen this morning. States that he feels much better. No acute events overnight. Objective - Vitals Vitals: Last Vital Signs Temp 35.7 C L 07/21/17 02:24 Pulse 85 07/21/17 02:24 Resp 20 07/21/17 02:24 BP 124/72 07/21/17 02:24 Pulse Ox 97 07/21/17 02:24 - Abnormal Lab Findings Abnormal Lab Findings: Abnormal Lab Results 07/20/17 07/20/17 07/20/17 Range/Units 20:10 21:32 23:40 pCO2 18.3 L* (35.0-48.0) mmHg HCO3 10.3 L (21.0-28.0) mmol/L Total CO2 10.9 L (19.0-24.0) mmol/L Base Excess -12.3 L (-2.0-3.0) mmol/L Chloride 94 L 96 L (97-106) mmol/L Carbon Dioxide 17.2 L 18.6 L (24-32.6) mmol/L Anion Gap 24.8 H 21.3 H (6.8-13.8) mmol/L BUN 44 H 41 H (6-23) mg/dL Creatinine 1.69 H 1.72 H (0.4-1.4) mg/dL Est GFR (Non-Af Amer) 44 L 43 L (60-130) mL/min BUN/Creatinine Ratio 26.0 H 23.8 H (9.0-21.6) Random Glucose 349 H 249 H (70-110) mg/dL Calcium (7.9-10.9) mg/dL Urine Protein (NEGATIVE) mg/dL Urine Glucose (UA) (NEGATIVE) mg/dL Urine Blood (NEGATIVE) /ul Urine Nitrate (NEGATIVE) Prot Sulfosalicylic Acd (0) mg/dL Ur Leukocyte Esterase (NEGATIVE) /ul Urine RBC (0-5) /hpf Urine WBC (0-5) /hpf Urine Bacteria (NONE) 07/20/17 07/21/17 07/21/17 Range/Units Unknown 01:40 03:38 pCO2 (35.0-48.0) mmHg HCO3 (21.0-28.0) mmol/L Total CO2 (19.0-24.0) mmol/L Base Excess (-2.0-3.0) mmol/L Chloride (97-106) mmol/L Carbon Dioxide 19.7 L 19.9 L (24-32.6) mmol/L Anion Gap 18.5 H 16.1 H (6.8-13.8) mmol/L BUN 39 H 38 H (6-23) mg/dL Creatinine 1.65 H 1.57 H (0.4-1.4) mg/dL Est GFR (Non-Af Amer) 45 L 48 L (60-130) mL/min BUN/Creatinine Ratio 23.6 H 24.2 H (9.0-21.6) Random Glucose 213 H 185 H (70-110) mg/dL Calcium 7.7 L 7.4 L (7.9-10.9) mg/dL Urine Protein 100 H (NEGATIVE) mg/dL Urine Glucose (UA) >=1000 H (NEGATIVE) mg/dL Urine Blood 250 H (NEGATIVE) /ul Urine Nitrate Positive H (NEGATIVE) Prot Sulfosalicylic Acd 4+ H (0) mg/dL Ur Leukocyte Esterase 75 H (NEGATIVE) /ul Urine RBC >50 H (0-5) /hpf Urine WBC >50 H (0-5) /hpf Urine Bacteria 3+ H (NONE) - Exam Constitutional: Present: Alert, Oriented x3, Cooperative, No distress ENT Exam: Present: normal ENT inspection Neck: Present: non-tender, full range of motion, supple Breasts: Present: Exam deferred Respiratory: Present: No rales, No wheezing Cardiovascular/Chest: Present: normal peripheral pulses, regular rate, rhythm, no chest tenderness Abdomen: Present: Normal bowel sounds, soft, nontender /Rectal: Present: Exam deferred Extremity: Present: normal range of motion, no pedal edema Skin Exam: Present: warm/dry, other - non healing ulcer on LT foot, with minimal drainage and erythema. Lymphatic: Present: no adenopathy Neurologic: Present: no motor/sensory deficits, alert, normal mood/affect Appearance: Present: appropriate appearance, appropriate insight Eye contact: Present: cooperative, good eye contact, normal speech Thoughts: Present: normal thought pattern, no apparent hallucination Assessment/Plan - Problems/Diagnosis (1) Bacteremia Problem: Acute Narrative: Preliminary reading of 2 Blood culture bottles showed growth of gram positive cocci. Will give a one time dose of Vancomycin for now until an organism is isolated to determine further antibiotic therapy. (2) DKA (diabetic ketoacidoses) Problem: Acute Qualifiers: Diabetes mellitus type: type 2 Narrative: Likely precipitated by non- compliance or infection- UTI. No CXR obtained as he perez not have respiratory complaints and no pneumonia is suspected. DKA Noted with the following results. Insulin gtt initiated at 0.1 u/kg/hr at the ED. Treated according to DKA protocol with vigorous IVF resuscitation, bmp q 2 hrs, Resolution will be noted with AG< 12 Laboratory Tests 07/20/17 07/20/17 07/20/17 16:08 16:08 20:10 ABG pH 7.37 Carbon Dioxide 16.9 L Random Glucose 399 H Serum Ketones Positive - 80mg/dl H (3) UTI (urinary tract infection) Problem: Acute Narrative: Covered with Levaquin for now and will continue till urine culture results. Laboratory Tests 07/20/17 Unknown Urine Nitrate Positive H Ur Leukocyte Esterase 75 H Urine RBC >50 H Urine WBC >50 H Urine Bacteria 3+ H Urine Culture Comments Culture to follow (4) Cellulitis Problem: Acute Narrative: Seen by Dr. Laguerre at the ED. The cellulitis was being treated outpatient with Levaquin po and felt to be improving. Will continue with IV Levaquin. (5) Diabetic foot ulcer Problem: Chronic Qualifiers: Diabetes mellitus type: type 2 Narrative: Per Dr. Laguerre, the Ulceration overall appears improved from last visit. Ulceration debrided at the ED. Will need daily dressings as discussed at wound center to consist of Aquacel Ag, dry gauze, roll gauze, and tape. Foot needs to be washed with soap and water and dried with a clean towel prior to applying new dressings. Must wear surgical boot with all weight bearing activities (6) Poorly controlled diabetes mellitus Problem: Chronic Narrative: Has not been compliant with DM mgt for the last months. Will check HgA1C. Will have case mgt assist with insurance coverage for insulin and determine resources that can make medications affordable to him (7) HTN (hypertension) Problem: Chronic Narrative: Will resume his antihypertensives- Apresoline, Vasotec, & Diltiazem. Monitor V.S Selected Entries 07/20/17 07/20/17 07/21/17 20:30 21:00 00:02 Pulse Rate 107 H 107 H 107 H Blood Pressure 196/101 196/101 196/101 (8) CKD (chronic kidney disease) stage 3, GFR 30-59 ml/min Problem: Chronic (9) Gastroparesis Problem: Chronic Narrative: Odalys Hansen
[2017-07-21 06:31] LABS: Anion Gap 15.1 mmol/L (6.8-13.8); BUN/Creatinine Ratio 23.3 (9.0-21.6); Calcium * 7.7 mg/dL (7.9-10.9); Carbon Dioxide 20.8 mmol/L (24-32.6); Estimated Creat Clear 56.2; Potassium 3.9 mmol/L (3.4-4.6)
[2017-07-21 06:32] LABS: Hemoglobin A1C 11.8 % (4.00-6.0)
[2017-07-21] MEDS: METOCLOPRAMIDE HCL 10 MG TABLET PO SCH ×4 (07:38→21:09)
[2017-07-21] MEDS: INSULIN LISPRO 100 UNITS/ML VIAL SC SCH ×4 (07:42→21:19)
[2017-07-21] MEDS: hydrALAZINE HCL 10 MG TABLET PO SCH ×3 (09:44→16:46)
[2017-07-21] MEDS: ASPIRIN 81 MG TABLET.DR PO SCH (09:45)
[2017-07-21] MEDS: HYDROPHILIC OINTMENT 454 APPL JAR TP SCH ×2 (09:45→21:08)
[2017-07-21] MEDS: ENALAPRIL MALEATE 20 MG TABLET PO SCH ×2 (09:45→21:10)
[2017-07-21] MEDS: DILTIAZEM HCL 60 MG TABLET PO SCH ×3 (09:45→16:47)
[2017-07-21] MEDS: CHOLECALCIFEROL 5,000 UNIT TABLET PO SCH (09:45)
[2017-07-21 10:21] LABS: Anion Gap 12.9 mmol/L (6.8-13.8); BUN/Creatinine Ratio 21.8 (9.0-21.6); Calcium * 7.6 mg/dL (7.9-10.9); Carbon Dioxide 22.1 mmol/L (24-32.6); Estimated Creat Clear 59.4
[2017-07-21 14:49] LABS: Anion Gap 13.7 mmol/L (6.8-13.8); BUN/Creatinine Ratio 21.1 (9.0-21.6); Calcium * 7.4 mg/dL (7.9-10.9); Carbon Dioxide 22.7 mmol/L (24-32.6); Estimated Creat Clear 59.4; Potassium 4.4 mmol/L (3.4-4.6)
--- NOTE | 2017-07-21 15:42 | PN ---
Subjective - Date and Time Seen Date: 07/21/17 Time: 13:15 Subjective Narrative: Pt evaluated at bedside resting. States that he is feeling much better today. Is getting his appetite back and ate a good lunch. Still very tired, however no longer vomiting. Denies any pain in his left foot. Has been resting most of the day. Objective - Review of Systems Generalized/Overall Review: Reports: Fatigue Neurological: Reports: Numbness Skin: Reports: Other - Ulcer left foot - Vitals Vitals: Last Vital Signs Temp 36.4 C L 07/21/17 14:00 Pulse 73 07/21/17 14:00 Resp 16 07/21/17 14:00 BP 141/66 07/21/17 14:00 Pulse Ox 96 07/21/17 14:00 - Abnormal Lab Findings Abnormal Lab Findings: Abnormal Lab Results 07/20/17 07/20/17 07/20/17 Range/Units 20:10 21:32 23:40 pCO2 18.3 L* (35.0-48.0) mmHg HCO3 10.3 L (21.0-28.0) mmol/L Total CO2 10.9 L (19.0-24.0) mmol/L Base Excess -12.3 L (-2.0-3.0) mmol/L Chloride 94 L 96 L (97-106) mmol/L Carbon Dioxide 17.2 L 18.6 L (24-32.6) mmol/L Anion Gap 24.8 H 21.3 H (6.8-13.8) mmol/L BUN 44 H 41 H (6-23) mg/dL Creatinine 1.69 H 1.72 H (0.4-1.4) mg/dL Est GFR (Non-Af Amer) 44 L 43 L (60-130) mL/min BUN/Creatinine Ratio 26.0 H 23.8 H (9.0-21.6) Random Glucose 349 H 249 H (70-110) mg/dL Hemoglobin A1c (4.00-6.0) % Calcium (7.9-10.9) mg/dL Urine Protein (NEGATIVE) mg/dL Urine Glucose (UA) (NEGATIVE) mg/dL Urine Blood (NEGATIVE) /ul Urine Nitrate (NEGATIVE) Prot Sulfosalicylic Acd (0) mg/dL Ur Leukocyte Esterase (NEGATIVE) /ul Urine RBC (0-5) /hpf Urine WBC (0-5) /hpf Urine Bacteria (NONE) 07/20/17 07/21/17 07/21/17 Range/Units Unknown 01:40 03:38 pCO2 (35.0-48.0) mmHg HCO3 (21.0-28.0) mmol/L Total CO2 (19.0-24.0) mmol/L Base Excess (-2.0-3.0) mmol/L Chloride (97-106) mmol/L Carbon Dioxide 19.7 L 19.9 L (24-32.6) mmol/L Anion Gap 18.5 H 16.1 H (6.8-13.8) mmol/L BUN 39 H 38 H (6-23) mg/dL Creatinine 1.65 H 1.57 H (0.4-1.4) mg/dL Est GFR (Non-Af Amer) 45 L 48 L (60-130) mL/min BUN/Creatinine Ratio 23.6 H 24.2 H (9.0-21.6) Random Glucose 213 H 185 H (70-110) mg/dL Hemoglobin A1c (4.00-6.0) % Calcium 7.7 L 7.4 L (7.9-10.9) mg/dL Urine Protein 100 H (NEGATIVE) mg/dL Urine Glucose (UA) >=1000 H (NEGATIVE) mg/dL Urine Blood 250 H (NEGATIVE) /ul Urine Nitrate Positive H (NEGATIVE) Prot Sulfosalicylic Acd 4+ H (0) mg/dL Ur Leukocyte Esterase 75 H (NEGATIVE) /ul Urine RBC >50 H (0-5) /hpf Urine WBC >50 H (0-5) /hpf Urine Bacteria 3+ H (NONE) 07/21/17 07/21/17 07/21/17 Range/Units 05:35 05:45 10:00 pCO2 (35.0-48.0) mmHg HCO3 (21.0-28.0) mmol/L Total CO2 (19.0-24.0) mmol/L Base Excess (-2.0-3.0) mmol/L Chloride (97-106) mmol/L Carbon Dioxide 20.8 L 22.1 L (24-32.6) mmol/L Anion Gap 15.1 H (6.8-13.8) mmol/L BUN 35 H 31 H (6-23) mg/dL Creatinine 1.50 H 1.42 H (0.4-1.4) mg/dL Est GFR (Non-Af Amer) 50 L 53 L (60-130) mL/min BUN/Creatinine Ratio 23.3 H 21.8 H (9.0-21.6) Random Glucose 139 H 122 H (70-110) mg/dL Hemoglobin A1c 11.8 H (4.00-6.0) % Calcium 7.7 L 7.6 L (7.9-10.9) mg/dL Urine Protein (NEGATIVE) mg/dL Urine Glucose (UA) (NEGATIVE) mg/dL Urine Blood (NEGATIVE) /ul Urine Nitrate (NEGATIVE) Prot Sulfosalicylic Acd (0) mg/dL Ur Leukocyte Esterase (NEGATIVE) /ul Urine RBC (0-5) /hpf Urine WBC (0-5) /hpf Urine Bacteria (NONE) 07/21/17 Range/Units 14:35 pCO2 (35.0-48.0) mmHg HCO3 (21.0-28.0) mmol/L Total CO2 (19.0-24.0) mmol/L Base Excess (-2.0-3.0) mmol/L Chloride (97-106) mmol/L Carbon Dioxide 22.7 L (24-32.6) mmol/L Anion Gap (6.8-13.8) mmol/L BUN 30 H (6-23) mg/dL Creatinine 1.42 H (0.4-1.4) mg/dL Est GFR (Non-Af Amer) 53 L (60-130) mL/min BUN/Creatinine Ratio (9.0-21.6) Random Glucose 206 H D (70-110) mg/dL Hemoglobin A1c (4.00-6.0) % Calcium 7.4 L (7.9-10.9) mg/dL Urine Protein (NEGATIVE) mg/dL Urine Glucose (UA) (NEGATIVE) mg/dL Urine Blood (NEGATIVE) /ul Urine Nitrate (NEGATIVE) Prot Sulfosalicylic Acd (0) mg/dL Ur Leukocyte Esterase (NEGATIVE) /ul Urine RBC (0-5) /hpf Urine WBC (0-5) /hpf Urine Bacteria (NONE) - Exam Constitutional: Present: Alert, Oriented x3, Cooperative Skin Exam: Present: other - Ulceration to plantar lateral left foot remains stable. Surrounding erythema continues to improve and has nearly resolved today. Lurdes-ulcerative skin with some peeling as swelling has reduced. No longer tender to touch. Skin with no increase in temperature. Neurologic: Present: sensory deficit Appearance: Present: appropriate appearance Eye contact: Present: cooperative Assessment/Plan - Problems/Diagnosis (1) Ulcer of foot due to diabetes Problem: Chronic Qualifiers: Diabetic foot ulcer location: midfoot Diabetes mellitus type: type 2 Laterality: left Non-pressure ulcer stage: with fat layer exposed Qualified Code(s): E11.621 - Type 2 diabetes mellitus with foot ulcer; L97.422 - Non- pressure chronic ulcer of left heel and midfoot with fat layer exposed; L97.422 - Non-pressure chronic ulcer of left heel and midfoot with fat layer exposed; L97.422 - Non-pressure chronic ulcer of left heel and midfoot with fat layer exposed; L97.422 - Non-pressure chronic ulcer of left heel and midfoot with fat layer exposed Narrative: Ulceration remains stable. Erythema near resolved. New DSD of [place] Ag, dry gauze, osmin, and tape applied. To be kept CDI. Will change daily. WB in surgical boot, may remove at rest. (2) Cellulitis Problem: Acute Qualifiers: Site of cellulitis: extremity Site of cellulitis of extremity: lower extremity Laterality: left Qualified Code(s): L03.116 - Cellulitis of left lower limb Narrative: Erythema near resolved. No longer having pain in the foot. Swelling improved with peeling of skin. Continue current ABX as prescribed. May continue oral Levaquin on D/C.
[2017-07-21] MEDS ORDERED: VANCOMYCIN HCL 1 GM in DEXTROSE 5 % IN WATER 250 ML IV ONE ×2 (16:48)
[2017-07-21] MEDS: ENOXAPARIN SODIUM 40 MG/0.4 ML SYRG SC SCH (17:56)
[2017-07-21] MEDS ORDERED: LEVOFLOXACIN IN DEXTROSE 5 % 500 MG/100 ML BAG IV SCH (18:00)
[2017-07-21 18:01] LABS: Anion Gap 15.5 mmol/L (6.8-13.8); BUN/Creatinine Ratio 20.4 (9.0-21.6); Calcium * 8.2 mg/dL (7.9-10.9); Carbon Dioxide 19.9 mmol/L (24-32.6); Estimated Creat Clear 55.5; Potassium 4.4 mmol/L (3.4-4.6)
[2017-07-21] MEDS: ROSUVASTATIN CALCIUM 10 MG TABLET PO SCH (21:08)
[2017-07-21] MEDS: SACCHAROMYCES BOULARDII 250 MG CAPSULE PO SCH (21:09)
[2017-07-22] MEDS: INSULIN GLARGINE,HUM.REC.ANLOG 100 UNITS/ML VIAL SC SCH ×3 (01:30→20:19)
[2017-07-22] MEDS: NORMAL SALINE 1,000 ML IV PRN ×2 (02:49→15:49)
--- NOTE | 2017-07-22 05:00 | PN ---
Subjective - Date and Time Seen Date: 07/22/17 Time: 05:00 Subjective Narrative: Pt examined this am. No issues overnight according to nursing, Awaiting on final blood culture results. Objective - Vitals Vitals: Last Vital Signs Temp 36.9 C 07/21/17 23:10 Pulse 77 07/21/17 23:10 Resp 18 07/21/17 23:10 BP 125/71 07/21/17 23:10 Pulse Ox 98 07/21/17 23:10 - Abnormal Lab Findings Abnormal Lab Findings: Abnormal Lab Results 07/21/17 Range/Units 17:47 Sodium 130 L (132-142) mmol/L Carbon Dioxide 19.9 L (24-32.6) mmol/L Anion Gap 15.5 H (6.8-13.8) mmol/L BUN 31 H (6-23) mg/dL Creatinine 1.52 H (0.4-1.4) mg/dL Est GFR (Non-Af Amer) 49 L (60-130) mL/min Random Glucose 283 H D (70-110) mg/dL - Exam Constitutional: Present: Alert, Oriented x3, Cooperative, No distress ENT Exam: Present: normal ENT inspection Neck: Present: non-tender, full range of motion, supple Breasts: Present: Exam deferred Respiratory: Present: lungs clear, normal breath sounds Cardiovascular/Chest: Present: normal peripheral pulses, regular rate, rhythm, no edema Abdomen: Present: Normal bowel sounds, soft, nontender /Rectal: Present: Exam deferred Extremity: Present: normal range of motion, non-tender, normal inspection Skin Exam: Present: warm/dry, other - Ulcer wound on LT foot. Lymphatic: Present: no adenopathy Neurologic: Present: no motor/sensory deficits, alert, normal mood/affect Appearance: Present: appropriate appearance, appropriate insight Eye contact: Present: cooperative, good eye contact, normal speech Thoughts: Present: normal thought pattern, no apparent hallucination Assessment/Plan - Problems/Diagnosis (1) Bacteremia Problem: Acute Narrative: Preliminary reading of 2 Blood culture bottles showed growth of gram positive cocci. Will give a one time dose of Vancomycin for now until an organism is isolated to determine further antibiotic therapy. (2) DKA (diabetic ketoacidoses) Problem: Acute Qualifiers: Diabetes mellitus type: type 2 Narrative: Likely precipitated by non- compliance or infection- UTI. No CXR obtained as he perez not have respiratory complaints and no pneumonia is suspected. DKA Noted with the following results. Insulin gtt initiated at 0.1 u/kg/hr at the ED. Treated according to DKA protocol with vigorous IVF resuscitation, bmp q 2 hrs, Resolution will be noted with AG< 12 (3) UTI (urinary tract infection) Problem: Acute Narrative: Covered with Levaquin for now and will continue till urine culture results. (4) Cellulitis Problem: Acute Narrative: seen by Dr. Laguerre at the ED. The cellulitis was being treated outpatient with Levaquin po and felt to be improving. Will continue with IV Levaquin. (5) Diabetic foot ulcer Problem: Chronic Qualifiers: Diabetes mellitus type: type 2 Narrative: Per Dr. Laguerre, the Ulceration overall appears improved from last visit. Ulceration debrided at the ED. Will need daily dressings as discussed at wound center to consist of Aquacel Ag, dry gauze, roll gauze, and tape. Foot needs to be washed with soap and water and dried with a clean towel prior to applying new dressings. Must wear surgical boot with all weight bearing activities (6) Poorly controlled diabetes mellitus Problem: Chronic Narrative: Has not been compliant with DM mgt for the last months. Will check HgA1C. Will have case mgt assist with determining insurance coverage for insulin and resources that can make medications affordable to him Laboratory Tests 07/21/17 05:35 Hemoglobin A1c 11.8 H (7) HTN (hypertension) Problem: Chronic Qualifiers: Hypertension type: essential hypertension Qualified Code(s): I10 - Essential (primary) hypertension Narrative: Will resume his antihypertensives- Apresoline, Vasotec, & Diltiazem. Monitor V.S (8) CKD (chronic kidney disease) stage 3, GFR 30-59 ml/min Problem: Chronic (9) Gastroparesis Problem: Chronic Narrative: Resume Reglan
[2017-07-22 05:28] LABS: Hemoglobin 12.8 gm/dL (13.5-18.0); Mean Cell Volume 84.6 fl (78-100); Mean Corpuscular Hemoglobin 27.8 pg (27-31); Mean Corpuscular Hgb Conc 32.8 g/dl (32-36); Mean Platelet Volume 9.5 fl (8-11.3); Platelet Count 244 K/mm3 (150-450); Red Blood Count 4.61 M/mm3 (4.7-6.0); Red Cell Distribution Width 12.9 % (11.5-14.0); White Blood Count 10.3 K/mm3 (4.0-10.5)
[2017-07-22 05:37] LABS: Anion Gap 13.7 mmol/L (6.8-13.8); BUN/Creatinine Ratio 17.9 (9.0-21.6); Calcium * 7.6 mg/dL (7.9-10.9); Carbon Dioxide 22.1 mmol/L (24-32.6); Estimated Creat Clear 62.9; Potassium 3.8 mmol/L (3.4-4.6)
[2017-07-22] MEDS: METOCLOPRAMIDE HCL 10 MG TABLET PO SCH ×4 (06:57→20:15)
[2017-07-22] MEDS: INSULIN LISPRO 100 UNITS/ML VIAL SC SCH ×7 (06:58→20:15)
[2017-07-22] MEDS: VANCOMYCIN HCL 1 GM in DEXTROSE 5 % IN WATER 250 ML IV SCH ×4 (09:47→20:26)
[2017-07-22] MEDS: hydrALAZINE HCL 10 MG TABLET PO SCH ×3 (09:48→17:14)
[2017-07-22] MEDS: DILTIAZEM HCL 60 MG TABLET PO SCH ×3 (09:49→17:15)
[2017-07-22] MEDS: ASPIRIN 81 MG TABLET.DR PO SCH (09:49)
[2017-07-22] MEDS: SACCHAROMYCES BOULARDII 250 MG CAPSULE PO SCH ×2 (09:50→20:13)
[2017-07-22] MEDS: ENALAPRIL MALEATE 20 MG TABLET PO SCH ×2 (09:50→20:14)
[2017-07-22] MEDS: CHOLECALCIFEROL 5,000 UNIT TABLET PO SCH (09:50)
[2017-07-22] MEDS: HYDROPHILIC OINTMENT 454 APPL JAR TP SCH ×2 (12:16→20:20)
--- NOTE | 2017-07-22 14:10 | PN ---
Subjective - Date and Time Seen Date: 07/22/17 Time: 11:30 Subjective Narrative: Pt evaluated at bedside resting. States that he continues to improve daily and is in much better spirits today. He is eating well, still no vomiting. Denies any pain in his left foot. Denies fever, chills. Has been resting most of the day. Objective - Review of Systems Generalized/Overall Review: Denies: Weakness, Chills, Fever, Malaise Respiratory: Denies: Shortness of Breath Abdominal: Denies: Nausea, Vomiting Neurological: Reports: Numbness Skin: Reports: Other - Ulceration left foot - Vitals Vitals: Last Vital Signs Temp 36.8 C 07/22/17 11:57 Pulse 78 07/22/17 11:57 Resp 18 07/22/17 11:57 BP 150/88 07/22/17 11:57 Pulse Ox 96 07/22/17 11:57 - Abnormal Lab Findings Abnormal Lab Findings: Abnormal Lab Results 07/21/17 07/22/17 07/22/17 Range/Units 17:47 05:00 05:00 RBC 4.61 L (4.7-6.0) M/mm3 Hgb 12.8 L (13.5-18.0) gm/dL Hct 39.0 L (42.0-52.0) % Immature Gran % (Auto) 1.50 H (0.001-0.429) % Immature Gran # (Auto) 0.15 H (0.000-0.0310) K/mm3 Neutrophils % 78.0 H (42-75.0) % Lymphocytes % 12.3 L (20-51) % Neutrophils # 8.0 H (1.3-6.0) K/mm3 Lymphocytes # 1.26 L (1.5-3.5) k/mm3 Sodium 130 L (132-142) mmol/L Carbon Dioxide 19.9 L 22.1 L (24-32.6) mmol/L Anion Gap 15.5 H (6.8-13.8) mmol/L BUN 31 H 24 H (6-23) mg/dL Creatinine 1.52 H (0.4-1.4) mg/dL Est GFR (Non-Af Amer) 49 L 57 L (60-130) mL/min Random Glucose 283 H D 206 H (70-110) mg/dL Calcium 7.6 L (7.9-10.9) mg/dL - Exam Constitutional: Present: Alert, Oriented x3, Cooperative, No distress Skin Exam: Present: other - Ulceration to left plantar lateral foot that has improved measuring 2.1 x 1.6 x 0.2 cm. No tunneling or undermining. Loss of tissue to full thickness with exposure of subcutaneous fat layer. Base mostly red, granular with minimal fibrotic tissue intermixed. Surrounding tissue with some peeling noted, erythema near resolved. Scant serous drainage, no malodor. No exposed tendon or bone. Appearance: Present: appropriate appearance Eye contact: Present: cooperative Thoughts: Present: normal thought pattern Assessment/Plan - Problems/Diagnosis (1) Ulcer of foot due to diabetes Problem: Chronic Qualifiers: Diabetic foot ulcer location: midfoot Diabetes mellitus type: type 2 Laterality: left Non-pressure ulcer stage: with fat layer exposed Qualified Code(s): E11.621 - Type 2 diabetes mellitus with foot ulcer; L97.422 - Non- pressure chronic ulcer of left heel and midfoot with fat layer exposed; L97.422 - Non-pressure chronic ulcer of left heel and midfoot with fat layer exposed; L97.422 - Non-pressure chronic ulcer of left heel and midfoot with fat layer exposed; L97.422 - Non-pressure chronic ulcer of left heel and midfoot with fat layer exposed Narrative: Ulcer continues to progress well with reduction in size. New dressing of Aquacel Ag, ABD pad, osmin, and tape applied. Continue daily dressings. Weight bearing in surgical boot, may remove at rest. Continue IV ABX as ordered. (2) Cellulitis Problem: Acute Qualifiers: Site of cellulitis: extremity Site of cellulitis of extremity: lower extremity Laterality: left Qualified Code(s): L03.116 - Cellulitis of left lower limb Narrative: Near resolved with current ABX therapy. Continue IV ABX as ordered. Ok for return to oral Levaquin on d/c.
[2017-07-22] MEDS: ENOXAPARIN SODIUM 40 MG/0.4 ML SYRG SC SCH (17:13)
[2017-07-22] MEDS: ROSUVASTATIN CALCIUM 10 MG TABLET PO SCH (20:13)
[2017-07-23] MEDS: NORMAL SALINE 1,000 ML IV PRN (02:05)
--- NOTE | 2017-07-23 05:18 | PN ---
Subjective - Date and Time Seen Date: 07/23/17 Time: 05:16 Subjective Narrative: Pt examined this am. Has no complaints. No acute events overnight. Objective - Vitals Vitals: Last Vital Signs Temp 38.2 C H 07/22/17 23:23 Pulse 84 07/22/17 23:23 Resp 20 07/22/17 23:23 BP 146/69 07/22/17 23:23 Pulse Ox 95 07/22/17 23:23 - Abnormal Lab Findings Abnormal Lab Findings: Abnormal Lab Results 07/22/17 07/22/17 Range/Units 05:00 05:00 RBC 4.61 L (4.7-6.0) M/mm3 Hgb 12.8 L (13.5-18.0) gm/dL Hct 39.0 L (42.0-52.0) % Immature Gran % (Auto) 1.50 H (0.001-0.429) % Immature Gran # (Auto) 0.15 H (0.000-0.0310) K/mm3 Neutrophils % 78.0 H (42-75.0) % Lymphocytes % 12.3 L (20-51) % Neutrophils # 8.0 H (1.3-6.0) K/mm3 Lymphocytes # 1.26 L (1.5-3.5) k/mm3 Carbon Dioxide 22.1 L (24-32.6) mmol/L BUN 24 H (6-23) mg/dL Est GFR (Non-Af Amer) 57 L (60-130) mL/min Random Glucose 206 H (70-110) mg/dL Calcium 7.6 L (7.9-10.9) mg/dL - Exam Constitutional: Present: Alert, Oriented x3, Cooperative, No distress ENT Exam: Present: normal ENT inspection Neck: Present: non-tender, full range of motion, supple Breasts: Present: Exam deferred Respiratory: Present: lungs clear, normal breath sounds Cardiovascular/Chest: Present: normal peripheral pulses, regular rate, rhythm Abdomen: Present: Normal bowel sounds, soft, nontender /Rectal: Present: Exam deferred Extremity: Present: normal range of motion, non-tender, normal inspection Skin Exam: Present: warm/dry, no cyanosis, other - lt foot ulcer Lymphatic: Present: no adenopathy Neurologic: Present: no motor/sensory deficits, alert, oriented x 3 Appearance: Present: appropriate appearance, appropriate insight Eye contact: Present: cooperative, good eye contact, normal speech Thoughts: Present: normal thought pattern, no apparent hallucination Assessment/Plan - Problems/Diagnosis (1) Bacteremia Problem: Acute Narrative: Preliminary reading of 2 Blood culture bottles showed growth of gram positive cocci. Will give a one time dose of Vancomycin for now until an organism is isolated to determine further antibiotic therapy. Microbiology 07/20/17 Unknown Urine,Voided Urine Culture - Preliminary Staphylococcus Species 07/20/17 19:21 Blood Blood Culture - Preliminary Staphylococcus Species 07/20/17 16:08 Blood Blood Culture - Preliminary Staphylococcus Species Will continue treatment with IV Vancomycin. (2) DKA (diabetic ketoacidoses) Problem: Resolved Qualifiers: Diabetes mellitus type: type 2 Narrative: Likely precipitated by non- compliance or infection- UTI. No CXR obtained as he perez not have respiratory complaints and no pneumonia is suspected. DKA Noted with the following results. Insulin gtt initiated at 0.1 u/kg/hr at the ED. Treated according to DKA protocol with vigorous IVF resuscitation, bmp q 2 hrs, Resolution will be noted with AG< 12 (3) UTI (urinary tract infection) Problem: Acute Narrative: Levaquin stopped, now covered with vancomycin. Microbiology 07/20/17 Unknown Urine,Voided Urine Culture - Preliminary Staphylococcus Species (4) Cellulitis Problem: Acute Narrative: seen by Dr. Laguerre at the ED. The cellulitis was being treated outpatient with Levaquin po and felt to be improving, now on vanco due to gram +ve cultures (5) Diabetic foot ulcer Problem: Chronic Qualifiers: Diabetes mellitus type: type 2 Narrative: Per Dr. Laguerre, the Ulceration overall appears improved from last visit. Ulceration debrided at the ED. Will need daily dressings as discussed at wound center to consist of Aquacel Ag, dry gauze, roll gauze, and tape. Foot needs to be washed with soap and water and dried with a clean towel prior to applying new dressings. Must wear surgical boot with all weight bearing activities (6) Poorly controlled diabetes mellitus Problem: Chronic Narrative: Has not been compliant with DM mgt for the last months. Will check HgA1C. Will have case mgt assist with determining insurance coverage for insulin and resources that can make medications affordable to him Laboratory Tests 07/21/17 05:35 Hemoglobin A1c 11.8 H (7) HTN (hypertension) Problem: Chronic Qualifiers: Hypertension type: essential hypertension Qualified Code(s): I10 - Essential (primary) hypertension Narrative: Will resume his antihypertensives- Apresoline, Vasotec, & Diltiazem. Monitor V.S (8) CKD (chronic kidney disease) stage 3, GFR 30-59 ml/min Problem: Chronic (9) Gastroparesis Problem: Chronic
[2017-07-23] MEDS: INSULIN LISPRO 100 UNITS/ML VIAL SC SCH ×7 (07:02→20:33)
[2017-07-23] MEDS: METOCLOPRAMIDE HCL 10 MG TABLET PO SCH ×4 (07:03→20:28)
[2017-07-23] MEDS: HYDROPHILIC OINTMENT 454 APPL JAR TP SCH ×2 (09:04→20:26)
[2017-07-23] MEDS: hydrALAZINE HCL 10 MG TABLET PO SCH ×3 (09:05→17:12)
[2017-07-23] MEDS: SACCHAROMYCES BOULARDII 250 MG CAPSULE PO SCH ×2 (09:06→20:26)
[2017-07-23] MEDS: ASPIRIN 81 MG TABLET.DR PO SCH (09:06)
[2017-07-23] MEDS: DILTIAZEM HCL 60 MG TABLET PO SCH ×3 (09:06→17:12)
[2017-07-23] MEDS: INSULIN GLARGINE,HUM.REC.ANLOG 100 UNITS/ML VIAL SC SCH ×2 (09:07→20:37)
[2017-07-23] MEDS: VANCOMYCIN HCL 1 GM in DEXTROSE 5 % IN WATER 250 ML IV SCH ×2 (09:07)
[2017-07-23] MEDS: ENALAPRIL MALEATE 20 MG TABLET PO SCH ×2 (09:08→20:29)
[2017-07-23] MEDS: CHOLECALCIFEROL 5,000 UNIT TABLET PO SCH (09:08)
[2017-07-23] MEDS: LEVOFLOXACIN 750 MG TABLET PO SCH (13:39)
[2017-07-23] MEDS: ENOXAPARIN SODIUM 40 MG/0.4 ML SYRG SC SCH (17:13)
[2017-07-23] MEDS: ROSUVASTATIN CALCIUM 10 MG TABLET PO SCH (20:27)
--- NOTE | 2017-07-24 05:46 | DS ---
<Mckenna Pinto - Last Filed: 07/24/17 07:03> (1) Bacteremia Problem: Acute (2) DKA (diabetic ketoacidoses) Problem: Resolved QualifierTitle: Diabetes mellitus type: type 2 (3) UTI (urinary tract infection) Problem: Acute (4) Cellulitis Problem: Acute (5) Diabetic foot ulcer Problem: Chronic QualifierTitle: Diabetes mellitus type: type 2 (6) Poorly controlled diabetes mellitus Problem: Chronic (7) HTN (hypertension) Problem: Chronic QualifierTitle: Hypertension type: essential hypertension Qualified Code( s): I10 - Essential (primary) hypertension (8) CKD (chronic kidney disease) stage 3, GFR 30-59 ml/min Problem: Chronic (9) Gastroparesis Problem: Chronic Description of Stay: Admission date:07/20/17 Discharge date: 07/24/17 Description of hospital stay. Mr. Hunter is a very pleasant 62-yr-old [facility] pt who presented to the ED on 01/25 with complaints of blood urine followed by sediment urine 5-6 days prior to DOA along with 'on and off fevers & chills.' His medical history is significant for: Cellulitis, CKD stage III, DM II, Diabetic foot ulcer, Gastroparesis, HTN, Osteomyelitis and Peripheral Neuropathy. He was formally a pt of Dr. Barahona and pt admited not seeking any medical care for his symptoms and also not taking his medications for a period of 5-6 months. He stated that he had received a letter from the medicaid subsidized insurance informing him about that he was going to start paying a full abreu on his insulins, both of which would cost a total of nearly $ 1200 monthly. He could not afford the insulins and other medications as he survives on disability income. Evaluation at the ED showed he was in DKA noted with BS -->of 399mg/dL, HCO3--> 16.9mol/L, Positive serum ketones & PH of 7.37. He also had Leukocytosis with WBC of 15,600 and LT shift. UA showed presence of UTI with 3 + bacteria, + nitrite & Leukocyte est. He was also found to have a chronic diabetic ulcer on his LT foot which was evaluated by Podiatry (Dr. Laguerre), and had debridement done. Even thoough there was erythema on the area, it was felt that his cellulitis was improving. Mr. Hunter was admitted inpatient and received treatment for his DKA according to the protocol with IV bolus of 0.1unit/kg, followed by insulin gtt and vigorous IVF hydration and freq BMP monitoring. His DKA resolved and was transitioned to his prior home SQ insulin doses of Lantus 40 u bid and 16 units of lispro AC. Low dose SSI was added. His blood sugars were controlled to the 200s at the time of discharge. His HgA1c was 11.8. DKA felt to be precipitated by non-adherence to insulin regimen and possibly infection from the Urinary tract. For the UTI, he received treatment with Levaquin 750 IV q 24. However, on 07/21, 2 Blood culture bottles showed growth of gram positive cocci and was given a one time dose of Vancomycin until an organism was isolated to determine further antibiotic therapy. The final blood and urine culture showed isolation of a staphylococcus Aureus which was had sensitivity to numerous antibiotic which included Levaquin, and this was prescribed for an additional 10 days. His ulcer continued to progress well and per Dr. Laguerre, he needed daily dressing changes with Aquacel Ag, ABD pad, osmin , & tape applied and weight bearing in surgical boot.His prior HTN medication were resumed and bp was well controlled. Due to pt financial difficulties with affording medication, case management will assist in ensuring he has access to medications prior to discharge. He was determined to be in a stable state to be discharge home and was strongly advised to follow-up with Dr. Greco next week. Procedures Performed: none Discharge Location: Home Disposition: Home self-care Condition: Good Discharge Activity: Activity as tolerated, Other - Weight bearing on LT foot with a surgical boot Discharge Diet: Consistent carbs Referrals: Pablo Barahona MD [Primary Care Provider] - Problem Oriented Discharge Instructions to Patient/Family: Diabetes and Foot Care, Urinary Tract Infection, Adult, [id number], Dehydration, Adult, Easy-to- Read Additional Patient Instructions (free text): -Please follow-up with PCP Dr. Klein next week Prescriptions (Any new or edited meds): Aspirin [Aspirin Enteric Coated] 81 mg PO DAILY #30 tablet. Cholecalciferol [Vitamin D] 5,000 unit PO DAILY #30 tablet Diltiazem HCl [Cardizem] 60 mg PO TID #90 tablet Enalapril Maleate [Vasotec] 20 mg PO BID #60 tablet hydrALAZINE HCL [Apresoline] 5 mg PO TID #90 tablet Hydrophilic Ointment [Aquaphilic Ointment] 1 appl TP BID #1 jar Insulin Glargine,Hum.rec.anlog [Lantus] 40 units SC Q12H #1 vial Insulin Lispro [Humalog] 16 units SC ACINS #1 vial Metoclopramide HCl [Reglan] 10 mg PO ACHS #120 tablet Pravastatin Sodium [Pravachol] 80 mg PO DAILY #30 tablet Complete Home Medications List: Complete Home Medication List: Acetaminophen [Tylenol] 650 mg PO QID PRN #0 tablet 01/15/16 Aspirin [Aspirin Enteric Coated] 81 mg PO DAILY #30 tablet. 07/24/17 Cholecalciferol [Vitamin D] 5,000 unit PO DAILY #30 tablet 07/24/17 Diltiazem HCl [Cardizem] 60 mg PO TID #90 tablet 07/24/17 Enalapril Maleate [Vasotec] 20 mg PO BID #60 tablet 07/24/17 Hydrophilic Ointment [Aquaphilic Ointment] 1 appl TP BID #1 jar 07/24/17 Insulin Glargine,Hum.rec.anlog [Lantus] 40 units SC Q12H #1 vial 07/24/17 Insulin Lispro [Humalog] 16 units SC ACINS #1 vial 07/24/17 Metoclopramide HCl [Reglan] 10 mg PO ACHS #120 tablet 07/24/17 Pravastatin Sodium [Pravachol] 80 mg PO DAILY #30 tablet 07/24/17 hydrALAZINE HCL [Apresoline] 5 mg PO TID #90 tablet 07/24/17 Insulin Lispro [Humalog] See Protocol SC AC 07/27/17 Levofloxacin [Levaquin] 750 mg PO DAILY 8 Days #8 tablet 07/28/17 <Ayaka Greco - Last Filed: 07/29/17 13:25> Procedures Performed: none Discharge Location: Home Discharge Activity: Activity as tolerated, Other Discharge Diet: Consistent carbs, Low salt, Low fat/chol
[2017-07-24] MEDS: INSULIN LISPRO 100 UNITS/ML VIAL SC SCH ×2 (06:46→07:21)
[2017-07-24] MEDS: METOCLOPRAMIDE HCL 10 MG TABLET PO SCH (07:21)
[2017-07-24] MEDS: LEVOFLOXACIN 750 MG TABLET PO SCH (09:02)
[2017-07-24] MEDS: DILTIAZEM HCL 60 MG TABLET PO SCH (09:02)
[2017-07-24] MEDS: ASPIRIN 81 MG TABLET.DR PO SCH (09:02)
[2017-07-24] MEDS: hydrALAZINE HCL 10 MG TABLET PO SCH (09:02)
[2017-07-24] MEDS: CHOLECALCIFEROL 5,000 UNIT TABLET PO SCH (09:02)
[2017-07-24] MEDS: ENALAPRIL MALEATE 20 MG TABLET PO SCH (09:02)
[2017-07-24] MEDS: HYDROPHILIC OINTMENT 454 APPL JAR TP SCH (09:03)
[2017-07-24] MEDS: INSULIN GLARGINE,HUM.REC.ANLOG 100 UNITS/ML VIAL SC SCH (09:03)
[2017-07-24] MEDS: SACCHAROMYCES BOULARDII 250 MG CAPSULE PO SCH (09:03)
[2017-07-24 11:00] VITALS: BP 154/79
== END 2017-07-24 11:50 | disposition home or self-care (01) | DRG 638 ==
LOC: ER 16:01 → MS 19:50 → OBSVTOIN 07-21 16:50
PROVIDERS: ADMIT Internal Medicine; ATTEND Internal Medicine
DX: Z79.82 Long term (current) use of aspirin; N39.0 Urinary tract infection, site not specified; I12.9 Hypertensive chronic kidney disease with stage 1 through stage 4 chronic kidney disease, or unspecified chronic kidney disease; E10.10 Type 1 diabetes mellitus with ketoacidosis without coma; R78.81 Bacteremia; L97.422 Non-pressure chronic ulcer of left heel and midfoot with fat layer exposed; E11.621 Type 2 diabetes mellitus with foot ulcer; Z91.14 Patient's other noncompliance with medication regimen; N18.3 Chronic kidney disease, stage 3 (moderate); K31.84 Gastroparesis; B95.61 Methicillin susceptible Staphylococcus aureus infection as the cause of diseases classified elsewhere
CPT/HCPCS: 36415; 36600; 51798; 74019; 74020; 80048; 80053; 80307; 81001; 82009; 82803; 83036; 83605; 83690; 84484; 85025; 87040; 87077; 87086; 87186; 93005; 96361; 96365; 96367; 96372; 96375; 99285; G0378; G0479; J2405

== ENCOUNTER 2017-07-27 10:33 | Observation (INO) ==
[2017-07-27 11:05] LABS: Hematocrit 40.1 % (42.0-52.0); Hemoglobin 13.5 gm/dL (13.5-18.0); Mean Cell Volume 84.2 fl (78-100); Mean Corpuscular Hemoglobin 28.4 pg (27-31); Mean Corpuscular Hgb Conc 33.7 g/dl (32-36); Mean Platelet Volume 9.3 fl (8-11.3); Neutrophil # 7.7 K/mm3 (1.3-6.0); Platelet Count 397 K/mm3 (150-450); Red Blood Count 4.76 M/mm3 (4.7-6.0); Red Cell Distribution Width 13.2 % (11.5-14.0)
--- NOTE | 2017-07-27 11:06 | ERNOTE ---
Medical Problem HPI - Narrative Date of Service: 07/27/17 - General Chief Complaint: General Assessment Time Seen by Provider: 07/27/17 10:36 Source: patient Exam Limitations: no limitations - Immun/Allergies/Home Medications Immunizations: IMMUNIZATION HX Immunizations Up to Date Yes History of Influenza Vaccine No Hx Pneumococcal Vaccination No Allergies/Adverse Reactions: Allergies No Known Allergies Allergy (Verified 07/27/17 10:40) Home Medications: HOME MEDICATIONS Acetaminophen [Tylenol] 650 mg PO QID PRN #0 tablet 01/15/16 [Last Taken Unknown ] Aspirin [Aspirin Enteric Coated] 81 mg PO DAILY #30 tablet. 07/24/17 [Last Taken Unknown] Cholecalciferol [Vitamin D] 5,000 unit PO DAILY #30 tablet 07/24/17 [Last Taken Unknown] Diltiazem HCl [Cardizem] 60 mg PO TID #90 tablet 07/24/17 [Last Taken Unknown] Enalapril Maleate [Vasotec] 20 mg PO BID #60 tablet 07/24/17 [Last Taken Unknown ] Hydrophilic Ointment [Aquaphilic Ointment] 1 appl TP BID #1 jar 07/24/17 [Last Taken Unknown] Insulin Glargine,Hum.rec.anlog [Lantus] 40 units SC Q12H #1 vial 07/24/17 [Last Taken Unknown] Insulin Lispro [Humalog] 16 units SC ACINS #1 vial 07/24/17 [Last Taken Unknown] Levofloxacin [Levaquin] 750 mg PO DAILY #10 tablet 07/24/17 [Last Taken Unknown] Metoclopramide HCl [Reglan] 10 mg PO ACHS #120 tablet 07/24/17 [Last Taken Unknown] Pravastatin Sodium [Pravachol] 80 mg PO DAILY #30 tablet 07/24/17 [Last Taken Unknown] hydrALAZINE HCL [Apresoline] 5 mg PO TID #90 tablet 07/24/17 [Last Taken Unknown ] Insulin Lispro [Humalog] See Protocol SC AC 07/27/17 [Last Taken Unknown] - History of Present History Narrative: Pt. comes in by EMS from home with c/o weakness, fatigue, maliase, nausea, constipation, BLQ abd pain, and SOB for 18 hours. Pt. was seen here, admitted and discharged 5 days ago for DKA, UTI, and L foot ulcer. Pt. has since had his L foot dressing changed once but did not follow up with primary provider. Pt. denies any fevers, CP, vomiting, diarrhea, but does states that he has not had a BM in 6 days. Date (Duration): 07/26/17 Timing: getting worse Severity: moderate Modifying Factors - (Improves): Present: other - denies Modifying Factors - (Worsens): Present: other - denies Review of Systems - Review of Systems Constitutional: Present: weakness, fatigue, malaise. Absent: fever, chills EYE: Present: no symptoms reported. Absent: eye pain, double vision ENT: Present: no symptoms reported Respiratory: Present: shortness of breath. Absent: cough, wheezing Cardiology: Present: no symptoms reported. Absent: chest pain, palpitations, edema Gastrointestinal/Abdominal: Present: nausea, abdominal pain. Absent: vomiting, diarrhea Genitourinary: Present: no symptoms reported. Absent: frequency, decreased urinary output Musculoskeletal: Present: no symptoms reported. Absent: back pain, neck pain, joint pain Skin: Present: lesions - wounds L foot . Absent: rash, lumps, change in color, change in hair/nails Neurological: Present: weakness - generalized. Absent: headache, dizziness/ light-headedness, numbness, tingling All Other Systems: All systems neg except as marked - Patient's Past Medical History Patient History - Medical: Diabetes Type 2, Obesity, Renal Disease, Renal Failure, Other - diabetic ulcers Patient History - Cardiac/Respiratory: Hypertension, Peripheral Vascular Disease Patient History - Cancer: No Hx of Cancer Patient History - Surgical Procedures: Orthopedic Patient History - Other: None - Family History Mother Family History - Medical: History Unknown Family History - Cardiac/Respiratory: History Unknown Family History - Cancer: History Unknown Father Family History - Medical: Family History - Cancer: History Unknown - Social History Living Situations: home Abuse History: Hx of Substance Use Psych History: No pertinent hx Smoking Status: Current every day smoker Alcohol Use: none Drug Use: none - Immunizations Immunizations Up to Date: Yes Hx Pneumococcal Vaccination: No History of Influenza Vaccine: No Physical Exam - Physical Exam General Appearance: Present: wd/wn, alert, no apparent distress, lethargic Head Exam: Present: normal inspection, no evidence of injury, no tenderness w palpation Eye Exam: Normal inspection: bilateral Ears, Nose, Throat: Present: normal except -, normal pharynx, dry mucous membranes. Absent: abnormal TM (R), abnormal TM (L), nasal congestion, sinus pain/drainage, pharyngeal erythema, tonsillar swelling Neck: Present: normal inspection, nontender, supple, full range of motion. Absent: lymphadenopathy (R), lymphadenopathy (L) Respiratory: Present: no respiratory distress, normal breath sounds, no accessory muscle use, chest nontender, lungs clear Cardiovascular/Chest: Present: regular rate, rhythm, no murmur, normal peripheral pulses Gastrointestinal/Abdominal: Present: nondistended, soft, no organomegaly, tenderness - BLQ, abnormal bowel sounds - rare, hernia - ventral around scar. Absent: distended Back Exam: Present: normal inspection Extremity Exam: Present: joint redness - L foot, other - third degree L volar MTP pressure ulcer 1.5 cm in diameter with 50% yellow and white slough, 50% granualation tissue at base, unstageable pressure ulcer Dorsal L foot with 100% scab 1cm, unstagable pressure ulcer L heel 3cm in diameter 100% dry eschar. Neurological Exam: Present: alert, oriented, normal mood/affect, no motor/ sensory deficits Skin Exam: Present: warm/dry, other - see above ED Progress - Date and Time Seen: Date and Time: 07/27/17 12:08 Feel that a lot of pt. symptoms are caused by constipation and dehydration along with the foot infection and UTI. Pt. blood sugar is in good control and lactic acid is elevated will see what procalcitonin is and how pt. responds to fluids and enema prior to determining discharge. Pt. had large results from enema nad states that abd pain resolved. 07/27/17 13:11 Pt. was supposed to be taking levaquin but am unsure if he actually was taking it. Discussed with case management and she suggested discussing with PCP, but feel that pt. will need medication management, home health, or admission to help alleviate this problem. 07/27/17 13:[address] Greco and she feels that pt. would most benefit from admission and either facility placement or home health as she will determine after pt. gets some IV abx. 07/27/17 14:03 - Results and Orders Patient's Lab Results:: I have reviewed the patient's lab results. Results and Orders: Laboratory Results - last 24 hr 07/27/17 07/27/17 07/27/17 10:53 10:53 10:54 WBC 10.0 RBC 4.76 Hgb 13.5 Hct 40.1 L MCV 84.2 MCH 28.4 MCHC 33.7 RDW 13.2 Plt Count 397 MPV 9.3 Immature Gran % (Auto) 0.80 H Immature Gran # (Auto) 0.08 H Neutrophils % 77.0 H Lymphocytes % 12.5 L Monocytes % 8.9 Eosinophils % 0.6 Basophils % 0.2 Nucleated RBC % 0.0 Neutrophils # 7.7 H Lymphocytes # 1.25 L Monocytes # 0.9 Eosinophils # 0.1 Absolute Basophils 0.0 Sodium Plasma Sodium Potassium Chloride Carbon Dioxide Anion Gap BUN Creatinine Est GFR (Non-Af Amer) BUN/Creatinine Ratio Random Glucose Lactic Acid, Venous Calcium Calcium Adj for Albumin Total Bilirubin AST ALT Alkaline Phosphatase Total Protein Albumin Procalcitonin Urine Color Yellow Urine Appearance Slightly cloudy Urine pH 6.0 Ur Specific [place] 1.015 Urine Protein 100 H Urine Glucose (UA) Negative Urine Ketones 5 Urine Blood 50 H Urine Nitrate Negative Urine Bilirubin Negative Prot Sulfosalicylic Acd 1+ Urine Urobilinogen Normal Ur Leukocyte Esterase 75 H Urine RBC 5-10 H Urine WBC 10-25 H Ur Epithelial Cells None seen Urine Bacteria 3+ H Urine Culture Comments Culture to follow Urine Opiates Screen Negative Barbiturate Screen Negative Ur Phencyclidine Scrn Negative Urine Amphetamine Negative U Benzodiazepines Scrn Negative Urine Cocaine Screen Negative Urine Marijuana (THC) Negative 07/27/17 07/27/17 07/27/17 10:54 10:54 10:54 WBC RBC Hgb Hct MCV MCH MCHC RDW Plt Count MPV Immature Gran % (Auto) Immature Gran # (Auto) Neutrophils % Lymphocytes % Monocytes % Eosinophils % Basophils % Nucleated RBC % Neutrophils # Lymphocytes # Monocytes # Eosinophils # Absolute Basophils Sodium 135 Plasma Sodium 136 Potassium 4.4 Chloride 97 Carbon Dioxide 22.8 L Anion Gap 19.6 H BUN 15 Creatinine 1.58 H Est GFR (Non-Af Amer) 47 L BUN/Creatinine Ratio 9.5 Random Glucose 154 H Lactic Acid, Venous 2.6 H* Calcium 9.0 Calcium Adj for Albumin 9.7 Total Bilirubin 0.8 AST 20 ALT 22 Alkaline Phosphatase 58 Total Protein 7.9 Albumin 2.7 L Procalcitonin 0.06 Urine Color Urine Appearance Urine pH Ur Specific [place] Urine Protein Urine Glucose (UA) Urine Ketones Urine Blood Urine Nitrate Urine Bilirubin Prot Sulfosalicylic Acd Urine Urobilinogen Ur Leukocyte Esterase Urine RBC Urine WBC Ur Epithelial Cells Urine Bacteria Urine Culture Comments Urine Opiates Screen Barbiturate Screen Ur Phencyclidine Scrn Urine Amphetamine U Benzodiazepines Scrn Urine Cocaine Screen Urine Marijuana (THC) - Vital Signs Patient's Vital Signs:: I have reviewed the patient's vital signs. Vital Signs: Vital Signs 07/27/17 10:35 Temperature 36.6 C Pulse Rate 93 Respiratory 22 H Rate Blood Pressure 182/91 O2 Sat by Pulse 100 Oximetry - EKG EKG: NSR, RBBB, other - LA fascicular block, septal ischemia, unchanged from previous. - X-Ray X-Ray #1 X-Ray: abdomen Interpretation: Reviewed by me X-ray Comments: nonobstuctive bowel gas pattern. Stool retention. 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 insulin; Z79.4 - cloth measurer (current) use of insulin; Z79.4 - USP (current) use of insulin Diabetic foot ulcer Qualifiers: Diabetic foot ulcer location: unspecified part of foot Diabetes mellitus type: type 2 Laterality: left Non-pressure ulcer stage: unspecified non-pressure ulcer stage Qualified Code(s): E11.621 - Type 2 diabetes mellitus with foot ulcer; L97.529 - Non-pressure chronic ulcer of other part of left foot with unspecified severity; L97.529 - Non-pressure chronic ulcer of other part of left foot with unspecified severity; L97.529 - Non-pressure chronic ulcer of other part of left foot with unspecified severity; L97.529 - Non-pressure chronic ulcer of other part of left foot with unspecified severity UTI (urinary tract infection) Qualifiers: Urinary tract infection type: acute cystitis Hematuria presence: without hematuria Qualified Code(s): N30.00 - Acute cystitis without hematuria - Departure Disposition: Still a patient Condition: Fair
[2017-07-27 11:08] LABS: Urine Bilirubin Negative (NEGATIVE); Urine Blood 50 /ul (NEGATIVE); Urine Ketone 5 mg/dL (NEGATIVE); Urine Nitrite Negative (NEGATIVE); Urine Protein 100 mg/dL (NEGATIVE); Urine Specific Gravity 1.015 SP.GR. (1.005-1.030); Urine Urobilinogen Normal (NORMAL)
[2017-07-27 11:16] LABS: Urine Bacteria 3+; Urine Color Yellow
[2017-07-27 11:17] LABS: Urine Appearance Slightly Cloudy (CLEAR)
[2017-07-27 11:21] LABS: Albumin * 2.7 gm/dl (3.4-5.0); Anion Gap 19.6 mmol/L (6.8-13.8); BUN/Creatinine Ratio 9.5 (9.0-21.6); Bilirubin, Total 0.8 mg/dL (0.0-1.1); Ca. Corrected For Albumin 9.7 mg/dL (8.4-10.2); Carbon Dioxide 22.8 mmol/L (24-32.6); Potassium 4.4 mmol/L (3.4-4.6); Total Protein 7.9 gm/dL (6.2-8.2)
[2017-07-27 11:23] LABS: Cocaine Ur Negative (NEGATIVE); Urine Barbiturate Negative (NEGATIVE); Urine Benzodiazepines Negative (NEGATIVE); Urine Opiates Negative (NEGATIVE); Urine PCP Negative (NEGATIVE); Urine THC Negative (NEGATIVE)
[2017-07-27] MEDS ORDERED: NORMAL SALINE 1,000 ML IV ONE (11:36)
[2017-07-27] MEDS: NORMAL SALINE 1,000 ML IV PRN ×3 (12:54→14:17)
--- NOTE | 2017-07-27 16:38 | CONS ---
- Reason for consultation (1) Diabetic foot ulcer Date of Service: 07/27/17 HPI - General Date of Service: 07/27/17 Narrative: Pt admitted today for severe abdominal pain, weakness, and overall malaise. Was recently hospitalized for DKA and UTI. Also has chronic left foot ulceration that I have been treating in the wound center. He has been prescribed ABX, however it is unclear as to whether he has been taking them due to his abdominal pains. He was found to have constipation and was given an enema, which was successful. I was consulted for care of the foot ulceration. Pt is resting upon entering the room. States that he still feels weak and tired , however has improved some from this morning. Source: patient Exam Limitations: no limitations - History of Present Illness Allergies/Adverse Reactions: Allergies No Known Allergies Allergy (Verified 07/27/17 15:24) Home Medications: Home Medications Medication Instructions Recorded Last Taken Insulin Lispro [Humalog] See Protocol SC AC 07/27/17 Unknown - Patient's Past Medical History Patient History - Medical: Diabetes Type 2, Obesity, Renal Disease, Renal Failure, Other Patient History - Cardiac/Respiratory: Hypertension, Peripheral Vascular Disease Patient History - Cancer: Colon Patient History - Surgical Procedures: Cancer Surgery, Colon Resection, Orthopedic Patient History - Other: None - Family History Mother Family History - Medical: History Unknown Family History - Cardiac/Respiratory: History Unknown Family History - Cancer: History Unknown Father Family History - Medical: Family History - Cancer: History Unknown - Social History Living Situations: alone Abuse History: No History of abuse, Hx of Substance Use Psych History: No pertinent hx Smoking Status: Former smoker Have you smoked in the past 12 months: No Do you dip or chew tobacco: No Smoking Stop Date: 07/23/82 Patient requests Smoking Cessation Consult: No Initiate information on Smoking Cessation: No Alcohol Use: none Drug Use: none - Immunizations Immunizations Up to Date: Yes Hx Pneumococcal Vaccination: No History of Influenza Vaccine: No Procedures COMPUTERIZED TOMOGRAPHY (CT SCAN) OF BLADDER (07/21/17) EXCISION OF LEFT FOOT SKIN, EXTERNAL APPROACH (07/21/17) EXCISION OF RIGHT METATARSAL, OPEN APPROACH, DIAGNOSTIC (04/11/16) MEASURE OF ARTERIAL SATURATION, PERIPHERAL, PERC APPROACH (07/21/17) Medications - Medications Current Medications: Current Medications Sodium Chloride (Sodium Chloride 0.9%) 1,000 mls @ 999 mls/hr IV .Q1H1M PRN PRN Reason: HYDRATION Last Admin: 07/27/17 14:17 Dose: 999 mls/hr Review of Systems - Review of Systems Generalized/Overall Review: Present: Weakness, Malaise Abdominal: Present: Abdominal Pain, Constipation Neurological: Present: Numbness Skin: Present: Other - Left foot ulcer Physical Examination - Exam Vital Signs: Vital Signs - Last Taken Temp 36.4 C L 07/27/17 14:41 Pulse 90 07/27/17 14:41 Resp 20 07/27/17 14:41 BP 174/92 07/27/17 14:41 Pulse Ox 100 07/27/17 14:41 O2 Oxygen Delivery Method Room Air Constitutional: Present: Alert, Oriented x3, Cooperative Peripheral Pulses: dorsalis-pedis (L): 1+ Skin Exam: Present: other - Ulceration to plantar lateral left foot measuring 1.9 x 2.4 x 0.2 cm. No tunneling or undermining. Loss of tissue to full thickness with exposure of subcutaneous fat layer. Base with mostly pink tissue , minimal granulation. Scant amount of fibrotic tissue intermixed. Surrounding tissue callused and slightlyl macerated. Dorsal lateral skin irritation improved with use of ABD pad. Erythema in the foot has resolved. No tenderness to touch. Minimal serous drainage, no malodor. No exposed tendon or bone. Neurologic: Present: sensory deficit Appearance: Present: appropriate appearance Eye contact: Present: cooperative - Assessments/Findings (1) Diabetic foot ulcer Diagnosis(s): Ulceration debrided at bedsided to subcutaneous tissue with #15 blade excising all macerated/callused tissue from the periphery of the ulceration revealing healthy, bleeding subcutaneous wound margins. Surface debrided with #15 blade removing all devitalized tissue revealing healthy bleeding subcutaneous wound bed. Hemostasis with compression. Pt tolerated well. Dressed with Aquacel Ag, ABD pad, osmin, and SAMINA bandage. This dressing is to be changed daily. Foot to be washed with soap and water and dried with clean towel prior to applying new dressings. Continue ABX as prescribed. Pt may bear weight on the left foot, however must wear surgical boot at all times with weightbearing activities. He may remove the boot at rest. Advise trying to stay off of his foot as much as possible. Foot is stable at this time. Ok for d/c when clear per Dr. Greco. Problem: Chronic Qualifiers: Diabetic foot ulcer location: unspecified part of foot Diabetes mellitus type: type 2 Laterality: left Non-pressure ulcer stage: unspecified non- pressure ulcer stage Qualified Code(s): E11.621 - Type 2 diabetes mellitus with foot ulcer; L97.529 - Non-pressure chronic ulcer of other part of left foot with unspecified severity; L97.529 - Non-pressure chronic ulcer of other part of left foot with unspecified severity; L97.529 - Non-pressure chronic ulcer of other part of left foot with unspecified severity; L97.529 - Non- pressure chronic ulcer of other part of left foot with unspecified severity
[2017-07-27] MEDS ORDERED: ACETAMINOPHEN 325 MG TABLET PO PRN (20:10)
[2017-07-27] MEDS ORDERED: HYDROcodone/ACETAMINOPHEN 1 EACH TABLET PO PRN ×2 (20:56→20:58)
[2017-07-27] MEDS ORDERED: ENOXAPARIN SODIUM 40 MG/0.4 ML SYRG SC SCH (21:00)
[2017-07-27] MEDS ORDERED: LEVOFLOXACIN 250 MG TABLET ONE (21:06)
[2017-07-27] MEDS: INSULIN GLARGINE,HUM.REC.ANLOG 100 UNITS/ML VIAL SC SCH (21:15)
[2017-07-27] MEDS: METOCLOPRAMIDE HCL 10 MG TABLET PO SCH (21:16)
[2017-07-27] MEDS: ENALAPRIL MALEATE 20 MG TABLET PO SCH (21:17)
[2017-07-27] MEDS: LEVOFLOXACIN 750 MG TABLET PO SCH (21:29)
[2017-07-28] MEDS: HYDROPHILIC OINTMENT 454 APPL JAR TP SCH ×2 (05:25→09:12)
[2017-07-28 06:37] LABS: Anion Gap 14.3 mmol/L (6.8-13.8); BUN/Creatinine Ratio 10.4 (9.0-21.6); Calcium * 8.4 mg/dL (7.9-10.9); Estimated Creat Clear 54.8; Potassium 4.3 mmol/L (3.4-4.6)
[2017-07-28] MEDS: DILTIAZEM HCL 60 MG TABLET PO SCH ×2 (08:07→12:12)
[2017-07-28] MEDS: METOCLOPRAMIDE HCL 10 MG TABLET PO SCH ×2 (08:07→10:45)
[2017-07-28] MEDS: ENALAPRIL MALEATE 20 MG TABLET PO SCH (08:08)
[2017-07-28] MEDS: LEVOFLOXACIN 750 MG TABLET PO SCH (08:08)
[2017-07-28] MEDS: INSULIN GLARGINE,HUM.REC.ANLOG 100 UNITS/ML VIAL SC SCH (08:09)
[2017-07-28] MEDS: INSULIN LISPRO 100 UNITS/ML VIAL SC SCH ×4 (08:11→12:10)
[2017-07-28] MEDS ORDERED: ROSUVASTATIN CALCIUM 10 MG TABLET PO SCH ×2 (09:00→21:00)
[2017-07-28] MEDS ORDERED: ASPIRIN 81 MG TABLET.DR PO SCH (09:00)
[2017-07-28] MEDS ORDERED: CHOLECALCIFEROL 5,000 UNIT TABLET PO SCH (09:00)
[2017-07-28] MEDS: hydrALAZINE HCL 10 MG TABLET PO SCH ×2 (09:09→12:11)
--- NOTE | 2017-07-28 12:04 | HP ---
Chief Complaint - Chief Complaint Date of Service: 07/27/17 Time of Service: 20:45 Chief Complaint: Feeling unwell History of Present Illness: The patient was recently discharged on 07/24/2017 after being admitted for a UTI with bacteremia and DKA. The patient states that after he was discharged him picked up his antibiotic (Levaquin) which he was given a coupon for at discharge but he states he didn't roller picker the antibiotic until 07/26/2017. He also did not roller picker any of his other medications secondary to inability to pay for them so he has not taken any of his DM medications since discharge. The patient came into the ED because he was feeling the same way he did prior to his first admission. - Patient's Past Medical History Patient History - Medical: Diabetes Type 2, Obesity, Renal Disease, Renal Failure, Other Patient History - Cardiac/Respiratory: Hypertension, Peripheral Vascular Disease Patient History - Cancer: Colon Patient History - Surgical Procedures: Cancer Surgery, Colon Resection, Orthopedic Patient History - Other: None - Family History Mother Family History - Medical: History Unknown Family History - Cardiac/Respiratory: History Unknown Family History - Cancer: History Unknown Father Family History - Medical: Family History - Cancer: History Unknown - Social History Living Situations: alone Abuse History: No History of abuse, Hx of Substance Use Psych History: No pertinent hx Smoking Status: Former smoker Have you smoked in the past 12 months: No Do you dip or chew tobacco: No Smoking Stop Date: 07/23/82 Patient requests Smoking Cessation Consult: No Initiate information on Smoking Cessation: No Alcohol Use: none Drug Use: none - Immunizations Immunizations Up to Date: Yes Hx Pneumococcal Vaccination: No History of Influenza Vaccine: No Review Of Systems (GEN) - Review of Systems Generalized/Overall Review: Present: Weakness, Chills, Fever, Fatigue EENTM: Present: No Symptoms Reported Respiratory: Present: No Symptoms Reported Cardiac: Present: No Symptoms Reported Abdominal: Present: Abdominal Pain Genitourinary: Present: No Symptoms Reported Musculoskeletal: Present: No Symptoms Reported Neurological: Present: Weakness - generalized Skin: Present: Other - left foot open wound Endocrine: Present: No Symptoms Reported Misc: All systems neg except as marked Immunizations: IMMUNIZATION HX Immunizations Up to Date Yes History of Influenza Vaccine No Hx Pneumococcal Vaccination No Allergies/Adverse Reactions: Allergies Allergy/AdvReac Type Severity Reaction Status Date / Time No Known Allergies Allergy Verified 07/27/17 15:24 Home Medications: HOME MEDICATIONS Acetaminophen [Tylenol] 650 mg PO QID PRN #0 tablet 01/15/16 [Last Taken Unknown ] Aspirin [Aspirin Enteric Coated] 81 mg PO DAILY #30 tablet. 07/24/17 [Last Taken Unknown] Cholecalciferol [Vitamin D] 5,000 unit PO DAILY #30 tablet 07/24/17 [Last Taken Unknown] Diltiazem HCl [Cardizem] 60 mg PO TID #90 tablet 07/24/17 [Last Taken Unknown] Enalapril Maleate [Vasotec] 20 mg PO BID #60 tablet 07/24/17 [Last Taken Unknown ] Hydrophilic Ointment [Aquaphilic Ointment] 1 appl TP BID #1 jar 07/24/17 [Last Taken Unknown] Insulin Glargine,Hum.rec.anlog [Lantus] 40 units SC Q12H #1 vial 07/24/17 [Last Taken Unknown] Insulin Lispro [Humalog] 16 units SC ACINS #1 vial 07/24/17 [Last Taken Unknown] Metoclopramide HCl [Reglan] 10 mg PO ACHS #120 tablet 07/24/17 [Last Taken Unknown] Pravastatin Sodium [Pravachol] 80 mg PO DAILY #30 tablet 07/24/17 [Last Taken Unknown] hydrALAZINE HCL [Apresoline] 5 mg PO TID #90 tablet 07/24/17 [Last Taken Unknown ] Insulin Lispro [Humalog] See Protocol SC AC 07/27/17 [Last Taken Unknown] Levofloxacin [Levaquin] 750 mg PO DAILY 8 Days #8 tablet 07/28/17 [Last Taken Unknown] Exam - Exam Vital Signs: Vital Signs - Last Taken Temp 36.8 C 07/28/17 07:34 Pulse 77 07/28/17 09:09 Resp 18 07/28/17 07:34 BP 157/86 07/28/17 09:09 Pulse Ox 98 07/28/17 07:34 Constitutional: Present: Alert, Oriented x3, Cooperative, No distress, Obese ENT Exam: Present: moist mucous membranes Eye Exam: bilateral eye: normal inspection Respiratory: Present: lungs clear, normal breath sounds, no respiratory distress , no accessory muscle use Cardiovascular/Chest: Present: regular rate, rhythm Abdomen: Present: soft, nontender, obese. Absent: CVA tenderness Extremity: Present: other - left foot diabetic ulcer on lateral aspect of the plantar surface Neurologic: Present: alert, normal mood/affect, oriented x 3 Eye contact: Present: cooperative, good eye contact Thoughts: Present: normal thought pattern, no apparent hallucination Diagnostic Studies: Abnormal Lab Results 07/28/17 Range/Units 06:15 Anion Gap 14.3 H (6.8-13.8) mmol/L Creatinine 1.54 H (0.4-1.4) mg/dL Est GFR (Non-Af Amer) 49 L (60-130) mL/min Random Glucose 116 H (70-110) mg/dL Laboratory Results WBC 10.0 K/mm3 (4.0-10.5) 07/27/17 10:54 RBC 4.76 M/mm3 (4.7-6.0) 07/27/17 10:54 Hgb 13.5 gm/dL (13.5-18.0) 07/27/17 10:54 Hct 40.1 % (42.0-52.0) L 07/27/17 10:54 MCV 84.2 fl (78-100) 07/27/17 10:54 MCH 28.4 pg (27-31) 07/27/17 10:54 MCHC 33.7 g/dl (32-36) 07/27/17 10:54 RDW 13.2 % (11.5-14.0) 07/27/17 10:54 Plt Count 397 K/mm3 (150-450) 07/27/17 10:54 MPV 9.3 fl (8-11.3) 07/27/17 10:54 Immature Gran % (Auto) 0.80 % (0.001-0.429) H 07/27/17 10:54 Immature Gran # (Auto) 0.08 K/mm3 (0.000-0.0310) H 07/27/17 10:54 Neutrophils % 77.0 % (42-75.0) H 07/27/17 10:54 Lymphocytes % 12.5 % (20-51) L 07/27/17 10:54 Monocytes % 8.9 % (0.0-9) 07/27/17 10:54 Eosinophils % 0.6 % (0.0-3.0) 07/27/17 10:54 Basophils % 0.2 % (0.0-1.0) 07/27/17 10:54 Nucleated RBC % 0.0 k/mm3 (0-1) 07/27/17 10:54 Neutrophils # 7.7 K/mm3 (1.3-6.0) H 07/27/17 10:54 Lymphocytes # 1.25 k/mm3 (1.5-3.5) L 07/27/17 10:54 Monocytes # 0.9 k/mm3 (0.0-1.0) 07/27/17 10:54 Eosinophils # 0.1 k/mm3 (0.0-0.7) 07/27/17 10:54 Absolute Basophils 0.0 k/mm3 (0.0-0.1) 07/27/17 10:54 Sodium 138 mmol/L (132-142) 07/28/17 06:15 Plasma Sodium 138 mmol/L (130-142) 07/28/17 06:15 Potassium 4.3 mmol/L (3.4-4.6) 07/28/17 06:15 Chloride 103 mmol/L (97-106) 07/28/17 06:15 Carbon Dioxide 25.0 mmol/L (24-32.6) 07/28/17 06:15 Anion Gap 14.3 mmol/L (6.8-13.8) H 07/28/17 06:15 BUN 16 mg/dL (6-23) 07/28/17 06:15 Creatinine 1.54 mg/dL (0.4-1.4) H 07/28/17 06:15 Est GFR (Non-Af Amer) 49 mL/min (60-130) L 07/28/17 06:15 BUN/Creatinine Ratio 10.4 (9.0-21.6) 07/28/17 06:15 Random Glucose 116 mg/dL (70-110) H 07/28/17 06:15 Lactic Acid, Venous 1.4 mmol/L (0.4-1.9) 07/27/17 13:42 Calcium 8.4 mg/dL (7.9-10.9) 07/28/17 06:15 Calcium Adj for Albumin 9.7 mg/dL (8.4-10.2) 07/27/17 10:54 Total Bilirubin 0.8 mg/dL (0.0-1.1) 07/27/17 10:54 AST 20 U/L (0-48) 07/27/17 10:54 ALT 22 U/L (19-67) 07/27/17 10:54 Alkaline Phosphatase 58 U/L (50-170) 07/27/17 10:54 Total Protein 7.9 gm/dL (6.2-8.2) 07/27/17 10:54 Albumin 2.7 gm/dl (3.4-5.0) L 07/27/17 10:54 Procalcitonin 0.06 ng/mL (0.05-0.50) 07/27/17 10:54 Urine Color Yellow 07/27/17 10:53 Urine Appearance Slightly cloudy (CLEAR) 07/27/17 10:53 Urine pH 6.0 pH (5.0-7.0) 07/27/17 10:53 Ur Specific [place] 1.015 SP.GR. (1.005-1.030) 07/27/17 10:53 Urine Protein 100 mg/dL (NEGATIVE) H 07/27/17 10:53 Urine Glucose (UA) Negative mg/dL (NEGATIVE) 07/27/17 10:53 Urine Ketones 5 mg/dL (NEGATIVE) 07/27/17 10:53 Urine Blood 50 /ul (NEGATIVE) H 07/27/17 10:53 Urine Nitrate Negative (NEGATIVE) 07/27/17 10:53 Urine Bilirubin Negative mg/dl (NEGATIVE) 07/27/17 10:53 Prot Sulfosalicylic Acd 1+ mg/dL (0) 07/27/17 10:53 Urine Urobilinogen Normal EU/dl (NORMAL) 07/27/17 10:53 Ur Leukocyte Esterase 75 /ul (NEGATIVE) H 07/27/17 10:53 Urine RBC 5-10 /hpf (0-5) H 07/27/17 10:53 Urine WBC 10-25 /hpf (0-5) H 07/27/17 10:53 Ur Epithelial Cells None seen /hpf (0-5) 07/27/17 10:53 Urine Bacteria 3+ (NONE) H 07/27/17 10:53 Urine Culture Comments Culture to follow 07/27/17 10:53 Urine Opiates Screen Negative (NEGATIVE) 07/27/17 10:53 Barbiturate Screen Negative (NEGATIVE) 07/27/17 10:53 Ur Phencyclidine Scrn Negative (NEGATIVE) 07/27/17 10:53 Urine Amphetamine Negative (NEGATIVE) 07/27/17 10:53 U Benzodiazepines Scrn Negative (NEGATIVE) 07/27/17 10:53 Urine Cocaine Screen Negative (NEGATIVE) 07/27/17 10:53 Urine Marijuana (THC) Negative (NEGATIVE) 07/27/17 10:53 Assessment/Plan - Narrative Narrative: The patient will be admitted and restarted on his home medications including levaquin. As discussed with the patient and he is agreeable, the plan will be for discharge to SNF tomorrow. I will ask our lining caser to assist with finding SNF placement in the AM. - Assessment/Plan (1) Noncompliance Problem: Chronic
--- NOTE | 2017-07-28 12:07 | DS ---
(1) Noncompliance Problem: Chronic Description of Stay: ADMISSION DATE: 07/27/2017 DISCHARGE DATE: 07/28/2017 ADMISSION HPI: The patient was recently discharged on 07/24/2017 after being admitted for a UTI with bacteremia and DKA. The patient states that after he was discharged him picked up his antibiotic (Levaquin) which he was given a coupon for at discharge but he states he didn't black pickler the antibiotic until 07/26/2017. He also did not black pickler any of his other medications secondary to inability to pay for them so he has not taken any of his DM medications since discharge. The patient came into the ED because he was feeling the same way he did prior to his first admission. HOSPITAL COURSE: Upon admission, the patients home medications were resumed including Levaquin. I spent a considerable amount of time discussing with the patient the importance of getting his medications and taking them as prescribed. The patient s admission was uneventful and he was discharged to SNF at [facility] in stable condition. FOLLOW-UP APPOINTMENTS: -Dr. Greco within 1-2 weeks or after discharge from [facility] Procedures Performed: none Results and Findings: Lab Pending Results 07/27/17 07/28/17 13:42 06:15 Sodium 138 Plasma Sodium 138 Potassium 4.3 Chloride 103 Carbon Dioxide 25.0 Anion Gap 14.3 H BUN 16 Creatinine 1.54 H Est GFR (Non-Af Amer) 49 L BUN/Creatinine Ratio 10.4 Random Glucose 116 H Lactic Acid, Venous 1.4 Calcium 8.4 Discharge Location: [facility] Disposition: SNF Condition: Stable Level of Care: SNF Discharge Activity: Activity as tolerated Discharge Diet: Consistent carbs, Low salt, Low fat/chol Long Term Therapy: Physicial Therapy, Occupation Therapy Additional Patient Instructions (free text): Follow-up with Dr. Greco within 1-2 weeks on August 10 2017 at 9:00am. Prescriptions (Any new or edited meds): Levofloxacin [Levaquin] 750 mg PO DAILY 8 Days #8 tablet Complete Home Medications List: Complete Home Medication List: Acetaminophen [Tylenol] 650 mg PO QID PRN #0 tablet 01/15/16 Aspirin [Aspirin Enteric Coated] 81 mg PO DAILY #30 tablet. 07/24/17 Cholecalciferol [Vitamin D] 5,000 unit PO DAILY #30 tablet 07/24/17 Diltiazem HCl [Cardizem] 60 mg PO TID #90 tablet 07/24/17 Enalapril Maleate [Vasotec] 20 mg PO BID #60 tablet 07/24/17 Hydrophilic Ointment [Aquaphilic Ointment] 1 appl TP BID #1 jar 07/24/17 Insulin Glargine,Hum.rec.anlog [Lantus] 40 units SC Q12H #1 vial 07/24/17 Insulin Lispro [Humalog] 16 units SC ACINS #1 vial 07/24/17 Metoclopramide HCl [Reglan] 10 mg PO ACHS #120 tablet 07/24/17 Pravastatin Sodium [Pravachol] 80 mg PO DAILY #30 tablet 07/24/17 hydrALAZINE HCL [Apresoline] 5 mg PO TID #90 tablet 07/24/17 Insulin Lispro [Humalog] See Protocol SC AC 07/27/17 Levofloxacin [Levaquin] 750 mg PO DAILY 8 Days #8 tablet 07/28/17
[2017-07-28 12:47] VITALS: BP 110/68
== END 2017-07-28 13:35 ==
LOC: ER 10:33 → MS 13:31
PROVIDERS: ADMIT Internal Medicine; ATTEND Internal Medicine
DX: E11.65 Type 2 diabetes mellitus with hyperglycemia; I10 Essential (primary) hypertension; L97.422 Non-pressure chronic ulcer of left heel and midfoot with fat layer exposed; E11.621 Type 2 diabetes mellitus with foot ulcer; R31.9 Hematuria, unspecified; B95.61 Methicillin susceptible Staphylococcus aureus infection as the cause of diseases classified elsewhere; B96.5 Pseudomonas (aeruginosa) (mallei) (pseudomallei) as the cause of diseases classified elsewhere; N30.01 Acute cystitis with hematuria; K59.00 Constipation, unspecified; E86.0 Dehydration; R78.81 Bacteremia; Z68.31 Body mass index [BMI] 31.0-31.9, adult; Z87.891 Personal history of nicotine dependence; E66.9 Obesity, unspecified
CPT/HCPCS: 36415; 74019; 74020; 80048; 80053; 80307; 81001; 83605; 84145; 85025; 87040; 87070; 87077; 87086; 87186; 93005; 96361; 96365; 96372; 99285; G0378; G0479

== ENCOUNTER 2018-02-15 14:36 | Inpatient (IN) ==
[2018-02-15] MEDS ORDERED: ONDANSETRON HCL/PF 2 MG/ML VIAL IV ONE (14:52)
[2018-02-15] MEDS ORDERED: NORMAL SALINE 1,000 ML IV ONE ×2 (14:52→18:45)
[2018-02-15] MEDS ORDERED: INSULIN REGULAR, HUMAN 100 UNITS/ML VIAL IV ONE ×3 (14:53→20:54)
[2018-02-15] MEDS ORDERED: ACETAMINOPHEN 500 MG TABLET PO ONE (15:08)
--- NOTE | 2018-02-15 15:21 | ERNOTE ---
Medical Problem HPI - Narrative Date of Service: 02/15/18 - General Chief Complaint: Diabetes Related Problem Time Seen by Provider: 02/15/18 14:49 Source: patient Exam Limitations: no limitations - Immun/Allergies/Home Medications Immunizations: IMMUNIZATION HX Immunizations Up to Date Yes History of Influenza Vaccine Yes Hx Pneumococcal Vaccination No Allergies/Adverse Reactions: Allergies No Known Allergies Allergy (Verified 12/08/17 09:35) Home Medications: HOME MEDICATIONS Acetaminophen [Tylenol] 650 mg PO QID PRN #0 tab 01/15/16 [Last Taken Unknown] Hydrophilic Ointment [Aquaphilic Ointment] 1 appl TP BID #1 jar 07/24/17 [Last Taken Unknown] insulin U- 100 regular human 100 unit/mL injection solution 20 unit SUBCUT AC 30 Days #1980 ml 12/08/17 [Last Taken Unknown] insulin detemir (U-100) 100 unit/mL (3 mL) subcutaneous pen 45 unit SUBCUT DAILY #15 ml 12/08/17 [Last Taken Unknown] cholecalciferol (vitamin D3) 5,000 unit tablet 5,000 unit PO DAILY #90 tab 01/17/18 [Last Taken Unknown] diltiazem 60 mg tablet 60 mg PO TID #90 tab 01/17/18 [Last Taken Unknown] enalapril maleate 20 mg tablet 20 mg PO DAILY #30 tab 01/17/18 [Last Taken Unknown] hydralazine 10 mg tablet 5 mg PO TID #45 tab 01/17/18 [Last Taken Unknown] metoclopramide 10 mg tablet 10 mg PO ACHS #120 tab 01/17/18 [Last Taken Unknown] pravastatin 80 mg tablet 80 mg PO DAILY #90 tab 01/17/18 [Last Taken Unknown] aspirin 81 mg tablet,delayed release 81 mg PO DAILY #90 tab 01/23/18 [Last Taken Unknown] - History of Present History Narrative: patient presents from wound clinic with c/o nausea and vomiting and hypotension, is having treatment for dibatic ulcer on left foot, had x-rays and dressing applied today Timing: constant, getting worse Severity: moderate Modifying Factors - (Improves): Present: other - nothiing Modifying Factors - (Worsens): Present: other - nothing Review of Systems - Review of Systems Constitutional: Present: See HPI, weakness, fatigue, malaise EYE: Present: no symptoms reported ENT: Present: no symptoms reported Respiratory: Present: no symptoms reported Cardiology: Present: no symptoms reported Gastrointestinal/Abdominal: Present: See HPI, nausea, vomiting, eating less, drinking less Genitourinary: Present: no symptoms reported Musculoskeletal: Present: no symptoms reported Skin: Present: See HPI, other - diabetic ulcer to left foot Neurological: Present: no symptoms reported Endocrine: Present: no symptoms reported Hematologic/Lymphatic: Present: no symptoms reported Psych: Present: no symptoms reported All Other Systems: All systems neg except as marked Medical History (Last Reviewed 02/15/18 @ 14:48 by Maximiliano Krueger RN) Diabetic nephropathy associated with type 2 diabetes mellitus (Chronic) Diabetic retinopathy associated with type 2 diabetes mellitus (Chronic) Stage 3 chronic kidney disease due to type 2 diabetes mellitus (Chronic) Diabetic foot ulcer (Chronic) CKD (chronic kidney disease) stage 3, GFR 30-59 ml/min Onset Date: Unknown Cellulitis Onset Date: Unknown Diabetes Onset Date: Unknown Foot deformity Onset Date: Unknown Gastroparesis due to secondary diabetes Onset Date: Unknown Hypertension Onset Date: Unknown Osteomyelitis Onset Date: 04/08/16 Peripheral neuropathy Onset Date: Unknown Surgical History: Surgical History (Last Reviewed 02/15/18 @ 14:48 by Maximiliano Krueger RN) Amputated toe of left foot Onset Date: 2008 History of back surgery Onset Date: 2011 History of colon resection Onset Date: 2009 Social History: Preferred Language Slovak Abuse History No History of abuse,Hx of Substance Use Psych History No pertinent hx (Last Updated 12/08/17 @ 14:03 by Be Shah DO) No Social History Section defined Physical Exam - Physical Exam General Appearance: Present: mild distress, anxious Head Exam: Present: normal inspection, no evidence of injury Eye Exam: Normal inspection: bilateral, PERRL: bilateral, EOMI: bilateral Ears, Nose, Throat: Present: normal ENT inspection, dry mucous membranes Neck: Present: normal inspection, nontender Respiratory: Present: no respiratory distress, normal breath sounds, no accessory muscle use, chest nontender, lungs clear Cardiovascular/Chest: Present: regular rate, rhythm, no murmur, normal peripheral pulses Peripheral Pulses: N=norm/S=strong/W=weak/B=bound/A=absent: Carotid (R): Normal, Carotid (L): Normal, Radial (R): Normal, Radial (L): Normal, Femoral (R): Normal, Femoral (L): Normal, Dorsalis-pedis (R): Normal, Dorsalis-pedis (L): Normal Gastrointestinal/Abdominal: Present: normal bowel sounds, nontender, nondistended, soft, no organomegaly Back Exam: Present: normal inspection, normal range of motion, no CVA tenderness, no vertebral tenderness Extremity Exam: Present: normal except - - diabetic ulcer left foot Neurological Exam: Present: alert, oriented, normal mood/affect, no motor/sensory deficits Skin Exam: Present: normal color, warm/dry Lymphatic Exam: Present: no adenopathy Progress - Date and Time Seen: Date and Time: 02/15/18 16:59 condition unchanged, case discussed with dr steinberg accepted for admission - Results and Orders Patient's Lab Results:: I have reviewed the patient's lab results. - Vital Signs Patient's Vital Signs:: I have reviewed the patient's vital signs. Vital Signs: Vital Signs 02/15/18 14:37 02/15/18 15:11 Pulse Rate 108 H 110 H Respiratory Rate 22 H Blood Pressure 165/85 H O2 Sat by Pulse Oximetry 97 - EKG EKG: NSR - Progress/Reassessment Chief Complaint: Diabetes Related Problem Progress:: Unchanged - Transfer of Care Expected Disposition: Admit Plan - Plan Plan: to admit to hospital Departure Clinical Impression: Osteomyelitis, Dehydration, Diabetic foot ulcer, Hyperglycemia - Departure Disposition: Still a patient Condition: Stable
[2018-02-15 15:44] LABS: Hematocrit 40.2 % (42.0-52.0); Hemoglobin 13.3 gm/dL (13.5-18.0); Mean Cell Volume 87.2 fl (78-100); Mean Corpuscular Hemoglobin 28.9 pg (27-31); Mean Corpuscular Hgb Conc 33.1 g/dl (32-36); Mean Platelet Volume 9.9 fl (8-11.3); Neutrophil # 14.5 K/mm3 (1.3-6.0); Neutrophil % 91.7 % (42-75.0); Platelet Count 329 K/mm3 (150-450); Red Blood Count 4.61 M/mm3 (4.7-6.0); Red Cell Distribution Width 12.9 % (11.5-14.0); White Blood Count 15.8 K/mm3 (4.0-10.5)
[2018-02-15 15:57] LABS: ALT 10 U/L (19-67); AST 12 U/L (0-48); Albumin * 2.9 gm/dl (3.4-5.0); Alkaline Phosphatase * 67 U/L (50-170); Anion Gap 18.9 mmol/L (6.8-13.8); Bilirubin, Total 0.8 mg/dL (0.0-1.1); Blood Urea Nitrogen 31 mg/dL (6-23); Calcium * 9.4 mg/dL (7.9-10.9); Carbon Dioxide 20.4 mmol/L (24-32.6); Chloride 89 mmol/L (97-106); Glucose * 333 mg/dL (70-110); Potassium 4.3 mmol/L (3.4-4.6); Sodium 124 mmol/L (132-142); Total Protein 8.5 gm/dL (6.2-8.2)
[2018-02-15] MEDS: NORMAL SALINE 1,000 ML IV ONE ×2 (16:12→21:52)
[2018-02-15] MEDS ORDERED: NORMAL SALINE 1,000 ML IV PRN (16:56)
[2018-02-15] MEDS ORDERED: VANCOMYCIN HCL 1 GM in DEXTROSE 5 % IN WATER 250 ML IV ONE ×2 (16:56)
[2018-02-15] MEDS ORDERED: VANCOMYCIN HCL 500 MG in DEXTROSE 5 % IN WATER 100 ML IV SCH ×2 (17:15)
[2018-02-15] MEDS: CIPROFLOXACIN IN 5 % DEXTROSE 400 MG/200 ML BAG IV SCH (17:19)
[2018-02-15 20:19] LABS: Albumin * 2.3 gm/dl (3.4-5.0); Anion Gap 15.2 mmol/L (6.8-13.8); BUN/Creatinine Ratio 15.1 (9.0-21.6); Bilirubin, Total 0.5 mg/dL (0.0-1.1); Ca. Corrected For Albumin 9.1 mg/dL (8.4-10.2); Calcium * 8.1 mg/dL (7.9-10.9); Carbon Dioxide 23.3 mmol/L (24-32.6); Potassium 4.5 mmol/L (3.4-4.6); Total Protein 6.9 gm/dL (6.2-8.2)
[2018-02-15 20:42] LABS: CRP 51.2 mg/dL (0.0-0.9)
--- NOTE | 2018-02-15 20:58 | HP ---
Chief Complaint - Chief Complaint Date of Service: 02/15/18 Time of Service: 20:13 Chief Complaint: I fell and now I have left foot and ankle pain, nausea and vomiting, and weakness for the past few days History of Present Illness: 62-year-old male with past medical history of type 2 diabetes, hypertension, hyperlipidemia, osteomyelitis with amputation of the left fifth toe, chronic kidney disease stage III, former meth abuser, peripheral neuropathy, and COPD was brought to our ER from the wound clinic at [facility] after patient became hypotensive with symptoms of nausea and vomiting and generalized weakness. Patient undergoes weekly cleansing and debridement and dressing change for a left diabetic foot ulcer which apparently became infected. He also reports falling on Wednesday and hitting his ankle and part of his foot and since then he has been having pain and has been having difficulty ambulating. Patient reports that the limb became swollen excruciatingly painful and tender to palpation. He also reports feeling warm on several occasions and suspects that he's had fever but has not measured his temperature, he's also had chills over the past several days. Patient is an uncontrolled diabetic, admits to being very noncompliant with his diabetic diet and has not taken his insulin in multiple days. He lives alone appears very disheveled and in a poor medical state. Patient denies recent drug use urine drug screen is pending to confirm. Medical History (Last Reviewed 02/15/18 @ 17:14 by Osmin Gillespie RN) Diabetic nephropathy associated with type 2 diabetes mellitus (Chronic) Diabetic retinopathy associated with type 2 diabetes mellitus (Chronic) Stage 3 chronic kidney disease due to type 2 diabetes mellitus (Chronic) Diabetic foot ulcer (Chronic) Colon cancer Osteomyelitis Onset Date: 04/08/16 CKD (chronic kidney disease) stage 3, GFR 30-59 ml/min Onset Date: Unknown Cellulitis Onset Date: Unknown Diabetes Onset Date: Unknown Foot deformity Onset Date: Unknown Gastroparesis due to secondary diabetes Onset Date: Unknown Hypertension Onset Date: Unknown Peripheral neuropathy Onset Date: Unknown Surgical History: Surgical History (Last Reviewed 02/15/18 @ 17:14 by Osmin Gillespie RN) Amputated toe of left foot Onset Date: 2008 History of back surgery Onset Date: 2011 History of colon resection Onset Date: 2009 Family History: Family History (Last Updated 02/15/18 @ 17:14 by Osmin Gillespie RN) Other No pertinent family history Social History: Patient Lives/Resources Home Utilized Occupation retired [employer] Preferred Language Central African Do you have any holiness or No: moravian cultural preference? Smoking Status Former smoker Have you smoked in the past 12 No months Do you dip or chew tobacco No Abuse History No History of abuse,Hx of Substance Use Psych History No pertinent hx (Last Updated 12/08/17 @ 14:03 by Be Shah DO) No Social History Section defined Peds Patient Hx - Developmental: No Pertinent Hx Peds Patient Hx - Medical: No Pertinent Hx Peds Patient Hx - Cardiac/Respiratory: No Pertinent Hx Peds Patient Hx - Surgical: No Surgical History Patient History - Cancer: No Hx of Cancer Review Of Systems (GEN) - Review of Systems Generalized/Overall Review: Present: Weakness, Chills, Fever, Malaise EENTM: Present: No Symptoms Reported Respiratory: Present: No Symptoms Reported Cardiac: Present: No Symptoms Reported Abdominal: Present: Nausea, Vomiting Genitourinary: Present: No Symptoms Reported Musculoskeletal: Present: Joint Pain, Joint Swelling, Other - Left foot and ankle pain Neurological: Present: No Symptoms Reported Skin: Present: No Symptoms Reported Endocrine: Present: No Symptoms Reported Immunizations: IMMUNIZATION HX Immunizations Up to Date Yes History of Influenza Vaccine Yes Hx Pneumococcal Vaccination No Allergies/Adverse Reactions: Allergies Allergy/AdvReac Type Severity Reaction Status Date / Time No Known Allergies Allergy Verified 12/08/17 09:35 Home Medications: HOME MEDICATIONS Acetaminophen [Tylenol] 650 mg PO QID PRN #0 tab 01/15/16 [Last Taken Unknown] Hydrophilic Ointment [Aquaphilic Ointment] 1 appl TP BID #1 jar 07/24/17 [Last Taken Unknown] insulin U- 100 regular human 100 unit/mL injection solution 20 unit SUBCUT AC 30 Days #1980 ml 12/08/17 [Last Taken Unknown] insulin detemir (U-100) 100 unit/mL (3 mL) subcutaneous pen 45 unit SUBCUT DAILY #15 ml 12/08/17 [Last Taken Unknown] cholecalciferol (vitamin D3) 5,000 unit tablet 5,000 unit PO DAILY #90 tab 01/17/18 [Last Taken Unknown] diltiazem 60 mg tablet 60 mg PO TID #90 tab 01/17/18 [Last Taken Unknown] enalapril maleate 20 mg tablet 20 mg PO DAILY #30 tab 01/17/18 [Last Taken Unknown] hydralazine 10 mg tablet 5 mg PO TID #45 tab 01/17/18 [Last Taken Unknown] metoclopramide 10 mg tablet 10 mg PO ACHS #120 tab 01/17/18 [Last Taken Unknown] pravastatin 80 mg tablet 80 mg PO DAILY #90 tab 01/17/18 [Last Taken Unknown] aspirin 81 mg tablet,delayed release 81 mg PO DAILY #90 tab 01/23/18 [Last Taken Unknown] Exam - Exam Vital Signs: Vital Signs - Last Taken Temp 37.5 C 02/15/18 18:54 Pulse 99 02/15/18 20:10 Resp 15 02/15/18 18:54 BP 126/95 H 02/15/18 18:54 Pulse Ox 97 02/15/18 18:54 Constitutional: Present: Alert, Oriented x3, Cooperative, Well developed, Well nourished, No distress, Elderly, Looks Older than stated age ENT Exam: Present: normal ENT inspection, hearing grossly normal, pharynx normal, TMs normal Eye Exam: bilateral eye: normal inspection, PERRL, EOMI Neck: Present: non-tender, full range of motion, supple, normal inspection, trachea midline Back Exam: Present: normal inspection, no CVA tenderness, no vertebral tenderness Breasts: Present: Exam deferred Respiratory: Present: chest non-tender, lungs clear, normal breath sounds, no respiratory distress, no accessory muscle use Cardiovascular/Chest: Present: normal peripheral pulses, regular rate, rhythm, no chest tenderness, no edema, no gallop, no JVD, no murmur Peripheral Pulses: carotid (R): 3+, carotid (L): 3+, femoral (R): 3+, femoral (L): 3+, dorsalis-pedis (R): 3+, dorsalis-pedis (L): 3+ Abdomen: Present: Normal bowel sounds, soft, nontender, nondistended, no rebound tenderness, no hepatospenomegaly, no masses, obese, hernia /Rectal: Present: Exam deferred Extremity: Present: normal range of motion, no pedal edema, no calf tenderness, normal capillary refill, other - Diabetic ulcer on lateral aspect of left foot measuring 2 x 2.3 cm 0.3 cm deep. Pain, edema, and tenderness at ankle with erythema on the dorsal part of foot. There is deformity of left foot curvature possible Charcot foot, and dark discoloration of right lower extremity at the medial aspect. Skin Exam: Present: normal color, warm/dry, no cyanosis Lymphatic: Present: no adenopathy Neurologic: Present: guest room inspector II-XII nml as tested, normal cerebellar test, no motor/sensory deficits, alert, normal mood/affect, oriented x 3 Appearance: Present: appropriate appearance Eye contact: Present: cooperative Thoughts: Present: normal thought pattern Diagnostic Studies: Abnormal Lab Results 02/15/18 02/15/18 02/15/18 Range/Units 14:51 15:35 15:35 WBC 15.8 H (4.0-10.5) K/mm3 RBC 4.61 L (4.7-6.0) M/mm3 Hgb 13.3 L (13.5-18.0) gm/dL Hct 40.2 L (42.0-52.0) % Immature Gran # (Auto) 0.07 H (0.000-0.0310) K/mm3 Neutrophils % 91.7 H (42-75.0) % Lymphocytes % 2.9 L (20-51) % Neutrophils # 14.5 H (1.3-6.0) K/mm3 Lymphocytes # 0.46 L (1.5-3.5) k/mm3 pCO2 24.4 L (35.0-48.0) mmHg pO2 80.1 L (83.0-108.0) mmHg HCO3 15.1 L (21.0-28.0) mmol/L Total CO2 15.9 L (19.0-24.0) mmol/L Base Excess -7.8 L (-2.0-3.0) mmol/L Sodium 124 L (132-142) mmol/L Plasma Sodium 128 L (130-142) mmol/L Chloride 89 L (97-106) mmol/L Carbon Dioxide 20.4 L (24-32.6) mmol/L Anion Gap 18.9 H (6.8-13.8) mmol/L BUN 31 H (6-23) mg/dL Creatinine 2.38 H (0.4-1.4) mg/dL Est GFR (Non-Af Amer) 29 L (60-130) mL/min Random Glucose 333 H (70-110) mg/dL ALT 10 L (19-67) U/L Total Protein 8.5 H (6.2-8.2) gm/dL Albumin 2.9 L (3.4-5.0) gm/dl Serum Ketones Positive - 20mg/dl H (NEGATIVE) Laboratory Results WBC 15.8 K/mm3 (4.0-10.5) H 02/15/18 15:35 RBC 4.61 M/mm3 (4.7-6.0) L 02/15/18 15:35 Hgb 13.3 gm/dL (13.5-18.0) L 02/15/18 15:35 Hct 40.2 % (42.0-52.0) L 02/15/18 15:35 MCV 87.2 fl (78-100) 02/15/18 15:35 MCH 28.9 pg (27-31) 02/15/18 15:35 MCHC 33.1 g/dl (32-36) 02/15/18 15:35 RDW 12.9 % (11.5-14.0) 02/15/18 15:35 Plt Count 329 K/mm3 (150-450) 02/15/18 15:35 MPV 9.9 fl (8-11.3) 02/15/18 15:35 Immature Gran % (Auto) 0.40 % (0.001-0.429) 02/15/18 15:35 Immature Gran # (Auto) 0.07 K/mm3 (0.000-0.0310) H 02/15/18 15:35 Neutrophils % 91.7 % (42-75.0) H 02/15/18 15:35 Lymphocytes % 2.9 % (20-51) L 02/15/18 15:35 Monocytes % 4.9 % (0.0-9) 02/15/18 15:35 Eosinophils % 0.0 % (0.0-3.0) 02/15/18 15:35 Basophils % 0.1 % (0.0-1.0) 02/15/18 15:35 Nucleated RBC % 0.0 k/mm3 (0-1) 02/15/18 15:35 Neutrophils # 14.5 K/mm3 (1.3-6.0) H 02/15/18 15:35 Lymphocytes # 0.46 k/mm3 (1.5-3.5) L 02/15/18 15:35 Monocytes # 0.8 k/mm3 (0.0-1.0) 02/15/18 15:35 Eosinophils # 0.0 k/mm3 (0.0-0.7) 02/15/18 15:35 Absolute Basophils 0.0 k/mm3 (0.0-0.1) 02/15/18 15:35 pCO2 24.4 mmHg (35.0-48.0) L 02/15/18 14:51 pO2 80.1 mmHg (83.0-108.0) L 02/15/18 14:51 HCO3 15.1 mmol/L (21.0-28.0) L 02/15/18 14:51 Total CO2 15.9 mmol/L (19.0-24.0) L 02/15/18 14:51 Base Excess -7.8 mmol/L (-2.0-3.0) L 02/15/18 14:51 ABG pH 7.41 (7.35-7.45) 02/15/18 14:51 ABG O2 Sat (Measured) 96.2 % (94.0-98.0) 02/15/18 14:51 Sodium 124 mmol/L (132-142) L 02/15/18 15:35 Plasma Sodium 128 mmol/L (130-142) L 02/15/18 15:35 Potassium 4.3 mmol/L (3.4-4.6) 02/15/18 15:35 Chloride 89 mmol/L (97-106) L 02/15/18 15:35 Carbon Dioxide 20.4 mmol/L (24-32.6) L 02/15/18 15:35 Anion Gap 18.9 mmol/L (6.8-13.8) H 02/15/18 15:35 BUN 31 mg/dL (6-23) H 02/15/18 15:35 Creatinine 2.38 mg/dL (0.4-1.4) H 02/15/18 15:35 Est GFR (Non-Af Amer) 29 mL/min (60-130) L 02/15/18 15:35 BUN/Creatinine Ratio 13.0 (9.0-21.6) 02/15/18 15:35 Random Glucose 333 mg/dL (70-110) H 02/15/18 15:35 Calcium 9.4 mg/dL (7.9-10.9) 02/15/18 15:35 Calcium Adj for Albumin 10.0 mg/dL (8.4-10.2) 02/15/18 15:35 Total Bilirubin 0.8 mg/dL (0.0-1.1) 02/15/18 15:35 AST 12 U/L (0-48) 02/15/18 15:35 ALT 10 U/L (19-67) L 02/15/18 15:35 Alkaline Phosphatase 67 U/L (50-170) 02/15/18 15:35 Total Protein 8.5 gm/dL (6.2-8.2) H 02/15/18 15:35 Albumin 2.9 gm/dl (3.4-5.0) L 02/15/18 15:35 Serum Ketones Positive - 20mg/dl (NEGATIVE) H 02/15/18 15:35 Assessment/Plan - Narrative Narrative: Patient was evaluated and medical chart was reviewed and was found to have signs and symptoms symptoms of sepsis likely secondary to osteomyelitis in a left diabetic foot ulcer. Patient was also found to have hyperglycemia secondary to noncompliance of his insulin therapy and diabetic diet. CMP also demonstrate hyponatremia and acute kidney injury superimposed on a chronic kidney disease, however potassium is within normal range. Patient was also found to have elevated serum ketones but normal pH of 7.41. Will watch him carefully for development of DKA and management with IV insulin, aggressive IV hydration, IV antibiotics, and stabilization of electrolyte imbalance. She was admitted to our inpatient unit where a repeat labs will be ordered to monitor his progress. X-ray of his left foot demonstrate a diabetic foot ulcer containing gas and a possible osteomyelitis. Therefore MRI of the involved foot was ordered and orthopedic surgeon was consulted. We will follow-up with results and any recommendations from Ortho. Dr. Laguerre the milling operator which have been treating the patient for diabetic foot ulcer was also consulted. - Assessment/Plan (1) Hyperglycemia Problem: Acute (2) Uncontrolled diabetes mellitus Problem: Chronic (3) Ulcer of foot due to diabetes Problem: Chronic Qualifiers: (4) Osteomyelitis Problem: Acute (5) Sepsis Problem: Acute (6) Acute kidney injury superimposed on CKD Problem: Acute
[2018-02-15 21:08] LABS: Urine Bilirubin Negative (NEGATIVE); Urine Blood 25 /ul (NEGATIVE); Urine Ketone 5 mg/dL (NEGATIVE); Urine Nitrite Negative (NEGATIVE); Urine Protein 30 mg/dL (NEGATIVE); Urine Specific Gravity 1.015 SP.GR. (1.005-1.030); Urine Urobilinogen Normal (NORMAL); Urine pH 5.5 pH (5.0-7.0)
[2018-02-15 21:23] LABS: Cocaine Ur Negative (NEGATIVE); Urine Barbiturate Negative (NEGATIVE); Urine Benzodiazepines Negative (NEGATIVE); Urine Opiates Negative (NEGATIVE); Urine PCP Negative (NEGATIVE); Urine THC Negative (NEGATIVE)
[2018-02-15 21:27] LABS: Urine Appearance Clear (CLEAR); Urine Color Yellow
[2018-02-15 21:28] LABS: Urine Bacteria 1+; Urine Hyaline Cast 0-5 /LPF; Urine RBC 0-5 /hpf (0-5); Urine WBC 0-5 /hpf (0-5)
[2018-02-15] MEDS: PANTOPRAZOLE SODIUM 40 MG in NORMAL SALINE 100 ML IV SCH (21:58)
[2018-02-15] MEDS: ENOXAPARIN SODIUM 30 MG/0.3 ML SYRG SC SCH (22:08)
[2018-02-16] MEDS: INSULIN REGULAR, HUMAN 100 UNITS/ML VIAL SC SCH ×6 (00:40→20:46)
[2018-02-16 04:05] LABS: Albumin * 2.3 gm/dl (3.4-5.0); Anion Gap 14.8 mmol/L (6.8-13.8); BUN/Creatinine Ratio 14.5 (9.0-21.6); Bilirubin, Total 0.4 mg/dL (0.0-1.1); Ca. Corrected For Albumin 9.1 mg/dL (8.4-10.2); Calcium * 8.1 mg/dL (7.9-10.9); Carbon Dioxide 22.2 mmol/L (24-32.6); Total Protein 6.9 gm/dL (6.2-8.2)
[2018-02-16] MEDS: CIPROFLOXACIN IN 5 % DEXTROSE 400 MG/200 ML BAG IV SCH ×2 (04:54→16:33)
[2018-02-16 08:21] LABS: Albumin * 2.6 gm/dl (3.4-5.0); Anion Gap 15.5 mmol/L (6.8-13.8); BUN/Creatinine Ratio 13.2 (9.0-21.6); Bilirubin, Total 0.8 mg/dL (0.0-1.1); Ca. Corrected For Albumin 9.6 mg/dL (8.4-10.2); Calcium * 8.8 mg/dL (7.9-10.9); Carbon Dioxide 21.9 mmol/L (24-32.6); Potassium 4.4 mmol/L (3.4-4.6)
[2018-02-16] MEDS: ACETAMINOPHEN 500 MG TABLET PO PRN (08:34)
[2018-02-16] MEDS: DILTIAZEM HCL 60 MG TABLET PO SCH ×3 (08:34→16:32)
[2018-02-16] MEDS: ASPIRIN 81 MG TABLET.DR PO SCH (08:34)
[2018-02-16] MEDS: hydrALAZINE HCL 10 MG TABLET PO SCH ×3 (08:34→16:33)
[2018-02-16] MEDS: CHOLECALCIFEROL 5,000 UNIT TABLET PO SCH (08:35)
[2018-02-16] MEDS: DOCUSATE SODIUM 100 MG CAPSULE PO SCH (08:35)
[2018-02-16] MEDS: ENALAPRIL MALEATE 20 MG TABLET PO SCH (08:35)
[2018-02-16] MEDS ORDERED: ROSUVASTATIN CALCIUM 10 MG TABLET PO SCH (09:00)
--- NOTE | 2018-02-16 13:24 | CONS ---
[facility] - General Date of Service: 02/16/18 Narrative: Patient is a 62-year-old male admitted after acute worsening of a chronic ulceration of his left foot that has been undergoing chronic wound treatment with multiple courses of antibiotics. Patient notes he had acute worsening of this wound after he fell and broke the cast but had been placed for wound healing. He notes that these wounds have been present for approximately 9 years since he had a toe amputation in 2009. He notes he has significant numbness of his feet mostly impacting his midfoot distally. He also has multiple other chronic medical conditions that are not currently well controlled. Source: patient - History of Present Illness Allergies/Adverse Reactions: Allergies No Known Allergies Allergy (Verified 12/08/17 09:35) Home Medications: Home Medications Medication Instructions Recorded Last Taken Acetaminophen [Tylenol] 650 mg PO QID PRN #0 tab 01/15/16 Unknown Hydrophilic Ointment [Aquaphilic 1 appl TP BID #1 jar 07/24/17 Unknown Ointment] insulin U- 100 regular human 100 20 unit SUBCUT AC 30 Days #1980 ml 12/08/17 Unknown unit/mL injection solution insulin detemir (U-100) 100 45 unit SUBCUT DAILY #15 ml 12/08/17 Unknown unit/mL (3 mL) subcutaneous pen cholecalciferol (vitamin D3) 5,000 5,000 unit PO DAILY #90 tab 01/17/18 Unknown unit tablet diltiazem 60 mg tablet 60 mg PO TID #90 tab 01/17/18 Unknown enalapril maleate 20 mg tablet 20 mg PO DAILY #30 tab 01/17/18 Unknown hydralazine 10 mg tablet 5 mg PO TID #45 tab 01/17/18 Unknown metoclopramide 10 mg tablet 10 mg PO ACHS #120 tab 01/17/18 Unknown pravastatin 80 mg tablet 80 mg PO DAILY #90 tab 01/17/18 Unknown aspirin 81 mg tablet,delayed 81 mg PO DAILY #90 tab 01/23/18 Unknown release Procedures Computerized Tomography (CT Scan) of Bladder (07/21/17) Excision of Left Foot Skin, External Approach (07/21/17) Excision of Right Metatarsal, Open Approach, Diagnostic (04/11/16) Measurement of Arterial Saturation, Peripheral, Percutaneous Approach (02/15/18) Medications - Medications Current Medications: Current Medications Acetaminophen (Tylenol) 1,000 mg PO Q6H PRN PRN Reason: Mild pain (pain scale 1-3) Stop: 03/17/18 19:27 Last Admin: 02/16/18 08:34 Dose: 1,000 mg Documented by: Aspirin (Aspirin Enteric Coated) 81 mg PO DAILY [facility] Stop: 03/18/18 09:01 Last Admin: 02/16/18 08:34 Dose: 81 mg Documented by: Cholecalciferol (Vitamin D) 5,000 unit PO DAILY [facility] Stop: 03/18/18 09:01 Last Admin: 02/16/18 08:35 Dose: 5,000 unit Documented by: Diltiazem HCl (Cardizem) 60 mg PO TID [facility] Stop: 03/18/18 09:01 Last Admin: 02/16/18 08:34 Dose: 60 mg Documented by: Docusate Sodium (Colace) 100 mg PO DAILY [facility] Stop: 03/18/18 09:01 Last Admin: 02/16/18 08:35 Dose: 100 mg Documented by: Enalapril Maleate (Vasotec) 20 mg PO DAILY [facility] Stop: 03/18/18 09:01 Last Admin: 02/16/18 08:35 Dose: 20 mg Documented by: Enoxaparin Sodium (Lovenox) 30 mg SC Q24H [facility] Stop: 03/17/18 21:01 Last Admin: 02/15/18 22:08 Dose: 30 mg Documented by: Hydralazine HCl (Apresoline) 5 mg PO TID [facility] Stop: 03/18/18 09:01 Last Admin: 02/16/18 08:34 Dose: 5 mg Documented by: Sodium Chloride (Sodium Chloride 0.9%) 1,000 mls @ 999 mls/hr IV .Q1H1M PRN PRN Reason: HYDRATION Stop: 03/17/18 16:57 Last Infusion: 02/15/18 21:49 Dose: Infused Documented by: Ciprofloxacin/Dextrose (Cipro) 400 mg in 200 mls @ 200 mls/hr IV Q12H [facility]; Protocol Stop: 03/17/18 17:16 Last Infusion: 02/16/18 06:04 Dose: Infused Documented by: Pantoprazole Sodium 40 mg/ (Sodium Chloride) 100 mls @ 400 mls/hr IV Q24H [facility] Stop: 03/17/18 19:31 Last Infusion: 02/15/18 22:48 Dose: Infused Documented by: Insulin Human Regular (Humulin R) 0 units SC ADIN [facility]; Protocol Stop: 03/17/18 21:01 Last Admin: 02/16/18 11:25 Dose: 20 units Documented by: Physical Examination - Exam Vital Signs: Vital Signs - Last Taken Temp 37.6 C 02/16/18 13:01 Pulse 91 02/16/18 13:01 Resp 18 02/16/18 13:01 BP 109/56 02/16/18 13:01 Pulse Ox 96 02/16/18 13:01 O2 Oxygen Delivery Method Room Air Constitutional: Present: Alert, Cooperative, No distress Respiratory: Present: no respiratory distress Extremity: Present: other - LLE--> bandage in place over patient's ankle and midfoot clean/dry/intact, no sensation distal way to bandages of his midfoot or toes, sensation present from midfoot proximally, previous amputation of patient's third toe, capillary refill mildly sluggish, 5/5 plantar flexion/dorsiflexion, limited movement of all digits, no significant erythema or edema surrounding bandages Eye contact: Present: cooperative Thoughts: Present: normal thought pattern - Results and Findings: Narrative: Patient is a 62-year-old male admitted for acute worsening of an ulceration on his left foot with concern for osteomyelitis. Note patient has had this wound for approximately 9 years with chronic wound management and multiple course of antibiotics performed. Cultures have been taken appear to be growing staph. Patient has been started on empiric treatment for staph. MRI has been ordered to evaluate extent of osteomyelitis throughout patient's tarsals, metatarsals, any other extensions in his left lower extremity. Discussed with patient options of continued wound care with IV antibiotics versus below the knee amputation due to osteomyelitis or chronic wound management. Discussed will further determine treatment based on MRI results. Due to wound being on patient's foot discussed with primary care possible use for Zosyn for Pseudomona s coverage. Could consider this recommendation as in addition to vancomycin. Again this would be empiric treatment due to cultures growing staph organism. Lab/Microbiology results last 24 hrs: Abnormal/Pending Laboratory Last 24 HRS 02/16/18 02/16/18 02/15/18 08:00 03:46 23:00 WBC RBC Hgb Hct Immature Gran # (Auto) Neutrophils % Lymphocytes % Neutrophils # Lymphocytes # ESR pCO2 pO2 HCO3 Total CO2 Base Excess Sodium 125 L 126 L Plasma Sodium 127 L 128 L Chloride 92 L 93 L Carbon Dioxide 21.9 L 22.2 L Anion Gap 15.5 H 14.8 H BUN 27 H 30 H Creatinine 2.05 H 2.07 H Est GFR (Non-Af Amer) 35 L 35 L Random Glucose 241 H 234 H D Lactic Acid, Venous 2.5 H* ALT 12 L 10 L C-Reactive Prot, Quant Total Protein Albumin 2.6 L 2.3 L Urine Protein Urine Glucose (UA) Urine Blood Prot Sulfosalicylic Acd Urine Bacteria Hyaline Casts Serum Ketones 02/15/18 02/15/18 02/15/18 21:20 20:31 19:55 WBC RBC Hgb Hct Immature Gran # (Auto) Neutrophils % Lymphocytes % Neutrophils # Lymphocytes # ESR 115 H pCO2 31.6 L pO2 77.2 L HCO3 20.2 L Total CO2 Base Excess -3.3 L Sodium Plasma Sodium Chloride Carbon Dioxide Anion Gap BUN Creatinine Est GFR (Non-Af Amer) Random Glucose Lactic Acid, Venous ALT C-Reactive Prot, Quant Total Protein Albumin Urine Protein 30 H Urine Glucose (UA) >=1000 H Urine Blood 25 H Prot Sulfosalicylic Acd 2+ H Urine Bacteria 1+ H Hyaline Casts 0-5 H Serum Ketones 02/15/18 02/15/18 02/15/18 19:55 15:35 15:35 WBC 15.8 H RBC 4.61 L Hgb 13.3 L Hct 40.2 L Immature Gran # (Auto) 0.07 H Neutrophils % 91.7 H Lymphocytes % 2.9 L Neutrophils # 14.5 H Lymphocytes # 0.46 L ESR pCO2 pO2 HCO3 Total CO2 Base Excess Sodium 126 L 124 L Plasma Sodium 128 L Chloride 92 L 89 L Carbon Dioxide 23.3 L 20.4 L Anion Gap 15.2 H 18.9 H BUN 32 H 31 H Creatinine 2.12 H 2.38 H Est GFR (Non-Af Amer) 34 L 29 L Random Glucose 389 H 333 H Lactic Acid, Venous ALT 8 L 10 L C-Reactive Prot, Quant 51.2 H Total Protein 8.5 H Albumin 2.3 L 2.9 L Urine Protein Urine Glucose (UA) Urine Blood Prot Sulfosalicylic Acd Urine Bacteria Hyaline Casts Serum Ketones Positive - 20mg/dl H 02/15/18 14:51 WBC RBC Hgb Hct Immature Gran # (Auto) Neutrophils % Lymphocytes % Neutrophils # Lymphocytes # ESR pCO2 24.4 L pO2 80.1 L HCO3 15.1 L Total CO2 15.9 L Base Excess -7.8 L Sodium Plasma Sodium Chloride Carbon Dioxide Anion Gap BUN Creatinine Est GFR (Non-Af Amer) Random Glucose Lactic Acid, Venous ALT C-Reactive Prot, Quant Total Protein Albumin Urine Protein Urine Glucose (UA) Urine Blood Prot Sulfosalicylic Acd Urine Bacteria Hyaline Casts Serum Ketones Culture 02/15/18 15:35 Blood Culture - Preliminary Blood Ruling Out Pathogen 02/15/18 20:37 Wound Culture - Preliminary Foot - Left Staphylococcus Species - Assessments/Findings (1) Ulcer of foot due to diabetes Problem: Chronic Qualifiers:
[2018-02-16 13:27] LABS: Albumin * 2.4 gm/dl (3.4-5.0); Anion Gap 14.2 mmol/L (6.8-13.8); BUN/Creatinine Ratio 13.5 (9.0-21.6); Bilirubin, Total 0.5 mg/dL (0.0-1.1); Ca. Corrected For Albumin 9.6 mg/dL (8.4-10.2); Calcium * 8.6 mg/dL (7.9-10.9); Carbon Dioxide 23.1 mmol/L (24-32.6); Potassium 4.3 mmol/L (3.4-4.6); Total Protein 7.5 gm/dL (6.2-8.2)
[2018-02-16] MEDS ORDERED: ACETAMINOPHEN 325 MG TABLET PO PRN (13:47)
[2018-02-16] MEDS: VANCOMYCIN HCL 1.25 GM in DEXTROSE 5 % IN WATER 250 ML IV SCH ×2 (13:57)
[2018-02-16] MEDS: METOCLOPRAMIDE HCL 10 MG TABLET PO SCH ×2 (16:32→20:43)
--- NOTE | 2018-02-16 16:51 | PN ---
[facility] Note - Interim Date: 02/16/18 Time: 16:48 Narrative: 02/16/18 16:48 Evaluated the patient at bedside today. He has a chronic lateral plantar foot ulcer that he has been dealing with now for approximately 10 years. MRI obtained today demonstrates osteomyelitis of the cuboid with no obvious extension of the infection beyond this. I counseled the patient on options today including continued nonoperative management with localized wound care and systemic IV antibiotics to control his infection. I counseled him that the chances of healing this ulcer and clearing his infection completely is very low given the chronicity of his wound as well as his diabetic status. I counseled him that the most definitive option would be an amputation above the level of his wound and infection. The procedure that would give the highest chance of healing without need for additional procedures, as well as provide the patient with good function with a prosthesis, would be a below-knee amputation. I counseled him that there is not a emergent or urgent need to do this as his infection is localized and he currently does not have any signs of systemic spread. The earliest I would be able to do this on an elective basis would be next Wednesday. I counseled him that we will either keep him in the hospital for that time or discharge him on IV antibiotics until that time. He is going to consider his options and we will have another discussion tomorrow. Arden Dick MD
--- NOTE | 2018-02-16 17:22 | CONS ---
[facility] - General Date of Service: 02/16/18 Narrative: Pt evaluated at bedside. He was admitted yesterday afternoon with concerns for infection in his left foot as well as low blood pressures, high pulse, difficulty with speech, recent fall at home, as well as high blood sugars with concerns for possible DKA. He is a know patient to my practice whom I have been treating for a chronic ulceration to his left lateral foot. Most recent, he has been treated with total contact casting, which has slowly reduced the size of the ulceration. He has been on oral ABX on several occasions due to localized mild infections, and has responded well. He has also undergone previous surgeries/amputations in attempt to heal this ulceration, and has come close to healing in the past, however has never been able to stay completely healed due to recurrent infections. He has been battling an ulceration to this foot for nearly 10 years duration. He is poorly controlled with his DM. He is currently on IV ABX. Xray and MRI of this foot have been obtained showing likely infection involving the cuboid bone. He has spoken with Orthopedics about his options moving forward, and is unsure at this point what he would like to do. Source: patient - History of Present Illness Allergies/Adverse Reactions: Allergies No Known Allergies Allergy (Verified 12/08/17 09:35) Home Medications: Home Medications Medication Instructions Recorded Last Taken Acetaminophen [Tylenol] 650 mg PO QID PRN #0 tab 01/15/16 Unknown Hydrophilic Ointment [Aquaphilic 1 appl TP BID #1 jar 07/24/17 Unknown Ointment] insulin U- 100 regular human 100 20 unit SUBCUT AC 30 Days #1980 ml 12/08/17 Unknown unit/mL injection solution insulin detemir (U-100) 100 45 unit SUBCUT DAILY #15 ml 12/08/17 Unknown unit/mL (3 mL) subcutaneous pen cholecalciferol (vitamin D3) 5,000 5,000 unit PO DAILY #90 tab 01/17/18 Unknown unit tablet diltiazem 60 mg tablet 60 mg PO TID #90 tab 01/17/18 Unknown enalapril maleate 20 mg tablet 20 mg PO DAILY #30 tab 01/17/18 Unknown hydralazine 10 mg tablet 5 mg PO TID #45 tab 01/17/18 Unknown metoclopramide 10 mg tablet 10 mg PO ACHS #120 tab 01/17/18 Unknown pravastatin 80 mg tablet 80 mg PO DAILY #90 tab 01/17/18 Unknown aspirin 81 mg tablet,delayed 81 mg PO DAILY #90 tab 01/23/18 Unknown release Procedures Computerized Tomography (CT Scan) of Bladder (07/21/17) Excision of Left Foot Skin, External Approach (07/21/17) Excision of Right Metatarsal, Open Approach, Diagnostic (04/11/16) Measurement of Arterial Saturation, Peripheral, Percutaneous Approach (02/15/18) Medications - Medications Current Medications: Current Medications Acetaminophen (Tylenol) 1,000 mg PO Q6H PRN PRN Reason: Mild pain (pain scale 1-3) Stop: 03/17/18 19:27 Last Admin: 02/16/18 08:34 Dose: 1,000 mg Documented by: Aspirin (Aspirin Enteric Coated) 81 mg PO DAILY [facility] Stop: 03/18/18 09:01 Last Admin: 02/16/18 08:34 Dose: 81 mg Documented by: Cholecalciferol (Vitamin D) 5,000 unit PO DAILY [facility] Stop: 03/18/18 09:01 Last Admin: 02/16/18 08:35 Dose: 5,000 unit Documented by: Diltiazem HCl (Cardizem) 60 mg PO TID [facility] Stop: 03/18/18 09:01 Last Admin: 02/16/18 16:32 Dose: 60 mg Documented by: Docusate Sodium (Colace) 100 mg PO DAILY [facility] Stop: 03/18/18 09:01 Last Admin: 02/16/18 08:35 Dose: 100 mg Documented by: Enalapril Maleate (Vasotec) 20 mg PO DAILY [facility] Stop: 03/18/18 09:01 Last Admin: 02/16/18 08:35 Dose: 20 mg Documented by: Enoxaparin Sodium (Lovenox) 30 mg SC Q24H [facility] Stop: 03/17/18 21:01 Last Admin: 02/15/18 22:08 Dose: 30 mg Documented by: Hydralazine HCl (Apresoline) 5 mg PO TID [facility] Stop: 03/18/18 09:01 Last Admin: 02/16/18 16:33 Dose: 5 mg Documented by: Sodium Chloride (Sodium Chloride 0.9%) 1,000 mls @ 999 mls/hr IV .Q1H1M PRN PRN Reason: HYDRATION Stop: 03/17/18 16:57 Last Infusion: 02/15/18 21:49 Dose: Infused Documented by: Ciprofloxacin/Dextrose (Cipro) 400 mg in 200 mls @ 200 mls/hr IV Q12H [facility]; Protocol Stop: 03/17/18 17:16 Last Admin: 02/16/18 16:33 Dose: 200 mls/hr Documented by: Vancomycin HCl 1.25 gm/ (Dextrose/Water) 250 mls @ 160 mls/hr IV Q24H [facility]; Protocol Stop: 03/18/18 13:01 Last Infusion: 02/16/18 15:31 Dose: Infused Documented by: Pantoprazole Sodium 40 mg/ (Sodium Chloride) 100 mls @ 400 mls/hr IV Q24H [facility] Stop: 03/17/18 19:31 Last Infusion: 02/15/18 22:48 Dose: Infused Documented by: Insulin Human Regular (Humulin R) 0 units SC [facility]; Protocol Stop: 03/17/18 21:01 Last Admin: 02/16/18 16:44 Dose: 14 units Documented by: Insulin Human Regular (Humulin R) 20 units SC [facility] Stop: 03/18/18 17:01 Last Admin: 02/16/18 16:44 Dose: 20 units Documented by: Metoclopramide HCl (Reglan) 10 mg PO [facility] Stop: 03/18/18 17:01 Last Admin: 02/16/18 16:32 Dose: 10 mg Documented by: Review of Systems - Review of Systems Generalized/Overall Review: Present: Weakness, Fatigue Neurological: Present: Numbness, Weakness Skin: Present: Other - foot ulcer Physical Examination - Exam Vital Signs: Vital Signs - Last Taken Temp 37.6 C 02/16/18 13:01 Pulse 92 02/16/18 16:33 Resp 18 02/16/18 13:01 BP 109/56 02/16/18 16:33 Pulse Ox 96 02/16/18 13:01 O2 Oxygen Delivery Method Room Air Constitutional: Present: Alert, Oriented x3, Cooperative Peripheral Pulses: dorsalis-pedis (L): 1+ - Weakly palpable Extremity: Present: slow capillary refill Skin Exam: Present: other - Ulceration to the plantar lateral left foot. Loss of tissue to full thickness with exposure of subcutaneous fat layer. Base with mix of fibrotic, yellow slough tissue and granulation tissue. Surrounding tissue callused and significantly macerated with mild localized erythema that extends across the midfoot only. Moderate serous drainage, no malodor. No exposed tendon or bone at this time. Neurologic: Present: sensory deficit Eye contact: Present: cooperative - Results and Findings: Lab/Microbiology results last 24 hrs: Abnormal/Pending Laboratory Last 24 HRS 02/16/18 02/16/18 02/16/18 13:08 08:00 03:46 ESR pCO2 pO2 HCO3 Base Excess Sodium 124 L 125 L 126 L Plasma Sodium 127 L 127 L 128 L Chloride 91 L 92 L 93 L Carbon Dioxide 23.1 L 21.9 L 22.2 L Anion Gap 14.2 H 15.5 H 14.8 H BUN 30 H 27 H 30 H Creatinine 2.22 H 2.05 H 2.07 H Est GFR (Non-Af Amer) 32 L 35 L 35 L Random Glucose 305 H 241 H 234 H D Lactic Acid, Venous ALT 15 L 12 L 10 L C-Reactive Prot, Quant Albumin 2.4 L 2.6 L 2.3 L Urine Protein Urine Glucose (UA) Urine Blood Prot Sulfosalicylic Acd Urine Bacteria Hyaline Casts 02/15/18 02/15/18 02/15/18 23:00 21:20 20:31 ESR pCO2 31.6 L pO2 77.2 L HCO3 20.2 L Base Excess -3.3 L Sodium Plasma Sodium Chloride Carbon Dioxide Anion Gap BUN Creatinine Est GFR (Non-Af Amer) Random Glucose Lactic Acid, Venous 2.5 H* ALT C-Reactive Prot, Quant Albumin Urine Protein 30 H Urine Glucose (UA) >=1000 H Urine Blood 25 H Prot Sulfosalicylic Acd 2+ H Urine Bacteria 1+ H Hyaline Casts 0-5 H 02/15/18 02/15/18 19:55 19:55 ESR 115 H pCO2 pO2 HCO3 Base Excess Sodium 126 L Plasma Sodium Chloride 92 L Carbon Dioxide 23.3 L Anion Gap 15.2 H BUN 32 H Creatinine 2.12 H Est GFR (Non-Af Amer) 34 L Random Glucose 389 H Lactic Acid, Venous ALT 8 L C-Reactive Prot, Quant 51.2 H Albumin 2.3 L Urine Protein Urine Glucose (UA) Urine Blood Prot Sulfosalicylic Acd Urine Bacteria Hyaline Casts Culture 02/15/18 15:35 Blood Culture - Preliminary Blood Ruling Out Pathogen 02/15/18 20:37 Wound Culture - Preliminary Foot - Left Staphylococcus Species - Assessments/Findings (1) Ulcer of foot due to diabetes Diagnosis(s): Ulceration evaluated at bedside. New dressing applied. Discussed options for care moving forward to include 1) continued IV ABX and local wound care, however there is no guarantee that this will resolve his infection and/or his ulceration and he may ultimately require surgical care; 2) continued IV ABX and extensive surgical debridement to remove infected bone from his foot, however this would likely leave him with a very unstable foot which may not be functional for him given he already has deformity from previous surgeries/amputations; 3) Chopart's amputation, however these do have a tendency to develop ulcerations to the stump of the amputation site, which may ultimately lead to infection and higher amputation; 4) proceed with below knee amputation as discussed with Orthopedics. This is not a decision I expect him to make right at this time as he is not systemically ill. 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 He will give all options some thought and we will revisit on rounds tomorrow. Will continue with IV ABX and daily dressing changes at this time. Will plan for wound debridement pending his decisions on further treatment. Problem: Chronic Qualifiers: Diabetic foot ulcer location: midfoot Diabetes mellitus type: type 2 Laterality: left Non-pressure ulcer stage: with necrosis of bone Qualified Code(s): E11.621 - Type 2 diabetes mellitus with foot ulcer; L97.424 - 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 (2) Osteomyelitis Diagnosis(s): MRI reviewed. Continue IV ABX at this time. Discussed options for treatment as above. Problem: Acute Qualifiers: Osteomyelitis type: subacute Osteomyelitis location: foot Laterality: left Qualified Code(s): M86.272 - Subacute osteomyelitis, left ankle and foot
[2018-02-16 17:25] LABS: Albumin * 2.6 gm/dl (3.4-5.0); Anion Gap 18.1 mmol/L (6.8-13.8); BUN/Creatinine Ratio 13.9 (9.0-21.6); Bilirubin, Total 0.6 mg/dL (0.0-1.1); Ca. Corrected For Albumin 9.7 mg/dL (8.4-10.2); Calcium * 8.9 mg/dL (7.9-10.9); Carbon Dioxide 21.4 mmol/L (24-32.6); Potassium 4.5 mmol/L (3.4-4.6); Total Protein 7.9 gm/dL (6.2-8.2)
--- NOTE | 2018-02-16 19:54 | PN ---
Subjective - Date and Time Seen Date: 02/16/18 Time: 12:40 Subjective Narrative: Teddy is sitting on the edge of the bed when I came in and concerned about losing his left foot or lower leg because of the osteomyelitis. The MRI is still pending at the time of my visit. I believe that the decision tree where to amputate or not will be largely weighted by the MRI report. Orthopedics has seen Mr. Hunter. There initial medical recommendation is to add Zosyn. I'm told that the blood cultures are positive for both anaerobic and aerobic on the second culture. The first culture shows positive for anaerobes. A more definitive finding will be available tomorrow and the sensitivities as well. I will wait until getting the sensitivity report before adding a second antibiotic. He seems to be tolerating the vancomycin well. His blood sugars have improved from admission of mid 300s to 206 today. He is alert and oriented in no other distress. He had some serum ketones but his pH remained normal. He was febrile, hypotensive, hyperglycemic, and has a leukocytosis. He has positive blood cultures so I believe he meets the criteria for sepsis for regular admission. Objective - Review of Systems Generalized/Overall Review: Reports: Fever EENTM: Reports: No Symptoms Reported Respiratory: Reports: No Symptoms Reported Cardiac: Reports: No Symptoms Reported Abdominal: Reports: No Symptoms Reported Genitourinary Symptoms: Reports: No Symptoms Reported Musculoskeletal Complaints: Reports: Other - Foot pain due to osteomyelitis Neurological: Reports: No Symptoms Reported, Pre-existing Deficit - Diabetic neuropathy Endocrine: Reports: Other - Teddy is a near totally noncompliant insulin- dependent diabetic. He lives alone and eats what he wants. He ran out of insulin about 3 weeks ago and hasn't had the resources to get the insulin or the desire to try to control his blood sugars. - Vitals Vitals: Last Vital Signs Temp 36.7 C 02/16/18 19:01 Pulse 103 H 02/16/18 19:01 Resp 22 H 02/16/18 19:01 BP 117/63 02/16/18 19:01 Pulse Ox 97 02/16/18 19:01 - Abnormal Lab Findings Abnormal Lab Findings: Abnormal Lab Results 02/15/18 02/15/18 02/15/18 Range/Units 19:55 19:55 20:31 ESR 115 H (0-10) mm/hr pCO2 (35.0-48.0) mmHg pO2 (83.0-108.0) mmHg HCO3 (21.0-28.0) mmol/L Base Excess (-2.0-3.0) mmol/L Sodium 126 L (132-142) mmol/L Plasma Sodium (130-142) mmol/L Chloride 92 L (97-106) mmol/L Carbon Dioxide 23.3 L (24-32.6) mmol/L Anion Gap 15.2 H (6.8-13.8) mmol/L BUN 32 H (6-23) mg/dL Creatinine 2.12 H (0.4-1.4) mg/dL Est GFR (Non-Af Amer) 34 L (60-130) mL/min Random Glucose 389 H (70-110) mg/dL Lactic Acid, Venous (0.4-2.0) mmol/L ALT 8 L (19-67) U/L C-Reactive Prot, Quant 51.2 H (0.0-0.9) mg/dL Albumin 2.3 L (3.4-5.0) gm/dl Urine Protein 30 H (NEGATIVE) mg/dL Urine Glucose (UA) >=1000 H (NEGATIVE) mg/dL Urine Blood 25 H (NEGATIVE) /ul Prot Sulfosalicylic Acd 2+ H (0) mg/dL Urine Bacteria 1+ H (NONE) Hyaline Casts 0-5 H (NONE) /LPF 02/15/18 02/15/18 02/16/18 Range/Units 21:20 23:00 03:46 ESR (0-10) mm/hr pCO2 31.6 L (35.0-48.0) mmHg pO2 77.2 L (83.0-108.0) mmHg HCO3 20.2 L (21.0-28.0) mmol/L Base Excess -3.3 L (-2.0-3.0) mmol/L Sodium 126 L (132-142) mmol/L Plasma Sodium 128 L (130-142) mmol/L Chloride 93 L (97-106) mmol/L Carbon Dioxide 22.2 L (24-32.6) mmol/L Anion Gap 14.8 H (6.8-13.8) mmol/L BUN 30 H (6-23) mg/dL Creatinine 2.07 H (0.4-1.4) mg/dL Est GFR (Non-Af Amer) 35 L (60-130) mL/min Random Glucose 234 H D (70-110) mg/dL Lactic Acid, Venous 2.5 H* (0.4-2.0) mmol/L ALT 10 L (19-67) U/L C-Reactive Prot, Quant (0.0-0.9) mg/dL Albumin 2.3 L (3.4-5.0) gm/dl Urine Protein (NEGATIVE) mg/dL Urine Glucose (UA) (NEGATIVE) mg/dL Urine Blood (NEGATIVE) /ul Prot Sulfosalicylic Acd (0) mg/dL Urine Bacteria (NONE) Hyaline Casts (NONE) /LPF 02/16/18 02/16/18 02/16/18 Range/Units 08:00 13:08 16:41 ESR (0-10) mm/hr pCO2 (35.0-48.0) mmHg pO2 (83.0-108.0) mmHg HCO3 (21.0-28.0) mmol/L Base Excess (-2.0-3.0) mmol/L Sodium 125 L 124 L 125 L (132-142) mmol/L Plasma Sodium 127 L 127 L 129 L (130-142) mmol/L Chloride 92 L 91 L 90 L (97-106) mmol/L Carbon Dioxide 21.9 L 23.1 L 21.4 L (24-32.6) mmol/L Anion Gap 15.5 H 14.2 H 18.1 H (6.8-13.8) mmol/L BUN 27 H 30 H 33 H (6-23) mg/dL Creatinine 2.05 H 2.22 H 2.38 H (0.4-1.4) mg/dL Est GFR (Non-Af Amer) 35 L 32 L 29 L (60-130) mL/min Random Glucose 241 H 305 H 341 H (70-110) mg/dL Lactic Acid, Venous (0.4-2.0) mmol/L ALT 12 L 15 L 17 L (19-67) U/L C-Reactive Prot, Quant (0.0-0.9) mg/dL Albumin 2.6 L 2.4 L 2.6 L (3.4-5.0) gm/dl Urine Protein (NEGATIVE) mg/dL Urine Glucose (UA) (NEGATIVE) mg/dL Urine Blood (NEGATIVE) /ul Prot Sulfosalicylic Acd (0) mg/dL Urine Bacteria (NONE) Hyaline Casts (NONE) /LPF - Exam Constitutional: Present: Alert, Oriented x3, Cooperative, Well developed, Mild distress, Middle aged, Overweight ENT Exam: Present: normal ENT inspection, hearing grossly normal, pharynx normal, TMs normal Neck: Present: non-tender, full range of motion, supple, normal inspection, trachea midline Breasts: Present: Nontender Respiratory: Present: chest non-tender, lungs clear, normal breath sounds, no respiratory distress Cardiovascular/Chest: Present: normal peripheral pulses, regular rate, rhythm, no chest tenderness, no edema, no gallop, no JVD, no murmur, no rub Abdomen: Present: Normal bowel sounds, soft, nontender, nondistended, no rebound tenderness, no hepatospenomegaly, no masses, obese /Rectal: Present: Exam deferred Extremity: Present: normal range of motion, other - Swelling and foot pain due to the osteomyelitis. Skin Exam: Present: normal color, warm/dry, no cyanosis Lymphatic: Present: no adenopathy Neurologic: Present: die mounter II-XII nml as tested Appearance: Present: disheveled, impaired insight Eye contact: Present: cooperative, good eye contact Thoughts: Present: normal thought pattern, no apparent hallucination Assessment/Plan Plan Narrative: IV fluids and IV antibiotics Monitor management of blood sugars Orthopedic surgical consultation and surgical intervention as it is determined appropriate MRI of the foot has been done and results are pending Consider adding Zosyn if cultures suggested some progress. Consult pharm D about antibiotics - Problems/Diagnosis (1) Osteomyelitis Problem: Acute (2) Ulcer of foot due to diabetes Problem: Chronic Qualifiers: Diabetic foot ulcer location: midfoot Diabetes mellitus type: type 2 Laterality: left Non-pressure ulcer stage: with necrosis of bone Qualified Code(s): E11.621 - Type 2 diabetes mellitus with foot ulcer; L97.424 - 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 (3) Hypertension Problem: Chronic Qualifiers: Hypertension type: essential hypertension Qualified Code(s): I10 - Essential (primary) hypertension (4) Peripheral neuropathy Problem: Chronic Qualifiers: Peripheral neuropathy type: polyneuropathy associated with underlying disease Qualified Code(s): G63 - Polyneuropathy in diseases classified elsewhere (5) Foot deformity, bilateral Problem: Chronic (6) MRSA (methicillin resistant Staphylococcus aureus) carrier Problem: Chronic (7) Poorly controlled diabetes mellitus Problem: Chronic (8) CKD (chronic kidney disease) stage 3, GFR 30-59 ml/min Problem: Chronic (9) Sepsis Problem: Acute (10) Acute kidney injury superimposed on CKD Problem: Acute (11) Diabetic nephropathy associated with type 2 diabetes mellitus Problem: Chronic
[2018-02-16 20:15] LABS: Albumin * 2.5 gm/dl (3.4-5.0); BUN/Creatinine Ratio 13.1 (9.0-21.6); Bilirubin, Total 0.6 mg/dL (0.0-1.1); Ca. Corrected For Albumin 9.6 mg/dL (8.4-10.2); Calcium * 8.7 mg/dL (7.9-10.9); Carbon Dioxide 21.7 mmol/L (24-32.6); Potassium 4.7 mmol/L (3.4-4.6); Total Protein 7.7 gm/dL (6.2-8.2)
[2018-02-16] MEDS: PANTOPRAZOLE SODIUM 40 MG in NORMAL SALINE 100 ML IV SCH (20:34)
[2018-02-16] MEDS: ROSUVASTATIN CALCIUM 10 MG TABLET PO SCH (20:41)
[2018-02-16] MEDS: HYDROPHILIC OINTMENT 454 APPL JAR TP SCH (20:41)
[2018-02-16] MEDS: ENOXAPARIN SODIUM 30 MG/0.3 ML SYRG SC SCH (20:42)
[2018-02-17 00:01] LABS: Albumin * 2.2 gm/dl (3.4-5.0); Anion Gap 15.3 mmol/L (6.8-13.8); BUN/Creatinine Ratio 13.3 (9.0-21.6); Bilirubin, Total 0.4 mg/dL (0.0-1.1); Ca. Corrected For Albumin 9.6 mg/dL (8.4-10.2); Calcium * 8.5 mg/dL (7.9-10.9); Potassium 4.3 mmol/L (3.4-4.6); Total Protein 6.8 gm/dL (6.2-8.2)
[2018-02-17] MEDS: ACETAMINOPHEN 500 MG TABLET PO PRN ×3 (01:08→23:25)
[2018-02-17] MEDS: CIPROFLOXACIN IN 5 % DEXTROSE 400 MG/200 ML BAG IV SCH ×2 (05:09→16:30)
[2018-02-17 06:16] LABS: Albumin * 1.9 gm/dl (3.4-5.0); BUN/Creatinine Ratio 11.6 (9.0-21.6); Bilirubin, Total 0.4 mg/dL (0.0-1.1); Ca. Corrected For Albumin 9.7 mg/dL (8.4-10.2); Calcium * 8.3 mg/dL (7.9-10.9); Carbon Dioxide 20.1 mmol/L (24-32.6); Potassium 4.1 mmol/L (3.4-4.6); Total Protein 6.4 gm/dL (6.2-8.2)
[2018-02-17 06:19] LABS: Hematocrit 31.9 % (42.0-52.0); Hemoglobin 10.8 gm/dL (13.5-18.0); Mean Cell Volume 85.3 fl (78-100); Mean Corpuscular Hemoglobin 28.9 pg (27-31); Mean Corpuscular Hgb Conc 33.9 g/dl (32-36); Mean Platelet Volume 10.5 fl (8-11.3); Platelet Count 272 K/mm3 (150-450); Red Blood Count 3.74 M/mm3 (4.7-6.0); Red Cell Distribution Width 13.1 % (11.5-14.0); White Blood Count 17.4 K/mm3 (4.0-10.5)
[2018-02-17 06:22] LABS: Total Cells Counted 100
[2018-02-17 06:40] LABS: Atypical (Reactive) Lymph 1 % (0-2); Band 12 % (0-2.0); Lymphocyte 10 % (20-51); Monocyte 9 % (0-9); Neutrophil 68 % (42-75); Neutrophil # 11.8 K/mm3 (1.3-6.0); Platelet Estimate Normal (NORMAL); RBC Morphology Normal (NORMAL)
[2018-02-17] MEDS: METOCLOPRAMIDE HCL 10 MG TABLET PO SCH ×4 (07:02→21:13)
[2018-02-17] MEDS: INSULIN REGULAR, HUMAN 100 UNITS/ML VIAL SC SCH ×7 (07:02→20:59)
[2018-02-17] MEDS: HYDROPHILIC OINTMENT 454 APPL JAR TP SCH ×2 (09:26→21:11)
[2018-02-17] MEDS: CHOLECALCIFEROL 5,000 UNIT TABLET PO SCH (09:28)
[2018-02-17] MEDS: ASPIRIN 81 MG TABLET.DR PO SCH (09:28)
[2018-02-17] MEDS: DOCUSATE SODIUM 100 MG CAPSULE PO SCH (09:28)
[2018-02-17] MEDS: hydrALAZINE HCL 10 MG TABLET PO SCH ×3 (09:30→21:07)
[2018-02-17] MEDS: ENALAPRIL MALEATE 20 MG TABLET PO SCH (09:30)
[2018-02-17] MEDS ORDERED: NORMAL SALINE 1,000 ML IV ONE ×2 (09:35→09:36)
[2018-02-17] MEDS: INSULIN DETEMIR 100 UNITS/ML VIAL SC SCH (09:39)
[2018-02-17] MEDS: DILTIAZEM HCL 60 MG TABLET PO SCH ×3 (10:28→21:10)
[2018-02-17] MEDS ORDERED: ACETAMINOPHEN 325 MG TABLET PO PRN (13:00)
--- NOTE | 2018-02-17 13:25 | PN ---
Progesduane Note - Interim Date: 02/17/18 Time: 13:25 Narrative: 02/17/18 13:25 Re-evaluated Mr. Hunter at bedside today. He has developed a lactic acidosis and blood cultures are positive for Staph. I counseled him this is a concerning sign that his infection is spreading and he is becoming septic. My recommendation to him is an urgent below knee amputation to stop the spread of infection and definitively treat his chronic foot wound and osteomyelitis. I counseled him on the risks of surgery including, but not limited to, persistent infection, wound complications, need for higher level amputation, stump pain, phantom limb pain, and risks with anesthesia. After discussion, he wishes to proceed with surgery. Informed consent was obtained. Plan for left below knee amputation today. Arden Dick MD 02/17/18 13:26
[2018-02-17] MEDS: VANCOMYCIN HCL 1.25 GM in DEXTROSE 5 % IN WATER 250 ML IV SCH ×2 (14:07)
[2018-02-17] MEDS: ALBUTEROL SULFATE/IPRATROPIUM 3 ML NEBU IH PRN (14:26)
--- NOTE | 2018-02-17 15:08 | ANES ---
Anesthesia Pre Procedure Eval Vitals/Labs: Last Vital Signs Temp 36.9 C 02/17/18 10:09 Pulse 84 02/17/18 14:26 Resp 20 02/17/18 14:26 BP 100/60 02/17/18 14:08 Pulse Ox 98 02/17/18 14:26 HOME MEDICATIONS Acetaminophen [Tylenol] 650 mg PO QID PRN #0 tab 01/15/16 [Last Taken Unknown] Hydrophilic Ointment [Aquaphilic Ointment] 1 appl TP BID #1 jar 07/24/17 [Last Taken Unknown] insulin U- 100 regular human 100 unit/mL injection solution 20 unit SUBCUT AC 30 Days #1980 ml 12/08/17 [Last Taken Unknown] insulin detemir (U-100) 100 unit/mL (3 mL) subcutaneous pen 45 unit SUBCUT DAILY #15 ml 12/08/17 [Last Taken Unknown] cholecalciferol (vitamin D3) 5,000 unit tablet 5,000 unit PO DAILY #90 tab 01/17/18 [Last Taken Unknown] diltiazem 60 mg tablet 60 mg PO TID #90 tab 01/17/18 [Last Taken Unknown] enalapril maleate 20 mg tablet 20 mg PO DAILY #30 tab 01/17/18 [Last Taken Unknown] hydralazine 10 mg tablet 5 mg PO TID #45 tab 01/17/18 [Last Taken Unknown] metoclopramide 10 mg tablet 10 mg PO ACHS #120 tab 01/17/18 [Last Taken Unknown] pravastatin 80 mg tablet 80 mg PO DAILY #90 tab 01/17/18 [Last Taken Unknown] aspirin 81 mg tablet,delayed release 81 mg PO DAILY #90 tab 01/23/18 [Last Taken Unknown] Allergies/Adverse Reactions: Allergies Allergy/AdvReac Type Severity Reaction Status Date / Time No Known Allergies Allergy Verified 12/08/17 09:35 - Planned Procedure Planned Procedure: OSTEOMYLITIS, HYPERGLYCEMIA Medication List Reviewed:: Yes Allergies Verified: Yes Medical History (Last Reviewed 02/17/18 @ 15:07 by Azam Stevenson CRNA) Diabetic nephropathy associated with type 2 diabetes mellitus (Chronic) Diabetic retinopathy associated with type 2 diabetes mellitus (Chronic) Stage 3 chronic kidney disease due to type 2 diabetes mellitus (Chronic) Diabetic foot ulcer (Chronic) Colon cancer Osteomyelitis Onset Date: 04/08/16 CKD (chronic kidney disease) stage 3, GFR 30-59 ml/min Onset Date: Unknown Cellulitis Onset Date: Unknown Diabetes Onset Date: Unknown Foot deformity Onset Date: Unknown Gastroparesis due to secondary diabetes Onset Date: Unknown Hypertension Onset Date: Unknown Peripheral neuropathy Onset Date: Unknown Surgical History (Last Reviewed 02/17/18 @ 15:07 by Azam Stevenson CRNA) Amputated toe of left foot Onset Date: 2008 History of back surgery Onset Date: 2011 History of colon resection Onset Date: 2009 Family History (Last Reviewed 02/17/18 @ 15:07 by Azam Stevenson CRNA) Other No pertinent family history - Family Anesthesia History Family History:: no untoward family reactions to anesthesia - Airway/Neck/Teeth Teeth Condition: intact Neck Exam: full range of motion Mallampatti Score: 2 Thyromental (T-M) distance: > 6 cm Mandibulo Hyoid distance: > 3 cm - Respiratory Respiratory Physical: decreased breath sounds Smoking Status: Former smoker Sleep Apnea currently treated: No Sleep Apnea by current assessment: No - Cardiovascular Cardiac History: hypertension Tolerate Activity: Poor Heart Sounds: Irregular - Anesthesia Assessment and Plan ASA Class: PS, IV, E Anesthesia Type Plan: Spinal Planned difficult intubation/equipment available: No
[2018-02-17] MEDS ORDERED: VANCOMYCIN HCL 0.75 GM in DEXTROSE 5 % IN WATER 250 ML IV SCH ×2 (15:15)
--- NOTE | 2018-02-17 16:23 | PN ---
Subjective - Date and Time Seen Date: 02/17/18 Time: 13:20 Subjective Narrative: Pt seen sitting in bedside chair. He is beginning to show signs of sepsis, and in the best interest of the patient, a BKA is recommended. Pt is in agreement with this plan at this time and Dr. Dick is in room to discuss surgery with him. Objective - Vitals Vitals: Last Vital Signs Temp 37.1 C 02/17/18 15:54 Pulse 89 02/17/18 14:36 Resp 18 02/17/18 14:36 BP 100/60 02/17/18 14:08 Pulse Ox 98 02/17/18 14:26 - Abnormal Lab Findings Abnormal Lab Findings: Abnormal Lab Results 02/16/18 02/16/18 02/16/18 Range/Units 16:41 19:46 23:46 WBC (4.0-10.5) K/mm3 RBC (4.7-6.0) M/mm3 Hgb (13.5-18.0) gm/dL Hct (42.0-52.0) % Band Neuts % (Manual) (0-2.0) % Lymphocytes % (Manual) (20-51) % Neutrophils # (Manual) (1.3-6.0) K/mm3 Monocytes # (Manual) (0.0-1.0) k/mm3 Sodium 125 L 124 L 125 L (132-142) mmol/L Plasma Sodium 129 L 128 L 127 L (130-142) mmol/L Potassium 4.7 H (3.4-4.6) mmol/L Chloride 90 L 90 L 93 L (97-106) mmol/L Carbon Dioxide 21.4 L 21.7 L 21.0 L (24-32.6) mmol/L Anion Gap 18.1 H 17.0 H 15.3 H (6.8-13.8) mmol/L BUN 33 H 34 H 36 H (6-23) mg/dL Creatinine 2.38 H 2.60 H 2.70 H (0.4-1.4) mg/dL Est GFR (Non-Af Amer) 29 L 27 L 25 L (60-130) mL/min Random Glucose 341 H 341 H 235 H D (70-110) mg/dL Lactic Acid, Venous (0.4-2.0) mmol/L ALT 17 L 18 L 18 L (19-67) U/L Albumin 2.6 L 2.5 L 2.2 L (3.4-5.0) gm/dl 02/17/18 02/17/18 02/17/18 Range/Units 05:58 05:58 09:49 WBC 17.4 H (4.0-10.5) K/mm3 RBC 3.74 L (4.7-6.0) M/mm3 Hgb 10.8 L (13.5-18.0) gm/dL Hct 31.9 L (42.0-52.0) % Band Neuts % (Manual) 12 H (0-2.0) % Lymphocytes % (Manual) 10 L (20-51) % Neutrophils # (Manual) 11.8 H (1.3-6.0) K/mm3 Monocytes # (Manual) 1.6 H (0.0-1.0) k/mm3 Sodium 125 L (132-142) mmol/L Plasma Sodium 127 L (130-142) mmol/L Potassium (3.4-4.6) mmol/L Chloride 93 L (97-106) mmol/L Carbon Dioxide 20.1 L (24-32.6) mmol/L Anion Gap 16.0 H (6.8-13.8) mmol/L BUN 39 H (6-23) mg/dL Creatinine 3.35 H D (0.4-1.4) mg/dL Est GFR (Non-Af Amer) 20 L (60-130) mL/min Random Glucose 238 H (70-110) mg/dL Lactic Acid, Venous 3.6 H* (0.4-2.0) mmol/L ALT 15 L (19-67) U/L Albumin 1.9 L (3.4-5.0) gm/dl 02/17/18 Range/Units 13:02 WBC (4.0-10.5) K/mm3 RBC (4.7-6.0) M/mm3 Hgb (13.5-18.0) gm/dL Hct (42.0-52.0) % Band Neuts % (Manual) (0-2.0) % Lymphocytes % (Manual) (20-51) % Neutrophils # (Manual) (1.3-6.0) K/mm3 Monocytes # (Manual) (0.0-1.0) k/mm3 Sodium (132-142) mmol/L Plasma Sodium (130-142) mmol/L Potassium (3.4-4.6) mmol/L Chloride (97-106) mmol/L Carbon Dioxide (24-32.6) mmol/L Anion Gap (6.8-13.8) mmol/L BUN (6-23) mg/dL Creatinine (0.4-1.4) mg/dL Est GFR (Non-Af Amer) (60-130) mL/min Random Glucose (70-110) mg/dL Lactic Acid, Venous 2.6 H* (0.4-2.0) mmol/L ALT (19-67) U/L Albumin (3.4-5.0) gm/dl - Exam Exam Narrative: No physical exam performed on visit. He is scheduled for BKA today with Dr. Dick. Assessment/Plan - Problems/Diagnosis (1) Ulcer of foot due to diabetes Problem: Chronic Qualifiers: Diabetic foot ulcer location: midfoot Diabetes mellitus type: type 2 Laterality: left Non-pressure ulcer stage: with necrosis of bone Qualified Code(s): E11.621 - Type 2 diabetes mellitus with foot ulcer; L97.424 - 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 (2) Osteomyelitis Problem: Acute Qualifiers: Osteomyelitis type: subacute Osteomyelitis location: foot Laterality: left Qualified Code(s): M86.272 - Subacute osteomyelitis, left ankle and foot Narrative: Agree with plan for BKA today. Will sign off on patient at this time. Will plan to establish care for routine foot exams in my office once he is recovered from surgery.
[2018-02-17] MEDS ORDERED: ceFAZolin SODIUM/DEXTROSE,ISO 2 GM/50 ML BAG IV ONE (16:25)
[2018-02-17] MEDS ORDERED: RINGER'S SOLUTION,LACTATED 1,000 ML IV PRN (17:21)
--- NOTE | 2018-02-17 18:29 | PN ---
Subjective - Date and Time Seen Date: 02/17/18 Time: 12:40 Subjective Narrative: Mr. Hunter had another event of hypotension this morning. Septic workup showed a rise in his lactic acid level and white count of 19,000. He was bolused with a liter of normal saline and put on 125 mL/h drip and his pressure is stabilized. He is sitting up and alert and conversant and when I visited him at noon hour. He has been on both Cipro and vancomycin. The foot culture shows its resistant to this ciprofloxacin and has grown out methicillin-resistant staph aureus. There is also a gram-negative bacillus that will probably be Pseudomonas. Dr. jordan has been aware of the events after the morning and believes that amputation is the only option at this point so he will undergo a BKA later today. I have spoken with our pathologist who states that the tissue sample that was taken at initial culture shows infection of the bone fragment that was presented. I spoken with our Pharm.D. about which antibiotics are most appropriate and since he's having an amputation she believed that the vancomycin is still the appropriate choice but because of his renal status the dose needed to be reduced. We also discussed possibly using Cubicin or Zosyn and would if he was not having an amputation. In addition, this morning he had developed some congestion in the right chest and I ordered a chest x-ray shows a new developing right lower lobe pneumonia. It is uncertain if this is a new primary infection or receded from the foot infection. He does not seem to be toxic with the pneumonia as he is not febrile and he is only having occasional nonproductive cough. He does say that he has a little discomfort in the right chest with deep inspiration. He was prepared for and taken to the operating room this afternoon and time of this dictation is still not out of surgery or at least out of recovery. He will go to the special care unit upon returning from surgery. He also had a PICC line placed earlier today. Objective - Review of Systems Generalized/Overall Review: Reports: Weakness. Denies: Chills, Fever EENTM: Reports: No Symptoms Reported Respiratory: Reports: Cough, Other - Scattered rhonchi right anterior and lateral chest. Denies: Shortness of Breath, Orthopnea, Stridor, Wheezing Cardiac: Reports: No Symptoms Reported Abdominal: Reports: No Symptoms Reported Genitourinary Symptoms: Reports: No Symptoms Reported Musculoskeletal Complaints: Reports: No Symptoms Reported Neurological: Reports: No Symptoms Reported, Numbness - Bilateral lower extremities Skin: Reports: No Symptoms Reported - Ulcerated defect in the foot with osteomyelitis Endocrine: Reports: No Symptoms Reported Misc: All systems neg except as marked - Vitals Vitals: Last Vital Signs Temp 37.1 C 02/17/18 15:54 Pulse 89 02/17/18 14:36 Resp 18 02/17/18 14:36 BP 100/60 02/17/18 14:08 Pulse Ox 98 02/17/18 14:26 - Abnormal Lab Findings Abnormal Lab Findings: Abnormal Lab Results 02/16/18 02/16/18 02/17/18 Range/Units 19:46 23:46 05:58 WBC 17.4 H (4.0-10.5) K/mm3 RBC 3.74 L (4.7-6.0) M/mm3 Hgb 10.8 L (13.5-18.0) gm/dL Hct 31.9 L (42.0-52.0) % Band Neuts % (Manual) 12 H (0-2.0) % Lymphocytes % (Manual) 10 L (20-51) % Neutrophils # (Manual) 11.8 H (1.3-6.0) K/mm3 Monocytes # (Manual) 1.6 H (0.0-1.0) k/mm3 Sodium 124 L 125 L (132-142) mmol/L Plasma Sodium 128 L 127 L (130-142) mmol/L Potassium 4.7 H (3.4-4.6) mmol/L Chloride 90 L 93 L (97-106) mmol/L Carbon Dioxide 21.7 L 21.0 L (24-32.6) mmol/L Anion Gap 17.0 H 15.3 H (6.8-13.8) mmol/L BUN 34 H 36 H (6-23) mg/dL Creatinine 2.60 H 2.70 H (0.4-1.4) mg/dL Est GFR (Non-Af Amer) 27 L 25 L (60-130) mL/min Random Glucose 341 H 235 H D (70-110) mg/dL Lactic Acid, Venous (0.4-2.0) mmol/L ALT 18 L 18 L (19-67) U/L Albumin 2.5 L 2.2 L (3.4-5.0) gm/dl 02/17/18 02/17/18 02/17/18 Range/Units 05:58 09:49 13:02 WBC (4.0-10.5) K/mm3 RBC (4.7-6.0) M/mm3 Hgb (13.5-18.0) gm/dL Hct (42.0-52.0) % Band Neuts % (Manual) (0-2.0) % Lymphocytes % (Manual) (20-51) % Neutrophils # (Manual) (1.3-6.0) K/mm3 Monocytes # (Manual) (0.0-1.0) k/mm3 Sodium 125 L (132-142) mmol/L Plasma Sodium 127 L (130-142) mmol/L Potassium (3.4-4.6) mmol/L Chloride 93 L (97-106) mmol/L Carbon Dioxide 20.1 L (24-32.6) mmol/L Anion Gap 16.0 H (6.8-13.8) mmol/L BUN 39 H (6-23) mg/dL Creatinine 3.35 H D (0.4-1.4) mg/dL Est GFR (Non-Af Amer) 20 L (60-130) mL/min Random Glucose 238 H (70-110) mg/dL Lactic Acid, Venous 3.6 H* 2.6 H* (0.4-2.0) mmol/L ALT 15 L (19-67) U/L Albumin 1.9 L (3.4-5.0) gm/dl - Exam Constitutional: Present: Alert, Oriented x3, Cooperative, Well developed, Mild distress, Middle aged, Looks Older than stated age ENT Exam: Present: normal ENT inspection, hearing grossly normal, pharynx normal, TMs normal Neck: Present: non-tender, full range of motion, supple, normal inspection Breasts: Present: Exam deferred Respiratory: Present: decreased breath sounds, rhonchi - Right lower lobe Cardiovascular/Chest: Present: normal peripheral pulses, regular rate, rhythm, no chest tenderness, no edema, no gallop, no JVD, no murmur, no rub Abdomen: Present: Normal bowel sounds, soft, nontender, nondistended, no rebound tenderness, no hepatospenomegaly, no masses /Rectal: Present: Exam deferred Extremity: Present: normal range of motion, inflammation - In the infected foot, slow capillary refill Skin Exam: Present: warm/dry, no cyanosis, pallor Lymphatic: Present: no adenopathy Neurologic: Present: wooden box maker II-XII nml as tested Appearance: Present: appropriate appearance, disheveled, impaired insight Eye contact: Present: cooperative, good eye contact, decreased rate of speech Thoughts: Present: normal thought pattern, no apparent hallucination Assessment/Plan Plan Narrative: 1. Prepare for BKA this afternoon 2. Resuscitative efforts described above from this morning sepsis event. 3. Started on respiratory therapy with RT treatments and flutter device. 4. Continue vancomycin at the appropriate dose. Pharmacy will help adjust that dose today. - Problems/Diagnosis (1) Osteomyelitis Problem: Acute (2) Ulcer of foot due to diabetes Problem: Chronic Qualifiers: Diabetic foot ulcer location: midfoot Diabetes mellitus type: type 2 Laterality: left Non-pressure ulcer stage: with necrosis of bone Qualified Code(s): E11.621 - Type 2 diabetes mellitus with foot ulcer; L97.424 - 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 (3) Hypertension Problem: Chronic Qualifiers: Hypertension type: essential hypertension Qualified Code(s): I10 - Essential (primary) hypertension (4) Peripheral neuropathy Problem: Chronic Qualifiers: Peripheral neuropathy type: polyneuropathy associated with underlying disease Qualified Code(s): G63 - Polyneuropathy in diseases classified elsewhere (5) Foot deformity, bilateral Problem: Chronic (6) MRSA (methicillin resistant Staphylococcus aureus) carrier Problem: Chronic (7) Poorly controlled diabetes mellitus Problem: Chronic (8) CKD (chronic kidney disease) stage 3, GFR 30-59 ml/min Problem: Chronic (9) Sepsis Problem: Acute Qualifiers: Sepsis type: methicillin resistant Staphylococcus aureus Qualified Code(s): A41.02 - Sepsis due to Methicillin resistant Staphylococcus aureus (10) Acute kidney injury superimposed on CKD Problem: Acute (11) Diabetic nephropathy associated with type 2 diabetes mellitus Problem: Chronic (12) Pneumonia Problem: Acute Qualifiers: Pneumonia type: due to unspecified organism Laterality: right Lung location: lower lobe of lung Qualified Code(s): J18.1 - Lobar pneumonia, unspecified organism Narrative: This may be a new primary pneumonia but also may be seated from his osteomyelitis infection. At this point the organism is unknown.
--- NOTE | 2018-02-17 18:53 | OR ---
Operative Report - Dictated Report Narrative: Date: 02/17/2018 Surgeon: Arden Dick M.D. Computerized Machine Fabric Cutter: Walter Gillespie PA-C Anesthesia: General plus local Preoperative diagnosis: Left foot osteomyelitis, chronic nonhealing diabetic foot ulcer Postoperative diagnosis: Left foot osteomyelitis, chronic nonhealing diabetic foot ulcer Procedure: Left below-knee amputation Estimated blood loss: None Tourniquet time: 53 Minutes at 300 millimeters mercury Specimens: Lower leg and foot for disposal Complications: None Indications: Teddy is a 62-year-old male with poorly controlled diabetes who has been dealing with a chronic, nonhealing left foot ulcer for the last 10 years. He developed signs of acute infection and MRI demonstrated osteomyelitis of the cuboid. He developed a lactic acidosis on the floor as well as positive blood cultures. Given his chronic nonhealing wound and signs of systemic infection, I counseled him that I recommended urgent below-knee amputation to eradicate his infection as well as give him a functional left lower extremity. I discussed the risks of surgery with the patient including, but not limited to, persistent infection, wound complications, need for higher level amputation, phantom limb pain, and risks with anesthesia. Procedure: After a timeout, anesthetic consisting of 2 g of Ancef was administered. A sandbag bump was placed under the operative hip and the operative leg was placed on a bone foam ramp. A well-padded tourniquet was applied to the operative thigh. The operative extremity was then prepped and draped in usual sterile fashion. The operative leg was exsanguinated with an Esmarch bandage and the tourniquet was inflated to 300 mmHg. Attention was turned to marking out our soft tissue flaps. A abigail for anterior flap was made approximately 10 cm distal to the tibial tubercle. The anterior flap was marked out to an include two thirds of the total circumference and a longer posterior flap was marked out encompassing roughly one third of the overall circumference. This was incised circumferentially with a sharp knife down to the level of the fascia. The fascia was incised and sharp dissection was carried out through the anterior compartment. The superficial and deep peroneal nerves were identified, injected with 1% ropivacaine, and sharply divided with a knife under mild tension. The anterior tibial vessels were identified and ligated with a silk tie. The periosteum was elevated off the tibia and we made a abigail for bone cuts partially to have several meters proximal to our skin flap. The tibia was stripped of soft tissue circumferentially and 2 blunt Homans were placed. The tibial cut was then made with an oscillating saw. The anterior aspect was then beveled and the edges were smoothed. The fibula was then identified and stripped of its soft tissue circumferentially. Protecting the underlying soft tissues, the fibula was transected with an oscillating saw approximately 1 cm proximal to the level of our tibial cut. We then turned our attention to the posterior musculature. Sharp dissection with a knife was carried out through the musculature in a beveled fashion. The tibial nerve was identified, injected with 1% ropivacaine, and sharply transected with a knife under mild tension. The posterior tibial vessels were identified and ligated with silk ties. At this point the tourniquet was let down and hemostasis was obtained with a combination of direct pressure and electrocautery. Any remaining bleeding vessels were ligated with silk ties. There was minimal remaining bleeding and it was felt that a drain was not necessary. The wound was then copiously irrigated with normal saline. A 2.0 mm drill bit was used to drill 4 holes through the anteromedial aspect of the tibia. A #2 FiberWire was used to tenodese the gastrocnemius and soleus fascia to the tibia creating a muscular pad underneath the cut end of the tibia. The remainder of the anterior and posterior fascia was brought together with #1 Vicryl suture. The skin flaps were then sewn together in a layered fashion with 3-0 Vicryl in an interrupted deep dermal fashion followed by a running 3-0 nylon. The incision was then dressed with Xeroform, 4 x 4's, soft roll, and an SAMINA wrap. Patient was then awoken and transferred to postanesthesia care in stable condition. All sponge, sharp, and instrument counts were correct prior to closing the wounds.
[2018-02-17] MEDS ORDERED: ROPIVACAINE HCL 10 MG/ML IJ ONE (18:55)
--- NOTE | 2018-02-17 19:00 | ANES ---
Post Anesthesia Discharge - Transfer of Care Transfer of Care handoff given to nurse: Yes - Discharge from PACU Discharge from PACU when meets criteria: Yes - Discharge to ASU Discharge to ASU-no complications/pt stable: Yes
--- NOTE | 2018-02-17 19:15 | ANES ---
Anesthesia Pre Procedure Eval Vitals/Labs: Last Vital Signs Temp 36.3 C 02/17/18 19:10 Pulse 97 02/17/18 19:10 Resp 18 02/17/18 19:10 BP 124/65 02/17/18 19:10 Pulse Ox 97 02/17/18 19:10 HOME MEDICATIONS Acetaminophen [Tylenol] 650 mg PO QID PRN #0 tab 01/15/16 [Last Taken Unknown] Hydrophilic Ointment [Aquaphilic Ointment] 1 appl TP BID #1 jar 07/24/17 [Last Taken Unknown] insulin U- 100 regular human 100 unit/mL injection solution 20 unit SUBCUT AC 30 Days #1980 ml 12/08/17 [Last Taken Unknown] insulin detemir (U-100) 100 unit/mL (3 mL) subcutaneous pen 45 unit SUBCUT DAILY #15 ml 12/08/17 [Last Taken Unknown] cholecalciferol (vitamin D3) 5,000 unit tablet 5,000 unit PO DAILY #90 tab 01/17/18 [Last Taken Unknown] diltiazem 60 mg tablet 60 mg PO TID #90 tab 01/17/18 [Last Taken Unknown] enalapril maleate 20 mg tablet 20 mg PO DAILY #30 tab 01/17/18 [Last Taken Unknown] hydralazine 10 mg tablet 5 mg PO TID #45 tab 01/17/18 [Last Taken Unknown] metoclopramide 10 mg tablet 10 mg PO ACHS #120 tab 01/17/18 [Last Taken Unknown] pravastatin 80 mg tablet 80 mg PO DAILY #90 tab 01/17/18 [Last Taken Unknown] aspirin 81 mg tablet,delayed release 81 mg PO DAILY #90 tab 01/23/18 [Last Taken Unknown] Allergies/Adverse Reactions: Allergies Allergy/AdvReac Type Severity Reaction Status Date / Time No Known Allergies Allergy Verified 12/08/17 09:35 - Planned Procedure Planned Procedure: Left BKA Medication List Reviewed:: Yes Allergies Verified: Yes Medical History (Last Reviewed 02/17/18 @ 19:13 by Oliver Fournier CRNA) Diabetic nephropathy associated with type 2 diabetes mellitus (Chronic) Diabetic retinopathy associated with type 2 diabetes mellitus (Chronic) Stage 3 chronic kidney disease due to type 2 diabetes mellitus (Chronic) Diabetic foot ulcer (Chronic) Colon cancer Osteomyelitis Onset Date: 04/08/16 CKD (chronic kidney disease) stage 3, GFR 30-59 ml/min Onset Date: Unknown Cellulitis Onset Date: Unknown Diabetes Onset Date: Unknown Foot deformity Onset Date: Unknown Gastroparesis due to secondary diabetes Onset Date: Unknown Hypertension Onset Date: Unknown Peripheral neuropathy Onset Date: Unknown Surgical History (Last Reviewed 02/17/18 @ 19:13 by Oliver Fournier CRNA) Amputated toe of left foot Onset Date: 2008 History of back surgery Onset Date: 2011 History of colon resection Onset Date: 2009 Family History (Last Reviewed 02/17/18 @ 19:13 by Oliver Fournier CRNA) Other No pertinent family history - Family Anesthesia History Family History:: no untoward family reactions to anesthesia, no familial bleeding tendencies, no family history of clotting disorders, no family history of premature - Airway/Neck/Teeth Within Normal Limits:: Yes Mallampatti Score: 2 Thyromental (T-M) distance: > 6 cm Mandibulo Hyoid distance: > 3 cm - Respiratory Respiratory Physical: decreased breath sounds Smoking Status: Former smoker Discussed smoking cessation including day of surgery: No Sleep Apnea currently treated: No Sleep Apnea by current assessment: No Discussed Risks/Treatment of IRVIN: No - Cardiovascular Tolerate Activity: Poor Heart Sounds: S1 & S2, Regular - Anesthesia Assessment and Plan ASA Class: PS, IV, E Anesthesia Type Plan: General LMA
--- NOTE | 2018-02-17 20:54 | ANES ---
Post Anesthesia Assessment - Vital Signs Vitals: Last Vital Signs Temp 37.0 C 02/17/18 19:46 Pulse 97 02/17/18 19:46 Resp 16 02/17/18 19:46 BP 133/60 02/17/18 19:46 Pulse Ox 96 02/17/18 19:46 Airway Patency: Normal - Mental Status Level Of Consciousness: Awake - N/V Assessment Nausea/Vomiting Presence: None Dehydration:: No
[2018-02-17] MEDS: NORMAL SALINE 1,000 ML IV PRN (21:01)
[2018-02-17] MEDS: PANTOPRAZOLE SODIUM 40 MG in NORMAL SALINE 100 ML IV SCH (21:01)
[2018-02-17] MEDS: ROSUVASTATIN CALCIUM 10 MG TABLET PO SCH (21:08)
[2018-02-17] MEDS: LACTOBACILLUS ACIDOPHILUS 100 CAP BTL PO SCH (21:09)
[2018-02-17] MEDS: ENOXAPARIN SODIUM 30 MG/0.3 ML SYRG SC SCH (21:09)
[2018-02-18] MEDS: HYDROcodone/ACETAMINOPHEN 1 EACH TABLET PO PRN ×3 (00:06→20:45)
[2018-02-18] MEDS: CIPROFLOXACIN IN 5 % DEXTROSE 400 MG/200 ML BAG IV SCH ×2 (04:17→19:22)
[2018-02-18 05:41] LABS: Anion Gap 16.7 mmol/L (6.8-13.8); Calcium * 7.7 mg/dL (7.9-10.9); Carbon Dioxide 18.3 mmol/L (24-32.6); Estimated Creat Clear 21.1
[2018-02-18 05:52] LABS: Hematocrit 29.4 % (42.0-52.0); Hemoglobin 9.8 gm/dL (13.5-18.0); Mean Cell Volume 85.2 fl (78-100); Mean Corpuscular Hemoglobin 28.4 pg (27-31); Mean Corpuscular Hgb Conc 33.3 g/dl (32-36); Mean Platelet Volume 10.3 fl (8-11.3); Platelet Count 297 K/mm3 (150-450); Red Blood Count 3.45 M/mm3 (4.7-6.0); Red Cell Distribution Width 13.4 % (11.5-14.0); White Blood Count 16.9 K/mm3 (4.0-10.5)
[2018-02-18 05:55] LABS: BUN/Creatinine Ratio 11.8 (9.0-21.6)
[2018-02-18] MEDS ORDERED: ceFAZolin SODIUM 1 GM VIAL IV PRN (06:00)
[2018-02-18 06:38] LABS: Total Cells Counted 100
[2018-02-18 06:41] LABS: Band 20 % (0-2.0); Lymphocyte 2 % (20-51); Monocyte 4 % (0-9); Neutrophil 74 % (42-75); Neutrophil # 12.5 K/mm3 (1.3-6.0); Platelet Estimate Normal (NORMAL); RBC Morphology Normal (NORMAL)
[2018-02-18] MEDS: METOCLOPRAMIDE HCL 10 MG TABLET PO SCH ×4 (07:50→22:04)
[2018-02-18] MEDS: INSULIN REGULAR, HUMAN 100 UNITS/ML VIAL SC SCH ×7 (07:50→22:02)
--- NOTE | 2018-02-18 09:38 | PN ---
Subjective - Date and Time Seen Date: 02/18/18 Time: 09:24 Subjective Narrative: Mr. Hunter is doing well postop day #1. He is alert and conversant. He appears to be feeling some better. He states that his stump wound is very tender and has had some pain issues through the night. Other than the pain in this time he is in no distress this morning. Still not coughing significantly. Laboratory work this morning reveals MRSA and all 4 blood cultures. The gram- negative bacillus cultured from the wound and bone is as yet unidentified. His lactic acid is still slightly elevated but improved at 2.1. The white count has dropped slightly to 16,900 and still with a left shift in the differential. Auscultation of the chest shows few scattered crackles. There is no respiratory distress, tachypnea, wheezing, or friction rub. A few adventitious rhonchi is all that is heard. Is heard best in the right lower anterior lateral chest. The left chest is clear. The heart has a slightly tacky rate but regular rhythm. The stump wound is wrapped and dressed. Orthopedics will manage that. Objective - Review of Systems Generalized/Overall Review: Reports: Weakness EENTM: Reports: No Symptoms Reported Respiratory: Reports: No Symptoms Reported, Cough - Occasionally Cardiac: Reports: No Symptoms Reported Abdominal: Reports: No Symptoms Reported Genitourinary Symptoms: Reports: No Symptoms Reported Musculoskeletal Complaints: Reports: Other - Stump pain from his BKA Neurological: Reports: No Symptoms Reported Skin: Reports: No Symptoms Reported Endocrine: Reports: No Symptoms Reported - Vitals Vitals: Last Vital Signs Temp 36.6 C 02/18/18 06:55 Pulse 71 02/18/18 06:55 Resp 14 02/18/18 06:55 BP 120/60 02/18/18 06:55 Pulse Ox 93 02/18/18 06:55 - Abnormal Lab Findings Abnormal Lab Findings: Abnormal Lab Results 02/17/18 02/17/18 02/18/18 Range/Units 09:49 13:02 05:15 WBC 16.9 H (4.0-10.5) K/mm3 RBC 3.45 L (4.7-6.0) M/mm3 Hgb 9.8 L (13.5-18.0) gm/dL Hct 29.4 L (42.0-52.0) % Band Neuts % (Manual) 20 H (0-2.0) % Lymphocytes % (Manual) 2 L (20-51) % Neutrophils # (Manual) 12.5 H (1.3-6.0) K/mm3 Lymphocytes # (Manual) 0.3 L (1.5-3.5) k/mm3 Sodium (132-142) mmol/L Plasma Sodium (130-142) mmol/L Chloride (97-106) mmol/L Carbon Dioxide (24-32.6) mmol/L Anion Gap (6.8-13.8) mmol/L BUN (6-23) mg/dL Creatinine (0.4-1.4) mg/dL Est GFR (Non-Af Amer) (60-130) mL/min Random Glucose (70-110) mg/dL Lactic Acid, Venous 3.6 H* 2.6 H* (0.4-2.0) mmol/L Calcium (7.9-10.9) mg/dL 02/18/18 02/18/18 Range/Units 05:15 05:15 WBC (4.0-10.5) K/mm3 RBC (4.7-6.0) M/mm3 Hgb (13.5-18.0) gm/dL Hct (42.0-52.0) % Band Neuts % (Manual) (0-2.0) % Lymphocytes % (Manual) (20-51) % Neutrophils # (Manual) (1.3-6.0) K/mm3 Lymphocytes # (Manual) (1.5-3.5) k/mm3 Sodium 127 L (132-142) mmol/L Plasma Sodium 128 L (130-142) mmol/L Chloride 96 L (97-106) mmol/L Carbon Dioxide 18.3 L (24-32.6) mmol/L Anion Gap 16.7 H (6.8-13.8) mmol/L BUN 47 H (6-23) mg/dL Creatinine 4.00 H D (0.4-1.4) mg/dL Est GFR (Non-Af Amer) 16 L (60-130) mL/min Random Glucose 184 H (70-110) mg/dL Lactic Acid, Venous 2.1 H (0.4-2.0) mmol/L Calcium 7.7 L (7.9-10.9) mg/dL - EKG/Xray Findings Interpretation: Reviewed by me - Exam Constitutional: Present: Alert, Oriented x3, Cooperative, Well developed, Well nourished, No distress ENT Exam: Present: normal ENT inspection, hearing grossly normal, pharynx normal, TMs normal Neck: Present: non-tender, full range of motion, supple, normal inspection, trachea midline Breasts: Present: Exam deferred Respiratory: Present: chest non-tender, crackles - Right lower lobe Cardiovascular/Chest: Present: normal peripheral pulses, tachycardia Abdomen: Present: Normal bowel sounds, soft, nontender, nondistended, no rebound tenderness, no hepatospenomegaly, no masses /Rectal: Present: Exam deferred Extremity: Present: normal range of motion, other - Status post left BKA day #1 Skin Exam: Present: normal color, warm/dry, no cyanosis Lymphatic: Present: no adenopathy Neurologic: Present: 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 Continue with vancomycin adjusted for renal insufficiency 2. Continue ciprofloxacin p.o. 3. Repeat chest x-ray tomorrow morning 4. Repeat CBC and CMP tomorrow morning. 5. If the reflex lactic acid today is still elevated and I will repeat a lactic acid level tomorrow morning. 6. As of this moment I anticipate he will be here through the weekend. If he were to be discharged this weekend it would be meaning he would go home to do self-care which I would anticipate to be both in possible dangerous. He is going to require continued vancomycin antibiotics until his blood count has returned to normal at least. - Problems/Diagnosis (1) Osteomyelitis Problem: Acute Qualifiers: Osteomyelitis type: acute hematogenous Osteomyelitis location: foot Laterality: left Qualified Code(s): M86.072 - Acute hematogenous osteomyelitis, left ankle and foot (2) Sepsis Problem: Acute Qualifiers: Sepsis type: methicillin resistant Staphylococcus aureus Qualified Code(s): A41.02 - Sepsis due to Methicillin resistant Staphylococcus aureus (3) Ulcer of foot due to diabetes Problem: Chronic Qualifiers: Diabetic foot ulcer location: midfoot Diabetes mellitus type: type 2 Laterality: left Non-pressure ulcer stage: with necrosis of bone Qualified Code(s): E11.621 - Type 2 diabetes mellitus with foot ulcer; L97.424 - 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 (4) Hypertension Problem: Chronic Qualifiers: Hypertension type: essential hypertension Qualified Code(s): I10 - Essential (primary) hypertension (5) Peripheral neuropathy Problem: Chronic Qualifiers: Peripheral neuropathy type: polyneuropathy associated with underlying disease Qualified Code(s): G63 - Polyneuropathy in diseases classified elsewhere (6) Foot deformity, bilateral Problem: Chronic (7) MRSA (methicillin resistant Staphylococcus aureus) carrier Problem: Chronic (8) Poorly controlled diabetes mellitus Problem: Chronic (9) CKD (chronic kidney disease) stage 3, GFR 30-59 ml/min Problem: Chronic (10) Acute kidney injury superimposed on CKD Problem: Acute (11) Diabetic nephropathy associated with type 2 diabetes mellitus Problem: Chronic (12) Pneumonia Problem: Acute Qualifiers: Pneumonia type: due to unspecified organism Laterality: right Lung location: lower lobe of lung Qualified Code(s): J18.1 - Lobar pneumonia, unspecified organism
[2018-02-18] MEDS: LACTOBACILLUS ACIDOPHILUS 100 CAP BTL PO SCH ×2 (09:46→22:03)
[2018-02-18] MEDS: DILTIAZEM HCL 60 MG TABLET PO SCH ×3 (09:47→17:11)
[2018-02-18] MEDS: hydrALAZINE HCL 10 MG TABLET PO SCH ×3 (09:47→17:11)
[2018-02-18] MEDS: DOCUSATE SODIUM 100 MG CAPSULE PO SCH (09:48)
[2018-02-18] MEDS: CHOLECALCIFEROL 5,000 UNIT TABLET PO SCH (09:48)
[2018-02-18] MEDS: ASPIRIN 81 MG TABLET.DR PO SCH (09:48)
[2018-02-18] MEDS: ENALAPRIL MALEATE 20 MG TABLET PO SCH (09:48)
[2018-02-18] MEDS: INSULIN DETEMIR 100 UNITS/ML VIAL SC SCH (09:49)
[2018-02-18] MEDS: HYDROPHILIC OINTMENT 454 APPL JAR TP SCH ×2 (09:49→22:08)
[2018-02-18] MEDS: NORMAL SALINE 1,000 ML IV PRN (10:00)
--- NOTE | 2018-02-18 12:07 | PN ---
Subjective - Date and Time Seen Date: 02/18/18 Time: 12:03 Subjective Narrative: No events overnight. Complaining of stump tenderness this morning. Does note some phantom foot sensation but this is not painful. White count and lactic acid decreased this morning. Objective - Vitals Vitals: Last Vital Signs Temp 37.2 C 02/18/18 10:24 Pulse 88 02/18/18 10:24 Resp 16 02/18/18 10:24 BP 116/64 02/18/18 10:24 Pulse Ox 94 02/18/18 10:24 - Abnormal Lab Findings Abnormal Lab Findings: Abnormal Lab Results 02/17/18 02/18/18 02/18/18 Range/Units 13:02 05:15 05:15 WBC 16.9 H (4.0-10.5) K/mm3 RBC 3.45 L (4.7-6.0) M/mm3 Hgb 9.8 L (13.5-18.0) gm/dL Hct 29.4 L (42.0-52.0) % Band Neuts % (Manual) 20 H (0-2.0) % Lymphocytes % (Manual) 2 L (20-51) % Neutrophils # (Manual) 12.5 H (1.3-6.0) K/mm3 Lymphocytes # (Manual) 0.3 L (1.5-3.5) k/mm3 Sodium (132-142) mmol/L Plasma Sodium (130-142) mmol/L Chloride (97-106) mmol/L Carbon Dioxide (24-32.6) mmol/L Anion Gap (6.8-13.8) mmol/L BUN (6-23) mg/dL Creatinine (0.4-1.4) mg/dL Est GFR (Non-Af Amer) (60-130) mL/min Random Glucose (70-110) mg/dL Lactic Acid, Venous 2.6 H* 2.1 H (0.4-2.0) mmol/L Calcium (7.9-10.9) mg/dL 02/18/18 Range/Units 05:15 WBC (4.0-10.5) K/mm3 RBC (4.7-6.0) M/mm3 Hgb (13.5-18.0) gm/dL Hct (42.0-52.0) % Band Neuts % (Manual) (0-2.0) % Lymphocytes % (Manual) (20-51) % Neutrophils # (Manual) (1.3-6.0) K/mm3 Lymphocytes # (Manual) (1.5-3.5) k/mm3 Sodium 127 L (132-142) mmol/L Plasma Sodium 128 L (130-142) mmol/L Chloride 96 L (97-106) mmol/L Carbon Dioxide 18.3 L (24-32.6) mmol/L Anion Gap 16.7 H (6.8-13.8) mmol/L BUN 47 H (6-23) mg/dL Creatinine 4.00 H D (0.4-1.4) mg/dL Est GFR (Non-Af Amer) 16 L (60-130) mL/min Random Glucose 184 H (70-110) mg/dL Lactic Acid, Venous (0.4-2.0) mmol/L Calcium 7.7 L (7.9-10.9) mg/dL - Exam Exam Narrative: Gen: A&Ox4, NAD Resp: breathing non-labored CV: RRR MSK: stump appropriately tender, dressings c/d/i, mild pain with gentle PROM of knee Assessment/Plan Plan Narrative: 62-year-old male with chronic nonhealing diabetic ulcer of left foot, osteomyelitis of cuboid, and sepsis now status post left below-knee amputation on 02/18/2018. -Oral pain meds. Monitor for phantom limb pain. -plan to change dressing and check incision before discharge. -Continue care per family medicine. -Will give additional orthopedic recommendations before discharge.
[2018-02-18] MEDS: VANCOMYCIN HCL 0.75 GM in DEXTROSE 5 % IN WATER 250 ML IV SCH ×2 (13:34)
--- NOTE | 2018-02-18 18:23 | ANES ---
Anesthesia Procedure Note Procedure Note: ANESTHESIA PROCEDURE NOTE Date of Procedure: 02/18/2017 Time of procedure: 1800. Performed by: JESUS Arroyo CRNA, MSN Preprocedure diagnosis: Sepsis, status post below-knee amputation. Post procedure diagnosis: Same. Procedure: Venipuncture for IV access. Indications: Sepsis, antibiotic therapy. Findings: See below. Details of the procedure: The patient was prepped with Betadine and alcohol, a #24-gauge IV was started in the left forearm. The IV catheter and loop were secured and flushed with normal saline solution. EBL: Minimal. Fluids: N/A. Specimen: N/A. Post procedure condition: The patient tolerated the procedure well. No complications were noted. Thank you for this consultation. Baljit Caputo CRNA, MSN
[2018-02-18] MEDS: PANTOPRAZOLE SODIUM 40 MG in NORMAL SALINE 100 ML IV SCH (20:45)
[2018-02-18] MEDS: ALBUTEROL SULFATE/IPRATROPIUM 3 ML NEBU IH PRN (20:51)
[2018-02-18] MEDS: ROSUVASTATIN CALCIUM 10 MG TABLET PO SCH (22:04)
[2018-02-18] MEDS: ENOXAPARIN SODIUM 30 MG/0.3 ML SYRG SC SCH (22:05)
[2018-02-19] MEDS: ALBUTEROL SULFATE/IPRATROPIUM 3 ML NEBU IH PRN (00:31)
[2018-02-19] MEDS ORDERED: ALBUTEROL SULFATE 2.5 MG/0.5 ML VIAL.NEB IH PRN (00:51)
[2018-02-19] MEDS: ALBUTEROL SULFATE/IPRATROPIUM 3 ML NEBU IH SCH ×6 (02:45→22:33)
[2018-02-19] MEDS: CIPROFLOXACIN IN 5 % DEXTROSE 400 MG/200 ML BAG IV SCH ×2 (05:11→17:36)
[2018-02-19] MEDS: NORMAL SALINE 1,000 ML IV PRN (05:11)
[2018-02-19 06:19] LABS: Hematocrit 29.4 % (42.0-52.0); Hemoglobin 9.8 gm/dL (13.5-18.0); Mean Corpuscular Hemoglobin 28.3 pg (27-31); Mean Corpuscular Hgb Conc 33.3 g/dl (32-36); Mean Platelet Volume 10.1 fl (8-11.3); Neutrophil # 13.6 K/mm3 (1.3-6.0); Neutrophil % 86.2 % (42-75.0); Platelet Count 348 K/mm3 (150-450); Red Blood Count 3.46 M/mm3 (4.7-6.0); Red Cell Distribution Width 13.7 % (11.5-14.0); White Blood Count 15.8 K/mm3 (4.0-10.5)
[2018-02-19 06:36] LABS: Albumin * 1.7 gm/dl (3.4-5.0); Anion Gap 17.6 mmol/L (6.8-13.8); BUN/Creatinine Ratio 14.5 (9.0-21.6); Bilirubin, Total 0.4 mg/dL (0.0-1.1); Ca. Corrected For Albumin 9.3 mg/dL (8.4-10.2); Calcium * 7.8 mg/dL (7.9-10.9); Carbon Dioxide 19.8 mmol/L (24-32.6); Potassium 4.4 mmol/L (3.4-4.6); Total Protein 6.1 gm/dL (6.2-8.2)
[2018-02-19] MEDS: METOCLOPRAMIDE HCL 10 MG TABLET PO SCH ×4 (07:12→21:49)
[2018-02-19] MEDS: INSULIN REGULAR, HUMAN 100 UNITS/ML VIAL SC SCH ×7 (07:13→21:48)
[2018-02-19] MEDS: ASPIRIN 81 MG TABLET.DR PO SCH (08:36)
[2018-02-19] MEDS: HYDROcodone/ACETAMINOPHEN 1 EACH TABLET PO PRN ×2 (08:36→13:51)
[2018-02-19] MEDS: hydrALAZINE HCL 10 MG TABLET PO SCH ×3 (08:36→17:29)
[2018-02-19] MEDS: CHOLECALCIFEROL 5,000 UNIT TABLET PO SCH (08:36)
[2018-02-19] MEDS: LACTOBACILLUS ACIDOPHILUS 100 CAP BTL PO SCH ×2 (08:36→21:47)
[2018-02-19] MEDS: DILTIAZEM HCL 60 MG TABLET PO SCH ×3 (08:36→17:29)
[2018-02-19] MEDS: DOCUSATE SODIUM 100 MG CAPSULE PO SCH (08:37)
[2018-02-19] MEDS: HYDROPHILIC OINTMENT 454 APPL JAR TP SCH ×2 (08:37→21:47)
[2018-02-19] MEDS: ENALAPRIL MALEATE 20 MG TABLET PO SCH (08:37)
[2018-02-19] MEDS: INSULIN DETEMIR 100 UNITS/ML VIAL SC SCH (08:37)
[2018-02-19] MEDS: VANCOMYCIN HCL 0.75 GM in DEXTROSE 5 % IN WATER 250 ML IV SCH ×2 (13:52)
[2018-02-19] MEDS ORDERED: FUROSEMIDE 10 MG/ML VIAL IV ONE ×2 (15:00→21:15)
--- NOTE | 2018-02-19 15:04 | PN ---
Subjective - Date and Time Seen Date: 02/19/18 Time: 14:42 Subjective Narrative: Doing well Post op day #2 until this afternoon when he has developed course rhonchibilaterally but R>L. O2 sat is 93%. color is good and breathing is not labored. Neck veins are not distended and the HJR is neg. at 15 deg. No peripheral edema. However he is ahead on fluids. I suspect he is mobilizing secretions from his RLL pneumonia. The Hb is 9.8 grams and is probably hemodilutional. The WBC continues to drop and is now 15.8 grams. His renal status has improved some with the creatinine is down to 3.18. The chest xray appears to be consolidating as the infiltrate is larger and more radioopaque with a small pleural effusion. Objective - Review of Systems Generalized/Overall Review: Reports: Weakness EENTM: Reports: No Symptoms Reported Respiratory: Reports: Cough, Shortness of Breath, Stridor Cardiac: Reports: No Symptoms Reported Abdominal: Reports: No Symptoms Reported Genitourinary Symptoms: Reports: No Symptoms Reported Musculoskeletal Complaints: Reports: Other - BKA Stump pain LLE Neurological: Reports: No Symptoms Reported Skin: Reports: No Symptoms Reported Endocrine: Reports: No Symptoms Reported Misc: All systems neg except as marked - Vitals Vitals: Last Vital Signs Temp 36.5 C 02/19/18 13:57 Pulse 91 02/19/18 14:23 Resp 28 H 02/19/18 14:23 BP 145/61 02/19/18 13:57 Pulse Ox 93 02/19/18 14:23 - Abnormal Lab Findings Abnormal Lab Findings: Abnormal Lab Results 02/19/18 02/19/18 Range/Units 05:45 05:45 WBC 15.8 H (4.0-10.5) K/mm3 RBC 3.46 L (4.7-6.0) M/mm3 Hgb 9.8 L (13.5-18.0) gm/dL Hct 29.4 L (42.0-52.0) % Immature Gran % (Auto) 2.10 H (0.001-0.429) % Immature Gran # (Auto) 0.33 H (0.000-0.0310) K/mm3 Neutrophils % 86.2 H (42-75.0) % Lymphocytes % 4.6 L (20-51) % Neutrophils # 13.6 H (1.3-6.0) K/mm3 Lymphocytes # 0.72 L (1.5-3.5) k/mm3 Monocytes # 1.1 H (0.0-1.0) k/mm3 Sodium 131 L (132-142) mmol/L Carbon Dioxide 19.8 L (24-32.6) mmol/L Anion Gap 17.6 H (6.8-13.8) mmol/L BUN 46 H (6-23) mg/dL Creatinine 3.18 H D (0.4-1.4) mg/dL Est GFR (Non-Af Amer) 21 L D (60-130) mL/min Random Glucose 164 H (70-110) mg/dL Calcium 7.8 L (7.9-10.9) mg/dL AST 56 H (0-48) U/L ALT 16 L (19-67) U/L Total Protein 6.1 L (6.2-8.2) gm/dL Albumin 1.7 L (3.4-5.0) gm/dl - EKG/Xray Findings Interpretation: Reviewed by me - Exam Constitutional: Present: Alert, Oriented x3, Cooperative, Well developed, Well nourished, Mild distress ENT Exam: Present: normal ENT inspection Neck: Present: non-tender, full range of motion Breasts: Present: Nontender Respiratory: Present: chest non-tender, crackles, rhonchi, expiration (prolonged), other - mild tachypnea (21) Cardiovascular/Chest: Present: normal peripheral pulses, regular rate, rhythm, no chest tenderness, no edema, no gallop, no JVD, no murmur, no rub Abdomen: Present: Normal bowel sounds, soft, nontender /Rectal: Present: Exam deferred Extremity: Present: normal range of motion, other - LLE BKA. Stump incision healing well. Appearance: Present: disheveled, impaired insight Eye contact: Present: cooperative, normal speech Thoughts: Present: normal thought pattern Assessment/Plan Plan Narrative: Diurese once with Furosemide 40 mg IV. RT tx. use the flutter device fequently. Repeat lab and CXR again in the morning. - Problems/Diagnosis (1) Osteomyelitis Problem: Acute Qualifiers: Osteomyelitis type: acute hematogenous Osteomyelitis location: foot Laterality: left Qualified Code(s): M86.072 - Acute hematogenous osteomyelitis, left ankle and foot (2) Pneumonia Problem: Acute Qualifiers: Pneumonia type: due to unspecified organism Laterality: right Lung location: lower lobe of lung Qualified Code(s): J18.1 - Lobar pneumonia, unspecified organism (3) Sepsis Problem: Acute Qualifiers: Sepsis type: methicillin resistant Staphylococcus aureus Qualified Code(s): A41.02 - Sepsis due to Methicillin resistant Staphylococcus aureus (4) Ulcer of foot due to diabetes Problem: Chronic Qualifiers: Diabetic foot ulcer location: midfoot Diabetes mellitus type: type 2 Laterality: left Non-pressure ulcer stage: with necrosis of bone Qualified Code(s): E11.621 - Type 2 diabetes mellitus with foot ulcer; L97.424 - 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 (5) Hypertension Problem: Chronic Qualifiers: Hypertension type: essential hypertension Qualified Code(s): I10 - Essential (primary) hypertension (6) Peripheral neuropathy Problem: Chronic Qualifiers: Peripheral neuropathy type: polyneuropathy associated with underlying disease Qualified Code(s): G63 - Polyneuropathy in diseases classified elsewhere (7) Foot deformity, bilateral Problem: Chronic (8) MRSA (methicillin resistant Staphylococcus aureus) carrier Problem: Chronic (9) Poorly controlled diabetes mellitus Problem: Chronic (10) CKD (chronic kidney disease) stage 3, GFR 30-59 ml/min Problem: Chronic (11) Acute kidney injury superimposed on CKD Problem: Acute (12) Diabetic nephropathy associated with type 2 diabetes mellitus Problem: Chronic
[2018-02-19] MEDS: PANTOPRAZOLE SODIUM 40 MG in NORMAL SALINE 100 ML IV SCH (19:58)
[2018-02-19] MEDS: ENOXAPARIN SODIUM 30 MG/0.3 ML SYRG SC SCH (21:48)
[2018-02-19] MEDS: ROSUVASTATIN CALCIUM 10 MG TABLET PO SCH (21:49)
[2018-02-20] MEDS: ALBUTEROL SULFATE/IPRATROPIUM 3 ML NEBU IH SCH ×6 (02:19→23:00)
[2018-02-20] MEDS: CIPROFLOXACIN IN 5 % DEXTROSE 400 MG/200 ML BAG IV SCH ×2 (05:15→17:56)
[2018-02-20 05:39] LABS: Hematocrit 29.5 % (42.0-52.0); Mean Corpuscular Hemoglobin 29.2 pg (27-31); Mean Corpuscular Hgb Conc 33.9 g/dl (32-36); Mean Platelet Volume 9.9 fl (8-11.3); Neutrophil # 10.2 K/mm3 (1.3-6.0); Platelet Count 399 K/mm3 (150-450); Red Blood Count 3.43 M/mm3 (4.7-6.0); Red Cell Distribution Width 13.9 % (11.5-14.0); White Blood Count 12.6 K/mm3 (4.0-10.5)
[2018-02-20 05:54] LABS: Anion Gap 13.6 mmol/L (6.8-13.8); BUN/Creatinine Ratio 17.5 (9.0-21.6); Calcium * 8.1 mg/dL (7.9-10.9); Carbon Dioxide 22.9 mmol/L (24-32.6); Estimated Creat Clear 32.1; Potassium 4.5 mmol/L (3.4-4.6)
[2018-02-20] MEDS: INSULIN REGULAR, HUMAN 100 UNITS/ML VIAL SC SCH ×7 (07:32→22:05)
[2018-02-20] MEDS: METOCLOPRAMIDE HCL 10 MG TABLET PO SCH ×4 (07:32→22:00)
[2018-02-20] MEDS: ASPIRIN 81 MG TABLET.DR PO SCH (08:33)
[2018-02-20] MEDS: ENALAPRIL MALEATE 20 MG TABLET PO SCH (08:33)
[2018-02-20] MEDS: hydrALAZINE HCL 10 MG TABLET PO SCH ×3 (08:33→17:08)
[2018-02-20] MEDS: DOCUSATE SODIUM 100 MG CAPSULE PO SCH (08:34)
[2018-02-20] MEDS: LACTOBACILLUS ACIDOPHILUS 100 CAP BTL PO SCH ×2 (08:34→21:59)
[2018-02-20] MEDS: DILTIAZEM HCL 60 MG TABLET PO SCH ×3 (08:34→17:08)
[2018-02-20] MEDS: INSULIN DETEMIR 100 UNITS/ML VIAL SC SCH (08:34)
[2018-02-20] MEDS: CHOLECALCIFEROL 5,000 UNIT TABLET PO SCH (08:35)
[2018-02-20] MEDS: HYDROPHILIC OINTMENT 454 APPL JAR TP SCH ×2 (08:35→21:59)
[2018-02-20] MEDS: HYDROcodone/ACETAMINOPHEN 1 EACH TABLET PO PRN ×2 (08:38→17:07)
[2018-02-20] MEDS: VANCOMYCIN HCL 0.75 GM in DEXTROSE 5 % IN WATER 250 ML IV SCH ×2 (14:43)
[2018-02-20] MEDS ORDERED: BISACODYL 5 MG TABLET.DR PO ONE (16:51)
--- NOTE | 2018-02-20 18:25 | PN ---
Subjective - Date and Time Seen Date: 02/20/18 Time: 18:12 Subjective Narrative: Having a better day. Sitting up in chair and eating supper. Still coughing a lot and is now occasionally productive. No resporatory distress. mildly tachypneic 22 bpm. Hg up to 10 grams. Creatinine improved to 2.68 and EGFT to 26. WBCs down to 12,600. He had about 1200cc urine OP from the lasix yesterday. Lungs have bilateral adventitious rhonchi R>L. Cough is minimally productive. Stump appears to be doing well. Objective - Review of Systems Generalized/Overall Review: Reports: No Symptoms Reported EENTM: Reports: No Symptoms Reported Respiratory: Reports: Cough, Shortness of Breath Cardiac: Reports: No Symptoms Reported Abdominal: Reports: No Symptoms Reported Genitourinary Symptoms: Reports: No Symptoms Reported Musculoskeletal Complaints: Reports: Other - L. Lower leg stump pain. Better today. Neurological: Reports: No Symptoms Reported Skin: Reports: No Symptoms Reported Endocrine: Reports: No Symptoms Reported Misc: All systems neg except as marked - Vitals Vitals: Last Vital Signs Temp 36.2 C 02/20/18 15:44 Pulse 89 02/20/18 18:05 Resp 20 02/20/18 18:05 BP 143/61 02/20/18 17:08 Pulse Ox 95 02/20/18 18:05 - Abnormal Lab Findings Abnormal Lab Findings: Abnormal Lab Results 02/20/18 02/20/18 Range/Units 05:25 05:25 WBC 12.6 H D (4.0-10.5) K/mm3 RBC 3.43 L (4.7-6.0) M/mm3 Hgb 10.0 L (13.5-18.0) gm/dL Hct 29.5 L (42.0-52.0) % Immature Gran % (Auto) 1.50 H (0.001-0.429) % Immature Gran # (Auto) 0.19 H (0.000-0.0310) K/mm3 Neutrophils % 81.0 H (42-75.0) % Lymphocytes % 6.0 L (20-51) % Monocytes % 10.1 H (0.0-9) % Neutrophils # 10.2 H (1.3-6.0) K/mm3 Lymphocytes # 0.75 L (1.5-3.5) k/mm3 Monocytes # 1.3 H (0.0-1.0) k/mm3 Sodium 130 L (132-142) mmol/L Carbon Dioxide 22.9 L (24-32.6) mmol/L BUN 46 H (6-23) mg/dL Creatinine 2.63 H D (0.4-1.4) mg/dL Est GFR (Non-Af Amer) 26 L D (60-130) mL/min Random Glucose 228 H D (70-110) mg/dL - Exam Constitutional: Present: Alert, Oriented x3, Cooperative, Well developed, Well nourished, Mild distress ENT Exam: Present: normal ENT inspection, hearing grossly normal, pharynx normal, TMs normal Neck: Present: non-tender, full range of motion, supple, normal inspection, trachea midline Breasts: Present: Nontender Respiratory: Present: chest non-tender, crackles, rhonchi, expiration (prolonged), plerual rub Cardiovascular/Chest: Present: normal peripheral pulses, regular rate, rhythm, no chest tenderness, no edema, no gallop, no JVD, no murmur, no rub Abdomen: Present: Normal bowel sounds, soft, nontender, nondistended /Rectal: Present: Exam deferred, External genitalia normal Extremity: Present: normal range of motion, non-tender, normal inspection, no pedal edema - Status post op Day #3 for [place] BKA. 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 Appearance: Present: appropriate appearance Eye contact: Present: cooperative, good eye contact Thoughts: Present: normal thought pattern, no apparent hallucination Assessment/Plan Plan Narrative: 1. morning lab 2. Discharge plan for SNF tomorrow. 3. Continue current ABX. - Problems/Diagnosis (1) Osteomyelitis Problem: Acute Qualifiers: Osteomyelitis type: acute hematogenous Osteomyelitis location: foot L aterality: left Qualified Code(s): M86.072 - Acute hematogenous osteomyelitis, left ankle and foot (2) Status post below knee amputation of left lower extremity Problem: Acute (3) Pneumonia Problem: Acute Qualifiers: Pneumonia type: due to unspecified organism Laterality: right Lung location: lower lobe of lung Qualified Code(s): J18.1 - Lobar pneumonia, unspecified organism (4) Sepsis Problem: Acute Qualifiers: Sepsis type: methicillin resistant Staphylococcus aureus Qualified Code(s): A41.02 - Sepsis due to Methicillin resistant Staphylococcus aureus (5) Ulcer of foot due to diabetes Problem: Chronic Qualifiers: Diabetic foot ulcer location: midfoot Diabetes mellitus type: type 2 Laterality: left Non-pressure ulcer stage: with necrosis of bone Qualified Code(s): E11.621 - Type 2 diabetes mellitus with foot ulcer; L97.424 - 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 (6) Hypertension Problem: Chronic Qualifiers: Hypertension type: essential hypertension Qualified Code(s): I10 - Essential (primary) hypertension (7) Peripheral neuropathy Problem: Chronic Qualifiers: Peripheral neuropathy type: polyneuropathy associated with underlying disease Qualified Code(s): G63 - Polyneuropathy in diseases classified elsewhere (8) Foot deformity, bilateral Problem: Chronic (9) MRSA (methicillin resistant Staphylococcus aureus) carrier Problem: Chronic (10) Poorly controlled diabetes mellitus Problem: Chronic (11) CKD (chronic kidney disease) stage 3, GFR 30-59 ml/min Problem: Chronic (12) Acute kidney injury superimposed on CKD Problem: Acute (13) Diabetic nephropathy associated with type 2 diabetes mellitus Problem: Chronic
[2018-02-20] MEDS: PANTOPRAZOLE SODIUM 40 MG in NORMAL SALINE 100 ML IV SCH (19:14)
[2018-02-20] MEDS: ROSUVASTATIN CALCIUM 10 MG TABLET PO SCH (21:59)
[2018-02-20] MEDS: ENOXAPARIN SODIUM 30 MG/0.3 ML SYRG SC SCH (22:00)
[2018-02-21] MEDS: ALBUTEROL SULFATE/IPRATROPIUM 3 ML NEBU IH SCH ×6 (02:38→23:27)
[2018-02-21] MEDS: CIPROFLOXACIN IN 5 % DEXTROSE 400 MG/200 ML BAG IV SCH ×2 (04:53→17:40)
[2018-02-21 07:08] LABS: Hematocrit 32.7 % (42.0-52.0); Hemoglobin 10.8 gm/dL (13.5-18.0); Mean Cell Volume 87.4 fl (78-100); Mean Corpuscular Hemoglobin 28.9 pg (27-31); Mean Platelet Volume 9.8 fl (8-11.3); Neutrophil # 9.1 K/mm3 (1.3-6.0); Neutrophil % 75.2 % (42-75.0); Platelet Count 454 K/mm3 (150-450); Red Blood Count 3.74 M/mm3 (4.7-6.0)
[2018-02-21 07:39] LABS: Albumin * 1.6 gm/dl (3.4-5.0); Anion Gap 14.6 mmol/L (6.8-13.8); BUN/Creatinine Ratio 20.8 (9.0-21.6); Bilirubin, Total 0.3 mg/dL (0.0-1.1); Calcium * 8.4 mg/dL (7.9-10.9); Carbon Dioxide 22.4 mmol/L (24-32.6)
[2018-02-21] MEDS: METOCLOPRAMIDE HCL 10 MG TABLET PO SCH ×4 (07:49→20:53)
[2018-02-21] MEDS: INSULIN REGULAR, HUMAN 100 UNITS/ML VIAL SC SCH ×7 (07:50→20:52)
[2018-02-21] MEDS: HYDROcodone/ACETAMINOPHEN 1 EACH TABLET PO PRN ×3 (07:55→20:53)
[2018-02-21] MEDS: HYDROPHILIC OINTMENT 454 APPL JAR TP SCH ×2 (10:00→20:51)
[2018-02-21] MEDS: hydrALAZINE HCL 10 MG TABLET PO SCH ×3 (10:01→17:37)
[2018-02-21] MEDS: ASPIRIN 81 MG TABLET.DR PO SCH (10:01)
[2018-02-21] MEDS: LACTOBACILLUS ACIDOPHILUS 100 CAP BTL PO SCH ×2 (10:01→20:52)
[2018-02-21] MEDS: DOCUSATE SODIUM 100 MG CAPSULE PO SCH (10:02)
[2018-02-21] MEDS: DILTIAZEM HCL 60 MG TABLET PO SCH ×3 (10:02→17:38)
[2018-02-21] MEDS: CHOLECALCIFEROL 5,000 UNIT TABLET PO SCH (10:02)
[2018-02-21] MEDS: ENALAPRIL MALEATE 20 MG TABLET PO SCH (10:02)
[2018-02-21] MEDS: INSULIN DETEMIR 100 UNITS/ML VIAL SC SCH (10:04)
--- NOTE | 2018-02-21 10:46 | PN ---
Subjective - Date and Time Seen Date: 02/21/18 Time: 07:30 Subjective Narrative: Patient reports no acute events. He states he is feeling better, he reports to phantom pain currently, he has soreness of his left lower leg stump. Objective - Vitals Vitals: Last Vital Signs Temp 36.1 C 02/21/18 09:59 Pulse 47 L 02/21/18 10:18 Resp 20 02/21/18 10:18 BP 144/70 02/21/18 10:02 Pulse Ox 96 02/21/18 10:08 - Abnormal Lab Findings Abnormal Lab Findings: Abnormal Lab Results 02/21/18 02/21/18 Range/Units 06:33 06:33 WBC 12.0 H (4.0-10.5) K/mm3 RBC 3.74 L (4.7-6.0) M/mm3 Hgb 10.8 L (13.5-18.0) gm/dL Hct 32.7 L (42.0-52.0) % Plt Count 454 H (150-450) K/mm3 Immature Gran % (Auto) 2.10 H (0.001-0.429) % Immature Gran # (Auto) 0.25 H (0.000-0.0310) K/mm3 Neutrophils % 75.2 H (42-75.0) % Lymphocytes % 8.6 L (20-51) % Monocytes % 12.0 H (0.0-9) % Neutrophils # 9.1 H (1.3-6.0) K/mm3 Lymphocytes # 1.03 L (1.5-3.5) k/mm3 Monocytes # 1.4 H (0.0-1.0) k/mm3 Sodium 131 L (132-142) mmol/L Potassium 5.0 H (3.4-4.6) mmol/L Carbon Dioxide 22.4 L (24-32.6) mmol/L Anion Gap 14.6 H (6.8-13.8) mmol/L BUN 43 H (6-23) mg/dL Creatinine 2.07 H D (0.4-1.4) mg/dL Est GFR (Non-Af Amer) 35 L D (60-130) mL/min Random Glucose 175 H (70-110) mg/dL ALT 16 L (19-67) U/L Albumin 1.6 L (3.4-5.0) gm/dl - Exam Constitutional: Present: Alert, Cooperative, No distress Extremity: Present: other - LLE--> bandages c/d/i, mild ttp over distal stump, 4+/5 hip flexion, SILT Eye contact: Present: cooperative Assessment/Plan Plan Narrative: 62-year-old male with chronic nonhealing diabetic ulcer of left foot, osteomyelitis of cuboid, and sepsis now status post left below-knee amputation on 02/18/2018. -Oral pain meds. Monitor for phantom limb pain. -plan to change dressing and check incision before discharge. -Continue care per family medicine. -Continue ambulation with crutches -f/u at 2 weeks post-op in orthopedic outpatient clinic -PO diet as tolerated -DVT prophylaxis lovenox for 10 days post-op followed by 325mg aspirin daily for 4 weeks - Problems/Diagnosis (1) Ulcer of foot due to diabetes Problem: Chronic Qualifiers: Diabetic foot ulcer location: midfoot Diabetes mellitus type: type 2 Laterality: left Non-pressure ulcer stage: with necrosis of bone Qualified Code(s): E11.621 - Type 2 diabetes mellitus with foot ulcer; L97.424 - 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
--- NOTE | 2018-02-21 13:19 | DS ---
(1) Osteomyelitis Problem: Acute Qualifiers: Osteomyelitis type: acute hematogenous Osteomyelitis location: foot Laterality: left Qualified Code(s): M86.072 - Acute hematogenous osteomyelitis, left ankle and foot (2) Status post below knee amputation of left lower extremity Problem: Acute (3) Pneumonia Problem: Acute Qualifiers: Pneumonia type: due to unspecified organism Laterality: right Lung location: lower lobe of lung Qualified Code(s): J18.1 - Lobar pneumonia, unspecified organism (4) Sepsis Problem: Acute Qualifiers: Sepsis type: methicillin resistant Staphylococcus aureus Qualified Code(s): A41.02 - Sepsis due to Methicillin resistant Staphylococcus aureus (5) Ulcer of foot due to diabetes Problem: Chronic Qualifiers: Diabetic foot ulcer location: midfoot Diabetes mellitus type: type 2 Laterality: left Non-pressure ulcer stage: with necrosis of bone Qualified Code(s): E11.621 - Type 2 diabetes mellitus with foot ulcer; L97.424 - Non-p ressure chronic ulcer of left heel and midfoot with necrosis of bone (6) Hypertension Problem: Chronic Qualifiers: Hypertension type: essential hypertension Qualified Code(s): I10 - Essential (primary) hypertension (7) Peripheral neuropathy Problem: Chronic Qualifiers: Peripheral neuropathy type: polyneuropathy associated with underlying disease Qualified Code(s): G63 - Polyneuropathy in diseases classified elsewhere (8) Foot deformity, bilateral Problem: Chronic (9) MRSA (methicillin resistant Staphylococcus aureus) carrier Problem: Chronic (10) Poorly controlled diabetes mellitus Problem: Chronic (11) CKD (chronic kidney disease) stage 3, GFR 30-59 ml/min Problem: Chronic (12) Acute kidney injury superimposed on CKD Problem: Acute (13) Diabetic nephropathy associated with type 2 diabetes mellitus Problem: Chronic Description of Stay: Teddy Hunter is a 62 yo. wh. male who developed a diabetic foot ulcer that became an osteonyelitis of the cuboid bone and marked infamatory changes noted in the rest of the foot. He became septic with hypotension, leukocytosis and left shift in differential, febrile, and with uncontrolled blood sugars.He also developed a right lower lobe pneumonia. The organism is unknown. It may have been a separate primary infection but I can not rule out seeding from the MRSA or Enterobactor from his foot wound or bacteremia. He has had 8 days of treatment of Vancomycin and his blood parameters are showing improvement. He underwent a L BKA 4 days ago and it appears to be healing without incident. He is getting daily dressing changes. There is no evidence of wound infection. The chest x-ray has appeared more consolidated yesterday was unchanged from the day before in appearance. His white count dropped from 19,800-12,000. His hemoglobin is hovering around 10 g and probably reflects chronic kidney disease. Blood sugars on admission were in the mid 300s and for the most part have been in the 100s since the amputation. Yesterday it was in the 200s. He is eating fairly well. He is assisting with his transfers. He is not in any respiratory distress although he still has a lot of adventitious rhonchi labs in the right chest. He continues to cough when he is talking. The cough has remained minimally productive. He will be discharged to [facility]. Procedures Performed: see notes below List Procedures: Left BKA, PICC line placement attempted twice but not successfully. He is ch anged to oral Bactrim bid for another week. Repeat cxr in 2 weeks. Continue RT tx qid plus his acapella flutter device. Results and Findings: Lab Pending Results 02/15/18 14:51: pCO2 24.4 L, pO2 80.1 L, HCO3 15.1 L, Total CO2 15.9 L, Base Excess -7.8 L, ABG pH 7.41, ABG O2 Sat (Measured) 96.2 02/15/18 15:35: WBC 15.8 H, RBC 4.61 L, Hgb 13.3 L, Hct 40.2 L, MCV 87.2, MCH 28.9, MCHC 33.1, RDW 12.9, Plt Count 329, MPV 9.9, Immature Gran % (Auto) 0.40, Immature Gran # (Auto) 0.07 H, Neutrophils % 91.7 H, Lymphocytes % 2.9 L, Monocytes % 4.9, Eosinophils % 0.0, Basophils % 0.1, Nucleated RBC % 0.0, Neutrophils # 14.5 H, Lymphocytes # 0.46 L, Monocytes # 0.8, Eosinophils # 0.0, Absolute Basophils 0.0 02/15/18 15:35: Sodium 124 L, Plasma Sodium 128 L, Potassium 4.3, Chloride 89 L, Carbon Dioxide 20.4 L, Anion Gap 18.9 H, BUN 31 H, Creatinine 2.38 H, Est GFR (Non-Af Amer) 29 L, BUN/Creatinine Ratio 13.0, Random Glucose 333 H, Calcium 9.4, Calcium Adj for Albumin 10.0, Total Bilirubin 0.8, AST 12, ALT 10 L, Alkaline Phosphatase 67, Total Protein 8.5 H, Albumin 2.9 L, Serum Ketones Positive - 20mg/dl H 02/15/18 19:55: Sodium 126 L, Plasma Sodium 131, Potassium 4.5, Chloride 92 L, Carbon Dioxide 23.3 L, Anion Gap 15.2 H, BUN 32 H, Creatinine 2.12 H, Est GFR (Non-Af Amer) 34 L, BUN/Creatinine Ratio 15.1, Random Glucose 389 H, Calcium 8.1, Calcium Adj for Albumin 9.1, Total Bilirubin 0.5, AST 8, ALT 8 L, Alkaline Phosphatase 53, C-Reactive Prot, Quant 51.2 H, Total Protein 6.9, Albumin 2.3 L 02/15/18 19:55: Lactic Acid, Venous 1.6 02/15/18 19:55: ESR 115 H 02/15/18 19:55: Serum Ketones Negative 02/15/18 20:31: Urine Opiates Screen Negative, Barbiturate Screen Negative, Ur Phencyclidine Scrn Negative, Urine Amphetamine Negative, U Benzodiazepines Scrn Negative, Urine Cocaine Screen Negative, Urine Marijuana (THC) Negative 02/15/18 20:31: Urine Color Yellow, Urine Appearance Clear, Urine pH 5.5, Ur Specific [place] 1.015, Urine Protein 30 H, Urine Glucose (UA) >=1000 H, Urine Ketones 5, Urine Blood 25 H, Urine Nitrate Negative, Urine Bilirubin Negative, Prot Sulfosalicylic Acd 2+ H, Urine Urobilinogen Normal, Ur Leukocyte Esterase Negative, Urine RBC 0-5, Urine WBC 0-5, Ur Epithelial Cells 0-5, Urine Bacteria 1+ H, Hyaline Casts 0-5 H, Urine Culture Comments No culture indicated 02/15/18 21:20: pCO2 31.6 L, pO2 77.2 L, HCO3 20.2 L, Total CO2 21.2, Base Excess -3.3 L, ABG pH 7.42, ABG O2 Sat (Measured) 95.8 02/15/18 23:00: Lactic Acid, Venous 2.5 H* 02/16/18 03:46: Sodium 126 L, Plasma Sodium 128 L, Potassium 4.0, Chloride 93 L, Carbon Dioxide 22.2 L, Anion Gap 14.8 H, BUN 30 H, Creatinine 2.07 H, Est GFR (Non-Af Amer) 35 L, BUN/Creatinine Ratio 14.5, Random Glucose 234 H D, Calcium 8.1, Calcium Adj for Albumin 9.1, Total Bilirubin 0.4, AST 15, ALT 10 L, Alkaline Phosphatase 53, Total Protein 6.9, Albumin 2.3 L 02/16/18 08:00: Sodium 125 L, Plasma Sodium 127 L, Potassium 4.4, Chloride 92 L, Carbon Dioxide 21.9 L, Anion Gap 15.5 H, BUN 27 H, Creatinine 2.05 H, Est GFR (Non-Af Amer) 35 L, BUN/Creatinine Ratio 13.2, Random Glucose 241 H, Calcium 8.8, Calcium Adj for Albumin 9.6, Total Bilirubin 0.8, AST 18, ALT 12 L, Alkaline Phosphatase 66, Total Protein 8.0, Albumin 2.6 L 02/16/18 13:08: Sodium 124 L, Plasma Sodium 127 L, Potassium 4.3, Chloride 91 L, Carbon Dioxide 23.1 L, Anion Gap 14.2 H, BUN 30 H, Creatinine 2.22 H, Est GFR (Non-Af Amer) 32 L, BUN/Creatinine Ratio 13.5, Random Glucose 305 H, Calcium 8.6, Calcium Adj for Albumin 9.6, Total Bilirubin 0.5, AST 18, ALT 15 L, Alkaline Phosphatase 63, Total Protein 7.5, Albumin 2.4 L 02/16/18 16:41: Sodium 125 L, Plasma Sodium 129 L, Potassium 4.5, Chloride 90 L, Carbon Dioxide 21.4 L, Anion Gap 18.1 H, BUN 33 H, Creatinine 2.38 H, Est GFR (Non-Af Amer) 29 L, BUN/Creatinine Ratio 13.9, Random Glucose 341 H, Calcium 8.9, Calcium Adj for Albumin 9.7, Total Bilirubin 0.6, AST 23, ALT 17 L, Alkaline Phosphatase 69, Total Protein 7.9, Albumin 2.6 L 02/16/18 19:46: Sodium 124 L, Plasma Sodium 128 L, Potassium 4.7 H, Chloride 90 L, Carbon Dioxide 21.7 L, Anion Gap 17.0 H, BUN 34 H, Creatinine 2.60 H, Est GFR (Non-Af Amer) 27 L, BUN/Creatinine Ratio 13.1, Random Glucose 341 H, Calcium 8.7, Calcium Adj for Albumin 9.6, Total Bilirubin 0.6, AST 23, ALT 18 L, Alkaline Phosphatase 70, Total Protein 7.7, Albumin 2.5 L 02/16/18 23:46: Sodium 125 L, Plasma Sodium 127 L, Potassium 4.3, Chloride 93 L, Carbon Dioxide 21.0 L, Anion Gap 15.3 H, BUN 36 H, Creatinine 2.70 H, Est GFR (Non-Af Amer) 25 L, BUN/Creatinine Ratio 13.3, Random Glucose 235 H D, Calcium 8.5, Calcium Adj for Albumin 9.6, Total Bilirubin 0.4, AST 23, ALT 18 L, Alkaline Phosphatase 61, Total Protein 6.8, Albumin 2.2 L 02/17/18 05:58: WBC 17.4 H, RBC 3.74 L, Hgb 10.8 L, Hct 31.9 L, MCV 85.3, MCH 28.9, MCHC 33.9, RDW 13.1, Plt Count 272, MPV 10.5, Neutrophils % (Manual) 68, Band Neuts % (Manual) 12 H, Lymphocytes % (Manual) 10 L, Monocytes % (Manual) 9, Neutrophils # (Manual) 11.8 H, Lymphocytes # (Manual) 1.7, Monocytes # (Manual) 1.6 H, Atypic/Reactive Lymphs 1, Platelet Estimate Normal, RBC Morphology Normal 02/17/18 05:58: Sodium 125 L, Plasma Sodium 127 L, Potassium 4.1, Chloride 93 L, Carbon Dioxide 20.1 L, Anion Gap 16.0 H, BUN 39 H, Creatinine 3.35 H D, Est GFR (Non-Af Amer) 20 L, BUN/Creatinine Ratio 11.6, Random Glucose 238 H, Calcium 8.3, Calcium Adj for Albumin 9.7, Total Bilirubin 0.4, AST 21, ALT 15 L, Alkaline Phosphatase 57, Total Protein 6.4, Albumin 1.9 L 02/17/18 09:49: Lactic Acid, Venous 3.6 H* 02/17/18 13:02: Lactic Acid, Venous 2.6 H* 02/18/18 05:15: WBC 16.9 H, RBC 3.45 L, Hgb 9.8 L, Hct 29.4 L, MCV 85.2, MCH 28.4, MCHC 33.3, RDW 13.4, Plt Count 297, MPV 10.3, Neutrophils % (Manual) 74, Band Neuts % (Manual) 20 H, Lymphocytes % (Manual) 2 L, Monocytes % (Manual) 4, Neutrophils # (Manual) 12.5 H, Lymphocytes # (Manual) 0.3 L, Monocytes # (Manual) 0.7, Platelet Estimate Normal, RBC Morphology Normal 02/18/18 05:15: Lactic Acid, Venous 2.1 H 02/18/18 05:15: Sodium 127 L, Plasma Sodium 128 L, Potassium 4.0, Chloride 96 L, Carbon Dioxide 18.3 L, Anion Gap 16.7 H, BUN 47 H, Creatinine 4.00 H D, Est GFR (Non-Af Amer) 16 L, BUN/Creatinine Ratio 11.8, Random Glucose 184 H, Calcium 7.7 L 02/18/18 12:54: Vancomycin Trough 16.4 02/19/18 05:45: WBC 15.8 H, RBC 3.46 L, Hgb 9.8 L, Hct 29.4 L, MCV 85.0, MCH 28.3, MCHC 33.3, RDW 13.7, Plt Count 348, MPV 10.1, Immature Gran % (Auto) 2.10 H, Immature Gran # (Auto) 0.33 H, Neutrophils % 86.2 H, Lymphocytes % 4.6 L, Monocytes % 6.8, Eosinophils % 0.2, Basophils % 0.1, Nucleated RBC % 0.0, Neutrophils # 13.6 H, Lymphocytes # 0.72 L, Monocytes # 1.1 H, Eosinophils # 0.0, Absolute Basophils 0.0 02/19/18 05:45: Sodium 131 L, Plasma Sodium 132, Potassium 4.4, Chloride 98, Carbon Dioxide 19.8 L, Anion Gap 17.6 H, BUN 46 H, Creatinine 3.18 H D, Est GFR (Non-Af Amer) 21 L D, BUN/Creatinine Ratio 14.5, Random Glucose 164 H, Calcium 7.8 L, Calcium Adj for Albumin 9.3, Total Bilirubin 0.4, AST 56 H, ALT 16 L, Alkaline Phosphatase 82, Total Protein 6.1 L, Albumin 1.7 L 02/20/18 05:25: WBC 12.6 H D, RBC 3.43 L, Hgb 10.0 L, Hct 29.5 L, MCV 86.0, MCH 29.2, MCHC 33.9, RDW 13.9, Plt Count 399, MPV 9.9, Immature Gran % (Auto) 1.50 H, Immature Gran # (Auto) 0.19 H, Neutrophils % 81.0 H, Lymphocytes % 6.0 L, Monocytes % 10.1 H, Eosinophils % 1.2, Basophils % 0.2, Nucleated RBC % 0.0, Neutrophils # 10.2 H, Lymphocytes # 0.75 L, Monocytes # 1.3 H, Eosinophils # 0.2, Absolute Basophils 0.0 02/20/18 05:25: Sodium 130 L, Plasma Sodium 132, Potassium 4.5, Chloride 98, Carbon Dioxide 22.9 L, Anion Gap 13.6, BUN 46 H, Creatinine 2.63 H D, Est GFR (Non-Af Amer) 26 L D, BUN/Creatinine Ratio 17.5, Random Glucose 228 H D, Calcium 8.1 02/21/18 06:33: WBC 12.0 H, RBC 3.74 L, Hgb 10.8 L, Hct 32.7 L, MCV 87.4, MCH 28.9, MCHC 33.0, RDW 14.0, Plt Count 454 H, MPV 9.8, Immature Gran % (Auto) 2.10 H, Immature Gran # (Auto) 0.25 H, Neutrophils % 75.2 H, Lymphocytes % 8.6 L, Monocytes % 12.0 H, Eosinophils % 1.8, Basophils % 0.3, Nucleated RBC % 0.0, Neutrophils # 9.1 H, Lymphocytes # 1.03 L, Monocytes # 1.4 H, Eosinophils # 0.2, Absolute Basophils 0.0 02/21/18 06:33: Sodium 131 L, Plasma Sodium 132, Potassium 5.0 H, Chloride 99, Carbon Dioxide 22.4 L, Anion Gap 14.6 H, BUN 43 H, Creatinine 2.07 H D, Est GFR (Non-Af Amer) 35 L D, BUN/Creatinine Ratio 20.8, Random Glucose 175 H, Calcium 8.4, Calcium Adj for Albumin 10.0, Total Bilirubin 0.3, AST 43, ALT 16 L, Alkaline Phosphatase 105, Total Protein 7.0, Albumin 1.6 L Discharge Location: [facility] Disposition: SNF Condition: Stable Face to Face Encounter completed per [facility] Guidelines: No Level of Care: SNF Discharge Activity: Activity as tolerated Discharge Diet: Consistent carbs Halfway Therapy: Physicial Therapy, Occupation Therapy Referrals: Be Shah DO [Primary Care Provider] - Consultation Done:: Dr. hare Additional Patient Instructions (free text): WP[facility] or CC SNF at discharge. Daily dressing changes with the same methods used in the hospital setting. Follow up with Orthopedic Dr. Hare 03/07 at 2:15pm. Prescriptions (Any new or edited meds): Ciprofloxacin HCl 500 mg PO BID #14 tab Docusate Sodium [Colace] 100 mg PO DAILY #30 cap HYDROcodone/ACETAMINOPHEN [[place] 5-325] 1 ea PO Q4H PRN #60 tab PRN Reason: Pain Insulin Lispro [Humalog] 25 units SC AC #1 vial Pantoprazole Sodium [Protonix] 40 mg IV Q24H #30 vial Complete Home Medications List: Complete Home Medication List: Acetaminophen [Tylenol] 650 mg PO QID PRN #0 tab 01/15/16 Hydrophilic Ointment [Aquaphilic Ointment] 1 appl TP BID #1 jar 07/24/17 insulin detemir (U-100) 100 unit/mL (3 mL) subcutaneous pen 45 unit SUBCUT DAILY #15 ml 12/08/17 cholecalciferol (vitamin D3) 5,000 unit tablet 5,000 unit PO DAILY #90 tab 01/17/18 hydralazine 10 mg tablet 5 mg PO TID #45 tab 01/17/18 metoclopramide 10 mg tablet 10 mg PO ACHS #120 tab 01/17/18 pravastatin 80 mg tablet 80 mg PO DAILY #90 tab 01/17/18 aspirin 81 mg tablet,delayed release 81 mg PO DAILY #90 tab 01/23/18 Acetaminophen [Tylenol] 650 mg PO Q4H PRN tab 02/21/18 Albuterol Sulfate/Ipratropium [Duoneb 2.5-0.5MG/3ML Soln] 3 ml INHALATION Q4HRT nebu 02/21/18 Docusate Sodium [Colace] 100 mg PO DAILY #30 cap 02/21/18 HYDROcodone/ACETAMINOPHEN [[place] 5-325] 1 ea PO Q4H PRN #60 tab 02/21/18 Insulin Lispro [Humalog] 25 units SC AC #1 vial 02/21/18 Pantoprazole Sodium [Protonix] 40 mg IV Q24H #30 vial 02/21/18 Vancomycin HCl [Vancomycin] 0.75 gm IV Q24H vial 02/21/18 Pantoprazole Sodium 40 mg PO DAILY #30 tab 02/22/18 Sulfamethoxazole/Trimethoprim [Bactrim Ds] 1 tab PO BID #14 tab 02/22/18 amLODIPine BESYLATE [Norvasc] 10 mg PO DAILY #30 tab 02/22/18
[2018-02-21] MEDS ORDERED: VANCOMYCIN HCL LEVEL XX ONE (13:30)
[2018-02-21] MEDS: VANCOMYCIN HCL 0.75 GM in DEXTROSE 5 % IN WATER 250 ML IV SCH ×2 (14:29)
[2018-02-21] MEDS ORDERED: VANCOMYCIN HCL 1 GM in DEXTROSE 5 % IN WATER 250 ML IV SCH ×2 (14:30)
[2018-02-21] MEDS ORDERED: HEPARIN SOD.,PORCINE 100 UNITS/ML ONE (19:26)
[2018-02-21] MEDS ORDERED: HEPARIN SOD.,PORCINE 100 UNITS/ML IV SCH (19:30)
--- NOTE | 2018-02-21 20:29 | ANES ---
Anesthesia Procedure Note Procedure Note: ANESTHESIA PROCEDURE NOTE Date of Procedure: 02/21/2018. Time of procedure: 2009. Performed by: Oliver Fournier CRNA Gas Leak Inspector: None. Preprocedure diagnosis: Osteomyelitis. Post procedure diagnosis: Same. Procedure: Attempted ultrasound guided PICC line insertion. Indications: There is a 62-year-old male who is in need of a PICC line for antibiotic therapy. Findings: See below. Details of the procedure: Under ultrasound guidance the right arm basilic vein was visualized. Skin over the intended target site was cleansed with ChloraPrep. The patient was draped in sterile fashion. The skin over the intended target site was anesthetized with 1% lidocaine. Under direct ultrasound visualization the vein was cannulated with a 22-gauge IV catheter. Dark red blood was noted from the catheter. A 0.45 mm guidewire was inserted through the IV catheter and IV catheter was removed intact. A skin claire was made at the guidewire insertion site with a scalpel. The 5 [place] vessel dilator was inserted over the guidewire and the guidewire was removed intact. Dark red blood was noted from the vessel dilator. The PICC line was inserted to a depth of 52 cm and the vessel dilator was peeled away. Dark red blood was noted from both ports of the PICC line. PICC line was flushed with sterile normal saline solution. A sterile dressing was then applied over the PICC line insertion site. The chest x-ray revealed the catheter was coiled within the basilic vein and terminating in the vein at the level of the clavicle. The catheter was removed intact. Sterile dressing was applied to the insertion site after hemostasis was obtained. The procedure was attempted at the left basilic vein. Cannulation of the basilic vein was successful, however the guidewire could not be successfully inserted into the vein. Further attempts were aborted. A sterile 2 x 2 dressing was applied to the insertion site. EBL: Minimal. Fluids: N/A. Specimen: N/A. Post procedure condition: The patient tolerated the procedure well. No complications were noted. Thank you for this consultation. Oliver Fournier CRNA
[2018-02-21] MEDS: ROSUVASTATIN CALCIUM 10 MG TABLET PO SCH (20:52)
[2018-02-21] MEDS: ENOXAPARIN SODIUM 30 MG/0.3 ML SYRG SC SCH (20:52)
[2018-02-21] MEDS: PANTOPRAZOLE SODIUM 40 MG in NORMAL SALINE 100 ML IV SCH (20:56)
--- NOTE | 2018-02-21 21:47 | PN ---
Subjective - Date and Time Seen Date: 02/21/18 Time: 07:40 Subjective Narrative: Continues to be weak and coughing. No respiratory distress though. Trying to get a picc line placed. Two attempts this evening failed to be able to thread the catheter. I will discuss with Pharm D. and Imjames tomorrow morning. May consider a port. Cxr is unchanged. Objective - Review of Systems Generalized/Overall Review: Reports: Weakness EENTM: Reports: No Symptoms Reported Respiratory: Reports: Cough, Shortness of Breath Cardiac: Reports: No Symptoms Reported Abdominal: Reports: No Symptoms Reported Genitourinary Symptoms: Reports: No Symptoms Reported Musculoskeletal Complaints: Reports: Other - stump pain improving. wound healing Neurological: Reports: Numbness - bilat. lower extrems Skin: Reports: No Symptoms Reported Endocrine: Reports: No Symptoms Reported - Vitals Vitals: Last Vital Signs Temp 37.1 C 02/21/18 18:19 Pulse 84 02/21/18 20:37 Resp 24 H 02/21/18 20:37 BP 140/71 02/21/18 18:19 Pulse Ox 95 02/21/18 20:27 - Abnormal Lab Findings Abnormal Lab Findings: Abnormal Lab Results 02/21/18 02/21/18 Range/Units 06:33 06:33 WBC 12.0 H (4.0-10.5) K/mm3 RBC 3.74 L (4.7-6.0) M/mm3 Hgb 10.8 L (13.5-18.0) gm/dL Hct 32.7 L (42.0-52.0) % Plt Count 454 H (150-450) K/mm3 Immature Gran % (Auto) 2.10 H (0.001-0.429) % Immature Gran # (Auto) 0.25 H (0.000-0.0310) K/mm3 Neutrophils % 75.2 H (42-75.0) % Lymphocytes % 8.6 L (20-51) % Monocytes % 12.0 H (0.0-9) % Neutrophils # 9.1 H (1.3-6.0) K/mm3 Lymphocytes # 1.03 L (1.5-3.5) k/mm3 Monocytes # 1.4 H (0.0-1.0) k/mm3 Sodium 131 L (132-142) mmol/L Potassium 5.0 H (3.4-4.6) mmol/L Carbon Dioxide 22.4 L (24-32.6) mmol/L Anion Gap 14.6 H (6.8-13.8) mmol/L BUN 43 H (6-23) mg/dL Creatinine 2.07 H D (0.4-1.4) mg/dL Est GFR (Non-Af Amer) 35 L D (60-130) mL/min Random Glucose 175 H (70-110) mg/dL ALT 16 L (19-67) U/L Albumin 1.6 L (3.4-5.0) gm/dl - EKG/Xray Findings Interpretation: Reviewed by me - Exam Constitutional: Present: Alert, Oriented x3, Cooperative, Well developed, Well nourished, Mild distress ENT Exam: Present: normal ENT inspection, hearing grossly normal, pharynx normal, TMs normal Neck: Present: non-tender Breasts: Present: Exam deferred Respiratory: Present: chest non-tender, crackles, rhonchi, expiration (prolonged) Cardiovascular/Chest: Present: normal peripheral pulses Abdomen: Present: Normal bowel sounds, soft, nontender, nondistended, no rebound tenderness, no hepatospenomegaly, no masses /Rectal: Present: Exam deferred Extremity: Present: normal range of motion, non-tender Skin Exam: Present: normal color, warm/dry Lymphatic: Present: no adenopathy Neurologic: 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 lower extrems Appearance: Present: appropriate appearance Eye contact: Present: cooperative Thoughts: Present: normal thought pattern Assessment/Plan - Problems/Diagnosis (1) Osteomyelitis Problem: Acute Qualifiers: Osteomyelitis type: acute hematogenous Osteomyelitis location: foot Laterality: left Qualified Code(s): M86.072 - Acute hematogenous osteomyelitis, left ankle and foot (2) Status post below knee amputation of left lower extremity Problem: Acute (3) Pneumonia Problem: Acute Qualifiers: Pneumonia type: due to unspecified organism Laterality: right Lung location: lower lobe of lung Qualified Code(s): J18.1 - Lobar pneumonia, unspecified organism (4) Sepsis Problem: Acute Qualifiers: Sepsis type: methicillin resistant Staphylococcus aureus Qualified Code(s): A41.02 - Sepsis due to Methicillin resistant Staphylococcus aureus (5) Ulcer of foot due to diabetes Problem: Chronic Qualifiers: Diabetic foot ulcer location: midfoot Diabetes mellitus type: type 2 Laterality: left Non-pressure ulcer stage: with necrosis of bone Qualified Code(s): E11.621 - Type 2 diabetes mellitus with foot ulcer; L97.424 - 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 (6) Hypertension Problem: Chronic Qualifiers: Hypertension type: essential hypertension Qualified Code(s): I10 - Essential (primary) hypertension (7) Peripheral neuropathy Problem: Chronic Qualifiers: Peripheral neuropathy type: polyneuropathy associated with underlying disease Qualified Code(s): G63 - Polyneuropathy in diseases classified elsewhere (8) Foot deformity, bilateral Problem: Chronic (9) MRSA (methicillin resistant Staphylococcus aureus) carrier Problem: Chronic (10) Poorly controlled diabetes mellitus Problem: Chronic (11) CKD (chronic kidney disease) stage 3, GFR 30-59 ml/min Problem: Chronic (12) Acute kidney injury superimposed on CKD Problem: Acute (13) Diabetic nephropathy associated with type 2 diabetes mellitus Problem: Chronic
[2018-02-22] MEDS: ALBUTEROL SULFATE/IPRATROPIUM 3 ML NEBU IH SCH ×6 (02:07→22:08)
[2018-02-22] MEDS: CIPROFLOXACIN IN 5 % DEXTROSE 400 MG/200 ML BAG IV SCH (05:05)
[2018-02-22] MEDS: METOCLOPRAMIDE HCL 10 MG TABLET PO SCH ×4 (07:24→21:41)
[2018-02-22] MEDS: HYDROcodone/ACETAMINOPHEN 1 EACH TABLET PO PRN (07:24)
[2018-02-22] MEDS: INSULIN REGULAR, HUMAN 100 UNITS/ML VIAL SC SCH ×6 (07:25→17:04)
[2018-02-22] MEDS ORDERED: VANCOMYCIN HCL LEVEL XX ONE (09:30)
[2018-02-22] MEDS: LACTOBACILLUS ACIDOPHILUS 100 CAP BTL PO SCH ×2 (09:45→21:38)
[2018-02-22] MEDS: CHOLECALCIFEROL 5,000 UNIT TABLET PO SCH (09:45)
[2018-02-22] MEDS: DILTIAZEM HCL 60 MG TABLET PO SCH ×3 (09:45→17:34)
[2018-02-22] MEDS: ASPIRIN 81 MG TABLET.DR PO SCH (09:45)
[2018-02-22] MEDS: hydrALAZINE HCL 10 MG TABLET PO SCH ×3 (09:45→17:34)
[2018-02-22] MEDS: DOCUSATE SODIUM 100 MG CAPSULE PO SCH (09:46)
[2018-02-22] MEDS: HYDROPHILIC OINTMENT 454 APPL JAR TP SCH ×2 (09:48→21:38)
[2018-02-22] MEDS: INSULIN DETEMIR 100 UNITS/ML VIAL SC SCH (09:48)
[2018-02-22 09:50] LABS: Hemoglobin 10.2 gm/dL (13.5-18.0); Mean Cell Volume 88.2 fl (78-100); Mean Corpuscular Hemoglobin 28.1 pg (27-31); Mean Corpuscular Hgb Conc 31.9 g/dl (32-36); Mean Platelet Volume 9.1 fl (8-11.3); Neutrophil # 9.1 K/mm3 (1.3-6.0); Neutrophil % 80.2 % (42-75.0); Platelet Count 515 K/mm3 (150-450); Red Blood Count 3.63 M/mm3 (4.7-6.0); Red Cell Distribution Width 13.9 % (11.5-14.0); White Blood Count 11.3 K/mm3 (4.0-10.5)
[2018-02-22] MEDS: SULFAMETHOXAZOLE/TRIMETHOPRIM 1 TAB TABLET PO SCH ×2 (09:50→21:39)
[2018-02-22] MEDS: amLODIPine BESYLATE 10 MG TABLET PO SCH (09:51)
[2018-02-22] MEDS: ENALAPRIL MALEATE 20 MG TABLET PO SCH (09:56)
[2018-02-22 10:00] LABS: Anion Gap 15.6 mmol/L (6.8-13.8); BUN/Creatinine Ratio 19.4 (9.0-21.6); Calcium * 8.6 mg/dL (7.9-10.9); Estimated Creat Clear 44.2; Potassium 4.6 mmol/L (3.4-4.6)
[2018-02-22] MEDS ORDERED: INSULIN REGULAR, HUMAN 100 UNITS/ML VIAL SC SCH (17:50)
--- NOTE | 2018-02-22 18:05 | PN ---
Progess Note - Interim Date: 02/22/18 Time: 17:56 Narrative: 02/22/18 17:56 Teddy had a insulin reaction with glucose data 38. He was confused and diaphoretic. I reduced his insulin Humalog by 20% to 16 units. Leave the Levemir at 45 units. Also his discharge today was delayed because he is unable to get transportation. We'll try again tomorrow.
[2018-02-22] MEDS: ROSUVASTATIN CALCIUM 10 MG TABLET PO SCH (21:39)
[2018-02-22] MEDS: ENOXAPARIN SODIUM 30 MG/0.3 ML SYRG SC SCH (21:40)
[2018-02-23] MEDS: ALBUTEROL SULFATE/IPRATROPIUM 3 ML NEBU IH SCH ×3 (02:13→10:31)
[2018-02-23] MEDS ORDERED: PANTOPRAZOLE SODIUM 40 MG TABLET.EC PO SCH (07:00)
[2018-02-23] MEDS: METOCLOPRAMIDE HCL 10 MG TABLET PO SCH ×2 (07:14→12:18)
[2018-02-23] MEDS: HYDROcodone/ACETAMINOPHEN 1 EACH TABLET PO PRN ×2 (07:14→13:30)
[2018-02-23] MEDS: INSULIN LISPRO 100 UNITS/ML VIAL SC SCH ×2 (07:16→12:19)
[2018-02-23] MEDS: HYDROPHILIC OINTMENT 454 APPL JAR TP SCH (08:59)
[2018-02-23] MEDS: hydrALAZINE HCL 10 MG TABLET PO SCH ×2 (09:00→13:30)
[2018-02-23] MEDS: LACTOBACILLUS ACIDOPHILUS 100 CAP BTL PO SCH (09:00)
[2018-02-23] MEDS: SULFAMETHOXAZOLE/TRIMETHOPRIM 1 TAB TABLET PO SCH (09:00)
[2018-02-23] MEDS: DILTIAZEM HCL 60 MG TABLET PO SCH ×2 (09:00→12:18)
[2018-02-23] MEDS: ASPIRIN 81 MG TABLET.DR PO SCH (09:00)
[2018-02-23] MEDS: amLODIPine BESYLATE 10 MG TABLET PO SCH (09:01)
[2018-02-23] MEDS: CHOLECALCIFEROL 5,000 UNIT TABLET PO SCH (09:01)
[2018-02-23] MEDS: DOCUSATE SODIUM 100 MG CAPSULE PO SCH (09:01)
[2018-02-23] MEDS: INSULIN DETEMIR 100 UNITS/ML VIAL SC SCH (09:05)
[2018-02-23 10:18] LABS: Hematocrit 33.7 % (42.0-52.0); Hemoglobin 10.8 gm/dL (13.5-18.0); Mean Corpuscular Hemoglobin 28.2 pg (27-31); Neutrophil # 11.1 K/mm3 (1.3-6.0); Platelet Count 621 K/mm3 (150-450); Red Blood Count 3.83 M/mm3 (4.7-6.0); Red Cell Distribution Width 13.9 % (11.5-14.0); White Blood Count 13.5 K/mm3 (4.0-10.5)
[2018-02-23 10:24] LABS: Anion Gap 12.9 mmol/L (6.8-13.8); BUN/Creatinine Ratio 20.6 (9.0-21.6); Calcium * 8.9 mg/dL (7.9-10.9); Carbon Dioxide 27.2 mmol/L (24-32.6); Estimated Creat Clear 49.6; Potassium 5.1 mmol/L (3.4-4.6)
[2018-02-23 13:08] VITALS: BP 152/66
[2018-02-24] MEDS ORDERED: VANCOMYCIN HCL LEVEL XX ONE (13:30)
--- NOTE | 2018-03-08 17:35 | PN ---
Subjective - Date and Time Seen Date: 02/22/18 Time: 08:00 Subjective Narrative: Post op day #1. Sleepy but otherwise doing fair. Having a lot of pain in the stump. He has eaten and has been able to void. Procedure reexplained to him. Objective - Review of Systems Generalized/Overall Review: Reports: Malaise EENTM: Reports: No Symptoms Reported Respiratory: Reports: No Symptoms Reported Cardiac: Reports: No Symptoms Reported Abdominal: Reports: No Symptoms Reported Genitourinary Symptoms: Reports: No Symptoms Reported Musculoskeletal Complaints: Reports: Muscle Pain, Other - He had a BKA done yesterday and having a lot of stump pain. Neurological: Reports: No Symptoms Reported Skin: Reports: No Symptoms Reported Endocrine: Reports: No Symptoms Reported - Vitals Vitals: Last Vital Signs Temp 37.0 C 02/23/18 13:07 Pulse 91 02/23/18 13:30 Resp 18 02/23/18 13:07 BP 152/66 H 02/23/18 13:30 Pulse Ox 96 02/23/18 13:07 - Exam Constitutional: Present: Alert, Oriented x3, Cooperative, Well developed, Well nourished, Mild distress, Middle aged, Obese ENT Exam: Present: normal ENT inspection, hearing grossly normal, pharynx normal Neck: Present: non-tender, full range of motion, supple Breasts: Present: Exam deferred Respiratory: Present: chest non-tender, lungs clear, normal breath sounds Cardiovascular/Chest: Present: normal peripheral pulses, regular rate, rhythm, no chest tenderness, no edema, no gallop, no JVD, no murmur, no rub Abdomen: Present: Normal bowel sounds, soft, nontender, nondistended, no rebound tenderness /Rectal: Present: Exam deferred Extremity: Present: normal range of motion, non-tender, normal inspection, no pedal edema, no calf tenderness - except in the LLE due to amputation Skin Exam: Present: normal color Lymphatic: Present: no adenopathy Neurologic: 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: 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, no motor/sensory deficits, alert, normal mood/affect, oriented x 3 Appearance: Present: appropriate appearance, appropriate insight, no memory impairment, disheveled Eye contact: Present: cooperative, good eye contact, normal speech, avoids eye contact, refused to answer Thoughts: Present: normal thought pattern, no apparent hallucination Assessment/Plan - Problems/Diagnosis (1) Osteomyelitis Problem: Acute Qualifiers: Osteomyelitis type: acute hematogenous Osteomyelitis location: foot Laterality: left Qualified Code(s): M86.072 - Acute hematogenous osteomyelitis, left ankle and foot (2) Status post below knee amputation of left lower extremity Problem: Acute (3) Pneumonia Problem: Acute Qualifiers: Pneumonia type: due to unspecified organism Laterality: right Lung location: lower lobe of lung Qualified Code(s): J18.1 - Lobar pneumonia, unspecified organism (4) Sepsis Problem: Acute Qualifiers: Sepsis type: methicillin resistant Staphylococcus aureus Qualified Code(s): A41.02 - Sepsis due to Methicillin resistant Staphylococcus aureus (5) Ulcer of foot due to diabetes Problem: Chronic Qualifiers: Diabetic foot ulcer location: midfoot Diabetes mellitus type: type 2 Laterality: left Non-pressure ulcer stage: with necrosis of bone Qualified Code(s): E11.621 - Type 2 diabetes mellitus with foot ulcer; L97.424 - 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 (6) Hypertension Problem: Chronic Qualifiers: Hypertension type: essential hypertension Qualified Code(s): I10 - Essential (primary) hypertension (7) Peripheral neuropathy Problem: Chronic Qualifiers: Peripheral neuropathy type: polyneuropathy associated with underlying disease Qualified Code(s): G63 - Polyneuropathy in diseases classified elsewhere (8) Foot deformity, bilateral Problem: Chronic (9) MRSA (methicillin resistant Staphylococcus aureus) carrier Problem: Chronic (10) Poorly controlled diabetes mellitus Problem: Chronic (11) CKD (chronic kidney disease) stage 3, GFR 30-59 ml/min Problem: Chronic (12) Acute kidney injury superimposed on CKD Problem: Acute (13) Diabetic nephropathy associated with type 2 diabetes mellitus Problem: Chronic
== END 2018-02-23 13:45 | DRG 853 ==
LOC: ER 14:36 → MS 16:56
PROVIDERS: ADMIT Family Medicine; ATTEND Family Medicine
DX: N18.3 Chronic kidney disease, stage 3 (moderate); N17.9 Acute kidney failure, unspecified; E11.42 Type 2 diabetes mellitus with diabetic polyneuropathy; E11.22 Type 2 diabetes mellitus with diabetic chronic kidney disease; Z91.128 Patient's intentional underdosing of medication regimen for other reason; Z89.422 Acquired absence of other left toe(s); M21.961 Unspecified acquired deformity of right lower leg; Z85.038 Personal history of other malignant neoplasm of large intestine; Z90.49 Acquired absence of other specified parts of digestive tract; E11.65 Type 2 diabetes mellitus with hyperglycemia; Z87.891 Personal history of nicotine dependence; Z79.82 Long term (current) use of aspirin; E11.622 Type 2 diabetes mellitus with other skin ulcer; M86.072 Acute hematogenous osteomyelitis, left ankle and foot; E87.1 Hypo-osmolality and hyponatremia; Z68.29 Body mass index [BMI] 29.0-29.9, adult; I12.9 Hypertensive chronic kidney disease with stage 1 through stage 4 chronic kidney disease, or unspecified chronic kidney disease; A41.02 Sepsis due to Methicillin resistant Staphylococcus aureus; E11.40 Type 2 diabetes mellitus with diabetic neuropathy, unspecified; Z91.11 Patient's noncompliance with dietary regimen; M87.9 Osteonecrosis, unspecified; Z79.4 Long term (current) use of insulin; E66.3 Overweight; J18.1 Lobar pneumonia, unspecified organism; E86.0 Dehydration; M21.962 Unspecified acquired deformity of left lower leg; E87.2 Acidosis; E11.319 Type 2 diabetes mellitus with unspecified diabetic retinopathy without macular edema; J44.0 Chronic obstructive pulmonary disease with (acute) lower respiratory infection; E11.21 Type 2 diabetes mellitus with diabetic nephropathy
CPT/HCPCS: 36415; 36600; 71010; 71020; 71045; 71046; 73610; 73630; 73720; 80048; 80053; 80202; 80307; 81001; 82009; 82803; 83605; 85007; 85025; 85652; 86140; 87040; 87070; 87077; 87081; 87186; 88305; 88312; 93005; 94640; 94664; 96361; 96365; 96375; 97110; 97116; 97162; 97166; 97530; 97535; 99214; 99285; J2405